=== PATIENT | male | born 1940 | race Caucasian/White ===

== ENCOUNTER 2017-05-20 16:22 | Inpatient (IN) | payer MEDICARE ==
[~2017-05-20] VITALS: Ht 185.4 cm; Wt 68.0 kg
[~2017-05-20 16:22] MED LIST: ACET325T9 PO; ALBU8.5H6 IH; ALPR0.257 PO; CETI10TA16 PO; CITA10TA4 PO; FAMO40TA4 PO; FLUT16SP2 NS; GUAI400T63 PO; HYDR12.58 PO; IPRA3AMP IH; LACT1CAP2 PO; LISI10TA2 PO; LISI2.5T PO; MONT10TA9 PO; MULT-245 PO; PANT40TA5 PO; SIMV10TA3 PO; TAMS0.4C2 PO
[2017-05-20] MEDS ORDERED: IV NORMAL SALINE 1000ML BAG 1,000 ML IV SCH (18:15)
[2017-05-20] MEDS ORDERED: ONDANSETRON PF 4 MG/2 ML VIAL. IV ONE (18:15)
[2017-05-20 18:25] LABS: BASO # 0.1 x10^3/uL (0.0-0.2); BASO % 1 % (0-3); EOS % 0 % (0-3); HEMATOCRIT 45.7 % (39.0-53.0); HEMOGLOBIN 15.2 g/dL (13.0-17.5); LYMPH # 0.8 x10^3/uL (1.0-4.8); LYMPH % 5 % (24-48); MEAN CORPUSCULAR HEMOGLOBIN 31 pg (25-35); MEAN CORPUSCULAR HGB CONC 33 g/dL (31-37); MEAN CORPUSCULAR VOLUME 93 fL (79-100); MONO % 9 % (0-9); NEUT % 85 % (31-73); PLATELET COUNT 200 x10^3/uL (140-400); RED BLOOD COUNT 4.94 x10^6/uL (4.30-5.70); RED CELL DISTRIBUTION WIDTH 12.3 % (11.5-14.5); WHITE BLOOD COUNT 15.5 x10^3/uL (4.0-11.0)
[2017-05-20 18:38] LABS: CREATININE 1.5 mg/dL (0.7-1.3); GFR 45.4; POTASSIUM 4.4 mmol/L (3.5-5.1)
[2017-05-20 18:44] LABS: ALBUMIN 4.2 g/dL (3.4-5.0); ALBUMIN/GLOBULIN RATIO 1.3 (1.0-1.7); TOTAL BILIRUBIN 1.3 mg/dL (0.2-1.0); TOTAL PROTEIN 7.5 g/dL (6.4-8.2)
[2017-05-20 19:00] LABS: % EOS 1 % (0-5); PLT ESTIMATE ADEQUATE (ADEQUATE)
--- NOTE | 2017-05-20 19:01 | EKG ---
[facility] [address] [place] [address] Test Date: 2017-05-20 Test Time: 18:59:01 Pat Name: PARI HARDEN Department: Room: Gender: M Sales Research Analyst: : 1940 Requested By: FAUSTO MAYORGA Order Number: [id number] Reading MD: Beck Short MD Measurements Intervals [place] Rate: 72 P: 34 SD: 202 QRS: 13 QRSD: 86 T: 22 QT: 358 QTc: 393 Interpretive Statements SINUS RHYTHM Electronically Signed On 05-21-2017 15:23:09 TORQUE TESTER by Beck Short MD
--- NOTE | 2017-05-20 20:13 | RAD ---
Indication: Abdominal pain and vomiting. Patient vomiting feculent material. TECHNIQUE: CT abdomen and pelvis without IV contrast with multiplanar reformats. COMPARISON: Previous study from 08/04/2013. FINDINGS: Limited study due to lack of IV contrast. Heart is normal in size. No pericardial or pleural effusion. Subsegmental atelectasis in the lung bases. The noncontrast appearance of the liver, spleen, pancreas, adrenals is within normal limits. Simple cyst measuring approximately 3.2 cm seen in the inferior pole of the right kidney. No hydronephrosis. No nephrolithiasis. No pathologically enlarged retroperitoneal or pelvic adenopathy. No free pelvic fluid. Diffusely dilated small bowel loops noted with air-fluid levels. There is herniation of the small bowel loop in the right inguinal region lateral to the inguinal canal with proximal dilation suggesting a transition point. The colon is nondilated. The terminal ileum is collapsed. There is no pneumatosis. Small omental fat-containing omental hernia. No free intraperitoneal air. Bladder is within normal limits. Prostate and seminal vesicles show no mass lesion. No suspicious bony lesion. Multilevel degenerative disc disease in the spine. IMPRESSION: 1. Right groin hernia containing focal loop of distal small bowel causing proximal small bowel obstruction (strangulated hernia). The hernia is lateral to the inguinal canal suggesting direct hernia. Electronically signed by: Norberto Mims DO (05/20/2017 8:10 PM) [facility]
[2017-05-20 20:57] LABS: BILIRUBIN,URINE SMALL (NEG); GLUCOSE,URINE NEGATIVE (NEG); NITRITE,URINE NEGATIVE (NEG); PROTEIN,URINE NEGATIVE (NEG-TRACE)
[2017-05-20 21:06] LABS: BACTERIA,URINE 0 /HPF (0-FEW); SQUAMOUS EPITHELIAL CELL,UR OCC /LPF; WBC,URINE OCC /HPF (0-4)
[2017-05-20] MEDS ORDERED: VANCOMYCIN 1GM IVPB FOR OMNI 250 ML IV ONE (21:30)
[2017-05-20] MEDS ORDERED: PIPERACILLIN/TAZOBACTAM 4.5 GM in IV DEXTROSE 5% 100 ML IV ONE (21:30)
[2017-05-20] MEDS ORDERED: VANCOMYCIN PER PHARMACY MC PRN (21:30)
[2017-05-20] MEDS ORDERED: PIPERACILLIN/TAZO IV Push 4.5 GM VIAL. IVP ONE (22:00)
[2017-05-20] MEDS ORDERED: VANCOMYCIN 1.75 GM in IV DEXTROSE 5% 500 ML IV ONE (22:30)
[2017-05-20] MEDS ORDERED: IV RINGERS,LACTATED 1000ML 1,000 ML IV SCH (22:31)
[2017-05-20] MEDS ORDERED: SEVOFLURANE 61 TO 120 MINUTES. IH ONE (22:42)
[2017-05-20] MEDS ORDERED: LIDOCAINE 2% PF Vial for OR 5 ML VIAL. ONE (22:44)
[2017-05-20] MEDS ORDERED: fentaNYL PF VIAL 100 MCG/2 ML VIAL ONE ×2 (22:44→23:37)
[2017-05-20] MEDS ORDERED: PROPOFOL 20 ML IV ONE (22:44)
[2017-05-20] MEDS ORDERED: ONDANSETRON PF 4 MG/2 ML VIAL. ONE (22:44)
[2017-05-20] MEDS ORDERED: NEOSTIGMINE 10 MG/10 ML VIAL. ONE (22:44)
[2017-05-20] MEDS ORDERED: DEXAMETHASONE SOD PHOS 20 MG/5 ML VIAL. ONE (22:44)
[2017-05-20] MEDS ORDERED: ROCURONIUM 50 MG/5 ML VIAL. ONE (22:44)
[2017-05-20] MEDS ORDERED: GLYCOPYRROLATE 1 MG/5 ML VIAL. ONE (22:44)
[2017-05-20] MEDS ORDERED: PROCHLORPERAZINE 10 MG/2 ML VIAL. IV PRN (22:45)
[2017-05-20] MEDS ORDERED: LIDOCAINE 1% PF 2 ML VIAL. ID PRN (22:45)
[2017-05-20] MEDS ORDERED: MORPHINE SULFATE 2 MG/ML DISP.SYRIN. IV PRN (22:45)
[2017-05-20] MEDS ORDERED: ONDANSETRON PF 4 MG/2 ML VIAL. IV PRN (22:45)
[2017-05-20] MEDS ORDERED: HYDROmorphone 2 MG/ML VIAL IV PRN (22:45)
[2017-05-20] MEDS ORDERED: fentaNYL PF VIAL 100 MCG/2 ML VIAL IV PRN (22:45)
--- NOTE | 2017-05-20 22:51 | PDOC2 ---
CONSULT Date of Consult Date of Consult DATE: 05/20/17 TIME: 22:48 History of Present Illness Reason for Visit: The patient is a 77 year old male who reported to the ER with abdominal pain and vomiting. His evaluation was significant for an incarcerated right inguinal hernia containing small bowel. Past Medical History Cardiovascular: HTN, Hyperlipidemia Pulmonary: COPD, Pneumonia CENTRAL NERVOUS SYSTEM: CVA, Other GI: Diverticulosis, GERD, Peptic Ulcer disease, Other Heme/Onc: Anemia NOS Psych: Anxiety, Depression, Other Musculoskeletal: Other Renal/: Chronic renal insuff Past Surgical History Past Surgical History surgery for perforated peptic ulcer Family History Family History: Cancer, Diabetes, Stroke Social History ALCOHOL: none Drugs: None Lives: with Family Current Medications Current Medications Current Medications Sodium Chloride 1,000 ml @ 999 mls/hr Q1H1M IV Last administered on 18:33; Start 05/20/17 at 18:15 Ondansetron HCl (Zofran) 4 mg 1X ONCE IV Last administered on 05/20/17 18:33 ; Start 05/20/17 at 18:15; Stop 05/20/17 at 18:19; Status DC Piperacillin Sod/ Tazobactam Sod 4.5 gm/Dextrose 100 ml @ 200 mls/hr 1X ONCE IV ; Start 05/20/17 at 21:30; Stop 05/20/17 at 21:59; Status UNV Vancomycin HCl 250 ml @ 250 mls/hr 1X ONCE IV ; Start 05/20/17 at 21:30; Stop 05/20/17 at 22:29; Status UNV Piperacillin Sod/ Tazobactam Sod (Zosyn) 4.5 gm 1X ONCE IVP ; Start 05/20/17 at 22:00; Stop 05/20/17 at 22:01; Status DC Vancomycin HCl 1.75 gm/Dextrose 500 ml @ 250 mls/hr 1X ONCE IV ; Start at 22:30; Stop 05/21/17 at 00:29 Vancomycin HCl (Vanco Per Pharmacy) 1 each PRN DAILY PRN MC SEE COMMENTS; Start 05/20/17 at 21:30 Ondansetron HCl (Zofran) 4 mg PRN Q6HRS PRN IV NAUSEA/VOMITING; Start at 22:45; Stop 05/21/17 at 22:44 Fentanyl Citrate (Fentanyl 2ml Vial) 25 mcg PRN Q5MIN PRN IV MILD PAIN; Start 05/20/17 at 22:45; Stop 05/21/17 at 22:44 Fentanyl Citrate (Fentanyl 2ml Vial) 50 mcg PRN Q5MIN PRN IV MODERATE PAIN; Start 05/20/17 at 22:45; Stop 05/21/17 at 22:44 Morphine Sulfate 1 mg PRN Q10MIN PRN IV SEVERE PAIN; Start 05/20/17 at 22:45; Stop 05/21/17 at 22:44 Ringer's Solution 1,000 ml @ 30 mls/hr Q24H IV ; Start 05/20/17 at 22:31; Stop 05/21/17 at 10:30 Lidocaine HCl (Xylocaine-Mpf 1% Vial) 2 ml 1X PRN PRN ID IV START; Start 05/20 at 22:45; Stop 05/21/17 at 22:44 Hydromorphone HCl (Dilaudid) 0.5 mg PRN Q10MIN PRN IV SEV PAIN, Second choice; Start 05/20/17 at 22:45; Stop 05/21/17 at 22:44 Prochlorperazine Edisylate (Compazine) 5 mg PACU PRN PRN IV NAUSEA, MRX1; Start 05/20/17 at 22:45; Stop 05/21/17 at 22:44 Sevoflurane (Ultane) 60 ml STK-MED ONCE IH ; Start 05/20/17 at 22:42; Stop at 22:43; Status DC Neostigmine Methylsulfate (Bloxiverz) 10 mg STK-MED ONCE .ROUTE ; Start at 22:44; Stop 05/20/17 at 22:45; Status DC Fentanyl Citrate (Fentanyl 2ml Vial) 100 mcg STK-MED ONCE .ROUTE ; Start at 22:44; Stop 05/20/17 at 22:45; Status DC Glycopyrrolate (Robinul) 1 mg STK-MED ONCE .ROUTE ; Start 05/20/17 at 22:44; Stop 05/20/17 at 22:45; Status DC Rocuronium [place] (Zemuron) 50 mg STK-MED ONCE .ROUTE ; Start 11/13/17 at 22: 44; Stop 05/20/17 at 22:45; Status DC Propofol 20 ml @ As Directed STK-MED ONCE IV ; Start 05/20/17 at 22:44; Stop 05/20/17 at 22:45; Status DC Lidocaine HCl (Lidocaine Pf 2% Vial) 5 ml STK-MED ONCE .ROUTE ; Start 05/20/17 at 22:44; Stop 05/20/17 at 22:45; Status DC Dexamethasone Sodium Phosphate (Decadron) 20 mg STK-MED ONCE .ROUTE ; Start at 22:44; Stop 05/20/17 at 22:45; Status DC Ondansetron HCl (Zofran) 4 mg STK-MED ONCE .ROUTE ; Start 05/20/17 at 22:44; Stop 05/20/17 at 22:45; Status DC Active Scripts Active Reported Tamsulosin Hcl 0.4 Mg Cap.er.24h 1 Cap PO DAILY Tylenol (Acetaminophen) 325 Mg Tablet 325 Mg PO DAILY PRN Albuterol Sulfate Hfa Inhaler (Albuterol Sulfate) 8.5 Gm Hfa.aer.ad 8.5 Gm IH DAILY PRN Cetirizine Hcl 10 Mg Tablet 10 Mg PO DAILY Famotidine 40 Mg Tablet 40 Mg PO DAILY Montelukast Sodium Tablet (Montelukast Sodium) 10 Mg Tablet 10 Mg PO DAILY Simvastatin 10 Mg Tablet 10 Mg PO DAILY Flonase (Fluticasone Propionate) 16 Gm [place].susp 2 Sprays NS DAILY Multi Vitamin Daily (Multivitamin) 1 Each Tablet 1 Each PO DAILY Pantoprazole Sodium 40 Mg Tablet.dr 40 Mg PO DAILY Citalopram Hbr (Citalopram Hydrobromide) 10 Mg Tablet 10 Mg PO DAILY Allergies Allergies: Coded Allergies: codeine (Verified Adverse Reaction, Mild, Shaky and GI Upset, 05/31/15) ROS General: No: Chills, Night Sweats, Fatigue, Malaise, Appetite, Other PSYCHOLOGICAL ROS: No: Anxiety, Behavioral Disorder, Concentration difficultie , Decreased libido, Depression, Disorientation, Hallucinations, Hostility, Irritablity, Memory difficulties, Mood Swings, Obsessive thoughts, Physical abuse, Sexual abuse, Sleep disturbances, Suicidal ideation, Other Eyes: No Blurry vision, No Decreased vision, No Double vision, No Dry eyes, No Excessive tearing, No Eye Pain, No Itchy Eyes, No Loss of vision, No Photophobia , No Scotomata, No Uses contacts, No Uses glasses, No Other HEENT: No: Heacaches, Visual Changes, Hearing change, Nasal congestion, Nasal discharge, Oral lesions, Sinus pain, Sore Throat, Epistaxis, Sneezing, Snoring, Tinnitus, Vertigo, Vocal changes, Other Hematological and Lymphatic: No: Bleeding Problems, Blood Clots, Blood Transfusions, Brusing, Night Sweats, Pallor, Swollen Lymph Nodes, Other ENDOCRINE: No: Breast Changes, Galactorrhea, Hair Pattern Changes, Hot Flashes , Malaise/lethargy, Mood Swings, Palpitations, Polydipsia/polyuria, Skin Changes , Temperature Intolerance, Unexpected Weight Changes, Other Respiratory: No: Cough, Hemoptysis, Orthopnea, Pleuritic Pain, Shortness of breath, SOB with excertion, Sputum Changes, Stridor, Tachypnea, Wheezing, Other Cardiovascular: No Chest Pain, No Palpitations, No Orthopnea, No Paroxysmal Noc. Dyspnea, No Edema, No Lt Headedness, No Other Gastrointestinal: Yes Vomiting, Yes Abdominal Pain Genitourinary: No Dysuria, No Frequency, No Incontinence, No Hematuria, No Retention, No Discharge, No Urgency, No Pain, No Flank Pain, No Other, No , No , No , No , No , No , No Musculoskeletal: No Gait Disturbance, No Joint Pain, No Joint Stiffness, No Joint Swelling, No Muscle Pain, No Muscular Weakness, No Pain In:, No Swelling In:, No Other Skin: No Dry Skin, No Eczema, No Hair Changes, No Lumps, No Mole Changes, No Mottling, No Nail Changes, No Pruritus, No Rash, No Skin Lesion Changes, No Other, No Acne Physical Exam General: Alert HEENT: Atraumatic, PERRLA Lungs: Clear to auscultation Heart: Regular rate Abdomen: Soft (mild tenderness in abdomen, right inguinal mass present) Extremities: No clubbing, No cyanosis Skin: No rashes, No breakdown Neuro: Normal speech Psych/Mental Status: Mental status NL Vitals VITALS Vital Signs Date Time Temp Pulse Resp B/P (MAP) Pulse Ox O2 Delivery O2 Flow Rate FiO2 05/20/17 20:56 74 153/69 (97) Room Air 05/20/17 20:26 93 05/20/17 19:14 28 05/20/17 17:26 98.9 98.9 Labs Labs Laboratory Tests Test 05/20/17 17:43 05/20/17 20:50 05/20/17 21:51 White Blood Count 15.5 x10^3/uL (4.0-11.0) Red Blood Count 4.94 x10^6/uL (4.30-5.70) Hemoglobin 15.2 g/dL (13.0-17.5) Hematocrit 45.7 % (39.0-53.0) Mean Corpuscular Volume 93 fL (79-100) Mean Corpuscular Hemoglobin 31 pg (25-35) Mean Corpuscular Hemoglobin Concent 33 g/dL (31-37) Red Cell Distribution Width 12.3 % (11.5-14.5) Platelet Count 200 x10^3/uL (140-400) Neutrophils (%) (Auto) 85 % (31-73) Lymphocytes (%) (Auto) 5 % (24-48) Monocytes (%) (Auto) 9 % (0-9) Eosinophils (%) (Auto) 0 % (0-3) Basophils (%) (Auto) 1 % (0-3) Neutrophils # (Auto) 13.1 x10^3uL (1.8-7.7) Lymphocytes # (Auto) 0.8 x10^3/uL (1.0-4.8) Monocytes # (Auto) 1.4 x10^3/uL (0.0-1.1) Eosinophils # (Auto) 0.0 x10^3/uL (0.0-0.7) Basophils # (Auto) 0.1 x10^3/uL (0.0-0.2) Segmented Neutrophils % 82 % (35-66) Band Neutrophils % 5 % (0-9) Lymphocytes % 6 % (24-48) Monocytes % 6 % (0-10) Eosinophils % 1 % (0-5) Platelet Estimate Adequate (ADEQUATE) Sodium Level 143 mmol/L (136-145) Potassium Level 4.4 mmol/L (3.5-5.1) Chloride Level 103 mmol/L (98-107) Carbon Dioxide Level 31 mmol/L (21-32) Anion Gap 9 (6-14) Blood Urea Nitrogen 39 mg/dL (8-26) Creatinine 1.5 mg/dL (0.7-1.3) Estimated GFR (Cockcroft-Gault) 45.4 BUN/Creatinine Ratio 26 (6-20) Glucose Level 123 mg/dL (70-99) Calcium Level 10.0 mg/dL (8.5-10.1) Total Bilirubin 1.3 mg/dL (0.2-1.0) Aspartate Amino Transf (AST/SGOT) 32 U/L (15-37) Alanine Aminotransferase (ALT/SGPT) 57 U/L (16-63) Alkaline Phosphatase 113 U/L (46-116) Troponin I Quantitative < 0.017 ng/mL (0.000-0.055) Total Protein 7.5 g/dL (6.4-8.2) Albumin 4.2 g/dL (3.4-5.0) Albumin/Globulin Ratio 1.3 (1.0-1.7) Thyroid Stimulating Hormone (TSH) 1.725 uIU/mL (0.358-3.74) Urine Collection Type U cath Urine Color Love Urine Clarity Clear Urine pH 6.0 Urine Specific [place] >=1.030 Urine Protein Negative mg/dL (NEG-TRACE) Urine Glucose (UA) Negative mg/dL (NEG) Urine Ketones (Stick) Negative mg/dL (NEG) Urine Blood Negative (NEG) Urine Nitrite Negative (NEG) Urine Bilirubin Small (NEG) Urine Urobilinogen Dipstick 1.0 mg/dL (0.2 mg/dL) Urine Leukocyte Esterase Negative (NEG) Urine RBC 3-5 /HPF (0-2) Urine WBC Occ /HPF (0-4) Urine Squamous Epithelial Cells Occ /LPF Urine Amorphous Sediment Present /HPF Urine Bacteria 0 /HPF (0-FEW) Urine Mucus Mod /LPF Lactic Acid Level 1.1 mmol/L (0.4-2.0) Laboratory Tests Test 05/20/17 17:43 05/20/17 20:50 05/20/17 21:51 White Blood Count 15.5 x10^3/uL (4.0-11.0) Red Blood Count 4.94 x10^6/uL (4.30-5.70) Hemoglobin 15.2 g/dL (13.0-17.5) Hematocrit 45.7 % (39.0-53.0) Mean Corpuscular Volume 93 fL (79-100) Mean Corpuscular Hemoglobin 31 pg (25-35) Mean Corpuscular Hemoglobin Concent 33 g/dL (31-37) Red Cell Distribution Width 12.3 % (11.5-14.5) Platelet Count 200 x10^3/uL (140-400) Neutrophils (%) (Auto) 85 % (31-73) Lymphocytes (%) (Auto) 5 % (24-48) Monocytes (%) (Auto) 9 % (0-9) Eosinophils (%) (Auto) 0 % (0-3) Basophils (%) (Auto) 1 % (0-3) Neutrophils # (Auto) 13.1 x10^3uL (1.8-7.7) Lymphocytes # (Auto) 0.8 x10^3/uL (1.0-4.8) Monocytes # (Auto) 1.4 x10^3/uL (0.0-1.1) Eosinophils # (Auto) 0.0 x10^3/uL (0.0-0.7) Basophils # (Auto) 0.1 x10^3/uL (0.0-0.2) Segmented Neutrophils % 82 % (35-66) Band Neutrophils % 5 % (0-9) Lymphocytes % 6 % (24-48) Monocytes % 6 % (0-10) Eosinophils % 1 % (0-5) Platelet Estimate Adequate (ADEQUATE) Sodium Level 143 mmol/L (136-145) Potassium Level 4.4 mmol/L (3.5-5.1) Chloride Level 103 mmol/L (98-107) Carbon Dioxide Level 31 mmol/L (21-32) Anion Gap 9 (6-14) Blood Urea Nitrogen 39 mg/dL (8-26) Creatinine 1.5 mg/dL (0.7-1.3) Estimated GFR (Cockcroft-Gault) 45.4 BUN/Creatinine Ratio 26 (6-20) Glucose Level 123 mg/dL (70-99) Calcium Level 10.0 mg/dL (8.5-10.1) Total Bilirubin 1.3 mg/dL (0.2-1.0) Aspartate Amino Transf (AST/SGOT) 32 U/L (15-37) Alanine Aminotransferase (ALT/SGPT) 57 U/L (16-63) Alkaline Phosphatase 113 U/L (46-116) Troponin I Quantitative < 0.017 ng/mL (0.000-0.055) Total Protein 7.5 g/dL (6.4-8.2) Albumin 4.2 g/dL (3.4-5.0) Albumin/Globulin Ratio 1.3 (1.0-1.7) Thyroid Stimulating Hormone (TSH) 1.725 uIU/mL (0.358-3.74) Urine Collection Type U cath Urine Color Love Urine Clarity Clear Urine pH 6.0 Urine Specific [place] >=1.030 Urine Protein Negative mg/dL (NEG-TRACE) Urine Glucose (UA) Negative mg/dL (NEG) Urine Ketones (Stick) Negative mg/dL (NEG) Urine Blood Negative (NEG) Urine Nitrite Negative (NEG) Urine Bilirubin Small (NEG) Urine Urobilinogen Dipstick 1.0 mg/dL (0.2 mg/dL) Urine Leukocyte Esterase Negative (NEG) Urine RBC 3-5 /HPF (0-2) Urine WBC Occ /HPF (0-4) Urine Squamous Epithelial Cells Occ /LPF Urine Amorphous Sediment Present /HPF Urine Bacteria 0 /HPF (0-FEW) Urine Mucus Mod /LPF Lactic Acid Level 1.1 mmol/L (0.4-2.0) Assessment/Plan Assessment/Plan 77 year old male with incarcerated right inguinal hernia. Recommend surgical correction. I discussed the details of surgery with the patient and his daughter. I reviewed the risks of surgery as well which include bleeding, infection, anesthetic risk, bowel injury, urinary retention, recurrent hernia, pain, potential need for additional surgery or procedure. They are also aware of the possibility of needing a bowel resection depending on the operative findings. MARIN MOON MD May 20, 2017 22:51
[2017-05-20] MEDS ORDERED: PHENYLEPHRINE in 0.9% NACL PF 1 MG/10 ML DISP.SYRIN. IV ONE (23:23)
[2017-05-21] VITALS (12 sets, daily range): BP systolic 99–128; BP diastolic 53–65
[2017-05-21] MEDS ORDERED: ROCURONIUM 50 MG/5 ML VIAL. ONE (00:13)
--- NOTE | 2017-05-21 01:24 | PHYS DOC ---
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 Patient lives at home with family and apparently over the last several days has had decreased by mouth intake. Patient's been generally weak beyond his baseline and has decreased urine output today. Patient went to his primary care doctor, Dr. Guzman and was referred to the emergency department for further evaluation and no chest pain or shortness of breath. Patient does have some abdominal pain. No rash. No fevers chills sweats or shaking chills Review of Systems Review of Systems Constitutional: Denies fever or chills [] Eyes: Denies change in visual acuity, redness, or eye pain [] HENT: Denies nasal congestion or sore throat [] Respiratory: Denies cough or shortness of breath [] Cardiovascular: No additional information not addressed in HPI [] GI: Per history of present illness[] : Denies dysuria or hematuria [] Musculoskeletal: Denies back pain or joint pain [] Integument: Denies rash or skin lesions [] Neurologic: Denies headache, focal weakness or sensory changes [] Endocrine: Denies polyuria or polydipsia [] All other systems were reviewed and found to be within normal limits, except as documented in this note. Current Medications Current Medications Current Medications Medications (Trade) Dose Ordered Sig/Betsy Start Time Stop Time Status Last Admin Dose Admin Ondansetron HCl (Zofran) 4 mg 1X ONCE 05/20/17 18:15 05/20/17 18:19 DC 05/20/17 18:33 4 MG Sodium Chloride 1,000 ml @ 999 mls/hr Q1H1M 05/20/17 18:15 05/20/17 18:33 999 MLS/HR Allergies Allergies Allergies Coded Allergies Type Severity Reaction Last Updated Verified codeine Adverse Reaction Mild Shaky and GI Upset 05/31/15 Yes Physical Exam Physical Exam Constitutional: Chronically ill and generally weak appearing elderly patient no acute distress, non-toxic appearance. mucous membranes dry. Mild diffuse abdominal tenderness HENT: Normocephalic, atraumatic, bilateral external ears normal, oropharynx moist, no oral exudates, nose normal. [] Eyes: PERRLA, EOMI, conjunctiva normal, no discharge. [] Neck: Normal range of motion, no tenderness, supple, no stridor. [] Cardiovascular:Heart rate regular rhythm, no murmur [] Lungs & Thorax: Bilateral breath sounds clear to auscultation [] Abdomen: Bowel sounds normal, soft, few sleep tender as above no masses, no pulsatile masses. [] Skin: Warm, dry, no erythema, no rash. [] Back: No tenderness, no CVA tenderness. [] Extremities: No tenderness, no cyanosis, no clubbing, ROM intact, no edema. [] Neurologic: Patient alert and communicative at mental status baseline per family normal motor function, normal sensory function, no focal deficits noted. [] Psychologic: Affect, judgement normal, mood normal. [] Current Patient Data Vital Signs Vital Signs Date Time Temp Pulse Resp B/P (MAP) Pulse Ox O2 Delivery O2 Flow Rate FiO2 05/20/17 20:26 64 141/65 (90) 93 Room Air 05/20/17 19:14 28 05/20/17 17:26 98.9 98.9 Lab Values Laboratory Tests Test 05/20/17 17:43 White Blood Count 15.5 x10^3/uL (4.0-11.0) H Red Blood Count 4.94 x10^6/uL (4.30-5.70) Hemoglobin 15.2 g/dL (13.0-17.5) Hematocrit 45.7 % (39.0-53.0) Mean Corpuscular Volume 93 fL (79-100) Mean Corpuscular Hemoglobin 31 pg (25-35) Mean Corpuscular Hemoglobin Concent 33 g/dL (31-37) Red Cell Distribution Width 12.3 % (11.5-14.5) Platelet Count 200 x10^3/uL (140-400) Neutrophils (%) (Auto) 85 % (31-73) H Lymphocytes (%) (Auto) 5 % (24-48) L Monocytes (%) (Auto) 9 % (0-9) Eosinophils (%) (Auto) 0 % (0-3) Basophils (%) (Auto) 1 % (0-3) Neutrophils # (Auto) 13.1 x10^3uL (1.8-7.7) H Lymphocytes # (Auto) 0.8 x10^3/uL (1.0-4.8) L Monocytes # (Auto) 1.4 x10^3/uL (0.0-1.1) H Eosinophils # (Auto) 0.0 x10^3/uL (0.0-0.7) Basophils # (Auto) 0.1 x10^3/uL (0.0-0.2) Segmented Neutrophils % 82 % (35-66) H Band Neutrophils % 5 % (0-9) Lymphocytes % 6 % (24-48) L Monocytes % 6 % (0-10) Eosinophils % 1 % (0-5) Platelet Estimate Adequate (ADEQUATE) Sodium Level 143 mmol/L (136-145) Potassium Level 4.4 mmol/L (3.5-5.1) Chloride Level 103 mmol/L (98-107) Carbon Dioxide Level 31 mmol/L (21-32) Anion Gap 9 (6-14) Blood Urea Nitrogen 39 mg/dL (8-26) H Creatinine 1.5 mg/dL (0.7-1.3) H Estimated GFR (Cockcroft-Gault) 45.4 BUN/Creatinine Ratio 26 (6-20) H Glucose Level 123 mg/dL (70-99) H Calcium Level 10.0 mg/dL (8.5-10.1) Total Bilirubin 1.3 mg/dL (0.2-1.0) H Aspartate Amino Transferase (AST) 32 U/L (15-37) Alanine Aminotransferase (ALT) 57 U/L (16-63) Alkaline Phosphatase 113 U/L (46-116) Troponin I Quantitative < 0.017 ng/mL (0.000-0.055) Total Protein 7.5 g/dL (6.4-8.2) Albumin 4.2 g/dL (3.4-5.0) Albumin/Globulin Ratio 1.3 (1.0-1.7) Thyroid Stimulating Hormone (TSH) 1.725 uIU/mL (0.358-3.74) Laboratory Tests 05/20/17 17:43 Laboratory Tests 05/20/17 17:43 EKG EKG EKG with normal sinus rhythm at 72 no STEMI interpreted by me Radiology/Procedures Radiology/Procedures Chest x-ray with chronic changes no acute disease interpreted by me[] Course & Med Decision Making Course & Med Decision Making Pertinent Labs and Imaging studies reviewed. (See chart for details) Patient with decreased by mouth intake and abdominal pain. White blood cell count elevated at 15.5. BUN/creatinine 39 and 1.5. Patient hydrated. EKG and chest x-ray unremarkable. CT abdomen and pelvis shows direct inguinal hernia with incarcerated owl. Case discussed with Dr. Guzman who requests consult to Dr. Domingo of surgery. Case discussed with Dr. Domingo through his lower nurse. He is aware of history and findings and agrees with stat consultation. Dr. Guzman accepts the patient for inpatient admission his service. Dragon Disclaimer Dragon Disclaimer This electronic medical record was generated, in whole or in part, using a voice recognition dictation system. Departure Departure Impression: Primary Impression: Bowel obstruction Additional Impressions: Direct inguinal hernia Leukocytosis Abdominal pain Mild dehydration Disposition: ADMITTED INPATIENT Admitting Physician: Danial Guzman Condition: GUARDED Referrals: DANIAL GUZMAN MD (PCP) Problem Qualifiers FAUSTO MAYORGA MD May 21, 2017 01:24
--- NOTE | 2017-05-21 01:26 | PDOC4 ---
Operative Note Operative Note Operative Note: Preoperative Diagnosis: Incarcerated right inguinal hernia Postoperative Diagnosis: Strangulated right femoral hernia Procedure: Repair of strangulated right femoral hernia, small bowel resection Surgeon: Jose L Unix Administrator: Mariana CONTRERAS Anesthesia: Gen. EBL: 25 mL Specimen: Small bowel segment to pathology Drains: None Complications: None Indication: The patient is a 77-year-old gentleman reported to the emergency department with abdominal pain. His evaluation is consistent with an incarcerated right inguinal hernia. He was offered surgical repair and the details of surgery were discussed with the patient and his daughter. The risks of surgery were also noted which include bleeding, infection, visceral injury, anastomotic leak, anesthetic risk, potential need for additional surgery or procedure. He understands and would like to proceed. Description: The patient was taken to the operating room and placed supine on the operating table. Gen. anesthesia was performed. The bilateral groins and abdomen were prepped with ChloraPrep and draped in a standard surgical manner. An incision was made in the right groin with a scalpel. Cautery dissection down to the external oblique aponeurosis. The aponeurosis was then divided. The patient had an incarcerated right femoral hernia with protrusion deep to the inguinal ligament. The neck of the hernia was quite tight and the inguinal ligament had to be divided. The appearance of the hernia contents appeared black suggesting likely focal bowel infarction. Given this a lower vertical midline incision was made with a scalpel. Cautery dissection was carried onto the fascia. The fashion peritoneum were then divided in the lower abdomen was entered. I was able to reduce the hernia from within the abdomen and inspection did confirm short gangrenous segment of small bowel. The intestine proximal and distal to this appeared viable and healthy with only some secondary dilation of the proximal segment due to obstruction. The small intestine was divided proximal and distal to the strangulated segment using a KATE-75 stapling device. The mesentery was then controlled using the LigaSure device. The small bowel segment was then sent to pathology for evaluation. A side to side, functional end-to-end stapled anastomosis was then constructed. The anti-mesenteric sides of both limbs of bowel were opened. The stapler was then placed within both segments of bowel and deployed creating the anastomosis. The common enterotomy was then oversewn with a running 3-0 PDS suture. All of the staple lines were then reinforced with interrupted 3-0 Vicryl placed in the seromuscular layer. The mesenteric defect was closed with 3-0 Vicryl as well. The bowel was returned to the abdominal cavity. We selected an absorbable Phasix mesh plug which was placed in the hernia defect. This was sutured around its periphery with interrupted 2-0 Vicryl. The external oblique aponeurosis was then closed with 2-0 Vicryl. The subcutaneous tissue was approximated with 3-0 Vicryl. The midline fascia was closed with a running 1 PDS suture. The skin of both incisions was closed using cary. Sterile dressings were then applied. The patient tolerated the procedure well and was sent to the recovery room in stable condition. At the end of the case all counts were correct. MARIN MOON MD May 21, 2017 01:26
[2017-05-21] MEDS ORDERED: HYDROmorphone 2 MG/ML VIAL IVP PRN (01:45)
[2017-05-21] MEDS ORDERED: fentaNYL PF VIAL 100 MCG/2 ML VIAL ONE (01:48)
[2017-05-21] MEDS: fentaNYL PF VIAL 100 MCG/2 ML VIAL IV PRN ×2 (02:03→02:15)
--- NOTE | 2017-05-21 08:32 | RAD ---
Portable chest, 05/20/2017: History: Abdominal pain with nausea and vomiting Comparison is made to a study from 05/30/2015. The heart size and pulmonary vascularity are normal. There is calcific plaquing of the aorta. There is minimal basilar scarring. No acute infiltrate is seen. There is no evidence of pleural fluid. There is an old healed rib fracture on the left. IMPRESSION: 1. Mild basilar scarring. 2. No acute cardiopulmonary abnormality is detected.
--- NOTE | 2017-05-21 08:42 | PDOC1 ---
HEDY NIELSON SHAPE HAND 05/21/17 0842: HISTORY AND PHYSICAL Chief Complaint Chief Complaint This 77 year old male has been admitted with a chief complaint of abdominal pain, nausea and vomiting. He was seen in the office by Dr. Mims yesterday. Siva has dementia and his daughter provided the HPI. He had onset n/v several days ago with decreased oral intake and urine out put. Dr. Mims referred Siva to [facility] ED for evaluation. In the ER a CT of the abdomen/pelvis revealed R groin hernia containing focal loop of distal small bowel causing proximal small bowel obstruction (strangulated hernia). The hernia is lateral to the inguinal canal suggesting direct hernia. Labs: WBC 15.5. Dr. Domingo was consulted and Siva underwent emergency repair of strangulated R femoral hernia and a small bowel resection for strangulated R femoral hernia. He is admitted to the medical surgical floor post op. 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 Meyer); exploratory lap gastric ulcer repair 2011 Past Surgical History: Cataract Removal (R eye with lens implant; blind L eye ) Past Family History Family History: Cancer (sister), Diabetes, Stroke (Mom) Past Social History PSH lives with daughter. negative h/o tobacco,ETOH or illicit drug use. Review of Symptoms Review of Symptoms A 14 point ROS was completed with the following noted as positive: per HPI pre surgery; post op surgical pain Other systems reviewed and negative. Medications Medications reviewed and reconciled Allergy Allergies Coded Allergies Type Severity Reaction Last Updated Verified codeine Adverse Reaction Mild Shaky and GI Upset 05/31/15 Yes Physical Exam Physical Exam General appearance - alert, weak appearing, and in no distress Mental Status - alert, oriented to person, place, affect appropriate to mood Head - normal Chest - clear to auscultation, no wheezes, rales or rhonchi, symmetric air entry Heart - S1 and S2 normal Abdomen - soft, + tender surgical, nondistended, BS +, abd dressing lower abd serous blood present Neurological - weak, no acute deficit, 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 Musculoskeletal - no muscular tenderness noted Extremities - no pedal edema Skin - warm and dry VTE Prophylaxis Ordered VTE Prophylaxis Devices: Yes VTE Pharmacological Prophylaxi: No Assessment Labs Laboratory Tests Test 05/20/17 17:43 05/20/17 20:50 05/20/17 21:51 White Blood Count 15.5 x10^3/uL (4.0-11.0) Red Blood Count 4.94 x10^6/uL (4.30-5.70) Hemoglobin 15.2 g/dL (13.0-17.5) Hematocrit 45.7 % (39.0-53.0) Mean Corpuscular Volume 93 fL (79-100) Mean Corpuscular Hemoglobin 31 pg (25-35) Mean Corpuscular Hemoglobin Concent 33 g/dL (31-37) Red Cell Distribution Width 12.3 % (11.5-14.5) Platelet Count 200 x10^3/uL (140-400) Neutrophils (%) (Auto) 85 % (31-73) Lymphocytes (%) (Auto) 5 % (24-48) Monocytes (%) (Auto) 9 % (0-9) Eosinophils (%) (Auto) 0 % (0-3) Basophils (%) (Auto) 1 % (0-3) Neutrophils # (Auto) 13.1 x10^3uL (1.8-7.7) Lymphocytes # (Auto) 0.8 x10^3/uL (1.0-4.8) Monocytes # (Auto) 1.4 x10^3/uL (0.0-1.1) Eosinophils # (Auto) 0.0 x10^3/uL (0.0-0.7) Basophils # (Auto) 0.1 x10^3/uL (0.0-0.2) Segmented Neutrophils % 82 % (35-66) Band Neutrophils % 5 % (0-9) Lymphocytes % 6 % (24-48) Monocytes % 6 % (0-10) Eosinophils % 1 % (0-5) Platelet Estimate Adequate (ADEQUATE) Sodium Level 143 mmol/L (136-145) Potassium Level 4.4 mmol/L (3.5-5.1) Chloride Level 103 mmol/L (98-107) Carbon Dioxide Level 31 mmol/L (21-32) Anion Gap 9 (6-14) Blood Urea Nitrogen 39 mg/dL (8-26) Creatinine 1.5 mg/dL (0.7-1.3) Estimated GFR (Cockcroft-Gault) 45.4 BUN/Creatinine Ratio 26 (6-20) Glucose Level 123 mg/dL (70-99) Calcium Level 10.0 mg/dL (8.5-10.1) Total Bilirubin 1.3 mg/dL (0.2-1.0) Aspartate Amino Transf (AST/SGOT) 32 U/L (15-37) Alanine Aminotransferase (ALT/SGPT) 57 U/L (16-63) Alkaline Phosphatase 113 U/L (46-116) Troponin I Quantitative < 0.017 ng/mL (0.000-0.055) Total Protein 7.5 g/dL (6.4-8.2) Albumin 4.2 g/dL (3.4-5.0) Albumin/Globulin Ratio 1.3 (1.0-1.7) Thyroid Stimulating Hormone (TSH) 1.725 uIU/mL (0.358-3.74) Urine Collection Type U cath Urine Color Love Urine Clarity Clear Urine pH 6.0 Urine Specific [place] >=1.030 Urine Protein Negative mg/dL (NEG-TRACE) Urine Glucose (UA) Negative mg/dL (NEG) Urine Ketones (Stick) Negative mg/dL (NEG) Urine Blood Negative (NEG) Urine Nitrite Negative (NEG) Urine Bilirubin Small (NEG) Urine Urobilinogen Dipstick 1.0 mg/dL (0.2 mg/dL) Urine Leukocyte Esterase Negative (NEG) Urine RBC 3-5 /HPF (0-2) Urine WBC Occ /HPF (0-4) Urine Squamous Epithelial Cells Occ /LPF Urine Amorphous Sediment Present /HPF Urine Bacteria 0 /HPF (0-FEW) Urine Mucus Mod /LPF Lactic Acid Level 1.1 mmol/L (0.4-2.0) Laboratory Tests Test 05/20/17 17:43 05/20/17 20:50 05/20/17 21:51 White Blood Count 15.5 x10^3/uL (4.0-11.0) Red Blood Count 4.94 x10^6/uL (4.30-5.70) Hemoglobin 15.2 g/dL (13.0-17.5) Hematocrit 45.7 % (39.0-53.0) Mean Corpuscular Volume 93 fL (79-100) Mean Corpuscular Hemoglobin 31 pg (25-35) Mean Corpuscular Hemoglobin Concent 33 g/dL (31-37) Red Cell Distribution Width 12.3 % (11.5-14.5) Platelet Count 200 x10^3/uL (140-400) Neutrophils (%) (Auto) 85 % (31-73) Lymphocytes (%) (Auto) 5 % (24-48) Monocytes (%) (Auto) 9 % (0-9) Eosinophils (%) (Auto) 0 % (0-3) Basophils (%) (Auto) 1 % (0-3) Neutrophils # (Auto) 13.1 x10^3uL (1.8-7.7) Lymphocytes # (Auto) 0.8 x10^3/uL (1.0-4.8) Monocytes # (Auto) 1.4 x10^3/uL (0.0-1.1) Eosinophils # (Auto) 0.0 x10^3/uL (0.0-0.7) Basophils # (Auto) 0.1 x10^3/uL (0.0-0.2) Segmented Neutrophils % 82 % (35-66) Band Neutrophils % 5 % (0-9) Lymphocytes % 6 % (24-48) Monocytes % 6 % (0-10) Eosinophils % 1 % (0-5) Platelet Estimate Adequate (ADEQUATE) Sodium Level 143 mmol/L (136-145) Potassium Level 4.4 mmol/L (3.5-5.1) Chloride Level 103 mmol/L (98-107) Carbon Dioxide Level 31 mmol/L (21-32) Anion Gap 9 (6-14) Blood Urea Nitrogen 39 mg/dL (8-26) Creatinine 1.5 mg/dL (0.7-1.3) Estimated GFR (Cockcroft-Gault) 45.4 BUN/Creatinine Ratio 26 (6-20) Glucose Level 123 mg/dL (70-99) Calcium Level 10.0 mg/dL (8.5-10.1) Total Bilirubin 1.3 mg/dL (0.2-1.0) Aspartate Amino Transf (AST/SGOT) 32 U/L (15-37) Alanine Aminotransferase (ALT/SGPT) 57 U/L (16-63) Alkaline Phosphatase 113 U/L (46-116) Troponin I Quantitative < 0.017 ng/mL (0.000-0.055) Total Protein 7.5 g/dL (6.4-8.2) Albumin 4.2 g/dL (3.4-5.0) Albumin/Globulin Ratio 1.3 (1.0-1.7) Thyroid Stimulating Hormone (TSH) 1.725 uIU/mL (0.358-3.74) Urine Collection Type U cath Urine Color Love Urine Clarity Clear Urine pH 6.0 Urine Specific [place] >=1.030 Urine Protein Negative mg/dL (NEG-TRACE) Urine Glucose (UA) Negative mg/dL (NEG) Urine Ketones (Stick) Negative mg/dL (NEG) Urine Blood Negative (NEG) Urine Nitrite Negative (NEG) Urine Bilirubin Small (NEG) Urine Urobilinogen Dipstick 1.0 mg/dL (0.2 mg/dL) Urine Leukocyte Esterase Negative (NEG) Urine RBC 3-5 /HPF (0-2) Urine WBC Occ /HPF (0-4) Urine Squamous Epithelial Cells Occ /LPF Urine Amorphous Sediment Present /HPF Urine Bacteria 0 /HPF (0-FEW) Urine Mucus Mod /LPF Lactic Acid Level 1.1 mmol/L (0.4-2.0) Plan Plan 1. abdominal pain n/v secondary to strangulated R femoral hernia s/p R femoral hernia repair SB resection 05/20/14 2. leukocytosis 3. HTN 4. hyperlipemia 5. 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 GERD 9. DJD multiple joints 10. allergic rhinitis PLAN: R strangulated femoral hernia - s/p R femoral hernia repair/SB resection - POD 1 - leukocytosis WBC 15.5 - Vanc IV daily - Zosyn x 1 pre op - HTN - NPO -resume home meds when surgery orders diet COPD - nebulizer treatments - IS post op - ambulate weakness/debility - PT OT NPO - advance diet per surgery instructions - resume home meds when they ok. DVT/GI prophylaxis - SCD/PPI For more details regarding further plans, please refer to the orders. DANIAL MIMS MD 05/21/17 1140: HISTORY AND PHYSICAL Plan Plan The patient was seen and examined by me. Chart reviewed and plan of care formulated. Discussed with, reviewed and agree with MODEL MAKING SUPERVISOR's notes, plan of care and orders with modifications as necessary. For more details regarding further plans, please refer to the orders. D/w patient and family. HEDY NIELSON APRN May 21, 2017 08:42 DANIAL MIMS MD May 21, 2017 11:40
--- NOTE | 2017-05-21 09:01 | PDOC ---
XOCHITL DIGGS REGISTERED DENTAL HYGIENIST 05/21/17 0901: SURGICAL PROGRESS NOTE Subjective resting incisional pain no emesis Vital Signs Vital Signs Date Time Temp Pulse Resp B/P (MAP) Pulse Ox O2 Delivery O2 Flow Rate FiO2 05/21/17 05:57 97.7 63 18 122/56 (78) 94 Room Air 97.7 05/21/17 03:00 6.0 I&O Intake and Output 05/21/17 07:00 Intake Total 3020 ml Output Total 25 ml Balance 2995 ml Intake IV Total 3020 ml Output Estimated Blood Loss 25 ml PATIENT HAS A CRUZ: Yes General: Alert, Oriented X3, Cooperative, No acute distress Abdomen: Soft, Other (dressing with shadowing, incisional TTP ) Labs Laboratory Tests Test 05/20/17 17:43 05/20/17 20:50 05/20/17 21:51 White Blood Count 15.5 x10^3/uL (4.0-11.0) Red Blood Count 4.94 x10^6/uL (4.30-5.70) Hemoglobin 15.2 g/dL (13.0-17.5) Hematocrit 45.7 % (39.0-53.0) Mean Corpuscular Volume 93 fL (79-100) Mean Corpuscular Hemoglobin 31 pg (25-35) Mean Corpuscular Hemoglobin Concent 33 g/dL (31-37) Red Cell Distribution Width 12.3 % (11.5-14.5) Platelet Count 200 x10^3/uL (140-400) Neutrophils (%) (Auto) 85 % (31-73) Lymphocytes (%) (Auto) 5 % (24-48) Monocytes (%) (Auto) 9 % (0-9) Eosinophils (%) (Auto) 0 % (0-3) Basophils (%) (Auto) 1 % (0-3) Neutrophils # (Auto) 13.1 x10^3uL (1.8-7.7) Lymphocytes # (Auto) 0.8 x10^3/uL (1.0-4.8) Monocytes # (Auto) 1.4 x10^3/uL (0.0-1.1) Eosinophils # (Auto) 0.0 x10^3/uL (0.0-0.7) Basophils # (Auto) 0.1 x10^3/uL (0.0-0.2) Segmented Neutrophils % 82 % (35-66) Band Neutrophils % 5 % (0-9) Lymphocytes % 6 % (24-48) Monocytes % 6 % (0-10) Eosinophils % 1 % (0-5) Platelet Estimate Adequate (ADEQUATE) Sodium Level 143 mmol/L (136-145) Potassium Level 4.4 mmol/L (3.5-5.1) Chloride Level 103 mmol/L (98-107) Carbon Dioxide Level 31 mmol/L (21-32) Anion Gap 9 (6-14) Blood Urea Nitrogen 39 mg/dL (8-26) Creatinine 1.5 mg/dL (0.7-1.3) Estimated GFR (Cockcroft-Gault) 45.4 BUN/Creatinine Ratio 26 (6-20) Glucose Level 123 mg/dL (70-99) Calcium Level 10.0 mg/dL (8.5-10.1) Total Bilirubin 1.3 mg/dL (0.2-1.0) Aspartate Amino Transf (AST/SGOT) 32 U/L (15-37) Alanine Aminotransferase (ALT/SGPT) 57 U/L (16-63) Alkaline Phosphatase 113 U/L (46-116) Troponin I Quantitative < 0.017 ng/mL (0.000-0.055) Total Protein 7.5 g/dL (6.4-8.2) Albumin 4.2 g/dL (3.4-5.0) Albumin/Globulin Ratio 1.3 (1.0-1.7) Thyroid Stimulating Hormone (TSH) 1.725 uIU/mL (0.358-3.74) Urine Collection Type U cath Urine Color Love Urine Clarity Clear Urine pH 6.0 Urine Specific [place] >=1.030 Urine Protein Negative mg/dL (NEG-TRACE) Urine Glucose (UA) Negative mg/dL (NEG) Urine Ketones (Stick) Negative mg/dL (NEG) Urine Blood Negative (NEG) Urine Nitrite Negative (NEG) Urine Bilirubin Small (NEG) Urine Urobilinogen Dipstick 1.0 mg/dL (0.2 mg/dL) Urine Leukocyte Esterase Negative (NEG) Urine RBC 3-5 /HPF (0-2) Urine WBC Occ /HPF (0-4) Urine Squamous Epithelial Cells Occ /LPF Urine Amorphous Sediment Present /HPF Urine Bacteria 0 /HPF (0-FEW) Urine Mucus Mod /LPF Lactic Acid Level 1.1 mmol/L (0.4-2.0) Laboratory Tests Test 05/20/17 17:43 05/20/17 20:50 05/20/17 21:51 White Blood Count 15.5 x10^3/uL (4.0-11.0) Red Blood Count 4.94 x10^6/uL (4.30-5.70) Hemoglobin 15.2 g/dL (13.0-17.5) Hematocrit 45.7 % (39.0-53.0) Mean Corpuscular Volume 93 fL (79-100) Mean Corpuscular Hemoglobin 31 pg (25-35) Mean Corpuscular Hemoglobin Concent 33 g/dL (31-37) Red Cell Distribution Width 12.3 % (11.5-14.5) Platelet Count 200 x10^3/uL (140-400) Neutrophils (%) (Auto) 85 % (31-73) Lymphocytes (%) (Auto) 5 % (24-48) Monocytes (%) (Auto) 9 % (0-9) Eosinophils (%) (Auto) 0 % (0-3) Basophils (%) (Auto) 1 % (0-3) Neutrophils # (Auto) 13.1 x10^3uL (1.8-7.7) Lymphocytes # (Auto) 0.8 x10^3/uL (1.0-4.8) Monocytes # (Auto) 1.4 x10^3/uL (0.0-1.1) Eosinophils # (Auto) 0.0 x10^3/uL (0.0-0.7) Basophils # (Auto) 0.1 x10^3/uL (0.0-0.2) Segmented Neutrophils % 82 % (35-66) Band Neutrophils % 5 % (0-9) Lymphocytes % 6 % (24-48) Monocytes % 6 % (0-10) Eosinophils % 1 % (0-5) Platelet Estimate Adequate (ADEQUATE) Sodium Level 143 mmol/L (136-145) Potassium Level 4.4 mmol/L (3.5-5.1) Chloride Level 103 mmol/L (98-107) Carbon Dioxide Level 31 mmol/L (21-32) Anion Gap 9 (6-14) Blood Urea Nitrogen 39 mg/dL (8-26) Creatinine 1.5 mg/dL (0.7-1.3) Estimated GFR (Cockcroft-Gault) 45.4 BUN/Creatinine Ratio 26 (6-20) Glucose Level 123 mg/dL (70-99) Calcium Level 10.0 mg/dL (8.5-10.1) Total Bilirubin 1.3 mg/dL (0.2-1.0) Aspartate Amino Transf (AST/SGOT) 32 U/L (15-37) Alanine Aminotransferase (ALT/SGPT) 57 U/L (16-63) Alkaline Phosphatase 113 U/L (46-116) Troponin I Quantitative < 0.017 ng/mL (0.000-0.055) Total Protein 7.5 g/dL (6.4-8.2) Albumin 4.2 g/dL (3.4-5.0) Albumin/Globulin Ratio 1.3 (1.0-1.7) Thyroid Stimulating Hormone (TSH) 1.725 uIU/mL (0.358-3.74) Urine Collection Type U cath Urine Color Love Urine Clarity Clear Urine pH 6.0 Urine Specific [place] >=1.030 Urine Protein Negative mg/dL (NEG-TRACE) Urine Glucose (UA) Negative mg/dL (NEG) Urine Ketones (Stick) Negative mg/dL (NEG) Urine Blood Negative (NEG) Urine Nitrite Negative (NEG) Urine Bilirubin Small (NEG) Urine Urobilinogen Dipstick 1.0 mg/dL (0.2 mg/dL) Urine Leukocyte Esterase Negative (NEG) Urine RBC 3-5 /HPF (0-2) Urine WBC Occ /HPF (0-4) Urine Squamous Epithelial Cells Occ /LPF Urine Amorphous Sediment Present /HPF Urine Bacteria 0 /HPF (0-FEW) Urine Mucus Mod /LPF Lactic Acid Level 1.1 mmol/L (0.4-2.0) Problem List Problems Medical Problems: (1) Abdominal pain Status: Acute (2) Bowel obstruction Status: Acute (3) Direct inguinal hernia Status: Acute (4) Leukocytosis Status: Acute (5) Mild dehydration Status: Acute Assessment/Plan s/p repair strangulated right femoral hernia, SBR NPO, hydration, bowel rest, await bowel function Problems: MARIN MOON MD 05/21/17 1156: SURGICAL PROGRESS NOTE Assessment/Plan Agree with above Problems: XOCHITL DIGGS APRN May 21, 2017 09:01 MARIN MOON MD May 21, 2017 11:56
[2017-05-21 10:13] LABS: BASO % 0 % (0-3); EOS % 0 % (0-3); HEMATOCRIT 38.7 % (39.0-53.0); HEMOGLOBIN 12.9 g/dL (13.0-17.5); LYMPH # 0.6 x10^3/uL (1.0-4.8); LYMPH % 6 % (24-48); MEAN CORPUSCULAR HEMOGLOBIN 31 pg (25-35); MEAN CORPUSCULAR HGB CONC 34 g/dL (31-37); MEAN CORPUSCULAR VOLUME 93 fL (79-100); MONO % 11 % (0-9); NEUT % 84 % (31-73); PLATELET COUNT 146 x10^3/uL (140-400); RED BLOOD COUNT 4.18 x10^6/uL (4.30-5.70); RED CELL DISTRIBUTION WIDTH 12.3 % (11.5-14.5); WHITE BLOOD COUNT 11.3 x10^3/uL (4.0-11.0)
[2017-05-21 10:16] LABS: CALCIUM 9.2 mg/dL (8.5-10.1); CREATININE 1.2 mg/dL (0.7-1.3); GFR 58.7; POTASSIUM 4.3 mmol/L (3.5-5.1)
[2017-05-21] MEDS: ALBUTEROL SULFATE 2.5 MG/3 ML NEBU. NEB SCH ×3 (12:04→18:41)
[2017-05-21] MEDS: PANTOPRAZOLE IV PUSH 40 MG VIAL. IVP SCH (13:38)
[2017-05-21] MEDS: PIPERACILLIN/TAZO IV Push 3.375 GM VIAL. IVP SCH ×2 (13:38→17:51)
[2017-05-21] MEDS: POTASSIUM CL 20MEQ D5-0.45NACL 1,000 ML IV SCH (13:40)
[2017-05-21] MEDS ORDERED: PIPERACILLIN/TAZOBACTAM 3.375 GM in IV DEXTROSE 5% 50 ML IV SCH (14:00)
[2017-05-21] MEDS: HYDROmorphone 2 MG/ML VIAL IVP PRN (22:27)
[2017-05-21] MEDS ORDERED: VANCOMYCIN 1 GM in IV DEXTROSE 5% 250 ML IV SCH (23:00)
[2017-05-22] MEDS: PIPERACILLIN/TAZO IV Push 3.375 GM VIAL. IVP SCH ×4 (00:41→17:30)
[2017-05-22] MEDS: POTASSIUM CL 20MEQ D5-0.45NACL 1,000 ML IV SCH ×2 (02:54→15:38)
[2017-05-22 03:00] VITALS: BP 103/53
[2017-05-22 05:28] LABS: BASO % 0 % (0-3); EOS % 2 % (0-3); HEMATOCRIT 34.7 % (39.0-53.0); HEMOGLOBIN 11.8 g/dL (13.0-17.5); LYMPH # 0.7 x10^3/uL (1.0-4.8); LYMPH % 9 % (24-48); MEAN CORPUSCULAR HEMOGLOBIN 31 pg (25-35); MEAN CORPUSCULAR HGB CONC 34 g/dL (31-37); MEAN CORPUSCULAR VOLUME 92 fL (79-100); MONO % 12 % (0-9); NEUT % 77 % (31-73); PLATELET COUNT 124 x10^3/uL (140-400); RED BLOOD COUNT 3.77 x10^6/uL (4.30-5.70); RED CELL DISTRIBUTION WIDTH 12.6 % (11.5-14.5); WHITE BLOOD COUNT 7.3 x10^3/uL (4.0-11.0)
[2017-05-22 05:48] LABS: CALCIUM 8.5 mg/dL (8.5-10.1); CREATININE 1.2 mg/dL (0.7-1.3); GFR 58.7; POTASSIUM 3.8 mmol/L (3.5-5.1)
[2017-05-22 07:00] VITALS: BP 125/59
--- NOTE | 2017-05-22 07:37 | PDOC ---
PROGRESS NOTES Subjective Subjective no complaints Objective Objective Vital Signs Date Time Temp Pulse Resp B/P (MAP) Pulse Ox O2 Delivery O2 Flow Rate FiO2 05/22/17 03:00 98.7 68 18 103/53 (70) 91 98.7 05/21/17 22:27 Room Air 05/21/17 03:00 6.0 Intake and Output 05/22/17 07:00 Intake Total 1000 ml Output Total 1120 ml Balance -120 ml Intake Oral 0 ml IV Total 1000 ml Output Urine Total 1120 ml Physical Exam Abdomen: Soft Assessment Assessment Problems Medical Problems: (1) Abdominal pain Status: Acute (2) Bowel obstruction Status: Acute (3) Direct inguinal hernia Status: Acute (4) Leukocytosis Status: Acute (5) Mild dehydration Status: Acute Plan Plan of Care Await return of bowel function, mobilize, therapy etc Comment Review of Relevant I have reviewed the following items yadi (where applicable) has been applied. Labs Laboratory Tests Test 05/20/17 17:43 05/20/17 20:50 05/20/17 21:51 05/21/17 09:45 White Blood Count 15.5 x10^3/uL (4.0-11.0) 11.3 x10^3/uL (4.0-11.0) Red Blood Count 4.94 x10^6/uL (4.30-5.70) 4.18 x10^6/uL (4.30-5.70) Hemoglobin 15.2 g/dL (13.0-17.5) 12.9 g/dL (13.0-17.5) Hematocrit 45.7 % (39.0-53.0) 38.7 % (39.0-53.0) Mean Corpuscular Volume 93 fL (79-100) 93 fL (79-100) Mean Corpuscular Hemoglobin 31 pg (25-35) 31 pg (25-35) Mean Corpuscular Hemoglobin Concent 33 g/dL (31-37) 34 g/dL (31-37) Red Cell Distribution Width 12.3 % (11.5-14.5) 12.3 % (11.5-14.5) Platelet Count 200 x10^3/uL (140-400) 146 x10^3/uL (140-400) Neutrophils (%) (Auto) 85 % (31-73) 84 % (31-73) Lymphocytes (%) (Auto) 5 % (24-48) 6 % (24-48) Monocytes (%) (Auto) 9 % (0-9) 11 % (0-9) Eosinophils (%) (Auto) 0 % (0-3) 0 % (0-3) Basophils (%) (Auto) 1 % (0-3) 0 % (0-3) Neutrophils # (Auto) 13.1 x10^3uL (1.8-7.7) 9.5 x10^3uL (1.8-7.7) Lymphocytes # (Auto) 0.8 x10^3/uL (1.0-4.8) 0.6 x10^3/uL (1.0-4.8) Monocytes # (Auto) 1.4 x10^3/uL (0.0-1.1) 1.2 x10^3/uL (0.0-1.1) Eosinophils # (Auto) 0.0 x10^3/uL (0.0-0.7) 0.0 x10^3/uL (0.0-0.7) Basophils # (Auto) 0.1 x10^3/uL (0.0-0.2) 0.0 x10^3/uL (0.0-0.2) Segmented Neutrophils % 82 % (35-66) Band Neutrophils % 5 % (0-9) Lymphocytes % 6 % (24-48) Monocytes % 6 % (0-10) Eosinophils % 1 % (0-5) Platelet Estimate Adequate (ADEQUATE) Sodium Level 143 mmol/L (136-145) 142 mmol/L (136-145) Potassium Level 4.4 mmol/L (3.5-5.1) 4.3 mmol/L (3.5-5.1) Chloride Level 103 mmol/L (98-107) 106 mmol/L (98-107) Carbon Dioxide Level 31 mmol/L (21-32) 34 mmol/L (21-32) Anion Gap 9 (6-14) 2 (6-14) Blood Urea Nitrogen 39 mg/dL (8-26) 30 mg/dL (8-26) Creatinine 1.5 mg/dL (0.7-1.3) 1.2 mg/dL (0.7-1.3) Estimated GFR (Cockcroft-Gault) 45.4 58.7 BUN/Creatinine Ratio 26 (6-20) Glucose Level 123 mg/dL (70-99) 119 mg/dL (70-99) Calcium Level 10.0 mg/dL (8.5-10.1) 9.2 mg/dL (8.5-10.1) Total Bilirubin 1.3 mg/dL (0.2-1.0) Aspartate Amino Transf (AST/SGOT) 32 U/L (15-37) Alanine Aminotransferase (ALT/SGPT) 57 U/L (16-63) Alkaline Phosphatase 113 U/L (46-116) Troponin I Quantitative < 0.017 ng/mL (0.000-0.055) Total Protein 7.5 g/dL (6.4-8.2) Albumin 4.2 g/dL (3.4-5.0) Albumin/Globulin Ratio 1.3 (1.0-1.7) Thyroid Stimulating Hormone (TSH) 1.725 uIU/mL (0.358-3.74) Urine Collection Type U cath Urine Color Love Urine Clarity Clear Urine pH 6.0 Urine Specific [place] >=1.030 Urine Protein Negative mg/dL (NEG-TRACE) Urine Glucose (UA) Negative mg/dL (NEG) Urine Ketones (Stick) Negative mg/dL (NEG) Urine Blood Negative (NEG) Urine Nitrite Negative (NEG) Urine Bilirubin Small (NEG) Urine Urobilinogen Dipstick 1.0 mg/dL (0.2 mg/dL) Urine Leukocyte Esterase Negative (NEG) Urine RBC 3-5 /HPF (0-2) Urine WBC Occ /HPF (0-4) Urine Squamous Epithelial Cells Occ /LPF Urine Amorphous Sediment Present /HPF Urine Bacteria 0 /HPF (0-FEW) Urine Mucus Mod /LPF Lactic Acid Level 1.1 mmol/L (0.4-2.0) Test 05/22/17 04:08 White Blood Count 7.3 x10^3/uL (4.0-11.0) Red Blood Count 3.77 x10^6/uL (4.30-5.70) Hemoglobin 11.8 g/dL (13.0-17.5) Hematocrit 34.7 % (39.0-53.0) Mean Corpuscular Volume 92 fL (79-100) Mean Corpuscular Hemoglobin 31 pg (25-35) Mean Corpuscular Hemoglobin Concent 34 g/dL (31-37) Red Cell Distribution Width 12.6 % (11.5-14.5) Platelet Count 124 x10^3/uL (140-400) Neutrophils (%) (Auto) 77 % (31-73) Lymphocytes (%) (Auto) 9 % (24-48) Monocytes (%) (Auto) 12 % (0-9) Eosinophils (%) (Auto) 2 % (0-3) Basophils (%) (Auto) 0 % (0-3) Neutrophils # (Auto) 5.6 x10^3uL (1.8-7.7) Lymphocytes # (Auto) 0.7 x10^3/uL (1.0-4.8) Monocytes # (Auto) 0.9 x10^3/uL (0.0-1.1) Eosinophils # (Auto) 0.1 x10^3/uL (0.0-0.7) Basophils # (Auto) 0.0 x10^3/uL (0.0-0.2) Sodium Level 140 mmol/L (136-145) Potassium Level 3.8 mmol/L (3.5-5.1) Chloride Level 105 mmol/L (98-107) Carbon Dioxide Level 29 mmol/L (21-32) Anion Gap 6 (6-14) Blood Urea Nitrogen 23 mg/dL (8-26) Creatinine 1.2 mg/dL (0.7-1.3) Estimated GFR (Cockcroft-Gault) 58.7 Glucose Level 122 mg/dL (70-99) Calcium Level 8.5 mg/dL (8.5-10.1) Laboratory Tests Test 05/21/17 09:45 05/22/17 04:08 White Blood Count 11.3 x10^3/uL (4.0-11.0) 7.3 x10^3/uL (4.0-11.0) Red Blood Count 4.18 x10^6/uL (4.30-5.70) 3.77 x10^6/uL (4.30-5.70) Hemoglobin 12.9 g/dL (13.0-17.5) 11.8 g/dL (13.0-17.5) Hematocrit 38.7 % (39.0-53.0) 34.7 % (39.0-53.0) Mean Corpuscular Volume 93 fL (79-100) 92 fL (79-100) Mean Corpuscular Hemoglobin 31 pg (25-35) 31 pg (25-35) Mean Corpuscular Hemoglobin Concent 34 g/dL (31-37) 34 g/dL (31-37) Red Cell Distribution Width 12.3 % (11.5-14.5) 12.6 % (11.5-14.5) Platelet Count 146 x10^3/uL (140-400) 124 x10^3/uL (140-400) Neutrophils (%) (Auto) 84 % (31-73) 77 % (31-73) Lymphocytes (%) (Auto) 6 % (24-48) 9 % (24-48) Monocytes (%) (Auto) 11 % (0-9) 12 % (0-9) Eosinophils (%) (Auto) 0 % (0-3) 2 % (0-3) Basophils (%) (Auto) 0 % (0-3) 0 % (0-3) Neutrophils # (Auto) 9.5 x10^3uL (1.8-7.7) 5.6 x10^3uL (1.8-7.7) Lymphocytes # (Auto) 0.6 x10^3/uL (1.0-4.8) 0.7 x10^3/uL (1.0-4.8) Monocytes # (Auto) 1.2 x10^3/uL (0.0-1.1) 0.9 x10^3/uL (0.0-1.1) Eosinophils # (Auto) 0.0 x10^3/uL (0.0-0.7) 0.1 x10^3/uL (0.0-0.7) Basophils # (Auto) 0.0 x10^3/uL (0.0-0.2) 0.0 x10^3/uL (0.0-0.2) Sodium Level 142 mmol/L (136-145) 140 mmol/L (136-145) Potassium Level 4.3 mmol/L (3.5-5.1) 3.8 mmol/L (3.5-5.1) Chloride Level 106 mmol/L (98-107) 105 mmol/L (98-107) Carbon Dioxide Level 34 mmol/L (21-32) 29 mmol/L (21-32) Anion Gap 2 (6-14) 6 (6-14) Blood Urea Nitrogen 30 mg/dL (8-26) 23 mg/dL (8-26) Creatinine 1.2 mg/dL (0.7-1.3) 1.2 mg/dL (0.7-1.3) Estimated GFR (Cockcroft-Gault) 58.7 58.7 Glucose Level 119 mg/dL (70-99) 122 mg/dL (70-99) Calcium Level 9.2 mg/dL (8.5-10.1) 8.5 mg/dL (8.5-10.1) Microbiology 05/20/17 Blood Culture - Preliminary, Resulted NO GROWTH AFTER 1 DAY Medications Current Medications Sodium Chloride 1,000 ml @ 999 mls/hr Q1H1M IV Last administered on 18:33; Start 05/20/17 at 18:15; Stop 05/21/17 at 11:45; Status DC Ondansetron HCl (Zofran) 4 mg 1X ONCE IV Last administered on 05/20/17 18:33 ; Start 05/20/17 at 18:15; Stop 05/20/17 at 18:19; Status DC Piperacillin Sod/ Tazobactam Sod 4.5 gm/Dextrose 100 ml @ 200 mls/hr 1X ONCE IV ; Start 05/20/17 at 21:30; Stop 05/20/17 at 21:59; Status UNV Vancomycin HCl 250 ml @ 250 mls/hr 1X ONCE IV ; Start 05/20/17 at 21:30; Stop 05/20/17 at 22:29; Status UNV Piperacillin Sod/ Tazobactam Sod (Zosyn) 4.5 gm 1X ONCE IVP Last administered on 05/20/17 23:00; Start 05/20/17 at 22:00; Stop 05/20/17 at 22:01; Status DC Vancomycin HCl 1.75 gm/Dextrose 500 ml @ 250 mls/hr 1X ONCE IV ; Start at 22:30; Stop 05/21/17 at 00:29; Status DC Vancomycin HCl (Vanco Per Pharmacy) 1 each PRN DAILY PRN MC SEE COMMENTS Last administered on 05/21/17 05:28; Start 05/20/17 at 21:30 Ondansetron HCl (Zofran) 4 mg PRN Q6HRS PRN IV NAUSEA/VOMITING; Start at 22:45; Stop 05/21/17 at 08:32; Status DC Fentanyl Citrate (Fentanyl 2ml Vial) 25 mcg PRN Q5MIN PRN IV MILD PAIN; Start 05/20/17 at 22:45; Stop 05/21/17 at 08:32; Status DC Fentanyl Citrate (Fentanyl 2ml Vial) 50 mcg PRN Q5MIN PRN IV MODERATE PAIN Last administered on 05/21/17 02:15; Start 05/20/17 at 22:45; Stop 05/21/17 at 08:32; Status DC Morphine Sulfate 1 mg PRN Q10MIN PRN IV SEVERE PAIN; Start 05/20/17 at 22:45; Stop 05/21/17 at 08:31; Status DC Ringer's Solution 1,000 ml @ 30 mls/hr Q24H IV ; Start 05/20/17 at 22:31; Stop 05/21/17 at 10:30; Status DC Lidocaine HCl (Xylocaine-Mpf 1% Vial) 2 ml 1X PRN PRN ID IV START; Start 05/20 at 22:45; Stop 05/21/17 at 22:44; Status DC Hydromorphone HCl (Dilaudid) 0.5 mg PRN Q10MIN PRN IV SEV PAIN, Second choice; Start 05/20/17 at 22:45; Stop 05/21/17 at 08:31; Status DC Prochlorperazine Edisylate (Compazine) 5 mg PACU PRN PRN IV NAUSEA, MRX1; Start 05/20/17 at 22:45; Stop 05/21/17 at 08:31; Status DC Sevoflurane (Ultane) 60 ml STK-MED ONCE IH ; Start 05/20/17 at 22:42; Stop at 22:43; Status DC Neostigmine Methylsulfate (Bloxiverz) 10 mg STK-MED ONCE .ROUTE ; Start at 22:44; Stop 05/20/17 at 22:45; Status DC Fentanyl Citrate (Fentanyl 2ml Vial) 100 mcg STK-MED ONCE .ROUTE ; Start at 22:44; Stop 05/20/17 at 22:45; Status DC Glycopyrrolate (Robinul) 1 mg STK-MED ONCE .ROUTE ; Start 05/20/17 at 22:44; Stop 05/20/17 at 22:45; Status DC Rocuronium [place] (Zemuron) 50 mg STK-MED ONCE .ROUTE ; Start 05/20/17 at 22: 44; Stop 05/20/17 at 22:45; Status DC Propofol 20 ml @ As Directed STK-MED ONCE IV ; Start 05/20/17 at 22:44; Stop 05/20/17 at 22:45; Status DC Lidocaine HCl (Lidocaine Pf 2% Vial) 5 ml STK-MED ONCE .ROUTE ; Start 05/20/17 at 22:44; Stop 05/20/17 at 22:45; Status DC Dexamethasone Sodium Phosphate (Decadron) 20 mg STK-MED ONCE .ROUTE ; Start at 22:44; Stop 05/20/17 at 22:45; Status DC Ondansetron HCl (Zofran) 4 mg STK-MED ONCE .ROUTE ; Start 05/20/17 at 22:44; Stop 05/20/17 at 22:45; Status DC Phenylephrine HCl 1 mg STK-MED ONCE IV ; Start 05/20/17 at 23:23; Stop at 23:24; Status DC Fentanyl Citrate (Fentanyl 2ml Vial) 100 mcg STK-MED ONCE .ROUTE ; Start at 23:37; Stop 05/20/17 at 23:38; Status DC Rocuronium [place] (Zemuron) 50 mg STK-MED ONCE .ROUTE ; Start 05/21/17 at 00: 13; Stop 05/21/17 at 00:14; Status DC Hydromorphone HCl (Dilaudid) 0.2 mg PRN Q3HRS PRN IVP MODERATE PAIN Last administered on 05/21/17t 22:27; Start 05/21/17 at 01:30 Hydromorphone HCl (Dilaudid) 0.5 mg PRN Q3HRS PRN IVP SEVERE PAIN; Start 05/21 at 01:45; Stop 05/21/17 at 08:31; Status DC Fentanyl Citrate (Fentanyl 2ml Vial) 100 mcg STK-MED ONCE .ROUTE ; Start at 01:48; Stop 05/21/17 at 01:49; Status DC Vancomycin HCl 1 gm/Dextrose 250 ml @ 250 mls/hr Q24H IV Last administered on 05/21/17 22:27; Start 05/21/17 at 23:00 Vancomycin HCl 1 each 1X ONCE MC ; Start 05/22/17 at 22:30; Stop 05/22/17 at 22:31 Ondansetron HCl (Zofran) 4 mg PRN Q6HRS PRN IV NAUSEA/VOMITING; Start at 08:30 Pantoprazole Sodium (Protonix Vial) 40 mg DAILYAC IVP Last administered on 13:38; Start 05/21/17 at 09:00 Albuterol Sulfate (Ventolin Neb Soln) 2.5 mg RTQID NEB Last administered on 18:41; Start 05/21/17 at 12:00 Potassium Chloride/Dextrose/ Sod Cl 1,000 ml @ 75 mls/hr [id number] IV Last administered on 05/22/17 02:54; Start 05/21/17 at 11:45 Piperacillin Sod/ Tazobactam Sod 3.375 gm/Dextrose 50 ml @ 100 mls/hr Q8HRS IV ; Start 05/21/17 at 14:00; Status UNV Piperacillin Sod/ Tazobactam Sod (Zosyn) 3.375 gm Q6HRS IVP Last administered on 05/22/17 06:31; Start 05/21/17 at 12:00 Active Scripts Active Reported Tamsulosin Hcl 0.4 Mg Cap.er.24h 1 Cap PO DAILY Tylenol (Acetaminophen) 325 Mg Tablet 325 Mg PO DAILY PRN Albuterol Sulfate Hfa Inhaler (Albuterol Sulfate) 8.5 Gm Hfa.aer.ad 8.5 Gm IH DAILY PRN Cetirizine Hcl 10 Mg Tablet 10 Mg PO DAILY Famotidine 40 Mg Tablet 40 Mg PO DAILY Montelukast Sodium Tablet (Montelukast Sodium) 10 Mg Tablet 10 Mg PO DAILY Simvastatin 10 Mg Tablet 10 Mg PO DAILY Flonase (Fluticasone Propionate) 16 Gm Moore.susp 2 Sprays NS DAILY Multi Vitamin Daily (Multivitamin) 1 Each Tablet 1 Each PO DAILY Pantoprazole Sodium 40 Mg Tablet.dr 40 Mg PO DAILY Citalopram Hbr (Citalopram Hydrobromide) 10 Mg Tablet 10 Mg PO DAILY Vitals/I & O Vital Sign - Last 24 Hours 05/21/17 05/21/17 05/21/17 05/21/17 08:00 11:00 12:04 15:00 Temp 97.0 98.9 97.0 98.9 Pulse 76 80 Resp 20 20 B/P (MAP) 99/56 (70) 100/60 (73) Pulse Ox 96 96 97 O2 Delivery Room Air Room Air Room Air 05/21/17 05/21/17 05/21/17 05/21/17 15:51 18:42 19:00 20:00 Temp 98.7 98.7 Pulse 80 Resp 18 B/P (MAP) 128/65 (86) Pulse Ox 95 92 O2 Delivery Room Air Room Air Room Air 05/21/17 05/21/17 05/22/17 22:27 23:00 03:00 Temp 98.8 98.7 98.8 98.7 Pulse 65 68 Resp 18 18 18 B/P (MAP) 112/58 (76) 103/53 (70) Pulse Ox 98 91 O2 Delivery Room Air Intake and Output 05/21/17 05/21/17 05/22/17 15:00 23:00 07:00 Intake Total 0 ml 1000 ml Output Total 220 ml 900 ml Balance -220 ml 100 ml MARIN MOON MD May 22, 2017 07:37
[2017-05-22] MEDS: ALBUTEROL SULFATE 2.5 MG/3 ML NEBU. NEB SCH ×4 (08:08→20:16)
[2017-05-22] MEDS: PANTOPRAZOLE IV PUSH 40 MG VIAL. IVP SCH (08:51)
--- NOTE | 2017-05-22 08:53 | PDOC ---
LUISSamirHEDY HENSLEY FREIGHT LOADER 05/22/17 0853: IM PROGRESS NOTES- Subjective Subjective awake, hungry Objective Objective no distress Vitals Vital Signs Date Time Temp Pulse Resp B/P (MAP) Pulse Ox O2 Delivery O2 Flow Rate FiO2 05/22/17 08:08 92 Room Air 05/22/17 07:00 97.8 69 18 125/59 (81) 97.8 Input & Output Intake and Output 05/22/17 07:00 Intake Total 1000 ml Output Total 1120 ml Balance -120 ml Intake Oral 0 ml IV Total 1000 ml Output Urine Total 1120 ml Physical Exam Physical Exam General appearance - alert, weak appearing, and in no distress Mental Status - alert, oriented to person, place, affect appropriate to mood Head - normal Chest - clear to auscultation, no wheezes, rales or rhonchi Heart - S1 and S2 normal Abdomen - soft, + tender surgical, slight distention, BS absent, abd dressing lower abd DI Neurological - weak, no acute deficit, 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 Musculoskeletal - no muscular tenderness noted Extremities - no pedal edema Skin - warm and dry Labs Laboratory Tests Test 05/20/17 17:43 05/20/17 20:50 05/20/17 21:51 05/21/17 09:45 White Blood Count 15.5 x10^3/uL (4.0-11.0) 11.3 x10^3/uL (4.0-11.0) Red Blood Count 4.94 x10^6/uL (4.30-5.70) 4.18 x10^6/uL (4.30-5.70) Hemoglobin 15.2 g/dL (13.0-17.5) 12.9 g/dL (13.0-17.5) Hematocrit 45.7 % (39.0-53.0) 38.7 % (39.0-53.0) Mean Corpuscular Volume 93 fL (79-100) 93 fL (79-100) Mean Corpuscular Hemoglobin 31 pg (25-35) 31 pg (25-35) Mean Corpuscular Hemoglobin Concent 33 g/dL (31-37) 34 g/dL (31-37) Red Cell Distribution Width 12.3 % (11.5-14.5) 12.3 % (11.5-14.5) Platelet Count 200 x10^3/uL (140-400) 146 x10^3/uL (140-400) Neutrophils (%) (Auto) 85 % (31-73) 84 % (31-73) Lymphocytes (%) (Auto) 5 % (24-48) 6 % (24-48) Monocytes (%) (Auto) 9 % (0-9) 11 % (0-9) Eosinophils (%) (Auto) 0 % (0-3) 0 % (0-3) Basophils (%) (Auto) 1 % (0-3) 0 % (0-3) Neutrophils # (Auto) 13.1 x10^3uL (1.8-7.7) 9.5 x10^3uL (1.8-7.7) Lymphocytes # (Auto) 0.8 x10^3/uL (1.0-4.8) 0.6 x10^3/uL (1.0-4.8) Monocytes # (Auto) 1.4 x10^3/uL (0.0-1.1) 1.2 x10^3/uL (0.0-1.1) Eosinophils # (Auto) 0.0 x10^3/uL (0.0-0.7) 0.0 x10^3/uL (0.0-0.7) Basophils # (Auto) 0.1 x10^3/uL (0.0-0.2) 0.0 x10^3/uL (0.0-0.2) Segmented Neutrophils % 82 % (35-66) Band Neutrophils % 5 % (0-9) Lymphocytes % 6 % (24-48) Monocytes % 6 % (0-10) Eosinophils % 1 % (0-5) Platelet Estimate Adequate (ADEQUATE) Sodium Level 143 mmol/L (136-145) 142 mmol/L (136-145) Potassium Level 4.4 mmol/L (3.5-5.1) 4.3 mmol/L (3.5-5.1) Chloride Level 103 mmol/L (98-107) 106 mmol/L (98-107) Carbon Dioxide Level 31 mmol/L (21-32) 34 mmol/L (21-32) Anion Gap 9 (6-14) 2 (6-14) Blood Urea Nitrogen 39 mg/dL (8-26) 30 mg/dL (8-26) Creatinine 1.5 mg/dL (0.7-1.3) 1.2 mg/dL (0.7-1.3) Estimated GFR (Cockcroft-Gault) 45.4 58.7 BUN/Creatinine Ratio 26 (6-20) Glucose Level 123 mg/dL (70-99) 119 mg/dL (70-99) Calcium Level 10.0 mg/dL (8.5-10.1) 9.2 mg/dL (8.5-10.1) Total Bilirubin 1.3 mg/dL (0.2-1.0) Aspartate Amino Transf (AST/SGOT) 32 U/L (15-37) Alanine Aminotransferase (ALT/SGPT) 57 U/L (16-63) Alkaline Phosphatase 113 U/L (46-116) Troponin I Quantitative < 0.017 ng/mL (0.000-0.055) Total Protein 7.5 g/dL (6.4-8.2) Albumin 4.2 g/dL (3.4-5.0) Albumin/Globulin Ratio 1.3 (1.0-1.7) Thyroid Stimulating Hormone (TSH) 1.725 uIU/mL (0.358-3.74) Urine Collection Type U cath Urine Color Love Urine Clarity Clear Urine pH 6.0 Urine Specific [place] >=1.030 Urine Protein Negative mg/dL (NEG-TRACE) Urine Glucose (UA) Negative mg/dL (NEG) Urine Ketones (Stick) Negative mg/dL (NEG) Urine Blood Negative (NEG) Urine Nitrite Negative (NEG) Urine Bilirubin Small (NEG) Urine Urobilinogen Dipstick 1.0 mg/dL (0.2 mg/dL) Urine Leukocyte Esterase Negative (NEG) Urine RBC 3-5 /HPF (0-2) Urine WBC Occ /HPF (0-4) Urine Squamous Epithelial Cells Occ /LPF Urine Amorphous Sediment Present /HPF Urine Bacteria 0 /HPF (0-FEW) Urine Mucus Mod /LPF Lactic Acid Level 1.1 mmol/L (0.4-2.0) Test 05/22/17 04:08 White Blood Count 7.3 x10^3/uL (4.0-11.0) Red Blood Count 3.77 x10^6/uL (4.30-5.70) Hemoglobin 11.8 g/dL (13.0-17.5) Hematocrit 34.7 % (39.0-53.0) Mean Corpuscular Volume 92 fL (79-100) Mean Corpuscular Hemoglobin 31 pg (25-35) Mean Corpuscular Hemoglobin Concent 34 g/dL (31-37) Red Cell Distribution Width 12.6 % (11.5-14.5) Platelet Count 124 x10^3/uL (140-400) Neutrophils (%) (Auto) 77 % (31-73) Lymphocytes (%) (Auto) 9 % (24-48) Monocytes (%) (Auto) 12 % (0-9) Eosinophils (%) (Auto) 2 % (0-3) Basophils (%) (Auto) 0 % (0-3) Neutrophils # (Auto) 5.6 x10^3uL (1.8-7.7) Lymphocytes # (Auto) 0.7 x10^3/uL (1.0-4.8) Monocytes # (Auto) 0.9 x10^3/uL (0.0-1.1) Eosinophils # (Auto) 0.1 x10^3/uL (0.0-0.7) Basophils # (Auto) 0.0 x10^3/uL (0.0-0.2) Sodium Level 140 mmol/L (136-145) Potassium Level 3.8 mmol/L (3.5-5.1) Chloride Level 105 mmol/L (98-107) Carbon Dioxide Level 29 mmol/L (21-32) Anion Gap 6 (6-14) Blood Urea Nitrogen 23 mg/dL (8-26) Creatinine 1.2 mg/dL (0.7-1.3) Estimated GFR (Cockcroft-Gault) 58.7 Glucose Level 122 mg/dL (70-99) Calcium Level 8.5 mg/dL (8.5-10.1) Laboratory Tests Test 05/21/17 09:45 05/22/17 04:08 White Blood Count 11.3 x10^3/uL (4.0-11.0) 7.3 x10^3/uL (4.0-11.0) Red Blood Count 4.18 x10^6/uL (4.30-5.70) 3.77 x10^6/uL (4.30-5.70) Hemoglobin 12.9 g/dL (13.0-17.5) 11.8 g/dL (13.0-17.5) Hematocrit 38.7 % (39.0-53.0) 34.7 % (39.0-53.0) Mean Corpuscular Volume 93 fL (79-100) 92 fL (79-100) Mean Corpuscular Hemoglobin 31 pg (25-35) 31 pg (25-35) Mean Corpuscular Hemoglobin Concent 34 g/dL (31-37) 34 g/dL (31-37) Red Cell Distribution Width 12.3 % (11.5-14.5) 12.6 % (11.5-14.5) Platelet Count 146 x10^3/uL (140-400) 124 x10^3/uL (140-400) Neutrophils (%) (Auto) 84 % (31-73) 77 % (31-73) Lymphocytes (%) (Auto) 6 % (24-48) 9 % (24-48) Monocytes (%) (Auto) 11 % (0-9) 12 % (0-9) Eosinophils (%) (Auto) 0 % (0-3) 2 % (0-3) Basophils (%) (Auto) 0 % (0-3) 0 % (0-3) Neutrophils # (Auto) 9.5 x10^3uL (1.8-7.7) 5.6 x10^3uL (1.8-7.7) Lymphocytes # (Auto) 0.6 x10^3/uL (1.0-4.8) 0.7 x10^3/uL (1.0-4.8) Monocytes # (Auto) 1.2 x10^3/uL (0.0-1.1) 0.9 x10^3/uL (0.0-1.1) Eosinophils # (Auto) 0.0 x10^3/uL (0.0-0.7) 0.1 x10^3/uL (0.0-0.7) Basophils # (Auto) 0.0 x10^3/uL (0.0-0.2) 0.0 x10^3/uL (0.0-0.2) Sodium Level 142 mmol/L (136-145) 140 mmol/L (136-145) Potassium Level 4.3 mmol/L (3.5-5.1) 3.8 mmol/L (3.5-5.1) Chloride Level 106 mmol/L (98-107) 105 mmol/L (98-107) Carbon Dioxide Level 34 mmol/L (21-32) 29 mmol/L (21-32) Anion Gap 2 (6-14) 6 (6-14) Blood Urea Nitrogen 30 mg/dL (8-26) 23 mg/dL (8-26) Creatinine 1.2 mg/dL (0.7-1.3) 1.2 mg/dL (0.7-1.3) Estimated GFR (Cockcroft-Gault) 58.7 58.7 Glucose Level 119 mg/dL (70-99) 122 mg/dL (70-99) Calcium Level 9.2 mg/dL (8.5-10.1) 8.5 mg/dL (8.5-10.1) Meds Current Medications Albuterol Sulfate (Ventolin Neb Soln) 2.5 mg RTQID NEB Last administered on 08:08; Start 05/21/17 at 12:00 Pantoprazole Sodium (Protonix Vial) 40 mg DAILYAC IVP Last administered on 13:38; Start 05/21/17 at 09:00 Piperacillin Sod/ Tazobactam Sod (Zosyn) 3.375 gm Q6HRS IVP Last administered on 05/22/17 06:31; Start 05/21/17 at 12:00 Piperacillin Sod/ Tazobactam Sod 3.375 gm/Dextrose 50 ml @ 100 mls/hr Q8HRS IV ; Start 05/21/17 at 14:00; Status UNV Potassium Chloride/Dextrose/ Sod Cl 1,000 ml @ 75 mls/hr [id number] IV Last administered on 05/22/17 02:54; Start 05/21/17 at 11:45 Vancomycin HCl 1 each 1X ONCE MC ; Start 05/22/17 at 22:30; Stop 05/22/17 at 22:31 Vancomycin HCl 1 gm/Dextrose 250 ml @ 250 mls/hr Q24H IV Last administered on 05/21/17t 22:27; Start 05/21/17 at 23:00 Assessment Assessment 1. abdominal pain n/v secondary to strangulated R femoral hernia s/p R femoral hernia repair SB resection 05/20/14 2. leukocytosis w/o sepsis 3. HTN 4. hyperlipemia 5. 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 GERD 9. DJD multiple joints 10. allergic rhinitis 11. severe PCL malnutrition 12. moderate weakness and debility PLAN: 05/22/17 POD 2 - BS absent - slight distention - ice chips - ambulate - zosyn/ vanco IV continues - IVF D5 1/2 NS 20K 75cc/hr HTN - stable COPD - stable anemia - admit Hgb 15 today 11.8 - has h/o chronic anemia - decrease secondary to rehydration NPO - continue, advance when surgeon orders 05/21/17 R strangulated femoral hernia - s/p R femoral hernia repair/SB resection - POD 1 - leukocytosis WBC 15.5 - Vanc IV daily - Zosyn x 1 pre op - HTN - NPO -resume home meds when surgery orders diet COPD - nebulizer treatments - IS post op - ambulate weakness/debility - PT OT NPO - advance diet per surgery instructions - resume home meds when they ok - consider change IVF to PPN as he had decreased oral intake prior to admission. DVT/GI prophylaxis - SCD/PPI For further plan of care, please see the orders. Plan Plan For more details regarding further plans, please refer to the orders. DANIAL GUZMAN MD 05/22/17 1019: IM PROGRESS NOTES- Assessment Assessment Slowly improving. Very weak. D/c IV Vancomycin. The patient was seen and examined by me. Chart reviewed and plan of care formulated. Discussed with, reviewed and agree with [facility]'s notes, plan of care and orders with modifications as necessary. For more details regarding further plans, please refer to the orders. HEDY NIELSON APRN May 22, 2017 08:53 DANIAL GUZMAN MD May 22, 2017 10:19
[2017-05-22 10:47] VITALS: BP 132/61
[2017-05-22] MEDS: ONDANSETRON PF 4 MG/2 ML VIAL. IV PRN (12:04)
[2017-05-22] MEDS: HYDROmorphone 2 MG/ML VIAL IVP PRN (12:04)
[2017-05-22 14:40] VITALS: BP 129/60
--- NOTE | 2017-05-22 17:15 | PATHOLOGY ---
PATHOLOGY REPORT * * * * * * * * FINAL DIAGNOSIS: Segment of small bowel, right inguinal hernia repair with segmental bowel resection: - Hemorrhagic infarct. COMMENT: The margins of the small bowel resection appear viable although there are focal ischemic changes of one of the margins noted. (JPM:[email or web address]; 05/22/2017) REPORT ELECTRONICALLY SIGNED BY: Monty Chávez M.D. DATE/TIME: 05/22/2017 17:15 * * * * * * * * GROSS PATHOLOGY: Received in formalin labeled "Siva Harden small bowel" is an unoriented segment of small bowel which is closed on both ends with staple lines and measures 7.4 cm in length and 1.9 cm in diameter. The serosa is pink-red and smooth. There is a dilated area in the center of the specimen measuring 5.0 cm in length and 3.1 cm in diameter. This area measures 1.4 cm to the closest staple line margin. The staple lines are removed and the specimen is opened to reveal pink livingston unremarkable mucosa adjacent to the staple line margins and red-brown dusky flattened mucosa in the dilated area. The margins appear grossly viable. Manager Nursing sections of the specimen are submitted as follows: A1-A2 margins A3-A4 medical sales representative dilated mucosa ([facility] [place] [facility] [place]; 05/21/2017) INITIAL CPT CODE(S): A; 41260 Professional services performed [place] [address] Technical services performed by [facility] at [address] [place] [address], [facility] [address], [place] [address]. SPECIMEN(S) RECEIVED: A.Small bowel CLINICAL HISTORY: Strangulated femoral hernia PATIENT: SIVA HARDEN /AGE: 6 1940 (Age: 77) PATIENT #: [id number] ALT CASE #: SPECIMEN COLLECTION DATE: 05/20/2017 SPECIMEN RECEIVED DATE: 05/21/2017 [facility] - [address] [place] [address] - PHONE: [phone] * * * END OF REPORT * * *
[2017-05-22 19:10] VITALS: BP 137/71
[2017-05-22 23:10] VITALS: BP 120/61
[2017-05-23] MEDS: PIPERACILLIN/TAZO IV Push 3.375 GM VIAL. IVP SCH ×5 (01:01→23:22)
[2017-05-23 03:15] VITALS: BP 126/56
[2017-05-23] MEDS: POTASSIUM CL 20MEQ D5-0.45NACL 1,000 ML IV SCH (06:18)
[2017-05-23 07:15] VITALS: BP 132/61
[2017-05-23] MEDS: ALBUTEROL SULFATE 2.5 MG/3 ML NEBU. NEB SCH ×4 (07:20→20:46)
--- NOTE | 2017-05-23 07:57 | RAD ---
AP abdominal radiograph 05/22/2017 Clinical indication: Coughing, dark green sputum, nausea. Comparison: CT abdomen and pelvis 05/20/2017 Findings: Multiple gaseous dilated loops of small bowel measuring up to 5 cm. There is a relative paucity of colonic gas. Impression: Persistent gaseous dilated loops of small bowel consistent with small bowel obstruction.
--- NOTE | 2017-05-23 08:00 | RAD ---
AP chest radiograph 05/22/2017 Clinical indication: Productive cough. Comparison: Chest 05/20/2017 Findings: Hypoinflation of both lungs. Heart size is upper limits of normal without pulmonary venous congestion. There is a trace left pleural effusion. There are patchy opacities in the left lung base. Mild right basilar atelectasis. No pneumothorax. Impression: Trace left pleural effusion and left basilar patchy opacities which may represent atelectasis, aspiration or infection.
[2017-05-23] MEDS: ONDANSETRON PF 4 MG/2 ML VIAL. IV PRN ×2 (08:15→16:19)
[2017-05-23] MEDS: PANTOPRAZOLE IV PUSH 40 MG VIAL. IVP SCH (08:15)
--- NOTE | 2017-05-23 08:30 | PDOC ---
LUISSamirHEDY HENSLEY CENTRAL LAB TECHNICIAN 05/23/17 0830: IM PROGRESS NOTES- Subjective Subjective nausea and vomiting this morning Objective Objective mild distress Vitals Vital Signs Date Time Temp Pulse Resp B/P (MAP) Pulse Ox O2 Delivery O2 Flow Rate FiO2 05/23/17 07:21 92 Room Air 05/23/17 03:15 97.9 71 126/56 (79) 97.9 05/22/17 14:40 18 05/22/17 12:04 6.0 Input & Output Intake and Output 05/23/17 07:00 Intake Total 1000 ml Output Total 650 ml Balance 350 ml IV Total 1000 ml Output Urine Total 650 ml Physical Exam Physical Exam General appearance - alert, weak appearing, and in mild distress Mental Status - alert, oriented to person, place, affect appropriate to mood Head - normal Chest - clear to auscultation, no wheezes, rales or rhonchi Heart - S1 and S2 normal Abdomen - soft, + tender surgical, slight distention improved, BS + UQ and absent bilateral LQ, abd dressing lower abd DI Neurological - weak, no acute deficit, 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 Musculoskeletal - no muscular tenderness noted Extremities - no pedal edema Skin - warm and dry Labs Laboratory Tests Test 05/21/17 09:45 05/22/17 04:08 White Blood Count 11.3 x10^3/uL (4.0-11.0) 7.3 x10^3/uL (4.0-11.0) Red Blood Count 4.18 x10^6/uL (4.30-5.70) 3.77 x10^6/uL (4.30-5.70) Hemoglobin 12.9 g/dL (13.0-17.5) 11.8 g/dL (13.0-17.5) Hematocrit 38.7 % (39.0-53.0) 34.7 % (39.0-53.0) Mean Corpuscular Volume 93 fL (79-100) 92 fL (79-100) Mean Corpuscular Hemoglobin 31 pg (25-35) 31 pg (25-35) Mean Corpuscular Hemoglobin Concent 34 g/dL (31-37) 34 g/dL (31-37) Red Cell Distribution Width 12.3 % (11.5-14.5) 12.6 % (11.5-14.5) Platelet Count 146 x10^3/uL (140-400) 124 x10^3/uL (140-400) Neutrophils (%) (Auto) 84 % (31-73) 77 % (31-73) Lymphocytes (%) (Auto) 6 % (24-48) 9 % (24-48) Monocytes (%) (Auto) 11 % (0-9) 12 % (0-9) Eosinophils (%) (Auto) 0 % (0-3) 2 % (0-3) Basophils (%) (Auto) 0 % (0-3) 0 % (0-3) Neutrophils # (Auto) 9.5 x10^3uL (1.8-7.7) 5.6 x10^3uL (1.8-7.7) Lymphocytes # (Auto) 0.6 x10^3/uL (1.0-4.8) 0.7 x10^3/uL (1.0-4.8) Monocytes # (Auto) 1.2 x10^3/uL (0.0-1.1) 0.9 x10^3/uL (0.0-1.1) Eosinophils # (Auto) 0.0 x10^3/uL (0.0-0.7) 0.1 x10^3/uL (0.0-0.7) Basophils # (Auto) 0.0 x10^3/uL (0.0-0.2) 0.0 x10^3/uL (0.0-0.2) Sodium Level 142 mmol/L (136-145) 140 mmol/L (136-145) Potassium Level 4.3 mmol/L (3.5-5.1) 3.8 mmol/L (3.5-5.1) Chloride Level 106 mmol/L (98-107) 105 mmol/L (98-107) Carbon Dioxide Level 34 mmol/L (21-32) 29 mmol/L (21-32) Anion Gap 2 (6-14) 6 (6-14) Blood Urea Nitrogen 30 mg/dL (8-26) 23 mg/dL (8-26) Creatinine 1.2 mg/dL (0.7-1.3) 1.2 mg/dL (0.7-1.3) Estimated GFR (Cockcroft-Gault) 58.7 58.7 Glucose Level 119 mg/dL (70-99) 122 mg/dL (70-99) Calcium Level 9.2 mg/dL (8.5-10.1) 8.5 mg/dL (8.5-10.1) Meds Current Medications Vancomycin HCl 1 each 1X ONCE MC ; Start 05/22/17 at 22:30; Stop 05/22/17 at 22:30; Status DC Assessment Assessment 1. abdominal pain n/v secondary to strangulated R femoral hernia s/p R femoral hernia repair SB resection 05/20/14 2. leukocytosis w/o sepsis 3. HTN 4. hyperlipemia 5. 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 GERD 9. DJD multiple joints 10. allergic rhinitis 11. severe PCL malnutrition 12. moderate weakness and debility PLAN: 05/23/17 POD 3 - BS + upper quad, absent lower quad - nausea/vomiting this morning - - vanco DC 05/22 and zosyn continues - not OOB or walking much =lovenox 30mg subq daily for DVT prophylaxis HTN - stable COPD - stable anemia - CBC pending COPD - nurse note 05/22= spitting up dark green sputum - per daughter nebulizer treatment, coughed up yellow, after cough vomited bile 05/22/17 POD 2 - BS absent - slight distention - ice chips - ambulate - zosyn/ vanco IV continues - IVF D5 1/2 NS 20K 75cc/hr HTN - stable COPD - stable anemia - admit Hgb 15 today 11.8 - has h/o chronic anemia - decrease secondary to rehydration NPO - continue, advance when surgeon orders 05/21/17 R strangulated femoral hernia - s/p R femoral hernia repair/SB resection - POD 1 - leukocytosis WBC 15.5 - Vanc IV daily - Zosyn x 1 pre op - HTN - NPO -resume home meds when surgery orders diet COPD - nebulizer treatments - IS post op - ambulate weakness/debility - PT OT NPO - advance diet per surgery instructions - resume home meds when they ok - consider change IVF to PPN as he had decreased oral intake prior to admission. DVT/GI prophylaxis - SCD/PPI For more details regarding further plans, please refer to the orders. Plan Plan For more details regarding further plans, please refer to the orders. DANIAL GUZMAN MD 05/23/17 1049: IM PROGRESS NOTES- Assessment Assessment Abdomen distended. Intestinal obstruction on AXR.Order NGT- will need GI help due to difficulty inserting previously. D/w daughter extensively. Start PPN. CXR no pneumonia. The patient was seen and examined by me. Chart reviewed and plan of care formulated. Discussed with, reviewed and agree with FLIGHT OPERATIONS COORDINATOR's notes, plan of care and orders with modifications as necessary. For more details regarding further plans, please refer to the orders. HEDY NIELSON APRN May 23, 2017 08:30 DANIAL GUZMAN MD May 23, 2017 10:49
[2017-05-23] MEDS: ENOXAPARIN 40 MG/0.4 ML SYRINGE. SQ SCH (09:00)
[2017-05-23 09:32] LABS: BASO % 0 % (0-3); EOS % 4 % (0-3); HEMATOCRIT 36.3 % (39.0-53.0); HEMOGLOBIN 12.2 g/dL (13.0-17.5); LYMPH # 0.5 x10^3/uL (1.0-4.8); LYMPH % 9 % (24-48); MEAN CORPUSCULAR HEMOGLOBIN 31 pg (25-35); MEAN CORPUSCULAR HGB CONC 34 g/dL (31-37); MEAN CORPUSCULAR VOLUME 92 fL (79-100); MONO % 10 % (0-9); NEUT % 76 % (31-73); PLATELET COUNT 138 x10^3/uL (140-400); RED BLOOD COUNT 3.96 x10^6/uL (4.30-5.70); RED CELL DISTRIBUTION WIDTH 12.1 % (11.5-14.5)
[2017-05-23 09:43] LABS: CALCIUM 8.8 mg/dL (8.5-10.1); GFR 72.5
[2017-05-23 11:04] VITALS: BP 150/74
[2017-05-23] MEDS: AMINO AC 3%/ELECTROLYTE/GLYCER 1,000 ML IV SCH ×2 (11:30→19:55)
--- NOTE | 2017-05-23 12:23 | PDOC ---
XOCHITL DIGGS LARRIMAN 05/23/17 1223: SURGICAL PROGRESS NOTE Subjective vomiting today d/w GI--unable to place NG in OR, septal defect hx--consult for placement with scope Vital Signs Vital Signs Date Time Temp Pulse Resp B/P (MAP) Pulse Ox O2 Delivery O2 Flow Rate FiO2 05/23/17 11:04 98.3 70 19 150/74 (99) 92 Room Air 98.3 05/22/17 12:04 6.0 I&O Intake and Output 05/23/17 07:00 Intake Total 1000 ml Output Total 650 ml Balance 350 ml IV Total 1000 ml Output Urine Total 650 ml General: Alert, Cooperative, No acute distress Abdomen: Soft, Other (mildly distended, incision cd/i, no erythema ) Labs Laboratory Tests Test 05/22/17 04:08 05/23/17 09:05 White Blood Count 7.3 x10^3/uL (4.0-11.0) 6.0 x10^3/uL (4.0-11.0) Red Blood Count 3.77 x10^6/uL (4.30-5.70) 3.96 x10^6/uL (4.30-5.70) Hemoglobin 11.8 g/dL (13.0-17.5) 12.2 g/dL (13.0-17.5) Hematocrit 34.7 % (39.0-53.0) 36.3 % (39.0-53.0) Mean Corpuscular Volume 92 fL (79-100) 92 fL (79-100) Mean Corpuscular Hemoglobin 31 pg (25-35) 31 pg (25-35) Mean Corpuscular Hemoglobin Concent 34 g/dL (31-37) 34 g/dL (31-37) Red Cell Distribution Width 12.6 % (11.5-14.5) 12.1 % (11.5-14.5) Platelet Count 124 x10^3/uL (140-400) 138 x10^3/uL (140-400) Neutrophils (%) (Auto) 77 % (31-73) 76 % (31-73) Lymphocytes (%) (Auto) 9 % (24-48) 9 % (24-48) Monocytes (%) (Auto) 12 % (0-9) 10 % (0-9) Eosinophils (%) (Auto) 2 % (0-3) 4 % (0-3) Basophils (%) (Auto) 0 % (0-3) 0 % (0-3) Neutrophils # (Auto) 5.6 x10^3uL (1.8-7.7) 4.6 x10^3uL (1.8-7.7) Lymphocytes # (Auto) 0.7 x10^3/uL (1.0-4.8) 0.5 x10^3/uL (1.0-4.8) Monocytes # (Auto) 0.9 x10^3/uL (0.0-1.1) 0.6 x10^3/uL (0.0-1.1) Eosinophils # (Auto) 0.1 x10^3/uL (0.0-0.7) 0.2 x10^3/uL (0.0-0.7) Basophils # (Auto) 0.0 x10^3/uL (0.0-0.2) 0.0 x10^3/uL (0.0-0.2) Sodium Level 140 mmol/L (136-145) 141 mmol/L (136-145) Potassium Level 3.8 mmol/L (3.5-5.1) 4.0 mmol/L (3.5-5.1) Chloride Level 105 mmol/L (98-107) 104 mmol/L (98-107) Carbon Dioxide Level 29 mmol/L (21-32) 32 mmol/L (21-32) Anion Gap 6 (6-14) 5 (6-14) Blood Urea Nitrogen 23 mg/dL (8-26) 14 mg/dL (8-26) Creatinine 1.2 mg/dL (0.7-1.3) 1.0 mg/dL (0.7-1.3) Estimated GFR (Cockcroft-Gault) 58.7 72.5 Glucose Level 122 mg/dL (70-99) 115 mg/dL (70-99) Calcium Level 8.5 mg/dL (8.5-10.1) 8.8 mg/dL (8.5-10.1) Laboratory Tests Test 05/23/17 09:05 White Blood Count 6.0 x10^3/uL (4.0-11.0) Red Blood Count 3.96 x10^6/uL (4.30-5.70) Hemoglobin 12.2 g/dL (13.0-17.5) Hematocrit 36.3 % (39.0-53.0) Mean Corpuscular Volume 92 fL (79-100) Mean Corpuscular Hemoglobin 31 pg (25-35) Mean Corpuscular Hemoglobin Concent 34 g/dL (31-37) Red Cell Distribution Width 12.1 % (11.5-14.5) Platelet Count 138 x10^3/uL (140-400) Neutrophils (%) (Auto) 76 % (31-73) Lymphocytes (%) (Auto) 9 % (24-48) Monocytes (%) (Auto) 10 % (0-9) Eosinophils (%) (Auto) 4 % (0-3) Basophils (%) (Auto) 0 % (0-3) Neutrophils # (Auto) 4.6 x10^3uL (1.8-7.7) Lymphocytes # (Auto) 0.5 x10^3/uL (1.0-4.8) Monocytes # (Auto) 0.6 x10^3/uL (0.0-1.1) Eosinophils # (Auto) 0.2 x10^3/uL (0.0-0.7) Basophils # (Auto) 0.0 x10^3/uL (0.0-0.2) Sodium Level 141 mmol/L (136-145) Potassium Level 4.0 mmol/L (3.5-5.1) Chloride Level 104 mmol/L (98-107) Carbon Dioxide Level 32 mmol/L (21-32) Anion Gap 5 (6-14) Blood Urea Nitrogen 14 mg/dL (8-26) Creatinine 1.0 mg/dL (0.7-1.3) Estimated GFR (Cockcroft-Gault) 72.5 Glucose Level 115 mg/dL (70-99) Calcium Level 8.8 mg/dL (8.5-10.1) Problem List Problems Medical Problems: (1) Abdominal pain Status: Acute (2) Bowel obstruction Status: Acute (3) Direct inguinal hernia Status: Acute (4) Leukocytosis Status: Acute (5) Mild dehydration Status: Acute Assessment/Plan s/p repair strangulated right femoral hernia, SBR await GI eval for NG placement bowel rest, hydration, lovenox dvt proph Problems: MARIN MOON MD 05/24/17 1306: SURGICAL PROGRESS NOTE Assessment/Plan agree with above Problems: XOCHITL DIGGS LARRIMAN May 23, 2017 12:23 MARIN MOON MD May 24, 2017 13:06
--- NOTE | 2017-05-23 14:16 | PDOC2 ---
GI CONSULT Reason For Consult: SBO, need NG HPI: HPI: 77 y/o male seen this morning. Had repair of strangulated right femoral hernia and small bowel resection, now w/ SBO w/ bilious emesis (yesterday and today). Per discussion w/ Dr. Castillo RN, and surgery/Gayle, anesthesia in OR unable to place NG, questionable report of deviated septum. H/o requiring surgery, summary list shows on PPI and H2 stacie (on IV PPI here). Daughter can't remember when last EGD and colonoscopy performed, tells me usually no trouble w/ GERD, diarrhea, or constipation. Denies bleeding as well. PMH: PMH: HTN, HLD, COPD, pneumonia, CVA, memory loss, diverticulosis, GERD, PUD, anxiety/ depression, DJD, allergic rhinitis, CKD, hernia repairs, repair, cataract removal w/ right lens implant FH: Family History: Cancer, CVA, DM Social History: Smoke: No ALCOHOL: none Drugs: None ROS: GEN: Denies fevers, chills, sweats HEENT: +left eye blindness CV: Denies chest pain RESP: Denies shortness of air, cough GI: Per HPI : Denies hematuria, dysuria ENDO: Denies weight changes NEURO: +memory loss MSK: +weakness SKIN: Denies jaundice, pruritus Vitals: Vitals: Vital Signs Date Time Temp Pulse Resp B/P (MAP) Pulse Ox O2 Delivery O2 Flow Rate FiO2 05/23/17 11:04 98.3 70 19 150/74 (99) 92 Room Air 98.3 05/22/17 12:04 6.0 Labs: Labs: Laboratory Tests Test 05/23/17 09:05 White Blood Count 6.0 x10^3/uL (4.0-11.0) Red Blood Count 3.96 x10^6/uL (4.30-5.70) Hemoglobin 12.2 g/dL (13.0-17.5) Hematocrit 36.3 % (39.0-53.0) Mean Corpuscular Volume 92 fL (79-100) Mean Corpuscular Hemoglobin 31 pg (25-35) Mean Corpuscular Hemoglobin Concent 34 g/dL (31-37) Red Cell Distribution Width 12.1 % (11.5-14.5) Platelet Count 138 x10^3/uL (140-400) Neutrophils (%) (Auto) 76 % (31-73) Lymphocytes (%) (Auto) 9 % (24-48) Monocytes (%) (Auto) 10 % (0-9) Eosinophils (%) (Auto) 4 % (0-3) Basophils (%) (Auto) 0 % (0-3) Neutrophils # (Auto) 4.6 x10^3uL (1.8-7.7) Lymphocytes # (Auto) 0.5 x10^3/uL (1.0-4.8) Monocytes # (Auto) 0.6 x10^3/uL (0.0-1.1) Eosinophils # (Auto) 0.2 x10^3/uL (0.0-0.7) Basophils # (Auto) 0.0 x10^3/uL (0.0-0.2) Sodium Level 141 mmol/L (136-145) Potassium Level 4.0 mmol/L (3.5-5.1) Chloride Level 104 mmol/L (98-107) Carbon Dioxide Level 32 mmol/L (21-32) Anion Gap 5 (6-14) Blood Urea Nitrogen 14 mg/dL (8-26) Creatinine 1.0 mg/dL (0.7-1.3) Estimated GFR (Cockcroft-Gault) 72.5 Glucose Level 115 mg/dL (70-99) Calcium Level 8.8 mg/dL (8.5-10.1) Allergies: Coded Allergies: codeine (Verified Adverse Reaction, Mild, Shaky and GI Upset, 05/23/17) Medications: Please see EMR. Imaging: Imaging: CXR IMPRESSION: 1. Mild basilar scarring. 2. No acute cardiopulmonary abnormality is detected. CT A/P IMPRESSION: 1. Right groin hernia containing focal loop of distal small bowel causing proximal small bowel obstruction (strangulated hernia). The hernia is lateral to the inguinal canal suggesting direct hernia. KUB Impression: Persistent gaseous dilated loops of small bowel consistent with small bowel obstruction. CXR Impression: Trace left pleural effusion and left basilar patchy opacities which may represent atelectasis, aspiration or infection. PE: GEN: was asleep HEENT: blind in left eye LUNGS: clear HEART: RRR ABD: quiet, distended EXTREMITY: No edema SKIN: No rashes, no jaundice NEURO/PSYCH: appropriate A/P: A/P: S/p repair of strangulated right femoral hernia, SBR SBO, vomiting - NPO on PPN H/o /surgery - on IV PPI CRC screen - has had previous colonoscopy, unclear timing -- Reviewed w/ Dr. Beard - will plan for EGD, possible NG placement this afternoon. Continue IV PPI. BISHOP WALSH May 23, 2017 14:16
[2017-05-23] MEDS ORDERED: IV RINGERS,LACTATED 1000ML 1,000 ML IV SCH (14:32)
[2017-05-23] MEDS ORDERED: PROPOFOL 20 ML IV ONE (14:32)
[2017-05-23] MEDS ORDERED: LIDOCAINE 2% PF Vial for OR 5 ML VIAL. ONE (14:33)
--- NOTE | 2017-05-23 15:11 | PDOC4 ---
PROCEDURE Procedure EGD/wire-guided NG placement. Indication: inability to place NG for decompression. Meds: per anesthesia Findings: Attempted initially to pass NG; able to pass into pharynx, but into airway. Brought out mouth. E--Scope inserted. Distal esophagitis. G-copious bilious secretions; bulk suctioned. D-Normal bulb. --guidewire placed and scope withdrawn. NG threaded onto the wire, loop reduced and NG advanced over wire into stomach. Wire removed. -Bilious return from NG after. Suzi. well. IMP: Successful guided NG placement. Distal esophagitis. REC: continue care. iv antisecretory. Thanks. FAUSTO ASCENCIO MD May 23, 2017 15:10
[2017-05-23] MEDS: HYDROmorphone 2 MG/ML VIAL IVP PRN (16:19)
--- NOTE | 2017-05-23 16:25 | RAD ---
Single view of the abdomen 05/23/2017 Indication: NG tube placement Comparison study: Abdominal radiograph, yesterday Findings: Interval placement of a nasogastric tube with tip in the expected region of the stomach. The stomach is decompressed. Multiple dilated loops of small bowel bowel are seen in the central abdomen similar to prior study. Findings consistent with ongoing obstruction. No gross pneumoperitoneum is identified though exam is limited for the purpose. No acute osseous changes are seen. Impression: Enteric tube with tip in stomach. Otherwise stable exam
[2017-05-23 16:35] VITALS: BP 146/65
[2017-05-23 19:00] VITALS: BP 135/69
[2017-05-23 23:00] VITALS: BP 144/56
[2017-05-24 03:00] VITALS: BP 122/55
[2017-05-24 06:10] LABS: BASO % 1 % (0-3); EOS % 5 % (0-3); HEMATOCRIT 32.7 % (39.0-53.0); HEMOGLOBIN 11.1 g/dL (13.0-17.5); LYMPH # 0.8 x10^3/uL (1.0-4.8); LYMPH % 13 % (24-48); MEAN CORPUSCULAR HEMOGLOBIN 31 pg (25-35); MEAN CORPUSCULAR HGB CONC 34 g/dL (31-37); MEAN CORPUSCULAR VOLUME 92 fL (79-100); MONO % 10 % (0-9); NEUT % 71 % (31-73); PLATELET COUNT 127 x10^3/uL (140-400); RED BLOOD COUNT 3.56 x10^6/uL (4.30-5.70); RED CELL DISTRIBUTION WIDTH 12.1 % (11.5-14.5); WHITE BLOOD COUNT 6.2 x10^3/uL (4.0-11.0)
[2017-05-24 06:22] LABS: CALCIUM 8.5 mg/dL (8.5-10.1); CREATININE 0.9 mg/dL (0.7-1.3); GFR 81.8; POTASSIUM 3.5 mmol/L (3.5-5.1)
[2017-05-24] MEDS: PIPERACILLIN/TAZO IV Push 3.375 GM VIAL. IVP SCH ×3 (06:57→18:20)
[2017-05-24 07:04] VITALS: BP 129/68
[2017-05-24] MEDS: PANTOPRAZOLE IV PUSH 40 MG VIAL. IVP SCH (07:30)
[2017-05-24] MEDS: ONDANSETRON PF 4 MG/2 ML VIAL. IV PRN ×2 (07:56→13:40)
[2017-05-24] MEDS: ALBUTEROL SULFATE 2.5 MG/3 ML NEBU. NEB SCH ×4 (08:05→19:27)
--- NOTE | 2017-05-24 08:48 | PDOC ---
LUISSamirHEDY HENSLEY ELECTRIC RAZOR MECHANIC 05/24/17 0847: IM PROGRESS NOTES- Subjective Subjective reports he is hungry Objective Objective no distress Vitals Vital Signs Date Time Temp Pulse Resp B/P (MAP) Pulse Ox O2 Delivery O2 Flow Rate FiO2 05/24/17 08:06 92 Room Air 05/24/17 07:04 98.2 65 16 129/68 (88) 98.2 05/23/17 20:00 3.0 Input & Output Intake and Output 05/24/17 07:00 Intake Total 400 ml Output Total 1350 ml Balance -950 ml Intake Oral 0 ml IV Total 400 ml Output Urine Total 400 ml Gastric Drainage Total 950 ml Physical Exam Physical Exam General appearance - alert, weak appearing, and in mild distress Mental Status - alert, oriented to person, place, affect appropriate to mood Head - normal Chest - clear to auscultation, no wheezes, rales or rhonchi Heart - S1 and S2 normal Abdomen - soft, + tender surgical, slight distention improved, BS + UQ and absent bilateral LQ, sugical incision with cary approximated, NG L nare with bile returnI Neurological - weak, no acute deficit, 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 Musculoskeletal - no muscular tenderness noted Extremities - no pedal edema Skin - warm and dry Labs Laboratory Tests Test 05/23/17 09:05 05/24/17 03:50 White Blood Count 6.0 x10^3/uL (4.0-11.0) 6.2 x10^3/uL (4.0-11.0) Red Blood Count 3.96 x10^6/uL (4.30-5.70) 3.56 x10^6/uL (4.30-5.70) Hemoglobin 12.2 g/dL (13.0-17.5) 11.1 g/dL (13.0-17.5) Hematocrit 36.3 % (39.0-53.0) 32.7 % (39.0-53.0) Mean Corpuscular Volume 92 fL (79-100) 92 fL (79-100) Mean Corpuscular Hemoglobin 31 pg (25-35) 31 pg (25-35) Mean Corpuscular Hemoglobin Concent 34 g/dL (31-37) 34 g/dL (31-37) Red Cell Distribution Width 12.1 % (11.5-14.5) 12.1 % (11.5-14.5) Platelet Count 138 x10^3/uL (140-400) 127 x10^3/uL (140-400) Neutrophils (%) (Auto) 76 % (31-73) 71 % (31-73) Lymphocytes (%) (Auto) 9 % (24-48) 13 % (24-48) Monocytes (%) (Auto) 10 % (0-9) 10 % (0-9) Eosinophils (%) (Auto) 4 % (0-3) 5 % (0-3) Basophils (%) (Auto) 0 % (0-3) 1 % (0-3) Neutrophils # (Auto) 4.6 x10^3uL (1.8-7.7) 4.4 x10^3uL (1.8-7.7) Lymphocytes # (Auto) 0.5 x10^3/uL (1.0-4.8) 0.8 x10^3/uL (1.0-4.8) Monocytes # (Auto) 0.6 x10^3/uL (0.0-1.1) 0.6 x10^3/uL (0.0-1.1) Eosinophils # (Auto) 0.2 x10^3/uL (0.0-0.7) 0.3 x10^3/uL (0.0-0.7) Basophils # (Auto) 0.0 x10^3/uL (0.0-0.2) 0.0 x10^3/uL (0.0-0.2) Sodium Level 141 mmol/L (136-145) 140 mmol/L (136-145) Potassium Level 4.0 mmol/L (3.5-5.1) 3.5 mmol/L (3.5-5.1) Chloride Level 104 mmol/L (98-107) 104 mmol/L (98-107) Carbon Dioxide Level 32 mmol/L (21-32) 30 mmol/L (21-32) Anion Gap 5 (6-14) 6 (6-14) Blood Urea Nitrogen 14 mg/dL (8-26) 14 mg/dL (8-26) Creatinine 1.0 mg/dL (0.7-1.3) 0.9 mg/dL (0.7-1.3) Estimated GFR (Cockcroft-Gault) 72.5 81.8 Glucose Level 115 mg/dL (70-99) 84 mg/dL (70-99) Calcium Level 8.8 mg/dL (8.5-10.1) 8.5 mg/dL (8.5-10.1) Laboratory Tests Test 05/23/17 09:05 05/24/17 03:50 White Blood Count 6.0 x10^3/uL (4.0-11.0) 6.2 x10^3/uL (4.0-11.0) Red Blood Count 3.96 x10^6/uL (4.30-5.70) 3.56 x10^6/uL (4.30-5.70) Hemoglobin 12.2 g/dL (13.0-17.5) 11.1 g/dL (13.0-17.5) Hematocrit 36.3 % (39.0-53.0) 32.7 % (39.0-53.0) Mean Corpuscular Volume 92 fL (79-100) 92 fL (79-100) Mean Corpuscular Hemoglobin 31 pg (25-35) 31 pg (25-35) Mean Corpuscular Hemoglobin Concent 34 g/dL (31-37) 34 g/dL (31-37) Red Cell Distribution Width 12.1 % (11.5-14.5) 12.1 % (11.5-14.5) Platelet Count 138 x10^3/uL (140-400) 127 x10^3/uL (140-400) Neutrophils (%) (Auto) 76 % (31-73) 71 % (31-73) Lymphocytes (%) (Auto) 9 % (24-48) 13 % (24-48) Monocytes (%) (Auto) 10 % (0-9) 10 % (0-9) Eosinophils (%) (Auto) 4 % (0-3) 5 % (0-3) Basophils (%) (Auto) 0 % (0-3) 1 % (0-3) Neutrophils # (Auto) 4.6 x10^3uL (1.8-7.7) 4.4 x10^3uL (1.8-7.7) Lymphocytes # (Auto) 0.5 x10^3/uL (1.0-4.8) 0.8 x10^3/uL (1.0-4.8) Monocytes # (Auto) 0.6 x10^3/uL (0.0-1.1) 0.6 x10^3/uL (0.0-1.1) Eosinophils # (Auto) 0.2 x10^3/uL (0.0-0.7) 0.3 x10^3/uL (0.0-0.7) Basophils # (Auto) 0.0 x10^3/uL (0.0-0.2) 0.0 x10^3/uL (0.0-0.2) Sodium Level 141 mmol/L (136-145) 140 mmol/L (136-145) Potassium Level 4.0 mmol/L (3.5-5.1) 3.5 mmol/L (3.5-5.1) Chloride Level 104 mmol/L (98-107) 104 mmol/L (98-107) Carbon Dioxide Level 32 mmol/L (21-32) 30 mmol/L (21-32) Anion Gap 5 (6-14) 6 (6-14) Blood Urea Nitrogen 14 mg/dL (8-26) 14 mg/dL (8-26) Creatinine 1.0 mg/dL (0.7-1.3) 0.9 mg/dL (0.7-1.3) Estimated GFR (Cockcroft-Gault) 72.5 81.8 Glucose Level 115 mg/dL (70-99) 84 mg/dL (70-99) Calcium Level 8.8 mg/dL (8.5-10.1) 8.5 mg/dL (8.5-10.1) Meds Current Medications Amino Acids/ Glycerin/ Electrolytes 1,000 ml @ 80 mls/hr [id number] IV Last administered on 05/23/17t 19:55; Start 05/23/17 at 11:30 Enoxaparin Sodium (Lovenox 40mg Syringe) 40 mg Q24H SQ ; Start 05/23/17 at 09: 00 Lidocaine HCl (Lidocaine Pf 2% Vial) 5 ml STK-MED ONCE .ROUTE ; Start 05/23/17 at 14:33; Stop 05/23/17 at 14:34; Status DC Propofol 20 ml @ As Directed STK-MED ONCE IV ; Start 05/23/17 at 14:32; Stop 05/23/17 at 14:33; Status DC Ringer's Solution 1,000 ml @ 125 mls/hr Q8H IV Last administered on t 14:34; Start 05/23/17 at 14:32; Stop 05/24/17 at 02:31; Status DC Assessment Assessment 1. abdominal pain n/v secondary to strangulated R femoral hernia s/p R femoral hernia repair SB resection 05/20/14 2. leukocytosis w/o sepsis 3. HTN 4. hyperlipemia 5. 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 GERD 9. DJD multiple joints 10. allergic rhinitis 11. severe PCL malnutrition 12. moderate weakness and debility PLAN: 05/24/17 POD 4 - intestinal obstruction - EGD with NG placed R nare to low intermit suction w/ brown return - abd distention improved - Zosyn continues HTN - stable COPD - stable anemia - Hgb 11.1 stable malnutrition severe - PPN initiated 05/23/17 POD 3 - BS + upper quad, absent lower quad - nausea/vomiting this morning - - vanco DC 05/22 and zosyn continues - not OOB or walking much =lovenox 30mg subq daily for DVT prophylaxis HTN - stable COPD - stable anemia - CBC pending COPD - nurse note 05/22= spitting up dark green sputum - per daughter nebulizer treatment, coughed up yellow, after cough vomited bile 05/22/17 POD 2 - BS absent - slight distention - ice chips - ambulate - zosyn/ vanco IV continues - IVF D5 1/2 NS 20K 75cc/hr HTN - stable COPD - stable anemia - admit Hgb 15 today 11.8 - has h/o chronic anemia - decrease secondary to rehydration NPO - continue, advance when surgeon orders 05/21/17 R strangulated femoral hernia - s/p R femoral hernia repair/SB resection - POD 1 - leukocytosis WBC 15.5 - Vanc IV daily - Zosyn x 1 pre op - HTN - NPO -resume home meds when surgery orders diet COPD - nebulizer treatments - IS post op - ambulate weakness/debility - PT OT NPO - advance diet per surgery instructions - resume home meds when they ok - consider change IVF to PPN as he had decreased oral intake prior to admission. DVT/GI prophylaxis - SCD/PPI For more details regarding further plans, please refer to the orders. Plan Plan For more details regarding further plans, please refer to the orders. DANIAL GUZMAN MD 05/24/17 1026: IM PROGRESS NOTES- Assessment Assessment Clinically improving. Hypokalemia- replace K. D/w daughter,patient.continue PPN. KUB in AM. The patient was seen and examined by me. Chart reviewed and plan of care formulated. Discussed with, reviewed and agree with ASSOCIATE APPLICATION DEVELOPER's notes, plan of care and orders with modifications as necessary. For more details regarding further plans, please refer to the orders. HEDY NIELSON APRN May 24, 2017 08:47 DANIAL GUZMAN MD May 24, 2017 10:26
[2017-05-24] MEDS: ENOXAPARIN 40 MG/0.4 ML SYRINGE. SQ SCH (09:34)
[2017-05-24] MEDS ORDERED: POTASSIUM CHLORIDE 10 MEQ in IV NORMAL SALINE 100ML 100 ML IV ONE (09:45)
[2017-05-24 10:40] VITALS: BP 124/75
--- NOTE | 2017-05-24 11:44 | PDOC ---
Subjective: Subjective: A little better now, but nausea earlier. Objective: Vital Signs: Vital Signs Date Time Temp Pulse Resp B/P (MAP) Pulse Ox O2 Delivery O2 Flow Rate FiO2 05/24/17 11:25 Room Air 05/24/17 10:40 98.6 82 16 124/75 (91) 94 98.6 05/24/17 08:00 3.0 Labs: Laboratory Tests Test 05/24/17 03:50 White Blood Count 6.2 x10^3/uL Red Blood Count 3.56 x10^6/uL Hemoglobin 11.1 g/dL Hematocrit 32.7 % Mean Corpuscular Volume 92 fL Mean Corpuscular Hemoglobin 31 pg Mean Corpuscular Hemoglobin Concent 34 g/dL Red Cell Distribution Width 12.1 % Platelet Count 127 x10^3/uL Neutrophils (%) (Auto) 71 % Lymphocytes (%) (Auto) 13 % Monocytes (%) (Auto) 10 % Eosinophils (%) (Auto) 5 % Basophils (%) (Auto) 1 % Neutrophils # (Auto) 4.4 x10^3uL Lymphocytes # (Auto) 0.8 x10^3/uL Monocytes # (Auto) 0.6 x10^3/uL Eosinophils # (Auto) 0.3 x10^3/uL Basophils # (Auto) 0.0 x10^3/uL Sodium Level 140 mmol/L Potassium Level 3.5 mmol/L Chloride Level 104 mmol/L Carbon Dioxide Level 30 mmol/L Anion Gap 6 Blood Urea Nitrogen 14 mg/dL Creatinine 0.9 mg/dL Estimated GFR (Cockcroft-Gault) 81.8 Glucose Level 84 mg/dL Calcium Level 8.5 mg/dL Imaging: KUB 05/23 Impression: Enteric tube with tip in stomach. Otherwise stable exam PE: GEN: NAD, up to chair LUNGS: CTAB HEART: RRR ABD: softer, bilious NG output NEURO/PSYCH: A & O 3 A/P: S/p repair of strangulated right femoral hernia, SBR SBO - NG placed w/ EGD yesterday H/o /surgery - on IV PPI -- Continue NG, follow KUBs. BISHOP WALSH May 24, 2017 11:44
--- NOTE | 2017-05-24 12:19 | PDOC ---
XOCHITL DIGGS SOLE CUTTER 05/24/17 1219: SURGICAL PROGRESS NOTE Subjective feels better some flatus today Vital Signs Vital Signs Date Time Temp Pulse Resp B/P (MAP) Pulse Ox O2 Delivery O2 Flow Rate FiO2 05/24/17 11:25 Room Air 05/24/17 10:40 98.6 82 16 124/75 (91) 94 98.6 05/24/17 08:00 3.0 I&O Intake and Output 05/24/17 07:00 Intake Total 400 ml Output Total 1350 ml Balance -950 ml Intake Oral 0 ml IV Total 400 ml Output Urine Total 400 ml Gastric Drainage Total 950 ml General: Alert, Oriented X3, Cooperative, No acute distress HEENT: Other (ng bilious) Abdomen: Soft, Other (incision c/d/i, no erythema, less distention) Labs Laboratory Tests Test 05/23/17 09:05 05/24/17 03:50 White Blood Count 6.0 x10^3/uL (4.0-11.0) 6.2 x10^3/uL (4.0-11.0) Red Blood Count 3.96 x10^6/uL (4.30-5.70) 3.56 x10^6/uL (4.30-5.70) Hemoglobin 12.2 g/dL (13.0-17.5) 11.1 g/dL (13.0-17.5) Hematocrit 36.3 % (39.0-53.0) 32.7 % (39.0-53.0) Mean Corpuscular Volume 92 fL (79-100) 92 fL (79-100) Mean Corpuscular Hemoglobin 31 pg (25-35) 31 pg (25-35) Mean Corpuscular Hemoglobin Concent 34 g/dL (31-37) 34 g/dL (31-37) Red Cell Distribution Width 12.1 % (11.5-14.5) 12.1 % (11.5-14.5) Platelet Count 138 x10^3/uL (140-400) 127 x10^3/uL (140-400) Neutrophils (%) (Auto) 76 % (31-73) 71 % (31-73) Lymphocytes (%) (Auto) 9 % (24-48) 13 % (24-48) Monocytes (%) (Auto) 10 % (0-9) 10 % (0-9) Eosinophils (%) (Auto) 4 % (0-3) 5 % (0-3) Basophils (%) (Auto) 0 % (0-3) 1 % (0-3) Neutrophils # (Auto) 4.6 x10^3uL (1.8-7.7) 4.4 x10^3uL (1.8-7.7) Lymphocytes # (Auto) 0.5 x10^3/uL (1.0-4.8) 0.8 x10^3/uL (1.0-4.8) Monocytes # (Auto) 0.6 x10^3/uL (0.0-1.1) 0.6 x10^3/uL (0.0-1.1) Eosinophils # (Auto) 0.2 x10^3/uL (0.0-0.7) 0.3 x10^3/uL (0.0-0.7) Basophils # (Auto) 0.0 x10^3/uL (0.0-0.2) 0.0 x10^3/uL (0.0-0.2) Sodium Level 141 mmol/L (136-145) 140 mmol/L (136-145) Potassium Level 4.0 mmol/L (3.5-5.1) 3.5 mmol/L (3.5-5.1) Chloride Level 104 mmol/L (98-107) 104 mmol/L (98-107) Carbon Dioxide Level 32 mmol/L (21-32) 30 mmol/L (21-32) Anion Gap 5 (6-14) 6 (6-14) Blood Urea Nitrogen 14 mg/dL (8-26) 14 mg/dL (8-26) Creatinine 1.0 mg/dL (0.7-1.3) 0.9 mg/dL (0.7-1.3) Estimated GFR (Cockcroft-Gault) 72.5 81.8 Glucose Level 115 mg/dL (70-99) 84 mg/dL (70-99) Calcium Level 8.8 mg/dL (8.5-10.1) 8.5 mg/dL (8.5-10.1) Laboratory Tests Test 05/24/17 03:50 White Blood Count 6.2 x10^3/uL (4.0-11.0) Red Blood Count 3.56 x10^6/uL (4.30-5.70) Hemoglobin 11.1 g/dL (13.0-17.5) Hematocrit 32.7 % (39.0-53.0) Mean Corpuscular Volume 92 fL (79-100) Mean Corpuscular Hemoglobin 31 pg (25-35) Mean Corpuscular Hemoglobin Concent 34 g/dL (31-37) Red Cell Distribution Width 12.1 % (11.5-14.5) Platelet Count 127 x10^3/uL (140-400) Neutrophils (%) (Auto) 71 % (31-73) Lymphocytes (%) (Auto) 13 % (24-48) Monocytes (%) (Auto) 10 % (0-9) Eosinophils (%) (Auto) 5 % (0-3) Basophils (%) (Auto) 1 % (0-3) Neutrophils # (Auto) 4.4 x10^3uL (1.8-7.7) Lymphocytes # (Auto) 0.8 x10^3/uL (1.0-4.8) Monocytes # (Auto) 0.6 x10^3/uL (0.0-1.1) Eosinophils # (Auto) 0.3 x10^3/uL (0.0-0.7) Basophils # (Auto) 0.0 x10^3/uL (0.0-0.2) Sodium Level 140 mmol/L (136-145) Potassium Level 3.5 mmol/L (3.5-5.1) Chloride Level 104 mmol/L (98-107) Carbon Dioxide Level 30 mmol/L (21-32) Anion Gap 6 (6-14) Blood Urea Nitrogen 14 mg/dL (8-26) Creatinine 0.9 mg/dL (0.7-1.3) Estimated GFR (Cockcroft-Gault) 81.8 Glucose Level 84 mg/dL (70-99) Calcium Level 8.5 mg/dL (8.5-10.1) Problem List Problems Medical Problems: (1) Abdominal pain Status: Acute (2) Bowel obstruction Status: Acute (3) Direct inguinal hernia Status: Acute (4) Leukocytosis Status: Acute (5) Mild dehydration Status: Acute Assessment/Plan s/p S/p repair of strangulated right femoral hernia, SBR improving bowel function will leave NG today reeval in AM Problems: MARIN MOON MD 05/24/17 1306: SURGICAL PROGRESS NOTE Assessment/Plan Agree with above Problems: XOCHITL DIGGS APRN May 24, 2017 12:19 MARIN MOON MD May 24, 2017 13:06
[2017-05-24] MEDS: POTASSIUM CHLORIDE 10 MEQ in IV NORMAL SALINE 100ML 100 ML IV SCH ×2 (13:10→15:54)
[2017-05-24] MEDS: HYDROmorphone 2 MG/ML VIAL IVP PRN ×2 (13:58→21:32)
[2017-05-24 14:32] VITALS: BP 110/56
[2017-05-24] MEDS: AMINO AC 3%/ELECTROLYTE/GLYCER 1,000 ML IV SCH (18:09)
[2017-05-24 19:00] VITALS: BP 124/55
[2017-05-24 23:00] VITALS: BP 130/60
[2017-05-25] MEDS: PIPERACILLIN/TAZO IV Push 3.375 GM VIAL. IVP SCH ×4 (00:29→17:48)
[2017-05-25 02:49] VITALS: BP 116/64
[2017-05-25] MEDS: AMINO AC 3%/ELECTROLYTE/GLYCER 1,000 ML IV SCH ×2 (06:03→21:11)
[2017-05-25] MEDS: HYDROmorphone 2 MG/ML VIAL IVP PRN ×2 (06:38→22:37)
[2017-05-25 07:00] VITALS: BP 153/81
[2017-05-25] MEDS: PANTOPRAZOLE IV PUSH 40 MG VIAL. IVP SCH (07:59)
[2017-05-25] MEDS: ALBUTEROL SULFATE 2.5 MG/3 ML NEBU. NEB SCH ×4 (08:04→22:23)
--- NOTE | 2017-05-25 09:03 | RAD ---
ABDOMEN AP Clinical Indication: Intestinal obstruction Comparison: KUB, [address] abdomen and pelvis 05/20/2017. Findings: Enteric tube remains in the stomach. Dilated small bowel loops are improved. No obvious pneumoperitoneum, limited sensitivity on supine radiograph. There are skin cary in the right pelvis. Scattered stool in the colon. Degenerative changes in the lumbar spine. IMPRESSION: Dilated small bowel loops are improved suggesting postoperative ileus.
--- NOTE | 2017-05-25 09:11 | PDOC ---
SURGICAL PROGRESS NOTE Subjective denies pain no n/v + flatus Vital Signs Vital Signs Date Time Temp Pulse Resp B/P (MAP) Pulse Ox O2 Delivery O2 Flow Rate FiO2 05/25/17 08:05 95 Room Air 05/25/17 07:15 16 05/25/17 07:00 97.7 78 153/81 (105) 97.7 05/24/17 08:00 3.0 I&O Intake and Output 05/25/17 07:00 Intake Total 850 ml Output Total 2200 ml Balance -1350 ml Intake Oral 0 ml IV Total 850 ml Output Urine Total 1300 ml Gastric Drainage Total 500 ml Drainage Total 400 ml General: Alert, Oriented X3, Cooperative, No acute distress Abdomen: Soft, Other (ND, incision c/d/i, no erythema ) Labs Laboratory Tests Test 05/24/17 03:50 White Blood Count 6.2 x10^3/uL (4.0-11.0) Red Blood Count 3.56 x10^6/uL (4.30-5.70) Hemoglobin 11.1 g/dL (13.0-17.5) Hematocrit 32.7 % (39.0-53.0) Mean Corpuscular Volume 92 fL (79-100) Mean Corpuscular Hemoglobin 31 pg (25-35) Mean Corpuscular Hemoglobin Concent 34 g/dL (31-37) Red Cell Distribution Width 12.1 % (11.5-14.5) Platelet Count 127 x10^3/uL (140-400) Neutrophils (%) (Auto) 71 % (31-73) Lymphocytes (%) (Auto) 13 % (24-48) Monocytes (%) (Auto) 10 % (0-9) Eosinophils (%) (Auto) 5 % (0-3) Basophils (%) (Auto) 1 % (0-3) Neutrophils # (Auto) 4.4 x10^3uL (1.8-7.7) Lymphocytes # (Auto) 0.8 x10^3/uL (1.0-4.8) Monocytes # (Auto) 0.6 x10^3/uL (0.0-1.1) Eosinophils # (Auto) 0.3 x10^3/uL (0.0-0.7) Basophils # (Auto) 0.0 x10^3/uL (0.0-0.2) Sodium Level 140 mmol/L (136-145) Potassium Level 3.5 mmol/L (3.5-5.1) Chloride Level 104 mmol/L (98-107) Carbon Dioxide Level 30 mmol/L (21-32) Anion Gap 6 (6-14) Blood Urea Nitrogen 14 mg/dL (8-26) Creatinine 0.9 mg/dL (0.7-1.3) Estimated GFR (Cockcroft-Gault) 81.8 Glucose Level 84 mg/dL (70-99) Calcium Level 8.5 mg/dL (8.5-10.1) Problem List Problems Medical Problems: (1) Abdominal pain Status: Acute (2) Bowel obstruction Status: Acute (3) Direct inguinal hernia Status: Acute (4) Leukocytosis Status: Acute (5) Mild dehydration Status: Acute Assessment/Plan s/p SBR, hernia repair improved bowel function, xrays improved clamp NG today Problems: XOCHITL DIGGS APRN May 25, 2017 09:11
[2017-05-25] MEDS: ENOXAPARIN 40 MG/0.4 ML SYRINGE. SQ SCH (09:27)
[2017-05-25 11:17] VITALS: BP 144/78
--- NOTE | 2017-05-25 12:08 | PDOC ---
PROGRESS NOTES Subjective Subjective no complaints today Objective Objective Vital Signs Date Time Temp Pulse Resp B/P (MAP) Pulse Ox O2 Delivery O2 Flow Rate FiO2 05/25/17 11:41 95 Room Air 05/25/17 11:17 97.8 75 18 144/78 (100) 97.8 05/24/17 08:00 3.0 Intake and Output 05/25/17 07:00 Intake Total 850 ml Output Total 2200 ml Balance -1350 ml Intake Oral 0 ml IV Total 850 ml Output Urine Total 1300 ml Gastric Drainage Total 500 ml Drainage Total 400 ml Physical Exam Abdomen: Soft, Other (ND, incision c/d/i, no erythema ) Heart: Regular rate Extremities: No clubbing, No cyanosis General: Alert, Oriented X3, Cooperative, No acute distress HEENT: Other (ng bilious) Lungs: Clear to auscultation MUSCULOSKELETAL: No joint tenderness, No deformity, No swelling Neuro: Normal speech Psych/Mental Status: Mental status NL Skin: No rashes, No breakdown COMMENT NGT present Diagnosis Problem List Problems Medical Problems: (1) Abdominal pain Status: Acute (2) Bowel obstruction Status: Acute (3) Direct inguinal hernia Status: Acute (4) Leukocytosis Status: Acute (5) Mild dehydration Status: Acute Assessment Assessment Assessment: POD#5 1. abdominal pain n/v secondary to strangulated R femoral hernia s/p R femoral hernia repair SB resection 1114 2. leukocytosis w/o sepsis 3. HTN 4. hyperlipemia 5. 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 GERD 9. DJD multiple joints 10. allergic rhinitis 11. severe PCL malnutrition 12. moderate weakness and debility PLAN: Clamp NGT today. strt diet from tomorrow. labs ok POD 5 - intestinal obstruction - EGD with NG placed R nare to low intermit suction w/ brown return - abd distention improved - Zosyn continues HTN - stable COPD - stable anemia - Hgb 11.1 stable malnutrition severe - PPN initiated Problems: Plan Plan of Care Problems Medical Problems: (1) Abdominal pain Status: Acute (2) Bowel obstruction Status: Acute (3) Direct inguinal hernia Status: Acute (4) Leukocytosis Status: Acute (5) Mild dehydration Status: Acute Comment Review of Relevant I have reviewed the following items yadi (where applicable) has been applied. Labs Microbiology 05/20/17 Blood Culture - Preliminary, Resulted NO GROWTH AFTER 4 DAYS 05/24/17 - Final, Resulted 05/24/17 - Final, Resulted 05/24/17 - Final, Resulted 05/24/17 Gram Stain Evaluation - Final, Resulted 05/24/17 Sputum Culture - Preliminary, Resulted 05/24/17 Sputum Result 1 - Final, Resulted Vitals/I & O Vital Sign - Last 24 Hours 05/24/17 05/24/17 05/24/17 05/24/17 13:58 14:32 15:57 19:00 Temp 97.6 98.2 97.6 98.2 Pulse 98 66 Resp 17 B/P (MAP) 110/56 (74) 124/55 (78) Pulse Ox 92 96 O2 Delivery Room Air Room Air Room Air Room Air 05/24/17 05/24/17 05/24/17 05/24/17 19:28 20:00 21:32 22:09 Pulse Ox 96 96 O2 Delivery Room Air Room Air Room Air 05/24/17 05/25/17 05/25/17 05/25/17 23:00 02:49 06:38 07:00 Temp 98.0 97.7 98.0 97.7 Pulse 72 59 78 Resp 18 18 20 B/P (MAP) 130/60 (83) 116/64 (81) 153/81 (105) Pulse Ox 95 98 98 92 O2 Delivery Room Air Room Air Room Air Room Air 05/25/17 05/25/17 05/25/17 05/25/17 07:15 08:00 08:05 11:17 Temp 97.8 97.8 Pulse 75 Resp 16 18 B/P (MAP) 144/78 (100) Pulse Ox 95 96 O2 Delivery Room Air Room Air Room Air Room Air 05/25/17 11:41 Pulse Ox 95 O2 Delivery Room Air Intake and Output 05/24/17 05/24/17 05/25/17 15:00 23:00 07:00 Intake Total 0 ml 850 ml Output Total 300 ml 950 ml 950 ml Balance -300 ml -950 ml -100 ml JOSLYN MCMAHAN MD May 25, 2017 12:08
[2017-05-25 15:21] VITALS: BP 137/78
[2017-05-25 19:00] VITALS: BP 133/74
[2017-05-25 23:00] VITALS: BP 129/65
[2017-05-26] MEDS: PIPERACILLIN/TAZO IV Push 3.375 GM VIAL. IVP SCH ×5 (00:25→23:53)
[2017-05-26 03:00] VITALS: BP 130/52
[2017-05-26] MEDS: AMINO AC 3%/ELECTROLYTE/GLYCER 1,000 ML IV SCH ×2 (05:43→15:36)
[2017-05-26 07:00] VITALS: BP 133/64
[2017-05-26] MEDS: ALBUTEROL SULFATE 2.5 MG/3 ML NEBU. NEB SCH ×4 (07:52→20:54)
[2017-05-26] MEDS: PANTOPRAZOLE IV PUSH 40 MG VIAL. IVP SCH (08:40)
[2017-05-26] MEDS: ENOXAPARIN 40 MG/0.4 ML SYRINGE. SQ SCH (08:40)
--- NOTE | 2017-05-26 09:24 | PDOC ---
SURGICAL PROGRESS NOTE Subjective ng out no n/v + flatus Vital Signs Vital Signs Date Time Temp Pulse Resp B/P (MAP) Pulse Ox O2 Delivery O2 Flow Rate FiO2 05/26/17 07:54 95 Room Air 05/26/17 07:00 97.7 72 18 133/64 (87) 97.7 05/25/17 20:00 3.0 I&O Intake and Output 05/26/17 07:00 Intake Total 2425 ml Output Total 1500 ml Balance 925 ml IV Total 2425 ml Output Urine Total 1250 ml Gastric Drainage Total 250 ml # Voids 3 General: Alert, Oriented X3, Cooperative, No acute distress Abdomen: Soft, Other (ND, incisional TTP, incision c/d/i, no erythema) Problem List Problems Medical Problems: (1) Abdominal pain Status: Acute (2) Bowel obstruction Status: Acute (3) Direct inguinal hernia Status: Acute (4) Leukocytosis Status: Acute (5) Mild dehydration Status: Acute Assessment/Plan s/p SBR, hernia repair start clears Problems: XOCHITL DIGGS GUN NUMBER May 26, 2017 09:24
[2017-05-26 10:39] VITALS: BP 143/79
[2017-05-26 15:09] VITALS: BP 138/74
--- NOTE | 2017-05-26 17:39 | PDOC ---
PROGRESS NOTES Subjective Subjective no new complaints Objective Objective Vital Signs Date Time Temp Pulse Resp B/P (MAP) Pulse Ox O2 Delivery O2 Flow Rate FiO2 05/26/17 15:46 Room Air 05/26/17 15:09 97.7 80 18 138/74 (95) 93 97.7 05/26/17 08:00 3.0 Intake and Output 05/26/17 07:00 Intake Total 2425 ml Output Total 1500 ml Balance 925 ml IV Total 2425 ml Output Urine Total 1250 ml Gastric Drainage Total 250 ml # Voids 3 Physical Exam Abdomen: Soft, Other (ND, incisional TTP, incision c/d/i, no erythema) Heart: Regular rate Extremities: No clubbing, No cyanosis General: Alert, Oriented X3, Cooperative, No acute distress HEENT: Other (ng bilious) Lungs: Clear to auscultation MUSCULOSKELETAL: No joint tenderness, No deformity, No swelling Neuro: Normal speech Psych/Mental Status: Mental status NL Skin: No rashes, No breakdown Diagnosis Problem List Problems Medical Problems: (1) Abdominal pain Status: Acute (2) Bowel obstruction Status: Acute (3) Direct inguinal hernia Status: Acute (4) Leukocytosis Status: Acute (5) Mild dehydration Status: Acute Assessment Assessment Assessment: POD#6 1. abdominal pain n/v secondary to strangulated R femoral hernia s/p R femoral hernia repair SB resection 05/20/14 2. leukocytosis w/o sepsis 3. HTN 4. hyperlipemia 5. 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 GERD 9. DJD multiple joints 10. allergic rhinitis 11. severe PCL malnutrition 12. moderate weakness and debility PLAN: NGT removed. sorted on clear liquid diet labs ok POD 6 - intestinal obstruction - EGD with NG placed R nare to low intermit suction w/ brown return - abd distention improved - Zosyn continues HTN - stable COPD - stable anemia - Hgb 11.1 stable malnutrition severe - PPN initiated Problems: Plan Plan of Care Problems Medical Problems: (1) Abdominal pain Status: Acute (2) Bowel obstruction Status: Acute (3) Direct inguinal hernia Status: Acute (4) Leukocytosis Status: Acute (5) Mild dehydration Status: Acute Comment Review of Relevant I have reviewed the following items yadi (where applicable) has been applied. Labs Microbiology 05/20/17 Blood Culture - Final, Complete NO GROWTH AFTER 5 DAYS 05/24/17 - Final, Complete 05/24/17 - Final, Complete 05/24/17 - Final, Complete 05/24/17 Gram Stain Evaluation - Final, Complete 05/24/17 Sputum Culture - Final, Complete 05/24/17 Sputum Result 1 - Final, Complete Vitals/I & O Vital Sign - Last 24 Hours 05/25/17 05/25/17 05/25/17 05/25/17 19:00 20:00 22:25 22:37 Temp 97.9 97.9 Pulse 87 Resp 16 B/P (MAP) 133/74 (93) Pulse Ox 96 O2 Delivery Room Air Room Air Room Air Room Air O2 Flow Rate 3.0 05/25/17 05/25/17 05/26/17 05/26/17 23:00 23:07 03:00 07:00 Temp 97.9 97.9 97.7 97.9 97.9 97.7 Pulse 76 81 72 Resp 18 17 18 B/P (MAP) 129/65 (86) 130/52 (78) 133/64 (87) Pulse Ox 98 95 95 O2 Delivery Room Air Room Air Room Air Room Air 05/26/17 05/26/17 05/26/17 05/26/17 07:54 08:00 10:39 11:56 Temp 97.7 97.7 Pulse 97 Resp 18 B/P (MAP) 143/79 (100) Pulse Ox 95 93 O2 Delivery Room Air Room Air Room Air Room Air O2 Flow Rate 3.0 05/26/17 05/26/17 15:09 15:46 Temp 97.7 97.7 Pulse 80 Resp 18 B/P (MAP) 138/74 (95) Pulse Ox 93 O2 Delivery Room Air Room Air Intake and Output 05/25/17 05/25/17 05/26/17 15:00 23:00 07:00 Intake Total 1525 ml 900 ml Output Total 575 ml 125 ml 800 ml Balance -575 ml 1400 ml 100 ml JOSLYN MCMAHAN MD May 26, 2017 17:39
[2017-05-26 19:00] VITALS: BP 155/94
[2017-05-26 23:00] VITALS: BP 115/62
[2017-05-27 03:00] VITALS: BP 142/78
[2017-05-27] MEDS: AMINO AC 3%/ELECTROLYTE/GLYCER 1,000 ML IV SCH ×3 (04:06→23:12)
[2017-05-27] MEDS: PIPERACILLIN/TAZO IV Push 3.375 GM VIAL. IVP SCH ×4 (05:42→23:12)
[2017-05-27 07:00] VITALS: BP 150/87
[2017-05-27] MEDS: ENOXAPARIN 40 MG/0.4 ML SYRINGE. SQ SCH (07:29)
[2017-05-27] MEDS: PANTOPRAZOLE IV PUSH 40 MG VIAL. IVP SCH (07:29)
[2017-05-27] MEDS: ALBUTEROL SULFATE 2.5 MG/3 ML NEBU. NEB SCH ×4 (07:57→18:29)
--- NOTE | 2017-05-27 08:54 | PDOC ---
XOCHITL DIGGS APRN 05/27/17 0854: SURGICAL PROGRESS NOTE Subjective up to chair having breakfast + flatus and stool Vital Signs Vital Signs Date Time Temp Pulse Resp B/P (MAP) Pulse Ox O2 Delivery O2 Flow Rate FiO2 05/27/17 08:00 Room Air 3.0 05/27/17 07:57 98 05/27/17 07:00 98.1 77 18 150/87 (108) 98.1 I&O Intake and Output 05/27/17 07:00 Intake Total 3360 ml Output Total 1150 ml Balance 2210 ml Intake Oral 1400 ml IV Total 1000 ml Blood Product IV Normal Saline Flush 960 ml Output Urine Total 1150 ml # Voids 2 # Bowel Movements 2 General: Alert, Oriented X3, Cooperative, No acute distress Abdomen: Soft, Other (incision c/d/i, no erythema, ND) Problem List Problems Medical Problems: (1) Abdominal pain Status: Acute (2) Bowel obstruction Status: Acute (3) Direct inguinal hernia Status: Acute (4) Leukocytosis Status: Acute (5) Mild dehydration Status: Acute Assessment/Plan s/p SBR, hernia repair advance diet Problems: MARIN MOON MD 05/27/17 0858: SURGICAL PROGRESS NOTE Assessment/Plan Reviewed, agree with above Problems: XOCHITL DIGGS APRN May 27, 2017 08:54 MARIN MOON MD May 27, 2017 08:58
--- NOTE | 2017-05-27 10:48 | PDOC ---
IM PROGRESS NOTES- Subjective Subjective Drinking fluids- feeling better. Objective Objective no distress Vitals Vital Signs Date Time Temp Pulse Resp B/P (MAP) Pulse Ox O2 Delivery O2 Flow Rate FiO2 05/27/17 08:00 Room Air 3.0 05/27/17 07:57 98 05/27/17 07:00 98.1 77 18 150/87 (108) 98.1 Input & Output Intake and Output 05/27/17 07:00 Intake Total 3360 ml Output Total 1150 ml Balance 2210 ml Intake Oral 1400 ml IV Total 1000 ml Blood Product IV Normal Saline Flush 960 ml Output Urine Total 1150 ml # Voids 2 # Bowel Movements 2 Physical Exam Physical Exam General appearance - alert, weak appearing, and in mild distress Mental Status - alert, oriented to person, place, affect appropriate to mood Head - normal Chest - clear to auscultation, no wheezes, rales or rhonchi Heart - S1 and S2 normal Abdomen - soft, + tender surgical, slight distention improved, BS + UQ and absent bilateral LQ, sugical incision with cary approximated, NG L nare with bile returnI Neurological - weak, no acute deficit, 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 Musculoskeletal - no muscular tenderness noted Extremities - no pedal edema Skin - warm and dry Assessment Assessment Assessment: 1. abdominal pain n/v secondary to strangulated R femoral hernia s/p R femoral hernia repair SB resection 05/20/14 2. leukocytosis w/o sepsis 3. HTN 4. hyperlipemia 5. 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 GERD 9. DJD multiple joints 10. allergic rhinitis 11. severe PCL malnutrition 12. moderate weakness and debility PLAN: NGT removed. started on full liquid diet labs ok POD 6 - intestinal obstruction - EGD with NG placed R nare to low intermit suction w/ brown return - abd distention improved - Zosyn continues HTN - stable COPD - stable anemia - Hgb 11.1 stable malnutrition severe - PPN initiated Plan Plan For more details regarding further plans, please refer to the orders. DANIAL GUZMAN MD May 27, 2017 10:48
[2017-05-27 11:00] LABS: BASO # 0.1 x10^3/uL (0.0-0.2); BASO % 1 % (0-3); EOS % 4 % (0-3); HEMOGLOBIN 12.7 g/dL (13.0-17.5); LYMPH # 0.8 x10^3/uL (1.0-4.8); LYMPH % 12 % (24-48); MEAN CORPUSCULAR HEMOGLOBIN 31 pg (25-35); MEAN CORPUSCULAR HGB CONC 34 g/dL (31-37); MEAN CORPUSCULAR VOLUME 92 fL (79-100); MONO % 11 % (0-9); NEUT % 73 % (31-73); PLATELET COUNT 206 x10^3/uL (140-400); RED BLOOD COUNT 4.13 x10^6/uL (4.30-5.70); RED CELL DISTRIBUTION WIDTH 12.4 % (11.5-14.5); WHITE BLOOD COUNT 6.7 x10^3/uL (4.0-11.0)
[2017-05-27 11:01] VITALS: BP 137/100
--- NOTE | 2017-05-27 11:32 | PDOC ---
Subjective: Subjective: Maybe a little nausea earlier. Asking to eat. Denies pain. Objective: Vital Signs: Vital Signs Date Time Temp Pulse Resp B/P (MAP) Pulse Ox O2 Delivery O2 Flow Rate FiO2 05/27/17 11:01 98.1 91 18 137/100 (112) 96 Room Air 98.1 05/27/17 08:00 3.0 Labs: Laboratory Tests Test 05/27/17 10:40 White Blood Count 6.7 x10^3/uL Red Blood Count 4.13 x10^6/uL Hemoglobin 12.7 g/dL Hematocrit 38.0 % Mean Corpuscular Volume 92 fL Mean Corpuscular Hemoglobin 31 pg Mean Corpuscular Hemoglobin Concent 34 g/dL Red Cell Distribution Width 12.4 % Platelet Count 206 x10^3/uL Neutrophils (%) (Auto) 73 % Lymphocytes (%) (Auto) 12 % Monocytes (%) (Auto) 11 % Eosinophils (%) (Auto) 4 % Basophils (%) (Auto) 1 % Neutrophils # (Auto) 4.9 x10^3uL Lymphocytes # (Auto) 0.8 x10^3/uL Monocytes # (Auto) 0.8 x10^3/uL Eosinophils # (Auto) 0.3 x10^3/uL Basophils # (Auto) 0.1 x10^3/uL PE: GEN: NAD, up to chair LUNGS: CTAB HEART: RRR ABD: S/ND/NT NEURO/PSYCH: A & O 3 A/P: S/p repair of strangulated right femoral hernia, SBR SBO - resolving, NG out, taking PO, on PPN H/o /surgery - on IV PPI -- Advancing diet. Stop IV PPI, change to PO. BISHOP WALSH May 27, 2017 11:32
[2017-05-27 11:39] LABS: ALBUMIN 2.5 g/dL (3.4-5.0); ALBUMIN/GLOBULIN RATIO 0.7 (1.0-1.7); CALCIUM 8.8 mg/dL (8.5-10.1); GFR 72.5; POTASSIUM 3.7 mmol/L (3.5-5.1); TOTAL BILIRUBIN 0.6 mg/dL (0.2-1.0); TOTAL PROTEIN 6.3 g/dL (6.4-8.2)
[2017-05-27 15:00] VITALS: BP 136/86
[2017-05-27 19:20] VITALS: BP 143/89
[2017-05-27 23:20] VITALS: BP 152/79
[2017-05-28 03:20] VITALS: BP 126/60
[2017-05-28] MEDS: PIPERACILLIN/TAZO IV Push 3.375 GM VIAL. IVP SCH ×2 (05:58→12:08)
[2017-05-28 07:00] VITALS: BP 155/95
[2017-05-28] MEDS: ALBUTEROL SULFATE 2.5 MG/3 ML NEBU. NEB SCH ×3 (07:25→15:38)
[2017-05-28] MEDS ORDERED: PANTOPRAZOLE 40 MG TABLET.DR. PO SCH (07:30)
--- NOTE | 2017-05-28 09:29 | PDOC ---
IM PROGRESS NOTES- Subjective Subjective Drinking fluids- feeling better. Coughing a lot when he swallows. Objective Objective no distress Vitals Vital Signs Date Time Temp Pulse Resp B/P (MAP) Pulse Ox O2 Delivery O2 Flow Rate FiO2 05/28/17 07:26 Room Air 05/28/17 07:00 98.0 72 22 155/95 (115) 98 98.0 05/27/17 08:00 3.0 Input & Output Intake and Output 05/28/17 07:00 Intake Total 1200 ml Output Total 2225 ml Balance -1025 ml Intake Oral 1200 ml Output Urine Total 2225 ml # Voids 3 # Bowel Movements 1 Physical Exam Physical Exam General appearance - alert, weak appearing, and in mild distress Mental Status - alert, oriented to person, place, affect appropriate to mood Head - normal Chest - clear to auscultation, no wheezes, rales or rhonchi Heart - S1 and S2 normal Abdomen - soft, + tender surgical, slight distention improved, BS + UQ and absent bilateral LQ, sugical incision with cary approximated, NG L nare with bile returnI Neurological - weak, no acute deficit, 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 Musculoskeletal - no muscular tenderness noted Extremities - no pedal edema Skin - warm and dry Labs Laboratory Tests Test 05/27/17 10:40 05/28/17 07:56 White Blood Count 6.7 x10^3/uL (4.0-11.0) Red Blood Count 4.13 x10^6/uL (4.30-5.70) Hemoglobin 12.7 g/dL (13.0-17.5) Hematocrit 38.0 % (39.0-53.0) Mean Corpuscular Volume 92 fL (79-100) Mean Corpuscular Hemoglobin 31 pg (25-35) Mean Corpuscular Hemoglobin Concent 34 g/dL (31-37) Red Cell Distribution Width 12.4 % (11.5-14.5) Platelet Count 206 x10^3/uL (140-400) Neutrophils (%) (Auto) 73 % (31-73) Lymphocytes (%) (Auto) 12 % (24-48) Monocytes (%) (Auto) 11 % (0-9) Eosinophils (%) (Auto) 4 % (0-3) Basophils (%) (Auto) 1 % (0-3) Neutrophils # (Auto) 4.9 x10^3uL (1.8-7.7) Lymphocytes # (Auto) 0.8 x10^3/uL (1.0-4.8) Monocytes # (Auto) 0.8 x10^3/uL (0.0-1.1) Eosinophils # (Auto) 0.3 x10^3/uL (0.0-0.7) Basophils # (Auto) 0.1 x10^3/uL (0.0-0.2) Sodium Level 137 mmol/L (136-145) Potassium Level 3.7 mmol/L (3.5-5.1) Chloride Level 102 mmol/L (98-107) Carbon Dioxide Level 28 mmol/L (21-32) Anion Gap 7 (6-14) Blood Urea Nitrogen 14 mg/dL (8-26) Creatinine 1.0 mg/dL (0.7-1.3) Estimated GFR (Cockcroft-Gault) 72.5 BUN/Creatinine Ratio 14 (6-20) Glucose Level 102 mg/dL (70-99) Calcium Level 8.8 mg/dL (8.5-10.1) Total Bilirubin 0.6 mg/dL (0.2-1.0) Aspartate Amino Transf (AST/SGOT) 44 U/L (15-37) Alanine Aminotransferase (ALT/SGPT) 59 U/L (16-63) Alkaline Phosphatase 151 U/L (46-116) Total Protein 6.3 g/dL (6.4-8.2) Albumin 2.5 g/dL (3.4-5.0) Albumin/Globulin Ratio 0.7 (1.0-1.7) Glucose (Fingerstick) 96 mg/dL (70-99) Laboratory Tests Test 05/27/17 10:40 05/28/17 07:56 White Blood Count 6.7 x10^3/uL (4.0-11.0) Red Blood Count 4.13 x10^6/uL (4.30-5.70) Hemoglobin 12.7 g/dL (13.0-17.5) Hematocrit 38.0 % (39.0-53.0) Mean Corpuscular Volume 92 fL (79-100) Mean Corpuscular Hemoglobin 31 pg (25-35) Mean Corpuscular Hemoglobin Concent 34 g/dL (31-37) Red Cell Distribution Width 12.4 % (11.5-14.5) Platelet Count 206 x10^3/uL (140-400) Neutrophils (%) (Auto) 73 % (31-73) Lymphocytes (%) (Auto) 12 % (24-48) Monocytes (%) (Auto) 11 % (0-9) Eosinophils (%) (Auto) 4 % (0-3) Basophils (%) (Auto) 1 % (0-3) Neutrophils # (Auto) 4.9 x10^3uL (1.8-7.7) Lymphocytes # (Auto) 0.8 x10^3/uL (1.0-4.8) Monocytes # (Auto) 0.8 x10^3/uL (0.0-1.1) Eosinophils # (Auto) 0.3 x10^3/uL (0.0-0.7) Basophils # (Auto) 0.1 x10^3/uL (0.0-0.2) Sodium Level 137 mmol/L (136-145) Potassium Level 3.7 mmol/L (3.5-5.1) Chloride Level 102 mmol/L (98-107) Carbon Dioxide Level 28 mmol/L (21-32) Anion Gap 7 (6-14) Blood Urea Nitrogen 14 mg/dL (8-26) Creatinine 1.0 mg/dL (0.7-1.3) Estimated GFR (Cockcroft-Gault) 72.5 BUN/Creatinine Ratio 14 (6-20) Glucose Level 102 mg/dL (70-99) Calcium Level 8.8 mg/dL (8.5-10.1) Total Bilirubin 0.6 mg/dL (0.2-1.0) Aspartate Amino Transf (AST/SGOT) 44 U/L (15-37) Alanine Aminotransferase (ALT/SGPT) 59 U/L (16-63) Alkaline Phosphatase 151 U/L (46-116) Total Protein 6.3 g/dL (6.4-8.2) Albumin 2.5 g/dL (3.4-5.0) Albumin/Globulin Ratio 0.7 (1.0-1.7) Glucose (Fingerstick) 96 mg/dL (70-99) Meds Current Medications Pantoprazole Sodium (Protonix) 40 mg DAILYAC PO Last administered on t 09:17; Start 05/28/17 at 07:30 Assessment Assessment Assessment: 1. abdominal pain n/v secondary to strangulated R femoral hernia s/p R femoral hernia repair SB resection 05/20/14 2. leukocytosis w/o sepsis 3. HTN 4. hyperlipemia 5. 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 GERD 9. DJD multiple joints 10. allergic rhinitis 11. severe PCL malnutrition 12. moderate weakness and debility PLAN: NGT removed. started on full liquid diet labs ok POD 6 - intestinal obstruction - EGD with NG placed R nare to low intermit suction w/ brown return - abd distention improved - Zosyn continues HTN - stable COPD - stable anemia - Hgb 11.1 stable malnutrition severe - tolerating diet. Dysphagia- ST eval. Advance to soft diet. d/w daughter- discharge later today to SNF if possible. Discharge Management - 35 minutes. Plan Plan For more details regarding further plans, please refer to the orders. DANIAL GUZMAN MD May 28, 2017 09:29
[2017-05-28] MEDS: ENOXAPARIN 40 MG/0.4 ML SYRINGE. SQ SCH (09:43)
[2017-05-28] MEDS ORDERED: FLUTICASONE 50MCG/NASAL SPRAY 16GM BOTTLE. NS SCH (10:00)
[2017-05-28] MEDS ORDERED: CETIRIZINE HCL 10 MG TABLET. PO SCH (10:00)
[2017-05-28] MEDS ORDERED: MULTIVITAMIN with MINERAL TABLET. PO SCH (10:00)
[2017-05-28] MEDS ORDERED: ALBUTEROL SULFATE 8GM INHALER. IH PRN (10:00)
[2017-05-28] MEDS ORDERED: FAMOTIDINE 20 MG TABLET. PO SCH (10:00)
[2017-05-28] MEDS ORDERED: CITALOPRAM 10 MG TABLET. PO SCH (10:00)
[2017-05-28] MEDS ORDERED: ALBUTEROL SULFATE 2.5 MG/3 ML NEBU. NEB PRN (10:00)
[2017-05-28] MEDS ORDERED: TAMSULOSIN 0.4 MG CAP.ER.24H. PO SCH (10:00)
[2017-05-28] MEDS ORDERED: MONTELUKAST SODIUM 10 MG TABLET. PO SCH (10:00)
[2017-05-28 10:48] LABS: BILIRUBIN,URINE NEGATIVE (NEG); GLUCOSE,URINE NEGATIVE (NEG); NITRITE,URINE NEGATIVE (NEG); PROTEIN,URINE NEGATIVE (NEG-TRACE); UROBILINOGEN,URINE 0.2 mg/dL (0.2 mg/dL)
[2017-05-28 11:00] VITALS: BP 131/76
[2017-05-28] MEDS: HYDROmorphone 2 MG/ML VIAL IVP PRN (11:06)
[2017-05-28 11:12] LABS: BACTERIA,URINE FEW /HPF (0-FEW); RBC,URINE OCC /HPF (0-2); SQUAMOUS EPITHELIAL CELL,UR OCC /LPF; WBC,URINE OCC /HPF (0-4)
--- NOTE | 2017-05-28 11:53 | PDOC ---
SURGICAL PROGRESS NOTE Subjective coughing with swallowing, plans for speech eval today having stools Vital Signs Vital Signs Date Time Temp Pulse Resp B/P (MAP) Pulse Ox O2 Delivery O2 Flow Rate FiO2 05/28/17 11:29 Room Air 05/28/17 11:06 20 05/28/17 07:00 98.0 72 155/95 (115) 98 98.0 05/27/17 08:00 3.0 I&O Intake and Output 05/28/17 07:00 Intake Total 1200 ml Output Total 2225 ml Balance -1025 ml Intake Oral 1200 ml Output Urine Total 2225 ml # Voids 3 # Bowel Movements 1 General: Alert, Oriented X3, Cooperative, No acute distress Abdomen: Soft, Other (ND, incision c/d/i, no erythema) Labs Laboratory Tests Test 05/27/17 10:40 05/28/17 07:56 05/28/17 10:25 White Blood Count 6.7 x10^3/uL (4.0-11.0) Red Blood Count 4.13 x10^6/uL (4.30-5.70) Hemoglobin 12.7 g/dL (13.0-17.5) Hematocrit 38.0 % (39.0-53.0) Mean Corpuscular Volume 92 fL (79-100) Mean Corpuscular Hemoglobin 31 pg (25-35) Mean Corpuscular Hemoglobin Concent 34 g/dL (31-37) Red Cell Distribution Width 12.4 % (11.5-14.5) Platelet Count 206 x10^3/uL (140-400) Neutrophils (%) (Auto) 73 % (31-73) Lymphocytes (%) (Auto) 12 % (24-48) Monocytes (%) (Auto) 11 % (0-9) Eosinophils (%) (Auto) 4 % (0-3) Basophils (%) (Auto) 1 % (0-3) Neutrophils # (Auto) 4.9 x10^3uL (1.8-7.7) Lymphocytes # (Auto) 0.8 x10^3/uL (1.0-4.8) Monocytes # (Auto) 0.8 x10^3/uL (0.0-1.1) Eosinophils # (Auto) 0.3 x10^3/uL (0.0-0.7) Basophils # (Auto) 0.1 x10^3/uL (0.0-0.2) Sodium Level 137 mmol/L (136-145) Potassium Level 3.7 mmol/L (3.5-5.1) Chloride Level 102 mmol/L (98-107) Carbon Dioxide Level 28 mmol/L (21-32) Anion Gap 7 (6-14) Blood Urea Nitrogen 14 mg/dL (8-26) Creatinine 1.0 mg/dL (0.7-1.3) Estimated GFR (Cockcroft-Gault) 72.5 BUN/Creatinine Ratio 14 (6-20) Glucose Level 102 mg/dL (70-99) Calcium Level 8.8 mg/dL (8.5-10.1) Total Bilirubin 0.6 mg/dL (0.2-1.0) Aspartate Amino Transf (AST/SGOT) 44 U/L (15-37) Alanine Aminotransferase (ALT/SGPT) 59 U/L (16-63) Alkaline Phosphatase 151 U/L (46-116) Total Protein 6.3 g/dL (6.4-8.2) Albumin 2.5 g/dL (3.4-5.0) Albumin/Globulin Ratio 0.7 (1.0-1.7) Glucose (Fingerstick) 96 mg/dL (70-99) Urine Collection Type Unknown Urine Color Yellow Urine Clarity Clear Urine pH 6.0 Urine Specific [place] 1.020 Urine Protein Negative mg/dL (NEG-TRACE) Urine Glucose (UA) Negative mg/dL (NEG) Urine Ketones (Stick) Negative mg/dL (NEG) Urine Blood Small (NEG) Urine Nitrite Negative (NEG) Urine Bilirubin Negative (NEG) Urine Urobilinogen Dipstick 0.2 mg/dL (0.2 mg/dL) Urine Leukocyte Esterase Negative (NEG) Urine RBC Occ /HPF (0-2) Urine WBC Occ /HPF (0-4) Urine Squamous Epithelial Cells Occ /LPF Urine Bacteria Few /HPF (0-FEW) Urine Hyaline Casts Occasional /HPF Laboratory Tests Test 05/28/17 07:56 05/28/17 10:25 Glucose (Fingerstick) 96 mg/dL (70-99) Urine Collection Type Unknown Urine Color Yellow Urine Clarity Clear Urine pH 6.0 Urine Specific [place] 1.020 Urine Protein Negative mg/dL (NEG-TRACE) Urine Glucose (UA) Negative mg/dL (NEG) Urine Ketones (Stick) Negative mg/dL (NEG) Urine Blood Small (NEG) Urine Nitrite Negative (NEG) Urine Bilirubin Negative (NEG) Urine Urobilinogen Dipstick 0.2 mg/dL (0.2 mg/dL) Urine Leukocyte Esterase Negative (NEG) Urine RBC Occ /HPF (0-2) Urine WBC Occ /HPF (0-4) Urine Squamous Epithelial Cells Occ /LPF Urine Bacteria Few /HPF (0-FEW) Urine Hyaline Casts Occasional /HPF Problem List Problems Medical Problems: (1) Abdominal pain Status: Acute (2) Bowel obstruction Status: Acute (3) Direct inguinal hernia Status: Acute (4) Leukocytosis Status: Acute (5) Mild dehydration Status: Acute Assessment/Plan speech eval in progress no new surgical recs Problems: [employer] May 28, 2017 11:53
--- NOTE | 2017-05-28 11:53 | PDOC ---
Subjective: Subjective: Per daughter - having some choking and coughing issues w/ eating, to see [employer]. Denies n/v, asks for coffee, perhaps some abd pain, had some loose stools. Objective: Objective: Reviewed chart - plans for videoswallow. Vital Signs: Vital Signs Date Time Temp Pulse Resp B/P (MAP) Pulse Ox O2 Delivery O2 Flow Rate FiO2 05/28/17 11:29 Room Air 05/28/17 11:06 20 05/28/17 07:00 98.0 72 155/95 (115) 98 98.0 05/27/17 08:00 3.0 Labs: Laboratory Tests Test 05/28/17 07:56 Glucose (Fingerstick) 96 mg/dL (70-99) PE: GEN: NAD, up to chair LUNGS: clear HEART: RRR ABD: non-tender NEURO/PSYCH: anxious A/P: S/p repair of strangulated right femoral hernia, SBR SBO - resolved H/o /surgery - on PO PPI Coughing/"choking" -- Await videoswallow. BISHOP WALSH May 28, 2017 11:53
[2017-05-28] MEDS: AMINO AC 3%/ELECTROLYTE/GLYCER 1,000 ML IV SCH (12:12)
[2017-05-28] MEDS ORDERED: BARIUM SULFATE 40% (APPLE) 148 GM PWD. PO ONE (13:00)
--- NOTE | 2017-05-28 14:14 | RAD ---
EXAM: Modified barium swallow. HISTORY: Dysphagia. FINDINGS: Barium contrast material was administered orally and multiple consistencies under the direction of speech pathology, and followed in its course during swallowing with video fluoroscopy. A fluoroscopic image was obtained. Fluoroscopy time 3.3 minutes. There was laryngeal penetration and aspiration with thin liquids and nectar consistency. The oral phase was delayed with all consistencies resulting in pharyngeal residue. IMPRESSION: 1. Aspiration with thin liquids and nectar consistency. Refer to the full report by speech pathology for more detail.
[2017-05-28 15:00] VITALS: BP 141/88
[2017-05-28] MEDS ORDERED: SIMVASTATIN 10 MG TABLET PO SCH (21:00)
--- NOTE | 2017-06-04 16:54 | PDOC3 ---
IM DISCHARGE SUMMARY Date of Admission Date of Admission Date of Admission: May 20, 2017 at 20:47 Date of Discharge Date of Discharge 05/28/17 Primary Diagnosis Primary Diagnosis Final Diagnosis 1. abdominal pain n/v secondary to strangulated R femoral hernia s/p R femoral hernia repair SB resection 05/20/14 2. leukocytosis w/o sepsis 3. HTN 4. hyperlipemia 5. 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 GERD 9. DJD multiple joints 10. allergic rhinitis 11. severe PCL malnutrition 12. moderate weakness and debility Problems: Consults Consults Marin Moon MD, Dr. Procedures Procedures PROCEDURE Procedure EGD/wire-guided NG placement. Indication: inability to place NG for decompression. Meds: per anesthesia Findings: Attempted initially to pass NG; able to pass into pharynx, but into airway. Brought out mouth. E--Scope inserted. Distal esophagitis. G-copious bilious secretions; bulk suctioned. D-Normal bulb. --guidewire placed and scope withdrawn. NG threaded onto the wire, loop reduced and NG advanced over wire into stomach. Wire removed. -Bilious return from NG after. Suzi. well. IMP: Successful guided NG placement. Distal esophagitis. REC: continue care. iv antisecretory. Thanks. FAUSTO ASCENCIO MD May 23, 2017 15:10 SIGNED BY: FAUSTO ASCENCIO MD DATE: 05/23/17 1510 Operative Note Operative Note Operative Note: Preoperative Diagnosis: Incarcerated right inguinal hernia Postoperative Diagnosis: Strangulated right femoral hernia Procedure: Repair of strangulated right femoral hernia, small bowel resection Surgeon: Jose L Glove Cleaner: Mariana CONTRERAS Anesthesia: Gen. EBL: 25 mL Specimen: Small bowel segment to pathology Drains: None Complications: None Indication: The patient is a 77-year-old gentleman reported to the emergency department with abdominal pain. His evaluation is consistent with an incarcerated right inguinal hernia. He was offered surgical repair and the details of surgery were discussed with the patient and his daughter. The risks of surgery were also noted which include bleeding, infection, visceral injury, anastomotic leak, anesthetic risk, potential need for additional surgery or procedure. He understands and would like to proceed. Description: The patient was taken to the operating room and placed supine on the operating table. Gen. anesthesia was performed. The bilateral groins and abdomen were prepped with ChloraPrep and draped in a standard surgical manner. An incision was made in the right groin with a scalpel. Cautery dissection down to the external oblique aponeurosis. The aponeurosis was then divided. The patient had an incarcerated right femoral hernia with protrusion deep to the inguinal ligament. The neck of the hernia was quite tight and the inguinal ligament had to be divided. The appearance of the hernia contents appeared black suggesting likely focal bowel infarction. Given this a lower vertical midline incision was made with a scalpel. Cautery dissection was carried onto the fascia. The fashion peritoneum were then divided in the lower abdomen was entered. I was able to reduce the hernia from within the abdomen and inspection did confirm short gangrenous segment of small bowel. The intestine proximal and distal to this appeared viable and healthy with only some secondary dilation of the proximal segment due to obstruction. The small intestine was divided proximal and distal to the strangulated segment using a KATE-75 stapling device. The mesentery was then controlled using the LigaSure device. The small bowel segment was then sent to pathology for evaluation. A side to side, functional end-to-end stapled anastomosis was then constructed. The anti-mesenteric sides of both limbs of bowel were opened. The stapler was then placed within both segments of bowel and deployed creating the anastomosis. The common enterotomy was then oversewn with a running 3-0 PDS suture. All of the staple lines were then reinforced with interrupted 3-0 Vicryl placed in the seromuscular layer. The mesenteric defect was closed with 3-0 Vicryl as well. The bowel was returned to the abdominal cavity. We selected an absorbable Phasix mesh plug which was placed in the hernia defect. This was sutured around its periphery with interrupted 2-0 Vicryl. The external oblique aponeurosis was then closed with 2-0 Vicryl. The subcutaneous tissue was approximated with 3-0 Vicryl. The midline fascia was closed with a running 1 PDS suture. The skin of both incisions was closed using cary. Sterile dressings were then applied. The patient tolerated the procedure well and was sent to the recovery room in stable condition. At the end of the case all counts were correct. MARIN MOON MD May 21, 2017 01:26 -S-IGNED BY: MARIN MOON MD DATE: 05/21/17 0126 Labs Labs See EMR Brief hospital course Brief hospital course This year old male who presented with abdominal pain, nausea and vomiting was admitted. The following is a summary of his treatment plan: 05/28/17 PLAN: NGT removed. started on full liquid diet labs ok POD 6 - intestinal obstruction - EGD with NG placed R nare to low intermit suction w/ brown return - abd distention improved - Zosyn continues HTN - stable COPD - stable anemia - Hgb 11.1 stable malnutrition severe - tolerating diet. Dysphagia- ST eval. Advance to soft diet. d/w daughter- discharge later today to SNF if possible. Discharge Management - 35 minutes. 05/27/17 PLAN: NGT removed. started on full liquid diet labs ok POD 6 - intestinal obstruction - EGD with NG placed R nare to low intermit suction w/ brown return - abd distention improved - Zosyn continues HTN - stable COPD - stable anemia - Hgb 11.1 stable malnutrition severe - PPN initiated PLAN: 05/26/17 PLAN: NGT removed. sorted on clear liquid diet labs ok POD 6 - intestinal obstruction - EGD with NG placed R nare to low intermit suction w/ brown return - abd distention improved - Zosyn continues HTN - stable COPD - stable anemia - Hgb 11.1 stable malnutrition severe - PPN 05/25/17 PLAN: Clamp NGT today. strt diet from tomorrow. labs ok POD 5 - intestinal obstruction - EGD with NG placed R nare to low intermit suction w/ brown return - abd distention improved - Zosyn continues HTN - stable COPD - stable anemia - Hgb 11.1 stable malnutrition severe - PPN 05/24/17 POD 4 - intestinal obstruction - EGD with NG placed R nare to low intermit suction w/ brown return - abd distention improved - Zosyn continues HTN - stable COPD - stable anemia - Hgb 11.1 stable malnutrition severe - PPN initiated 05/23/17 POD 3 - BS + upper quad, absent lower quad - nausea/vomiting this morning - - vanco DC 05/22 and zosyn continues - not OOB or walking much =lovenox 30mg subq daily for DVT prophylaxis HTN - stable COPD - stable anemia - CBC pending COPD - nurse note 05/22= spitting up dark green sputum - per daughter nebulizer treatment, coughed up yellow, after cough vomited bile 05/22/17 POD 2 - BS absent - slight distention - ice chips - ambulate - zosyn/ vanco IV continues - IVF D5 1/2 NS 20K 75cc/hr HTN - stable COPD - stable anemia - admit Hgb 15 today 11.8 - has h/o chronic anemia - decrease secondary to rehydration NPO - continue, advance when surgeon orders 05/21/17 R strangulated femoral hernia - s/p R femoral hernia repair/SB resection - POD 1 - leukocytosis WBC 15.5 - Vanc IV daily - Zosyn x 1 pre op - HTN - NPO -resume home meds when surgery orders diet COPD - nebulizer treatments - IS post op - ambulate weakness/debility - PT OT NPO - advance diet per surgery instructions - resume home meds when they ok - consider change IVF to PPN as he had decreased oral intake prior to admission. DVT/GI prophylaxis - SCD/PPI For more details regarding the past history, family history, social history, surgical history and other details, please refer to History and Physical. Please see discharge orders for SNU. Medications Medications reviewed and reconciled for discharge. Allergy Allergies Coded Allergies Type Severity Reaction Last Updated Verified No Known Medication Allergies Allergy Unknown 06/03/17 Yes codeine Adverse Reaction Mild Shaky and GI Upset 05/23/17 Yes Follow up Admit to Dr. Mims DISPOSITION: [facility] facility Comments Discharge Management - 35 minutes. For other details please refer to discharge instructions HEDY NIELSON APRN Jun 04, 2017 16:54
== END 2017-05-28 15:30 | DRG 329 ==
LOC: ER 16:22 → 5 SOUTH 20:47
PROVIDERS: ADMIT Internal Medicine; ATTEND Internal Medicine
PROC: 0YU70JZ Supplement Right Femoral Region with Synthetic Substitute, Open Approach (ICD-10-PCS; principal; 2017-05-21)
PROC: 0DB80ZZ Excision of Small Intestine, Open Approach (ICD-10-PCS; 2017-05-21)
PROC: 0D9680Z Drainage of Stomach with Drainage Device, Via Natural or Artificial Opening Endoscopic (ICD-10-PCS; 2017-05-23)
DX: K41.40 Unilateral femoral hernia, with gangrene, not specified as recurrent (principal); E43 Unspecified severe protein-calorie malnutrition; I13.0 Hypertensive heart and chronic kidney disease with heart failure and stage 1 through stage 4 chronic kidney disease, or unspecified chronic kidney disease; I50.9 Heart failure, unspecified; E86.0 Dehydration; J44.9 Chronic obstructive pulmonary disease, unspecified; F03.90 Unspecified dementia, unspecified severity, without behavioral disturbance, psychotic disturbance, mood disturbance, and anxiety; Z68.1 Body mass index [BMI] 19.9 or less, adult; K41.30 Unilateral femoral hernia, with obstruction, without gangrene, not specified as recurrent; E78.00 Pure hypercholesterolemia, unspecified; E78.5 Hyperlipidemia, unspecified; E87.6 Hypokalemia; F32.9 Major depressive disorder, single episode, unspecified; F41.9 Anxiety disorder, unspecified; J30.9 Allergic rhinitis, unspecified; K21.0 Gastro-esophageal reflux disease with esophagitis; M15.9 Polyosteoarthritis, unspecified; D72.829 Elevated white blood cell count, unspecified; N18.2 Chronic kidney disease, stage 2 (mild); Z86.73 Personal history of transient ischemic attack (TIA), and cerebral infarction without residual deficits; Z98.49 Cataract extraction status, unspecified eye; Z87.01 Personal history of pneumonia (recurrent); Z87.11 Personal history of peptic ulcer disease; Z88.8 Allergy status to other drugs, medicaments and biological substances; Z80.9 Family history of malignant neoplasm, unspecified; Z83.3 Family history of diabetes mellitus; Z82.3 Family history of stroke
CPT/HCPCS: 36415; 51702; 71010; 74000; 74176; 74230; 80048; 80053; 81001; 82962; 83605; 84443; 84484; 85007; 85025; 87040; 87070; 87205; 88307; 93005; 94250; 94640; 94760; 96361; 96374; C1769; C1781; C9113; J1100; J1170; J1650; J2370; J2405; J2543; J2704; J2710; J3010; J3370; J3490; J7030; J7120; J7613; 92610; 92611; 97110; 97116; 97530; 97535; 99285-25; J2001

== ENCOUNTER 2017-06-02 19:55 | Inpatient (IN) | payer MEDICARE ==
[~2017-06-02] VITALS: Ht 180.3 cm; Wt 75.3 kg
--- NOTE | 2017-06-02 20:00 | PHYS DOC ---
Past Medical History Past Medical History: CHF, COPD, CVA, Dementia, GERD, High Cholesterol, Hypertension, Pneumonia, P.U.D., Other Additional Past Medical Histor: BLIND IN LEFT EYE,LEGALLY BLIND,FLUID ON BRAIN Past Surgical History: Other Additional Past Surgical Histo: ABDOMINAL SX FOR A PERFORATED BOWEL,LEFT EYE SURG Alcohol Use: Rarely Drug Use: None Adult General Chief Complaint Chief Complaint: fever HPI HPI Patient is a 77 year old male who presents with weight loss. According EMS he had a fever 102 earlier today and received Tylenol. He also states that he had a 6 pound weight loss in the last 6 days. According to patient he's had some shortness of breath is at his baseline and he is been having some productive cough over the last several days. He denies chest pain nausea vomiting or abdominal pain. According to review his records she had an incarcerated strangulate and hernia that was apparent on May [address] Domingo and had part of his small bowel resected in the process. He has past medical history of COPD, dyslipidemia, hypertension, CVA with cognitive impairment, left eyebrow line this, chronic hydrocephalus coring EMS he was able to stand and ambulate to the cot. Review of Systems Review of Systems Constitutional: Denies fever or chills [] Eyes: Denies change in visual acuity, redness, or eye pain [] HENT: Denies nasal congestion or sore throat [] Respiratory: Denies cough or shortness of breath [] Cardiovascular: No additional information not addressed in HPI [] GI: Denies abdominal pain, nausea, vomiting, bloody stools or diarrhea [] : Denies dysuria or hematuria [] Musculoskeletal: Denies back pain or joint pain [] Integument: Denies rash or skin lesions [] Neurologic: Denies headache, focal weakness or sensory changes [] Endocrine: Denies polyuria or polydipsia [] All other systems were reviewed and found to be within normal limits, except as documented in this note. Current Medications Current Medications Current Medications Medications (Trade) Dose Ordered Sig/Betsy Start Time Stop Time Status Last Admin Dose Admin Sodium Chloride 1,000 ml @ 1,000 mls/hr 1X ONCE 06/02/17 21:30 06/02/17 22:29 06/02/17 21:13 1,000 MLS/HR Allergies Allergies Allergies Coded Allergies Type Severity Reaction Last Updated Verified codeine Adverse Reaction Mild Shaky and GI Upset 05/23/17 Yes Physical Exam Physical Exam Constitutional: Well developed, well nourished, no acute distress, non-toxic appearance. [] HENT: Normocephalic, atraumatic, bilateral external ears normal, oropharynx moist, no oral exudates, nose normal. [] Eyes: PERRLA, EOMI, conjunctiva normal, no discharge. [] Neck: Normal range of motion, no tenderness, supple, no stridor. [] Cardiovascular:Heart rate regular rhythm, no murmur [] Lungs & Thorax: Decreased breath sounds bilaterally, no wheezing appreciated Abdomen: Bowel sounds normal, soft, no tenderness, no masses, no pulsatile masses. [] Skin: Warm, dry, no erythema, no rash. Jhonatan in place in the right inguinal area and inferior umbilical area, no erythema noted Back: No tenderness, no CVA tenderness. [] Extremities: No tenderness, no cyanosis, no clubbing, ROM intact, no edema. [] Neurologic: Alert and oriented X 3, normal motor function, normal sensory function, no focal deficits noted. [] Psychologic: Affect normal, judgement normal, mood normal. [] Current Patient Data Vital Signs Vital Signs Date Time Temp Pulse Resp B/P (MAP) Pulse Ox O2 Delivery O2 Flow Rate FiO2 06/02/17 22:00 77 18 159/78 (105) 98 Room Air 06/02/17 19:55 98.9 98.9 Lab Values Laboratory Tests Test 06/02/17 20:10 06/02/17 21:19 White Blood Count 7.2 x10^3/uL (4.0-11.0) Red Blood Count 4.02 x10^6/uL (4.30-5.70) L Hemoglobin 12.3 g/dL (13.0-17.5) L Hematocrit 36.6 % (39.0-53.0) L Mean Corpuscular Volume 91 fL (79-100) Mean Corpuscular Hemoglobin 31 pg (25-35) Mean Corpuscular Hemoglobin Concent 34 g/dL (31-37) Red Cell Distribution Width 12.4 % (11.5-14.5) Platelet Count 321 x10^3/uL (140-400) Neutrophils (%) (Auto) 79 % (31-73) H Lymphocytes (%) (Auto) 11 % (24-48) L Monocytes (%) (Auto) 7 % (0-9) Eosinophils (%) (Auto) 2 % (0-3) Basophils (%) (Auto) 1 % (0-3) Neutrophils # (Auto) 5.7 x10^3uL (1.8-7.7) Lymphocytes # (Auto) 0.8 x10^3/uL (1.0-4.8) L Monocytes # (Auto) 0.5 x10^3/uL (0.0-1.1) Eosinophils # (Auto) 0.2 x10^3/uL (0.0-0.7) Basophils # (Auto) 0.0 x10^3/uL (0.0-0.2) Prothrombin Time 12.9 SEC (11.7-14.0) Prothrombin Time INR 1.0 (0.8-1.1) PTT 29 SEC (24-38) Sodium Level 141 mmol/L (136-145) Potassium Level 4.0 mmol/L (3.5-5.1) Chloride Level 104 mmol/L (98-107) Carbon Dioxide Level 29 mmol/L (21-32) Anion Gap 8 (6-14) Blood Urea Nitrogen 13 mg/dL (8-26) # Creatinine 1.1 mg/dL (0.7-1.3) Estimated GFR (Cockcroft-Gault) 64.9 Glucose Level 110 mg/dL (70-99) H Lactic Acid Level 1.1 mmol/L (0.4-2.0) Calcium Level 8.9 mg/dL (8.5-10.1) Total Bilirubin 0.2 mg/dL (0.2-1.0) Direct Bilirubin 0.1 mg/dL (0.0-0.2) Aspartate Amino Transferase (AST) 21 U/L (15-37) Alanine Aminotransferase (ALT) 57 U/L (16-63) Alkaline Phosphatase 142 U/L (46-116) H Total Protein 6.6 g/dL (6.4-8.2) Albumin 2.9 g/dL (3.4-5.0) L Influenza Type A Antigen Negative (NEGATIVE) Influenza Type B Antigen Negative (NEGATIVE) Urine Collection Type Unknown Urine Color [place] Urine Clarity Clear Urine pH 5.5 Urine Specific [place] >=1.030 Urine Protein Negative mg/dL (NEG-TRACE) Urine Glucose (UA) Negative mg/dL (NEG) Urine Ketones (Stick) Trace mg/dL (NEG) Urine Blood Negative (NEG) Urine Nitrite Negative (NEG) Urine Bilirubin Small (NEG) Urine Urobilinogen Dipstick 1.0 mg/dL (0.2 mg/dL) Urine Leukocyte Esterase Negative (NEG) Urine RBC Occ /HPF (0-2) Urine WBC 5-10 /HPF (0-4) Urine Bacteria 0 /HPF (0-FEW) Urine Hyaline Casts Few /HPF Urine Mucus Marked /LPF Laboratory Tests 06/02/17 20:10 Laboratory Tests 06/02/17 20:10 EKG EKG EKG shows sinus rhythm with rate of [address] elevations or concerning T-wave inversions, normal axis, QTC 424 ms, as interpreted by me. Radiology/Procedures Radiology/Procedures One view chest x-ray didn't show any focal consolidations, bony abnormality's, pneumothorax, as interpreted by me. Impressions: History of fever Course & Med Decision Making Course & Med Decision Making Pertinent Labs and Imaging studies reviewed. (See chart for details) Upon arrival to the ER he does not have a fever. His vitals are stable. His chest x-ray doesn't show any signs of infection ,however do not have any old ones for comparison. His incisions on his abdomen are clean dry and intact without any erythema or discomfort. He is not tachypneic or tachycardic or have a fever here. Influenza is negative. His lactic acid is normal. At this point I 'm not sure why he had a fever at [facility] [place]. I spoke with regarding the patient's physical exam, labs, vitals and he does not want started antibiotics since we do not have a source. Patient is being admitted to Dr. Guzman for observation and monitoring. Dragon Disclaimer Dragon Disclaimer This electronic medical record was generated, in whole or in part, using a voice recognition dictation system. Departure Departure Impression: Primary Impression: Fever Disposition: ADMITTED INPATIENT Admitting Physician: Danial Guzman Condition: STABLE Referrals: DANIAL GUZMAN MD (PCP) NELSON HEIN MD Jun 02, 2017 20:00
[2017-06-02 20:23] LABS: BASO % 1 % (0-3); EOS % 2 % (0-3); HEMATOCRIT 36.6 % (39.0-53.0); HEMOGLOBIN 12.3 g/dL (13.0-17.5); LYMPH # 0.8 x10^3/uL (1.0-4.8); LYMPH % 11 % (24-48); MEAN CORPUSCULAR HEMOGLOBIN 31 pg (25-35); MEAN CORPUSCULAR HGB CONC 34 g/dL (31-37); MEAN CORPUSCULAR VOLUME 91 fL (79-100); MONO % 7 % (0-9); NEUT % 79 % (31-73); PLATELET COUNT 321 x10^3/uL (140-400); RED BLOOD COUNT 4.02 x10^6/uL (4.30-5.70); RED CELL DISTRIBUTION WIDTH 12.4 % (11.5-14.5); WHITE BLOOD COUNT 7.2 x10^3/uL (4.0-11.0)
[2017-06-02 20:33] LABS: PROTHROMBIN TIME PATIENT 12.9 SEC (11.7-14.0)
[2017-06-02 20:35] LABS: CALCIUM 8.9 mg/dL (8.5-10.1); CREATININE 1.1 mg/dL (0.7-1.3); GFR 64.9
[2017-06-02 20:41] LABS: ALBUMIN 2.9 g/dL (3.4-5.0); DIRECT BILIRUBIN 0.1 mg/dL (0.0-0.2); TOTAL BILIRUBIN 0.2 mg/dL (0.2-1.0); TOTAL PROTEIN 6.6 g/dL (6.4-8.2)
[2017-06-02 20:46] LABS: OBC FLU VALID
[2017-06-02 21:27] LABS: BILIRUBIN,URINE SMALL (NEG); GLUCOSE,URINE NEGATIVE (NEG); NITRITE,URINE NEGATIVE (NEG); PH,URINE 5.5; PROTEIN,URINE NEGATIVE (NEG-TRACE)
[2017-06-02] MEDS ORDERED: IV NORMAL SALINE 1000ML BAG 1,000 ML IV ONE (21:30)
[2017-06-02 21:38] LABS: BACTERIA,URINE 0 /HPF (0-FEW); RBC,URINE OCC /HPF (0-2)
[2017-06-02] MEDS ORDERED: ONDANSETRON PF 4 MG/2 ML VIAL. IV PRN (22:45)
[2017-06-03] VITALS (7 sets, daily range): BP systolic 119–141; BP diastolic 62–76
[2017-06-03] MEDS ORDERED: ALBU2.5V5 NEB (00:14)
[2017-06-03] MEDS ORDERED: ENOX40DI SQ (00:14)
[2017-06-03] MEDS ORDERED: OMEP20TA8 PO (00:14)
[2017-06-03] MEDS ORDERED: TRAM50TA PO (00:14)
--- NOTE | 2017-06-03 06:31 | EKG ---
[facility] [address] [place] [address] Test Date: 2017-06-02 Test Time: 20:10:40 Pat Name: PARI HARDEN Department: Room: 5 Gender: M Alligator Trapper: : 1940 Requested By: NELSON HEIN Order Number: [id number] Reading MD: Marin Honeycutt Measurements Intervals [place] Rate: 85 P: 3 WV: 202 QRS: 7 QRSD: 84 T: 30 QT: 352 QTc: 424 Interpretive Statements SINUS RHYTHM ATRIAL PREMATURE COMPLEX(ES) NO SPECIFIC ECG ABNORMALITIES RI6.01 Compared to ECG 05/20/2017 18:59:01 No significant changes Electronically Signed On 06-03-2017 17:41:09 TARIFF COMPILER by Marin Honeycutt
--- NOTE | 2017-06-03 07:31 | RAD ---
Chest x-ray Indication: Fever Technique: Semiupright portable AP chest x-ray Comparison: Previous study from 05/22/2017 Findings: Heart is top normal in size. Lungs are hyperinflated likely due to poor inspiratory effort. Right lung and left upper lung zone are clear. Evaluation of left lower lung zone is limited due to overlying cardiac silhouette. No pneumothorax. Visualized bony thorax within normal limits. Impression: Evaluation of left lung base is limited due to overlying cardiac silhouette. Otherwise, lungs are clear. Repeat chest x-ray may be obtained with proper positioning.
[2017-06-03 07:48] LABS: BASO # 0.1 x10^3/uL (0.0-0.2); BASO % 1 % (0-3); EOS % 5 % (0-3); HEMATOCRIT 32.3 % (39.0-53.0); HEMOGLOBIN 10.8 g/dL (13.0-17.5); LYMPH # 1.1 x10^3/uL (1.0-4.8); LYMPH % 23 % (24-48); MEAN CORPUSCULAR HEMOGLOBIN 30 pg (25-35); MEAN CORPUSCULAR HGB CONC 33 g/dL (31-37); MEAN CORPUSCULAR VOLUME 91 fL (79-100); MONO % 9 % (0-9); NEUT % 63 % (31-73); PLATELET COUNT 273 x10^3/uL (140-400); RED BLOOD COUNT 3.57 x10^6/uL (4.30-5.70); RED CELL DISTRIBUTION WIDTH 12.4 % (11.5-14.5); WHITE BLOOD COUNT 5.1 x10^3/uL (4.0-11.0)
[2017-06-03 08:05] LABS: CALCIUM 8.4 mg/dL (8.5-10.1); CREATININE 0.8 mg/dL (0.7-1.3); GFR 93.7; POTASSIUM 3.5 mmol/L (3.5-5.1)
--- NOTE | 2017-06-03 09:46 | PDOC1 ---
HISTORY AND PHYSICAL Chief Complaint Chief Complaint This 77 year old male has been admitted with a chief complaint of cough and fever. He was discharged last week to [facility] for ongoing PT OT and close clinical monitoring. He presented to the ED yesterday with c/o weight loss (6 pounds in 6 days) and fever 102F. He reported shortness of breath for several days with a cough that was productive white. CXR was negative for acute finding. EKG SR. Labs were unremarkable. He is admitted to the medical surgical floor for continued evaluation and treatment. 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 Meyer); exploratory lap gastric ulcer repair 2011; strangulated femoral hernia repair with SB resection 05/23/17 Past Surgical History: Cataract Removal (R eye, L eye blind ) Past Family History Family History: Cancer (Sister), Diabetes (Mom), Stroke (Mom ) Past Social History PSH Lives with daughter. negative h/o tobacco, ETOH or illicit drug use Review of Symptoms Review of Symptoms A 14 point ROS was completed with the following noted as positive: per HPI Other systems reviewed and negative. Medications Medications reviewed and reconciled Allergy Allergies Coded Allergies Type Severity Reaction Last Updated Verified codeine Adverse Reaction Mild Shaky and GI Upset 05/23/17 Yes Physical Exam Physical Exam General appearance - alert,well appearing, and in no distress Mental Status - alert, poor historian oriented to person, place, and time, affect appropriate to mood Head - normal Chest - rales L base mild Heart - S1 and S2 normal Abdomen - soft, nontender, nondistended, BS+. surgical incision approximated, clear Neurological - no acute focal neurological deficit noted Musculoskeletal - no muscular tenderness noted Extremities - no pedal edema Skin - warm and dry VTE Prophylaxis Ordered VTE Prophylaxis Devices: Yes VTE Pharmacological Prophylaxi: No Assessment Labs Laboratory Tests Test 06/02/17 20:10 06/02/17 21:19 06/03/17 00:01 06/03/17 06:50 White Blood Count 7.2 x10^3/uL (4.0-11.0) 5.1 x10^3/uL (4.0-11.0) Red Blood Count 4.02 x10^6/uL (4.30-5.70) 3.57 x10^6/uL (4.30-5.70) Hemoglobin 12.3 g/dL (13.0-17.5) 10.8 g/dL (13.0-17.5) Hematocrit 36.6 % (39.0-53.0) 32.3 % (39.0-53.0) Mean Corpuscular Volume 91 fL (79-100) 91 fL (79-100) Mean Corpuscular Hemoglobin 31 pg (25-35) 30 pg (25-35) Mean Corpuscular Hemoglobin Concent 34 g/dL (31-37) 33 g/dL (31-37) Red Cell Distribution Width 12.4 % (11.5-14.5) 12.4 % (11.5-14.5) Platelet Count 321 x10^3/uL (140-400) 273 x10^3/uL (140-400) Neutrophils (%) (Auto) 79 % (31-73) 63 % (31-73) Lymphocytes (%) (Auto) 11 % (24-48) 23 % (24-48) Monocytes (%) (Auto) 7 % (0-9) 9 % (0-9) Eosinophils (%) (Auto) 2 % (0-3) 5 % (0-3) Basophils (%) (Auto) 1 % (0-3) 1 % (0-3) Neutrophils # (Auto) 5.7 x10^3uL (1.8-7.7) 3.2 x10^3uL (1.8-7.7) Lymphocytes # (Auto) 0.8 x10^3/uL (1.0-4.8) 1.1 x10^3/uL (1.0-4.8) Monocytes # (Auto) 0.5 x10^3/uL (0.0-1.1) 0.4 x10^3/uL (0.0-1.1) Eosinophils # (Auto) 0.2 x10^3/uL (0.0-0.7) 0.3 x10^3/uL (0.0-0.7) Basophils # (Auto) 0.0 x10^3/uL (0.0-0.2) 0.1 x10^3/uL (0.0-0.2) Prothrombin Time 12.9 SEC (11.7-14.0) Prothromb Time International Ratio 1.0 (0.8-1.1) Activated Partial Thromboplast Time 29 SEC (24-38) Sodium Level 141 mmol/L (136-145) 141 mmol/L (136-145) Potassium Level 4.0 mmol/L (3.5-5.1) 3.5 mmol/L (3.5-5.1) Chloride Level 104 mmol/L (98-107) 107 mmol/L (98-107) Carbon Dioxide Level 29 mmol/L (21-32) 28 mmol/L (21-32) Anion Gap 8 (6-14) 6 (6-14) Blood Urea Nitrogen 13 mg/dL (8-26) 9 mg/dL (8-26) Creatinine 1.1 mg/dL (0.7-1.3) 0.8 mg/dL (0.7-1.3) Estimated GFR (Cockcroft-Gault) 64.9 93.7 Glucose Level 110 mg/dL (70-99) 87 mg/dL (70-99) Lactic Acid Level 1.1 mmol/L (0.4-2.0) 0.7 mmol/L (0.4-2.0) Calcium Level 8.9 mg/dL (8.5-10.1) 8.4 mg/dL (8.5-10.1) Total Bilirubin 0.2 mg/dL (0.2-1.0) Direct Bilirubin 0.1 mg/dL (0.0-0.2) Aspartate Amino Transf (AST/SGOT) 21 U/L (15-37) Alanine Aminotransferase (ALT/SGPT) 57 U/L (16-63) Alkaline Phosphatase 142 U/L (46-116) Total Protein 6.6 g/dL (6.4-8.2) Albumin 2.9 g/dL (3.4-5.0) Influenza Type A Antigen Negative (NEGATIVE) Influenza Type B Antigen Negative (NEGATIVE) Urine Collection Type Unknown Urine Color Love Urine Clarity Clear Urine pH 5.5 Urine Specific [place] >=1.030 Urine Protein Negative mg/dL (NEG-TRACE) Urine Glucose (UA) Negative mg/dL (NEG) Urine Ketones (Stick) Trace mg/dL (NEG) Urine Blood Negative (NEG) Urine Nitrite Negative (NEG) Urine Bilirubin Small (NEG) Urine Urobilinogen Dipstick 1.0 mg/dL (0.2 mg/dL) Urine Leukocyte Esterase Negative (NEG) Urine RBC Occ /HPF (0-2) Urine WBC 5-10 /HPF (0-4) Urine Bacteria 0 /HPF (0-FEW) Urine Hyaline Casts Few /HPF Urine Mucus Marked /LPF Laboratory Tests Test 06/02/17 20:10 06/02/17 21:19 06/03/17 00:01 06/03/17 06:50 White Blood Count 7.2 x10^3/uL (4.0-11.0) 5.1 x10^3/uL (4.0-11.0) Red Blood Count 4.02 x10^6/uL (4.30-5.70) 3.57 x10^6/uL (4.30-5.70) Hemoglobin 12.3 g/dL (13.0-17.5) 10.8 g/dL (13.0-17.5) Hematocrit 36.6 % (39.0-53.0) 32.3 % (39.0-53.0) Mean Corpuscular Volume 91 fL (79-100) 91 fL (79-100) Mean Corpuscular Hemoglobin 31 pg (25-35) 30 pg (25-35) Mean Corpuscular Hemoglobin Concent 34 g/dL (31-37) 33 g/dL (31-37) Red Cell Distribution Width 12.4 % (11.5-14.5) 12.4 % (11.5-14.5) Platelet Count 321 x10^3/uL (140-400) 273 x10^3/uL (140-400) Neutrophils (%) (Auto) 79 % (31-73) 63 % (31-73) Lymphocytes (%) (Auto) 11 % (24-48) 23 % (24-48) Monocytes (%) (Auto) 7 % (0-9) 9 % (0-9) Eosinophils (%) (Auto) 2 % (0-3) 5 % (0-3) Basophils (%) (Auto) 1 % (0-3) 1 % (0-3) Neutrophils # (Auto) 5.7 x10^3uL (1.8-7.7) 3.2 x10^3uL (1.8-7.7) Lymphocytes # (Auto) 0.8 x10^3/uL (1.0-4.8) 1.1 x10^3/uL (1.0-4.8) Monocytes # (Auto) 0.5 x10^3/uL (0.0-1.1) 0.4 x10^3/uL (0.0-1.1) Eosinophils # (Auto) 0.2 x10^3/uL (0.0-0.7) 0.3 x10^3/uL (0.0-0.7) Basophils # (Auto) 0.0 x10^3/uL (0.0-0.2) 0.1 x10^3/uL (0.0-0.2) Prothrombin Time 12.9 SEC (11.7-14.0) Prothromb Time International Ratio 1.0 (0.8-1.1) Activated Partial Thromboplast Time 29 SEC (24-38) Sodium Level 141 mmol/L (136-145) 141 mmol/L (136-145) Potassium Level 4.0 mmol/L (3.5-5.1) 3.5 mmol/L (3.5-5.1) Chloride Level 104 mmol/L (98-107) 107 mmol/L (98-107) Carbon Dioxide Level 29 mmol/L (21-32) 28 mmol/L (21-32) Anion Gap 8 (6-14) 6 (6-14) Blood Urea Nitrogen 13 mg/dL (8-26) 9 mg/dL (8-26) Creatinine 1.1 mg/dL (0.7-1.3) 0.8 mg/dL (0.7-1.3) Estimated GFR (Cockcroft-Gault) 64.9 93.7 Glucose Level 110 mg/dL (70-99) 87 mg/dL (70-99) Lactic Acid Level 1.1 mmol/L (0.4-2.0) 0.7 mmol/L (0.4-2.0) Calcium Level 8.9 mg/dL (8.5-10.1) 8.4 mg/dL (8.5-10.1) Total Bilirubin 0.2 mg/dL (0.2-1.0) Direct Bilirubin 0.1 mg/dL (0.0-0.2) Aspartate Amino Transf (AST/SGOT) 21 U/L (15-37) Alanine Aminotransferase (ALT/SGPT) 57 U/L (16-63) Alkaline Phosphatase 142 U/L (46-116) Total Protein 6.6 g/dL (6.4-8.2) Albumin 2.9 g/dL (3.4-5.0) Influenza Type A Antigen Negative (NEGATIVE) Influenza Type B Antigen Negative (NEGATIVE) Urine Collection Type Unknown Urine Color Love Urine Clarity Clear Urine pH 5.5 Urine Specific [place] >=1.030 Urine Protein Negative mg/dL (NEG-TRACE) Urine Glucose (UA) Negative mg/dL (NEG) Urine Ketones (Stick) Trace mg/dL (NEG) Urine Blood Negative (NEG) Urine Nitrite Negative (NEG) Urine Bilirubin Small (NEG) Urine Urobilinogen Dipstick 1.0 mg/dL (0.2 mg/dL) Urine Leukocyte Esterase Negative (NEG) Urine RBC Occ /HPF (0-2) Urine WBC 5-10 /HPF (0-4) Urine Bacteria 0 /HPF (0-FEW) Urine Hyaline Casts Few /HPF Urine Mucus Marked /LPF Plan Plan IMPRESSION: 1. cough with shortness of breath/fever 2. s/p strangulated R femoral hernia repair with SB resection 3. HTN 4. hyperlipemia 5. 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 GERD 9. 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 allergic rhinitis 12. moderate to severe PCL malnutrition with reported 6# weight loss in one week. PLAN: cough with SOA - rales L base, ?aspiration bronchitis pulmonary consult speech consult Speech following at [facility] - no coughing with meals -will order speech eval today Fever -no fever since admission - ID consult nebulizer treatments malnutrition staff at [facility] reports does not like honey thickened liquids, He does eat mechanical soft diet w/o dysphagia Wt loss - Admit weight last Saturday to PPI 166.4# - 06/02 wt 161.8# - admit PMC wt 166.05#. (Weight last admission not accurate 150# the whole admission) HTN resume home meds weakness debility PT OT eval and treat DVT/GI prohylaxis SCD/RONALDO PPI D/W daughterm - will plan DC to [facility] again for skilled services. For further plan of care, please refer to the orders. For more details regarding further plans, please refer to the orders. HEDY NIELSON TENNIS RACKET REPAIRER Jun 03, 2017 09:46
--- NOTE | 2017-06-03 09:50 | PDOC ---
Provider Note Provider Note Patient seen. D/w patient and daughter.. See H&P. Has persistent mostly dry cough worse with any oral intake. U/a negative.Had fever 102 degrees yesterday.Has fever for 2 days. has left basal rales. Aspiration bronchitis. Consult - pulmonary and and Dr.Samir Newman- fever,cough. Order CT chest. The patient was seen and examined by me. Chart reviewed and plan of care formulated. Discussed with, reviewed and agree with BASEBALL GLOVE STUFFER's notes, plan of care and orders with modifications as necessary. For more details regarding further plans, please refer to the orders. DANIAL GUZMAN MD Jun 03, 2017 09:50
[2017-06-03] MEDS ORDERED: ALBUTEROL SULFATE 2.5 MG/3 ML NEBU. NEB PRN (10:15)
[2017-06-03] MEDS ORDERED: traMADol 50 MG TABLET PO PRN (10:15)
[2017-06-03] MEDS ORDERED: ACETAMINOPHEN 325 MG TABLET. PO PRN (10:15)
[2017-06-03] MEDS: CITALOPRAM 10 MG TABLET. PO SCH (11:44)
[2017-06-03] MEDS: ENOXAPARIN 40 MG/0.4 ML SYRINGE. SQ SCH (11:44)
[2017-06-03] MEDS: MULTIVITAMIN with MINERAL TABLET. PO SCH (11:44)
[2017-06-03] MEDS: TAMSULOSIN 0.4 MG CAP.ER.24H. PO SCH (11:45)
[2017-06-03] MEDS: CETIRIZINE HCL 10 MG TABLET. PO SCH (11:45)
[2017-06-03] MEDS: FLUTICASONE 50MCG/NASAL SPRAY 16GM BOTTLE. NS SCH (11:48)
--- NOTE | 2017-06-03 12:07 | PDOC ---
Provider Note Provider Note pt seen and dictated [id number] IMP/REC Fever with cough and sob, etiology possibly viral illness afebrile till now continue observation f/u labs and c/s low threshold to broaden coverage if febrile ILIR INIGUEZ MD Jun 03, 2017 12:07
--- NOTE | 2017-06-03 13:32 | RAD ---
CT chest without contrast Indication: Cough, aspiration. Technique: CT chest without IV contrast with multiplanar reformats. Comparison: Same day plain film. Findings: Neck bases clear. Heart is normal in size. Coronary artery calcifications noted. No pericardial or pleural effusion. No axillary, mediastinal or hilar adenopathy. Calcified right hilar lymph nodes. Patchy opacities are seen in the bilateral lung bases. No evidence of mucus plugging noted. 2 mm pulmonary nodules/nodular opacities are seen in the right lower lobe (series 2 image 31). Diffuse atherosclerotic disease of the aortic arch and descending aorta are noted. Visualized sections through the liver, spleen, gallbladder, pancreas, adrenals and kidneys are within normal limits. No suspicious bony lesion. Multilevel degenerative disc disease in the thoracic spine. Impression: 1. Patchy opacities in the bilateral lung bases may represent most likely subsegmental atelectasis. However, aspiration or pneumonia not completely rule out. 2. Couple of 2 mm pulmonary nodule/nodular opacity in the right lower lobe. According to Fleischner Society recommendation, If the patient is low risk patient then no follow-up needed. If the patient is high risk then follow-up CT chest in 12 months recommended. PQRS Compliance Statement: One or more of the following individualized dose reduction techniques were utilized for this examination: 1. Automated exposure control 2. Adjustment of the mA and/or kV according to patient size 3. Use of iterative reconstruction technique
--- NOTE | 2017-06-03 13:37 | PDOC ---
Provider Note Provider Note dictated ARLETTE LIRIANO MD Jun 03, 2017 13:37
--- NOTE | 2017-06-03 14:11 | CONS ---
DATE OF CONSULTATION: ATTENDING PHYSICIAN: Dr. Kelly Mims. REASON FOR CONSULTATION: Fever and cough. HISTORY OF PRESENT ILLNESS: The patient is a 77-year-old male who presented to the hospital with complaint of 2 days history of a cough which has been nonproductive. He had a fever of 102. He has some subjective weight loss in the last 6 days. He denies any purulent sputum production. No shortness of breath, no chest pains. I was able to obtain history from the patient. I have reviewed patient's chest x-ray, and there were no acute infiltrates seen on the chest x-ray. He also had a CT chest, which was reviewed by me. There is some parenchymal scarring and atelectasis at the left base. There is also a very tiny 2 mm pulmonary nodular opacity in the right lower lobe. I have been asked to see him for further evaluation. He appears to be in no obvious respiratory distress. Review of his vital signs while in the hospital reveals no fever. The patient said he smoked for 15 years before quitting long time ago. PAST MEDICAL HISTORY: Significant for history of CHF, COPD, unknown FEV1, history of CVA, dementia, GERD, dyslipidemia, hypertension, pneumonia, peptic ulcer disease and blindness in the left eye, legally blind. PAST SURGICAL HISTORY: Abdominal surgeries for perforated bowel and left eye surgery. ALLERGIES: CODEINE. MEDICATIONS: Reviewed as listed in the [facility] including Lovenox for DVT prophylaxis. Currently, he is not on any antibiotics. SOCIAL HISTORY: Smoked for 15 years before quitting many years ago. PHYSICAL EXAMINATION: GENERAL: He is awake, following commands. VITAL SIGNS: Stable. He is afebrile, pulse ox 96% on room air. NECK: Supple. LUNGS: With clear breath sounds. CARDIOVASCULAR: Regular rate and rhythm. ABDOMEN: Soft. EXTREMITIES: With no pitting edema. LABORATORY DATA: Reviewed. White cell count 5.1, hemoglobin 10.8 and platelets are 373. Influenza rapid test is negative. BUN is 9 and creatinine 0.8. IMPRESSION: 1. Febrile illness. I suspect most likely viral. He is currently afebrile. 2. Abnormal CT chest with minimal atelectasis at the left base, along with some parenchymal scarring. I do not see any definite consolidation. 3. No significant leukocytosis. Fever is resolved. RECOMMENDATIONS: 1. From a pulmonary standpoint, he is stable. He is on room air. 2. Follow infectious disease recommendations and at this time, agree to withhold any antibiotics as he is afebrile. 3. P.r.n. bronchodilators. 4. DVT prophylaxis with Lovenox. 5. We will follow along with you. ARLETTE LIRIANO MD DR: ELYSIA/rachel JOB#: [id number] / [id number]
--- NOTE | 2017-06-03 19:23 | CONS ---
DATE OF CONSULTATION: 06/03/2017 REFERRING PHYSICIAN: Dr. Kelly Mims. REASON FOR CONSULTATION: Fever. HISTORY OF PRESENT ILLNESS:Pt has cognitive chronic problems. Information obtained from medical chart and nurse. A 77-year-old male had been admitted with fever of 102 *F with a decreased p.o. intake and weight loss 6 pounds in 6 days. The patient was discharged last week to [facility] . The patient had some cough with productive white sputum fever, and shortness of breath ,so was admitted. Chest x-ray was negative for any acute infiltrate. Labs were unremarkable with WBC being normal. He was admitted to medical floor for further observation and treatment. The patient did not have any fever since admission. He states he feels a little better since admission. He denies any headache, sore throat, difficulty swallowing, chest pain, nausea, vomiting, diarrhea, abdominal pain, joint pain, rash, symptoms. PAST MEDICAL HISTORY: Hypertension, hyperlipidemia, COPD, GERD, diverticulosis, peptic ulcer disease, CVA, cognitive disorder, anemia, anxiety, depression, allergic rhinitis, CKD, DJD. PAST SURGICAL HISTORY: 1. History of recent surgery for strangulated femoral hernia repair with small bowel resection on 05/23/2017. 2. History of hernia repair x 2. 3. Exploratory laparotomy for gastric ulcer repair 2011. 4. Cataract removal, right eye, left eye blind. FAMILY HISTORY: As in [facility]. SOCIAL HISTORY: Negative for ETOH, smoking and illicit drug use. Lives with daughter. REVIEW OF SYSTEMS: As above, otherwise negative. CURRENT MEDICATION: Antibiotics: None. Others: Reviewed. ALLERGIES: CODEINE. PHYSICAL EXAMINATION: VITAL SIGNS: Temperature 97.7, pulse 78, respiration rate 18, blood pressure 147/80, oxygen saturation 99% on room air. GENERAL: Alert, comfortable, male lying in no acute distress. MENTAL STATUS: Alert, poor historian. HEENT: Anicteric. Oral mucosa moist. No oral lesions seen. eomi for rt eye lt eye opaque NECK: Supple. No JVD. No thyromegaly. CHEST: Clear bilaterally. HEART: S1, S2 normal. ABDOMEN: Soft, nontender, nondistended. Bowel sounds present. Surgical incision is clear, approximated. No surrounding erythema, no drainage noted. Nontender. EXTREMITIES: No edema, no cyanosis, no clubbing. MUSCULOSKELETAL: No joint effusion noted. DERMATOLOGIC: Warm and dry. No generalized rash noted. Psych alert,awake,cooperative LABORATORY DATA: WBC 5.1, RBC 3.57, hemoglobin 10.8, hematocrit 32.3, platelets 273, neutrophil count of 63%. Sodium 141, potassium 3.5, chloride 107, bicarbonate 28, BUN 9, creatinine 0.8, glucose 87. Lactate 0.7, calcium 8.9, total bilirubin 0.2, direct bilirubin 0.1, AST 21, ALT 1257, alkaline phosphatase 142, total protein 6.6, albumin 2.9. Influenza screen negative. UA; wbc's 5-10, leukocyte esterase negative, nitrite negative. RADIOLOGY: Chest x-ray, impression evaluation of left base is limited due to overlying cardiac silhouette, otherwise lungs are clear. CT chest ordered. MICROBIOLOGY: None. IMPRESSION: 1. Fever 102 at home, etiology unclear, possibly viral bronchitis. 2. Cough and shortness of breath with fever as in #1. 3. Status post strangulated right femoral hernia repair with small bowel resection recently.Healing well 4. Hypertension. 5. Hyperlipidemia. 6. Old cerebrovascular accident with cognitive disorder, chronic. 7. Chronic obstructive pulmonary disease. 8. Chronic hydrocephalus. 9. Gastroesophageal reflux disease. 10. Anemia. 11. Degenerative joint disease. 12. Allergic rhinitis. RECOMMENDATIONS: 1. Agree with observation at this time off antibiotics 2. CT chest ordered, pending. 3. Awaiting Speech consult. 4. Low threshold to start broad spectrum antibiotics with any fever. 5. Continue nebulizer treatment and supportive treatment. Thank you, Dr. Mims, for consulting Infectious Disease. ILIR INIGUEZ MD DR: SEBASTIAN/rachel JOB#: [id number] / [id number] KHANH
[2017-06-03] MEDS ORDERED: MONTELUKAST SODIUM 10 MG TABLET. PO SCH (21:00)
[2017-06-03] MEDS ORDERED: SIMVASTATIN 10 MG TABLET PO SCH (21:00)
[2017-06-03] MEDS ORDERED: FAMOTIDINE 20 MG TABLET. PO SCH (21:00)
[2017-06-04 03:20] VITALS: BP 137/67
[2017-06-04 04:47] LABS: BASO # 0.1 x10^3/uL (0.0-0.2); BASO % 1 % (0-3); EOS % 5 % (0-3); HEMATOCRIT 34.6 % (39.0-53.0); HEMOGLOBIN 11.6 g/dL (13.0-17.5); LYMPH % 15 % (24-48); MEAN CORPUSCULAR HEMOGLOBIN 30 pg (25-35); MEAN CORPUSCULAR HGB CONC 34 g/dL (31-37); MEAN CORPUSCULAR VOLUME 91 fL (79-100); MONO % 8 % (0-9); NEUT % 71 % (31-73); PLATELET COUNT 275 x10^3/uL (140-400); RED BLOOD COUNT 3.83 x10^6/uL (4.30-5.70); RED CELL DISTRIBUTION WIDTH 12.2 % (11.5-14.5); WHITE BLOOD COUNT 6.6 x10^3/uL (4.0-11.0)
[2017-06-04 04:52] LABS: CREATININE 0.8 mg/dL (0.7-1.3); GFR 93.7; POTASSIUM 3.5 mmol/L (3.5-5.1)
[2017-06-04 07:30] VITALS: BP 128/66
[2017-06-04] MEDS: CETIRIZINE HCL 10 MG TABLET. PO SCH (08:54)
[2017-06-04] MEDS: MULTIVITAMIN with MINERAL TABLET. PO SCH (08:54)
[2017-06-04] MEDS: CITALOPRAM 10 MG TABLET. PO SCH (08:54)
[2017-06-04] MEDS: FLUTICASONE 50MCG/NASAL SPRAY 16GM BOTTLE. NS SCH (08:54)
[2017-06-04] MEDS: TAMSULOSIN 0.4 MG CAP.ER.24H. PO SCH (08:54)
[2017-06-04] MEDS: ENOXAPARIN 40 MG/0.4 ML SYRINGE. SQ SCH (08:55)
--- NOTE | 2017-06-04 08:57 | PDOC3 ---
EDELAYDENHEDY FRENCH DRAWER 06/04/17 0857: IM DISCHARGE & PROGRESS NOTES Date of Admission Date of Admission Date of Admission: Jun 02, 2017 at 22:30 Date of Discharge Date of Discharge 06/04/17 Primary Diagnosis Primary Diagnosis IMPRESSION: 1. cough with shortness of breath/fever secondary to viral upper respiratory infection 2. s/p strangulated R femoral hernia repair with SB resection 3. HTN 4. hyperlipemia 5. 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 GERD 9. 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 allergic rhinitis 12. moderate chronic PCL malnutrition Consults Consults Cameron Newman MD Procedures Procedures None Labs Labs Laboratory Tests Test 06/02/17 20:10 06/02/17 21:19 06/03/17 00:01 06/03/17 06:50 White Blood Count 7.2 x10^3/uL (4.0-11.0) 5.1 x10^3/uL (4.0-11.0) Red Blood Count 4.02 x10^6/uL (4.30-5.70) 3.57 x10^6/uL (4.30-5.70) Hemoglobin 12.3 g/dL (13.0-17.5) 10.8 g/dL (13.0-17.5) Hematocrit 36.6 % (39.0-53.0) 32.3 % (39.0-53.0) Mean Corpuscular Volume 91 fL (79-100) 91 fL (79-100) Mean Corpuscular Hemoglobin 31 pg (25-35) 30 pg (25-35) Mean Corpuscular Hemoglobin Concent 34 g/dL (31-37) 33 g/dL (31-37) Red Cell Distribution Width 12.4 % (11.5-14.5) 12.4 % (11.5-14.5) Platelet Count 321 x10^3/uL (140-400) 273 x10^3/uL (140-400) Neutrophils (%) (Auto) 79 % (31-73) 63 % (31-73) Lymphocytes (%) (Auto) 11 % (24-48) 23 % (24-48) Monocytes (%) (Auto) 7 % (0-9) 9 % (0-9) Eosinophils (%) (Auto) 2 % (0-3) 5 % (0-3) Basophils (%) (Auto) 1 % (0-3) 1 % (0-3) Neutrophils # (Auto) 5.7 x10^3uL (1.8-7.7) 3.2 x10^3uL (1.8-7.7) Lymphocytes # (Auto) 0.8 x10^3/uL (1.0-4.8) 1.1 x10^3/uL (1.0-4.8) Monocytes # (Auto) 0.5 x10^3/uL (0.0-1.1) 0.4 x10^3/uL (0.0-1.1) Eosinophils # (Auto) 0.2 x10^3/uL (0.0-0.7) 0.3 x10^3/uL (0.0-0.7) Basophils # (Auto) 0.0 x10^3/uL (0.0-0.2) 0.1 x10^3/uL (0.0-0.2) Prothrombin Time 12.9 SEC (11.7-14.0) Prothromb Time International Ratio 1.0 (0.8-1.1) Activated Partial Thromboplast Time 29 SEC (24-38) Sodium Level 141 mmol/L (136-145) 141 mmol/L (136-145) Potassium Level 4.0 mmol/L (3.5-5.1) 3.5 mmol/L (3.5-5.1) Chloride Level 104 mmol/L (98-107) 107 mmol/L (98-107) Carbon Dioxide Level 29 mmol/L (21-32) 28 mmol/L (21-32) Anion Gap 8 (6-14) 6 (6-14) Blood Urea Nitrogen 13 mg/dL (8-26) 9 mg/dL (8-26) Creatinine 1.1 mg/dL (0.7-1.3) 0.8 mg/dL (0.7-1.3) Estimated GFR (Cockcroft-Gault) 64.9 93.7 Glucose Level 110 mg/dL (70-99) 87 mg/dL (70-99) Lactic Acid Level 1.1 mmol/L (0.4-2.0) 0.7 mmol/L (0.4-2.0) Calcium Level 8.9 mg/dL (8.5-10.1) 8.4 mg/dL (8.5-10.1) Total Bilirubin 0.2 mg/dL (0.2-1.0) Direct Bilirubin 0.1 mg/dL (0.0-0.2) Aspartate Amino Transf (AST/SGOT) 21 U/L (15-37) Alanine Aminotransferase (ALT/SGPT) 57 U/L (16-63) Alkaline Phosphatase 142 U/L (46-116) Total Protein 6.6 g/dL (6.4-8.2) Albumin 2.9 g/dL (3.4-5.0) Influenza Type A Antigen Negative (NEGATIVE) Influenza Type B Antigen Negative (NEGATIVE) Urine Collection Type Unknown Urine Color Love Urine Clarity Clear Urine pH 5.5 Urine Specific [place] >=1.030 Urine Protein Negative mg/dL (NEG-TRACE) Urine Glucose (UA) Negative mg/dL (NEG) Urine Ketones (Stick) Trace mg/dL (NEG) Urine Blood Negative (NEG) Urine Nitrite Negative (NEG) Urine Bilirubin Small (NEG) Urine Urobilinogen Dipstick 1.0 mg/dL (0.2 mg/dL) Urine Leukocyte Esterase Negative (NEG) Urine RBC Occ /HPF (0-2) Urine WBC 5-10 /HPF (0-4) Urine Bacteria 0 /HPF (0-FEW) Urine Hyaline Casts Few /HPF Urine Mucus Marked /LPF Test 06/04/17 04:20 White Blood Count 6.6 x10^3/uL (4.0-11.0) Red Blood Count 3.83 x10^6/uL (4.30-5.70) Hemoglobin 11.6 g/dL (13.0-17.5) Hematocrit 34.6 % (39.0-53.0) Mean Corpuscular Volume 91 fL (79-100) Mean Corpuscular Hemoglobin 30 pg (25-35) Mean Corpuscular Hemoglobin Concent 34 g/dL (31-37) Red Cell Distribution Width 12.2 % (11.5-14.5) Platelet Count 275 x10^3/uL (140-400) Neutrophils (%) (Auto) 71 % (31-73) Lymphocytes (%) (Auto) 15 % (24-48) Monocytes (%) (Auto) 8 % (0-9) Eosinophils (%) (Auto) 5 % (0-3) Basophils (%) (Auto) 1 % (0-3) Neutrophils # (Auto) 4.7 x10^3uL (1.8-7.7) Lymphocytes # (Auto) 1.0 x10^3/uL (1.0-4.8) Monocytes # (Auto) 0.5 x10^3/uL (0.0-1.1) Eosinophils # (Auto) 0.3 x10^3/uL (0.0-0.7) Basophils # (Auto) 0.1 x10^3/uL (0.0-0.2) Sodium Level 141 mmol/L (136-145) Potassium Level 3.5 mmol/L (3.5-5.1) Chloride Level 106 mmol/L (98-107) Carbon Dioxide Level 29 mmol/L (21-32) Anion Gap 6 (6-14) Blood Urea Nitrogen 9 mg/dL (8-26) Creatinine 0.8 mg/dL (0.7-1.3) Estimated GFR (Cockcroft-Gault) 93.7 Glucose Level 96 mg/dL (70-99) Calcium Level 9.0 mg/dL (8.5-10.1) Medications Medications Medications reviewed and reconciled for discharge. Brief hospital course Brief hospital course This 77 year old male who presented with cough, fever and shortness of breath was admitted. The following is a summary of his treatment: PLAN: 06/04/17 dysphagia - speech note reviewed - upgrade diet to Dysphagia II with honey thickened liquids. Dr. Garcia note reviewed - neg acute aspiration - sx r/t viral URI ID consult - no antibiotics CT chest - Patchy opacities in the bilateral lung bases may represent most likely subsegmental atelectasis. (per pulmonary note- negative aspiration/ pneumonia) Couple of 2 mm pulmonary nodule/nodular opacity in the right lower lobe.- further recommendation per Dr. Garcia for monitoring. malnutrition Wt stable - no weight loss weigh weekly at SNU weakness debility SNU - PT OT continue eval and treat Please see discharge orders. 06/03/18 cough with SOA - rales L base, ?aspiration bronchitis pulmonary consult speech consult Speech following at [facility] - no coughing with meals -will order speech eval today Fever -no fever since admission - ID consult nebulizer treatments malnutrition staff at [facility] reports does not like honey thickened liquids, He does eat mechanical soft diet w/o dysphagia Wt loss - Admit weight last Saturday to PPI 166.4# - 06/02 wt 161.8# - admit PMC wt 166.05#. (Weight last admission not accurate 150# the whole admission) HTN resume home meds weakness debility PT OT eval and treat DVT/GI prohylaxis SCD/RONALDO PPI D/W daughter - will plan DC to [facility] again for skilled services. For further plan of care, please refer to the orders. For more details regarding the past history, family history, social history, surgical history and other details, please refer to History and Physical. Will plan discharge back to [facility] SNU. Please see discharge orders. Subjective doing fine Objective no distress Vitals Vital Signs Date Time Temp Pulse Resp B/P (MAP) Pulse Ox O2 Delivery O2 Flow Rate FiO2 06/04/17 03:20 98.1 58 18 137/67 (90) 96 Room Air 98.1 Physical Exam General appearance - alert,well appearing, and in no distress Mental Status - alert, poor historian oriented to person, place, and time, affect appropriate to mood Head - normal Chest - CTA Heart - S1 and S2 normal Abdomen - soft, nontender, nondistended, BS+. surgical incision approximated, clear Neurological - no acute focal neurological deficit noted Musculoskeletal - no muscular tenderness noted Extremities - no pedal edema Skin - warm and dry Medications Medications reviewed. Allergy Allergies Coded Allergies Type Severity Reaction Last Updated Verified No Known Medication Allergies Allergy Unknown 06/03/17 Yes codeine Adverse Reaction Mild Shaky and GI Upset 05/23/17 Yes Follow up Admit to Dr. Mims Disposition: [facility] facility Comments Discharge Management - 35 minutes. For other details please refer to discharge instructions DANIAL MIMS MD 06/04/17 1037: IM DISCHARGE & PROGRESS NOTES Brief hospital course Brief hospital course Remains afebrile. Dysphagia precautions. D/w ID. Ok to discharge without antibiotics. The patient was seen and examined by me. Chart reviewed and plan of care formulated. Discussed with, reviewed and agree with COVERING MACHINE TENDER's notes, plan of care and orders with modifications as necessary. For more details regarding further plans, please refer to the orders. HEDY NIELSON APRN Jun 04, 2017 08:57 DANIAL MIMS MD Jun 04, 2017 10:37
--- NOTE | 2017-06-04 09:00 | DISCH ---
DISCHARGE DISCHARGE DATE: Jun 04, 2017 FINAL DIAGNOSIS Problems Medical Problems: (1) Fever Status: Acute CONDITION ON DISCHARGE: Stable SNF STAY <30 DAYS: Yes (PT OT eval and treat) POST DISCHARGE ORDERS ACTIVITY ORDERS: Activity as tolerated WEIGHT BEARING STATUS: Full weight bearing DIET AFTER DISCHARGE: Cardiac CHECKS AFTER DISCHARGE COMMENTS: VS per routine Weekly weights FOLLOW-UP PHYSICIAN FOLLOW-UP: Admit to Dr. Mims ADDITIONAL FOLLOW-UP: Fax Discharge orders to [facility] [phone] LAB ORDERS FOR FOLLOW-UP: CBC with diff, CMP and prealbumin in AM after admi TREATMENT/EQUIPMENT ORDERS ADAPTIVE EQUIPMENT NEEDED: Cane RESPIRATORY EQUIPMENT NEEDED: Nebulizer (Albuterol TID nebulizer and albuterol inhaler q6hr prn- see DC med orders) HEDY NIELSON APRN Jun 04, 2017 09:00
[2017-06-04] MEDS ORDERED: TRAM50TA PO (09:04)
[2017-06-04] MEDS ORDERED: ALBU2.5V5 NEB (09:04)
[2017-06-04] MEDS ORDERED: PROAIR HFA8.5 GM INH (09:04)
--- NOTE | 2017-06-04 09:45 | PDOC ---
Infectious Disease Note Subjective Subjective pt verbalizes no complaints, says feels better, denies any f/c/cough/sob/n/v/d ROS ROS GEN: Denies fevers, chills, sweats HEENT: Denies blurred vision, sore throat CV: Denies chest pain RESP: Denies shortness of air, cough GI: Denies n/v/d NEURO: Denies confusion, dizziness MSK: Denies weakness, joint pain/swelling Vital Sign Vital Signs Vital Signs Date Time Temp Pulse Resp B/P (MAP) Pulse Ox O2 Delivery O2 Flow Rate FiO2 06/04/17 07:30 98.6 61 19 128/66 (86) 95 Room Air 98.6 Physical Exam PHYSICAL EXAM GENERAL: NAD, Alert,answers a few questions HEENT: lt eye blindness,anicteric NECK: Supple, no JVD, no LN LUNGS: dec bs at bases HEART: S1S2, no murmur ABD: Soft, NT, no organomegaly, no rebound EXT: No edema, no cyanosis EDUCATIONAL PSYCHOLOGY TEACHER: Alert, awake,no focal neurologic deficit SKIN: No rash IV: ok Labs Lab Laboratory Tests Test 06/04/17 04:20 White Blood Count 6.6 x10^3/uL (4.0-11.0) Red Blood Count 3.83 x10^6/uL (4.30-5.70) Hemoglobin 11.6 g/dL (13.0-17.5) Hematocrit 34.6 % (39.0-53.0) Mean Corpuscular Volume 91 fL (79-100) Mean Corpuscular Hemoglobin 30 pg (25-35) Mean Corpuscular Hemoglobin Concent 34 g/dL (31-37) Red Cell Distribution Width 12.2 % (11.5-14.5) Platelet Count 275 x10^3/uL (140-400) Neutrophils (%) (Auto) 71 % (31-73) Lymphocytes (%) (Auto) 15 % (24-48) Monocytes (%) (Auto) 8 % (0-9) Eosinophils (%) (Auto) 5 % (0-3) Basophils (%) (Auto) 1 % (0-3) Neutrophils # (Auto) 4.7 x10^3uL (1.8-7.7) Lymphocytes # (Auto) 1.0 x10^3/uL (1.0-4.8) Monocytes # (Auto) 0.5 x10^3/uL (0.0-1.1) Eosinophils # (Auto) 0.3 x10^3/uL (0.0-0.7) Basophils # (Auto) 0.1 x10^3/uL (0.0-0.2) Sodium Level 141 mmol/L (136-145) Potassium Level 3.5 mmol/L (3.5-5.1) Chloride Level 106 mmol/L (98-107) Carbon Dioxide Level 29 mmol/L (21-32) Anion Gap 6 (6-14) Blood Urea Nitrogen 9 mg/dL (8-26) Creatinine 0.8 mg/dL (0.7-1.3) Estimated GFR (Cockcroft-Gault) 93.7 Glucose Level 96 mg/dL (70-99) Calcium Level 9.0 mg/dL (8.5-10.1) Micro none Objective Assessment IMPRESSION: 1. Fever 102 at home, etiology unclear, possibly viral ,afebrile here for 2 days now 2. Cough and shortness of breath with fever ,? viral bronchitis. CT shows atelectasis, no definite infiltrate per d/w DR Mcmillan 3. Status post strangulated right femoral hernia repair with small bowel resection recently.Healing well 4. Hypertension. 5. Hyperlipidemia. 6. Old cerebrovascular accident with cognitive disorder, chronic. 7. Chronic obstructive pulmonary disease. 8. Chronic hydrocephalus. 9. Gastroesophageal reflux disease. 10. Anemia. 11. Degenerative joint disease. 12. Allergic rhinitis. Plan Plan of Care 1. Agree with observation at this time off antibiotics 2. Continue aggressive pulm toilet 3. Pt is been dc home today 4. symptomatic care ILIR INIGUEZ MD Jun 04, 2017 09:45
[2017-06-04] MEDS ORDERED: POTASSIUM CHLORIDE 20 MEQ TABLET.ER. PO ONE (10:00)
--- NOTE | 2017-06-04 10:41 | PDOC ---
PULMONARY PROGRESS NOTES Subjective NO SOA NO FEVER Vitals Vital Signs Date Time Temp Pulse Resp B/P (MAP) Pulse Ox O2 Delivery O2 Flow Rate FiO2 06/04/17 08:00 Room Air 06/04/17 07:30 98.6 61 19 128/66 (86) 95 98.6 General: Alert, No acute distress Lungs: Clear Cardiovascular: S1 Abdomen: Soft Neuro Exam: Alert Extremities: No Edema Skin: Warm Labs Laboratory Tests Test 06/02/17 20:10 06/02/17 21:19 06/03/17 00:01 06/03/17 06:50 White Blood Count 7.2 x10^3/uL (4.0-11.0) 5.1 x10^3/uL (4.0-11.0) Red Blood Count 4.02 x10^6/uL (4.30-5.70) 3.57 x10^6/uL (4.30-5.70) Hemoglobin 12.3 g/dL (13.0-17.5) 10.8 g/dL (13.0-17.5) Hematocrit 36.6 % (39.0-53.0) 32.3 % (39.0-53.0) Mean Corpuscular Volume 91 fL (79-100) 91 fL (79-100) Mean Corpuscular Hemoglobin 31 pg (25-35) 30 pg (25-35) Mean Corpuscular Hemoglobin Concent 34 g/dL (31-37) 33 g/dL (31-37) Red Cell Distribution Width 12.4 % (11.5-14.5) 12.4 % (11.5-14.5) Platelet Count 321 x10^3/uL (140-400) 273 x10^3/uL (140-400) Neutrophils (%) (Auto) 79 % (31-73) 63 % (31-73) Lymphocytes (%) (Auto) 11 % (24-48) 23 % (24-48) Monocytes (%) (Auto) 7 % (0-9) 9 % (0-9) Eosinophils (%) (Auto) 2 % (0-3) 5 % (0-3) Basophils (%) (Auto) 1 % (0-3) 1 % (0-3) Neutrophils # (Auto) 5.7 x10^3uL (1.8-7.7) 3.2 x10^3uL (1.8-7.7) Lymphocytes # (Auto) 0.8 x10^3/uL (1.0-4.8) 1.1 x10^3/uL (1.0-4.8) Monocytes # (Auto) 0.5 x10^3/uL (0.0-1.1) 0.4 x10^3/uL (0.0-1.1) Eosinophils # (Auto) 0.2 x10^3/uL (0.0-0.7) 0.3 x10^3/uL (0.0-0.7) Basophils # (Auto) 0.0 x10^3/uL (0.0-0.2) 0.1 x10^3/uL (0.0-0.2) Prothrombin Time 12.9 SEC (11.7-14.0) Prothromb Time International Ratio 1.0 (0.8-1.1) Activated Partial Thromboplast Time 29 SEC (24-38) Sodium Level 141 mmol/L (136-145) 141 mmol/L (136-145) Potassium Level 4.0 mmol/L (3.5-5.1) 3.5 mmol/L (3.5-5.1) Chloride Level 104 mmol/L (98-107) 107 mmol/L (98-107) Carbon Dioxide Level 29 mmol/L (21-32) 28 mmol/L (21-32) Anion Gap 8 (6-14) 6 (6-14) Blood Urea Nitrogen 13 mg/dL (8-26) 9 mg/dL (8-26) Creatinine 1.1 mg/dL (0.7-1.3) 0.8 mg/dL (0.7-1.3) Estimated GFR (Cockcroft-Gault) 64.9 93.7 Glucose Level 110 mg/dL (70-99) 87 mg/dL (70-99) Lactic Acid Level 1.1 mmol/L (0.4-2.0) 0.7 mmol/L (0.4-2.0) Calcium Level 8.9 mg/dL (8.5-10.1) 8.4 mg/dL (8.5-10.1) Total Bilirubin 0.2 mg/dL (0.2-1.0) Direct Bilirubin 0.1 mg/dL (0.0-0.2) Aspartate Amino Transf (AST/SGOT) 21 U/L (15-37) Alanine Aminotransferase (ALT/SGPT) 57 U/L (16-63) Alkaline Phosphatase 142 U/L (46-116) Total Protein 6.6 g/dL (6.4-8.2) Albumin 2.9 g/dL (3.4-5.0) Influenza Type A Antigen Negative (NEGATIVE) Influenza Type B Antigen Negative (NEGATIVE) Urine Collection Type Unknown Urine Color Love Urine Clarity Clear Urine pH 5.5 Urine Specific [place] >=1.030 Urine Protein Negative mg/dL (NEG-TRACE) Urine Glucose (UA) Negative mg/dL (NEG) Urine Ketones (Stick) Trace mg/dL (NEG) Urine Blood Negative (NEG) Urine Nitrite Negative (NEG) Urine Bilirubin Small (NEG) Urine Urobilinogen Dipstick 1.0 mg/dL (0.2 mg/dL) Urine Leukocyte Esterase Negative (NEG) Urine RBC Occ /HPF (0-2) Urine WBC 5-10 /HPF (0-4) Urine Bacteria 0 /HPF (0-FEW) Urine Hyaline Casts Few /HPF Urine Mucus Marked /LPF Test 06/04/17 04:20 White Blood Count 6.6 x10^3/uL (4.0-11.0) Red Blood Count 3.83 x10^6/uL (4.30-5.70) Hemoglobin 11.6 g/dL (13.0-17.5) Hematocrit 34.6 % (39.0-53.0) Mean Corpuscular Volume 91 fL (79-100) Mean Corpuscular Hemoglobin 30 pg (25-35) Mean Corpuscular Hemoglobin Concent 34 g/dL (31-37) Red Cell Distribution Width 12.2 % (11.5-14.5) Platelet Count 275 x10^3/uL (140-400) Neutrophils (%) (Auto) 71 % (31-73) Lymphocytes (%) (Auto) 15 % (24-48) Monocytes (%) (Auto) 8 % (0-9) Eosinophils (%) (Auto) 5 % (0-3) Basophils (%) (Auto) 1 % (0-3) Neutrophils # (Auto) 4.7 x10^3uL (1.8-7.7) Lymphocytes # (Auto) 1.0 x10^3/uL (1.0-4.8) Monocytes # (Auto) 0.5 x10^3/uL (0.0-1.1) Eosinophils # (Auto) 0.3 x10^3/uL (0.0-0.7) Basophils # (Auto) 0.1 x10^3/uL (0.0-0.2) Sodium Level 141 mmol/L (136-145) Potassium Level 3.5 mmol/L (3.5-5.1) Chloride Level 106 mmol/L (98-107) Carbon Dioxide Level 29 mmol/L (21-32) Anion Gap 6 (6-14) Blood Urea Nitrogen 9 mg/dL (8-26) Creatinine 0.8 mg/dL (0.7-1.3) Estimated GFR (Cockcroft-Gault) 93.7 Glucose Level 96 mg/dL (70-99) Calcium Level 9.0 mg/dL (8.5-10.1) Laboratory Tests Test 06/04/17 04:20 White Blood Count 6.6 x10^3/uL (4.0-11.0) Red Blood Count 3.83 x10^6/uL (4.30-5.70) Hemoglobin 11.6 g/dL (13.0-17.5) Hematocrit 34.6 % (39.0-53.0) Mean Corpuscular Volume 91 fL (79-100) Mean Corpuscular Hemoglobin 30 pg (25-35) Mean Corpuscular Hemoglobin Concent 34 g/dL (31-37) Red Cell Distribution Width 12.2 % (11.5-14.5) Platelet Count 275 x10^3/uL (140-400) Neutrophils (%) (Auto) 71 % (31-73) Lymphocytes (%) (Auto) 15 % (24-48) Monocytes (%) (Auto) 8 % (0-9) Eosinophils (%) (Auto) 5 % (0-3) Basophils (%) (Auto) 1 % (0-3) Neutrophils # (Auto) 4.7 x10^3uL (1.8-7.7) Lymphocytes # (Auto) 1.0 x10^3/uL (1.0-4.8) Monocytes # (Auto) 0.5 x10^3/uL (0.0-1.1) Eosinophils # (Auto) 0.3 x10^3/uL (0.0-0.7) Basophils # (Auto) 0.1 x10^3/uL (0.0-0.2) Sodium Level 141 mmol/L (136-145) Potassium Level 3.5 mmol/L (3.5-5.1) Chloride Level 106 mmol/L (98-107) Carbon Dioxide Level 29 mmol/L (21-32) Anion Gap 6 (6-14) Blood Urea Nitrogen 9 mg/dL (8-26) Creatinine 0.8 mg/dL (0.7-1.3) Estimated GFR (Cockcroft-Gault) 93.7 Glucose Level 96 mg/dL (70-99) Calcium Level 9.0 mg/dL (8.5-10.1) Medications Active Scripts Medications Dose Route/Sig Max Daily Dose Days Date Category Proair Hfa Inhaler (Albuterol Sulfate) 8.5 Gm Hfa.aer.ad 2 Puff INH PRN Q6HRS PRN 06/04/17 Rx Albuterol Sulfate Neb Soln (Albuterol Sulfate) 2.5 Mg/3 Ml Vial.neb 2.5 Mg NEB TID 06/04/17 Rx Tramadol Hcl 50 Mg Tablet 50 Mg PO PRN Q8HRS PRN 06/04/17 Rx Omeprazole 20 Mg Tablet.dr 20 Mg PO DAILY 06/03/17 Reported Lovenox (Enoxaparin Sodium) 40 Mg/0.4 Ml Disp.syrin 40 Mg SQ DAILY 06/03/17 Reported Tamsulosin Hcl 0.4 Mg Cap.er.24h 1 Cap PO DAILY 05/30/15 Reported Tylenol (Acetaminophen) 325 Mg Tablet 325 Mg PO DAILY PRN 06/24/13 Reported Cetirizine Hcl 10 Mg Tablet 10 Mg PO DAILY 06/24/13 Reported Famotidine 40 Mg Tablet 40 Mg PO DAILY 06/24/13 Reported Montelukast Sodium Tablet (Montelukast Sodium) 10 Mg Tablet 10 Mg PO DAILY 06/24/13 Reported Simvastatin 10 Mg Tablet 10 Mg PO DAILY 06/24/13 Reported Flonase (Fluticasone Propionate) 16 Gm [place].susp 2 Sprays NS DAILY 06/24/13 Reported Multi Vitamin Daily (Multivitamin) 1 Each Tablet 1 Each PO DAILY 06/24/13 Reported Citalopram Hbr (Citalopram Hydrobromide) 10 Mg Tablet 10 Mg PO DAILY 06/24/13 Reported Impression . 1. Febrile illness. I suspect most likely viral. He is currently afebrile. 2. Abnormal CT chest with minimal atelectasis at the left base, along with some parenchymal scarring. I do not see any definite consolidation. 3. No significant leukocytosis. Fever is resolved. Plan . 1. From a pulmonary standpoint, he is stable. He is on room air. 2. Follow infectious disease recommendations and at this time, agree to withhold any antibiotics as he is afebrile. 3. P.r.n. bronchodilators. 4. DVT prophylaxis with Lovenox. 5. CAN GO HOME ARLETTE LIRIANO MD Jun 04, 2017 10:41
[2017-06-04 10:53] VITALS: BP 117/56
[2017-06-04 14:35] VITALS: BP 119/62
== END 2017-06-04 15:45 | DRG 152 ==
LOC: ER 19:55 → 6 SOUTH 22:30
PROVIDERS: ADMIT Internal Medicine; ATTEND Internal Medicine
DX: J06.9 Acute upper respiratory infection, unspecified (principal); E43 Unspecified severe protein-calorie malnutrition; D63.8 Anemia in other chronic diseases classified elsewhere; G91.9 Hydrocephalus, unspecified; I13.0 Hypertensive heart and chronic kidney disease with heart failure and stage 1 through stage 4 chronic kidney disease, or unspecified chronic kidney disease; I50.9 Heart failure, unspecified; F03.90 Unspecified dementia, unspecified severity, without behavioral disturbance, psychotic disturbance, mood disturbance, and anxiety; J44.9 Chronic obstructive pulmonary disease, unspecified; E78.5 Hyperlipidemia, unspecified; J30.9 Allergic rhinitis, unspecified; K21.9 Gastro-esophageal reflux disease without esophagitis; N18.2 Chronic kidney disease, stage 2 (mild); Z80.9 Family history of malignant neoplasm, unspecified; Z82.3 Family history of stroke; Z83.3 Family history of diabetes mellitus; Z86.73 Personal history of transient ischemic attack (TIA), and cerebral infarction without residual deficits; Z87.11 Personal history of peptic ulcer disease; Z87.891 Personal history of nicotine dependence; F32.9 Major depressive disorder, single episode, unspecified; F41.9 Anxiety disorder, unspecified; K57.90 Diverticulosis of intestine, part unspecified, without perforation or abscess without bleeding; Z87.01 Personal history of pneumonia (recurrent); H54.40 Blindness, one eye, unspecified eye; Z88.5 Allergy status to narcotic agent; M19.90 Unspecified osteoarthritis, unspecified site; R13.10 Dysphagia, unspecified; Z68.23 Body mass index [BMI] 23.0-23.9, adult
CPT/HCPCS: 36415; 71010; 71250; 80048; 80076; 81001; 83605; 85025; 85610; 85730; 87040; 87086; 87804; 93005; 94250; 94760; 96360; 96361; J1650; J7030; 92610; 97116; 97530; 97535; 99285-25

== ENCOUNTER 2018-06-26 19:51 | Emergency (ER) | payer MEDICARE ==
[~2018-06-26] VITALS: Ht 170.2 cm; Wt 75.3 kg
[~2018-06-26 19:51] MED LIST changes: +ALBU2.5V5 NEB; +ALBU2.5V8 INH; +ENOX40DI SQ; -IPRA3AMP IH; +IPRA3AMP29 IH; +OMEP20TA8 PO; +TRAM50TA PO
[2018-06-26 19:55] VITALS: BP 145/76
[2018-06-26] MEDS ORDERED: TRAM50TA PO (22:08)
--- NOTE | 2018-06-26 22:08 | PHYS DOC ---
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 Family states that pt injured his hand yesterday but they are not sure what happened. Pt seems to be in pain today and they noticed bruising to the lateral part of pt's right hand. They deny and change in LOC, nausea, vomiting, or complaints of head, neck, or back pain. Review of Systems Review of Systems Constitutional: Denies fever or chills [] Musculoskeletal: See HPI Integument: See HPI Neurologic: Denies focal weakness or sensory changes [] All other systems were reviewed and found to be within normal limits, except as documented in this note. Current Medications Current Medications Current Medications Medications (Trade) Dose Ordered Sig/Betsy Start Time Stop Time Status Last Admin Dose Admin Tramadol HCl (Ultram) 50 mg 1X ONCE 06/26/18 22:15 06/26/18 22:16 DC 06/26/18 22:06 50 MG Allergies Allergies Allergies Coded Allergies Type Severity Reaction Last Updated Verified No Known Medication Allergies Allergy Unknown 06/03/17 Yes codeine Adverse Reaction Mild Shaky and GI Upset 05/23/17 Yes Physical Exam Physical Exam Constitutional: Well developed, well nourished, no acute distress, non-toxic appearance. [] HENT: Normocephalic, atraumatic, bilateral external ears normal, oropharynx moist, no oral exudates, nose normal. [] Eyes: PERRLA, EOMI, conjunctiva normal, no discharge. [] Neck: Normal range of motion, no tenderness, supple, no stridor. [] Cardiovascular:Heart rate regular rhythm, no murmur [] Lungs & Thorax: Bilateral breath sounds clear to auscultation [] Abdomen: Bowel sounds normal, soft, no tenderness, no masses, no pulsatile masses. [] Skin: Warm, dry, no erythema, no rash. [] Back: No tenderness, no CVA tenderness. [] Extremities: No tenderness, no cyanosis, no clubbing, ROM intact, no edema. [] Neurologic: Alert and oriented X 3, normal motor function, normal sensory function, no focal deficits noted. [] Psychologic: Affect normal, judgement normal, mood normal. [] Current Patient Data Vital Signs Vital Signs Date Time Temp Pulse Resp B/P (MAP) Pulse Ox O2 Delivery O2 Flow Rate FiO2 06/26/18 22:06 16 98 Room Air 06/26/18 19:55 98.1 80 145/76 (99) 98.1 EKG EKG [] Radiology/Procedures Radiology/Procedures PROCEDURE: HAND RIGHT 3V EXAM: 1. PA, oblique and lateral views of the right hand 2. PA, oblique and lateral views of the right wrist DATE: 06/26/2018 8:58 PM INDICATION: wrist pain after fall COMPARISON: No Prior FINDINGS: There is oblique fracture through the fifth metacarpal shaft, without articular extension. There is approximately 6 mm overriding of the principal fracture fragments and resultant foreshortening. Multifocal degenerative changes are seen most prominent at scattered IP joints, thumb CMC and MCP joints as well as the right index finger MCP joint. Decreased bone mineral density. Chondrocalcinosis TFCC-CPPD. IMPRESSION: 1. Oblique fracture through the fifth metacarpal shaft with mild associated foreshortening. 2. 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 Decreased bone mineral density.[] Course & Med Decision Making Course & Med Decision Making Pertinent Labs and Imaging studies reviewed. (See chart for details) [] Dragon Disclaimer Dragon Disclaimer This electronic medical record was generated, in whole or in part, using a voice recognition dictation system. Departure Departure Impression: Primary Impression: Fracture of fifth metacarpal bone of right hand Disposition: 01 HOME, SELF-CARE Condition: STABLE Referrals: DANIAL GUZMAN MD (PCP) LILIAN DIOP MD Patient Instructions: Hand Fracture, Fifth Metacarpal Additional Instructions: Fill prescription(s) and use as directed. Recommend application of ice, elevation, and rest of affected extremity. Wear the splint that was placed until follow up appointment. Return to the ER if your symptoms worsen. Scripts Tramadol Hcl (TRAMADOL HCL) 50 Mg Tablet 50 MG PO Q6HRS PRN for PAIN for 3 Days, #12 TAB 0 Refills Prov: DOT SHULTZ APRN 06/26/18 Splinting Splinting : Location: R hand and wrist Hand-Made Type: orthoglass (ulnar gutter) Splint: ulnar Pre-Proc Neuro Vasc Exam: normal Post-Proc Neuro Vasc Exam: normal, unchanged from pre-exam Problem Qualifiers Primary Impression: Fracture of fifth metacarpal bone of right hand Encounter type: initial encounter Fracture type: closed Metacarpal location : shaft Fracture alignment: displaced Qualified Codes: S62.326A - Displaced fracture of shaft of fifth metacarpal bone, right hand, initial encounter for closed fracture DOT SHULTZ APRN Jun 26, 2018 22:08
[2018-06-26] MEDS ORDERED: traMADol 50 MG TABLET PO ONE (22:15)
--- NOTE | 2018-06-27 08:12 | RAD ---
EXAM: 1. PA, oblique and lateral views of the right hand 2. PA, oblique and lateral views of the right wrist DATE: 06/26/2018 8:58 PM INDICATION: wrist pain after fall COMPARISON: No Prior FINDINGS: There is oblique fracture through the fifth metacarpal shaft, without articular extension. There is approximately 6 mm overriding of the principal fracture fragments and resultant foreshortening. Multifocal degenerative changes are seen most prominent at scattered IP joints, thumb CMC and MCP joints as well as the right index finger MCP joint. Decreased bone mineral density. Chondrocalcinosis TFCC-CPPD. IMPRESSION: 1. Oblique fracture through the fifth metacarpal shaft with mild associated foreshortening. 2. 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 Decreased bone mineral density. Electronically signed by: Jerrell Campa MD (06/27/2018 8:08 AM) [facility]
== END 2018-06-26 22:18 | disposition home or self-care (01) ==
LOC: ER 19:51
DX: S62.326A Displaced fracture of shaft of fifth metacarpal bone, right hand, initial encounter for closed fracture (principal); J44.9 Chronic obstructive pulmonary disease, unspecified; I11.0 Hypertensive heart disease with heart failure; I50.9 Heart failure, unspecified; K21.9 Gastro-esophageal reflux disease without esophagitis; E78.00 Pure hypercholesterolemia, unspecified; F03.90 Unspecified dementia, unspecified severity, without behavioral disturbance, psychotic disturbance, mood disturbance, and anxiety; Z86.73 Personal history of transient ischemic attack (TIA), and cerebral infarction without residual deficits; Z88.5 Allergy status to narcotic agent; W18.39XA Other fall on same level, initial encounter; Y93.89 Activity, other specified; Y92.89 Other specified places as the place of occurrence of the external cause; Y99.8 Other external cause status
CPT/HCPCS: 29125; 73110; 73130; 99283

== ENCOUNTER 2018-08-31 15:43 | Inpatient (IN) | payer MEDICARE, OTHER ==
[~2018-08-31] VITALS: Ht 170.2 cm; Wt 76.9 kg
[2018-08-31 16:25] LABS: BASO # 0.1 x10^3/uL (0.0-0.2); BASO % 1 % (0-3); EOS # 0.3 x10^3/uL (0.0-0.7); EOS % 6 % (0-3); HEMATOCRIT 41.8 % (39.0-53.0); HEMOGLOBIN 14.3 g/dL (13.0-17.5); LYMPH # 1.4 x10^3/uL (1.0-4.8); LYMPH % 28 % (24-48); MEAN CORPUSCULAR HEMOGLOBIN 31 pg (25-35); MEAN CORPUSCULAR HGB CONC 34 g/dL (31-37); MEAN CORPUSCULAR VOLUME 91 fL (79-100); MONO # 0.5 x10^3/uL (0.0-1.1); MONO % 10 % (0-9); NEUT # 2.7 x10^3uL (1.8-7.7); NEUT % 55 % (31-73); PLATELET COUNT 151 x10^3/uL (140-400); RED BLOOD COUNT 4.58 x10^6/uL (4.30-5.70); RED CELL DISTRIBUTION WIDTH 12.4 % (11.5-14.5); WHITE BLOOD COUNT 4.8 x10^3/uL (4.0-11.0)
[2018-08-31 16:30] LABS: BILIRUBIN,URINE NEGATIVE (NEG); CLARITY,URINE CLEAR; COLOR,URINE YELLOW; NITRITE,URINE NEGATIVE (NEG); PROTEIN,URINE NEGATIVE (NEG-TRACE)
[2018-08-31 16:34] LABS: PROTHROMBIN TIME PATIENT 13.5 SEC (11.7-14.0)
[2018-08-31 16:34] LABS: AMPHETAMINE/METHAMPHETAMINE NEG (NEG); BARBITURATES NEG (NEG); BENZODIAZEPINES NEG (NEG); CANNABINOIDS NEG (NEG); COCAINE NEG (NEG); METHADONE NEG (NEG); OPIATES NEG (NEG); PHENCYCLIDINE NEG (NEG)
[2018-08-31 16:39] LABS: GFR 72.3
[2018-08-31 16:39] LABS: BACTERIA,URINE 0 /HPF (0-FEW); RBC,URINE 0 /HPF (0-2); SQUAMOUS EPITHELIAL CELL,UR OCC /LPF; WBC,URINE 0 /HPF (0-4)
[2018-08-31 16:45] LABS: ALBUMIN 3.5 g/dL (3.4-5.0); ALBUMIN/GLOBULIN RATIO 1.1 (1.0-1.7); TOTAL BILIRUBIN 0.4 mg/dL (0.2-1.0); TOTAL PROTEIN 6.7 g/dL (6.4-8.2)
[2018-08-31 16:51] LABS: CREATINE KINASE 55 U/L (39-308)
[2018-08-31] MEDS ORDERED: IV NORMAL SALINE 500ML BAG 500 ML IV ONE (17:30)
--- NOTE | 2018-08-31 18:11 | RAD ---
CT head without contrast 08/31/2018 CLINICAL INDICATION: Confusion. COMPARISON: CT head without contrast 05/30/2015. TECHNIQUE: Multiple CT images of the head were obtained without contrast. *One or more of the following individualized dose reduction techniques were utilized for this examination: 1. Automated exposure control. 2. Adjustment of the mA and/or kV according to patient size. 3. Use of iterative reconstruction technique. FINDINGS: There is stable marked ventriculomegaly of the lateral ventricles and to a lesser extent the 3rd ventricle. Stable mild periventricular confluent white matter low-attenuation. No midline shift. Old punctate infarct of the left frontal periventricular white matter. The basal cisterns are patent. 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 No acute intracranial hemorrhage. IMPRESSION: 1. Stable ventriculomegaly which is discordant to the degree of sulcal prominence which can be seen with normal pressure hydrocephalus. Clinical correlation is recommended. 2. No acute intracranial hemorrhage. 3. Stable mild nonspecific white matter disease. Electronically signed by: Evan Prince MD (08/31/2018 6:08 PM) [facility]
--- NOTE | 2018-08-31 18:14 | PHYS DOC ---
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 Patient has history of hydrocephalus as he was born with, no intervention was needed in the past per doctor at . Patient normally would walk with a walker, had no problem control of his bowel or bladder in the past but lately his condition is getting worse. Patient himself denied any concern. He denied any chest pain, no shortness of air, no abdominal pain, no nausea or vomiting. Review of Systems Review of Systems Constitutional: Denies fever or chills [] Eyes: Denies change in visual acuity, redness, or eye pain [] HENT: Denies nasal congestion or sore throat [] Respiratory: Denies cough or shortness of breath [] Cardiovascular: No additional information not addressed in HPI [] GI: Denies abdominal pain, nausea, vomiting, bloody stools or diarrhea [] : Denies dysuria or hematuria [] Musculoskeletal: Denies back pain or joint pain [] Integument: Denies rash or skin lesions [] Neurologic: Denies headache, focal weakness or sensory changes. POSITIVE FOR ATAXIA, WEAKNESS Endocrine: Denies polyuria or polydipsia [] All other systems were reviewed and found to be within normal limits, except as documented in this note. Current Medications Current Medications Current Medications Medications (Trade) Dose Ordered Sig/Betsy Start Time Stop Time Status Last Admin Dose Admin Sodium Chloride 500 ml @ 500 mls/hr 1X ONCE 08/31/18 17:30 08/31/18 18:29 DC 08/31/18 17:33 500 MLS/HR Allergies Allergies Allergies Coded Allergies Type Severity Reaction Last Updated Verified No Known Medication Allergies Allergy Unknown 06/03/17 Yes codeine Adverse Reaction Mild Shaky and GI Upset 11/16/17 Yes Physical Exam Physical Exam Constitutional: Well developed, well nourished, no acute distress, non-toxic appearance. [] HENT: Normocephalic, atraumatic, bilateral external ears normal, oropharynx moist, no oral exudates, nose normal. [] Eyes: LEFT EYE BLIND, RIGHT EYE WITH conjunctiva normal, no discharge. [] Neck: Normal range of motion, no tenderness, supple, no stridor. [] Cardiovascular:Heart rate regular rhythm, no murmur [] Lungs & Thorax: Bilateral breath sounds clear to auscultation [] Abdomen: Bowel sounds normal, soft, no tenderness, no masses, no pulsatile masses. [] Skin: Warm, dry, no erythema, no rash. [] Back: No tenderness, no CVA tenderness. [] Extremities: No tenderness, no cyanosis, no clubbing, ROM intact, no edema. [] Neurologic: Alert and oriented X 3, normal motor function, normal sensory function, no focal deficits noted. [] Psychologic: Affect normal, judgement normal, mood normal. [] Current Patient Data Vital Signs Vital Signs Date Time Temp Pulse Resp B/P (MAP) Pulse Ox O2 Delivery O2 Flow Rate FiO2 08/31/18 15:52 98.6 70 15 149/70 (96) 96 Room Air 98.6 Lab Values Laboratory Tests Test 08/31/18 15:35 08/31/18 15:55 Urine Collection Type Unknown Urine Color Yellow Urine Clarity Clear Urine pH 6.0 Urine Specific [place] 1.015 Urine Protein Negative mg/dL (NEG-TRACE) Urine Glucose (UA) Negative mg/dL (NEG) Urine Ketones (Stick) Negative mg/dL (NEG) Urine Blood Negative (NEG) Urine Nitrite Negative (NEG) Urine Bilirubin Negative (NEG) Urine Urobilinogen Dipstick 1.0 mg/dL (0.2 mg/dL) Urine Leukocyte Esterase Negative (NEG) Urine RBC 0 /HPF (0-2) Urine WBC 0 /HPF (0-4) Urine Squamous Epithelial Cells Occ /LPF Urine Bacteria 0 /HPF (0-FEW) Urine Mucus Slight /LPF Urine Opiates Screen Neg (NEG) Urine Methadone Screen Neg (NEG) Urine Barbiturates Neg (NEG) Urine Phencyclidine Screen Neg (NEG) Urine Amphetamine/Methamphetamine Neg (NEG) Urine Benzodiazepines Screen Neg (NEG) Urine Cocaine Screen Neg (NEG) Urine Cannabinoids Screen Neg (NEG) Urine Ethyl Alcohol Neg (NEG) White Blood Count 4.8 x10^3/uL (4.0-11.0) Red Blood Count 4.58 x10^6/uL (4.30-5.70) Hemoglobin 14.3 g/dL (13.0-17.5) Hematocrit 41.8 % (39.0-53.0) Mean Corpuscular Volume 91 fL (79-100) Mean Corpuscular Hemoglobin 31 pg (25-35) Mean Corpuscular Hemoglobin Concent 34 g/dL (31-37) Red Cell Distribution Width 12.4 % (11.5-14.5) Platelet Count 151 x10^3/uL (140-400) Neutrophils (%) (Auto) 55 % (31-73) Lymphocytes (%) (Auto) 28 % (24-48) Monocytes (%) (Auto) 10 % (0-9) H Eosinophils (%) (Auto) 6 % (0-3) H Basophils (%) (Auto) 1 % (0-3) Neutrophils # (Auto) 2.7 x10^3uL (1.8-7.7) Lymphocytes # (Auto) 1.4 x10^3/uL (1.0-4.8) Monocytes # (Auto) 0.5 x10^3/uL (0.0-1.1) Eosinophils # (Auto) 0.3 x10^3/uL (0.0-0.7) Basophils # (Auto) 0.1 x10^3/uL (0.0-0.2) Prothrombin Time 13.5 SEC (11.7-14.0) Prothrombin Time INR 1.1 (0.8-1.1) PTT 28 SEC (24-38) Sodium Level 142 mmol/L (136-145) Potassium Level 4.0 mmol/L (3.5-5.1) Chloride Level 104 mmol/L (98-107) Carbon Dioxide Level 31 mmol/L (21-32) Anion Gap 7 (6-14) Blood Urea Nitrogen 17 mg/dL (8-26) Creatinine 1.0 mg/dL (0.7-1.3) Estimated GFR (Cockcroft-Gault) 72.3 BUN/Creatinine Ratio 17 (6-20) Glucose Level 139 mg/dL (70-99) H Calcium Level 9.0 mg/dL (8.5-10.1) Total Bilirubin 0.4 mg/dL (0.2-1.0) Aspartate Amino Transferase (AST) 18 U/L (15-37) Alanine Aminotransferase (ALT) 26 U/L (16-63) Alkaline Phosphatase 135 U/L (46-116) H Creatine Kinase 55 U/L (39-308) Creatine Kinase MB (Mass) 0.9 ng/mL (0.0-3.6) Creatine Kinase MB Relative Index % (0-4) Troponin I Quantitative < 0.017 ng/mL (0.000-0.055) TI-Ysw-N-Type Natriuretic Peptide 74 pg/mL (0-449) Total Protein 6.7 g/dL (6.4-8.2) Albumin 3.5 g/dL (3.4-5.0) Albumin/Globulin Ratio 1.1 (1.0-1.7) Lipase 136 U/L (73-393) Laboratory Tests 08/31/18 15:55 Laboratory Tests 08/31/18 15:55 EKG EKG EKG was read by this physician at 1710 rate of 65 bpm, sinus rhythm, NO STEMI. [ ] Radiology/Procedures Radiology/Procedures [][facility] [address] [place] [address] IMAGING REPORT Signed PATIENT: PARI HARDEN ACCOUNT: [id number] : 1940 LOCATION: ER AGE: 78 SEX: M EXAM STATUS: REG ER ORD. PHYSICIAN: BARTOLOME REDMOND DO REASON: CONFUSION PROCEDURE: CT HEAD WO CONTRAST CT head without contrast 08/31/2018 CLINICAL INDICATION: Confusion. COMPARISON: CT head without contrast 05/30/2015. TECHNIQUE: Multiple CT images of the head were obtained without contrast. *One or more of the following individualized dose reduction techniques were utilized for this examination: 1. Automated exposure control. 2. Adjustment of the mA and/or kV according to patient size. 3. Use of iterative reconstruction technique. FINDINGS: There is stable marked ventriculomegaly of the lateral ventricles and to a lesser extent the 3rd ventricle. Stable mild periventricular confluent white matter low-attenuation. No midline shift. Old punctate infarct of the left frontal periventricular white matter. The basal cisterns are patent. 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 No acute intracranial hemorrhage. IMPRESSION: 1. Stable ventriculomegaly which is discordant to the degree of sulcal prominence which can be seen with normal pressure hydrocephalus. Clinical correlation is recommended. 2. No acute intracranial hemorrhage. 3. Stable mild nonspecific white matter disease. Electronically signed by: Marcelina Prince MD (08/31/2018 6:08 PM) [facility] DICTATED and SIGNED BY: MARCELINA PRINCE MD Course & Med Decision Making Course & Med Decision Making Pertinent Labs and Imaging studies reviewed. (See chart for details) [] Dalia Disclaimer Dalia Disclaimer This electronic medical record was generated, in whole or in part, using a voice recognition dictation system. Departure Departure Impression: Primary Impression: Normal pressure hydrocephalus syndrome Additional Impression: Generalized weakness Disposition: 09 ADMITTED INPATIENT Admitting Physician: Danial Mims Condition: STABLE Referrals: DANIAL MIMS MD (PCP) Problem Qualifiers BARTOLOME REDMOND DO Aug 31, 2018 18:14
[2018-08-31] MEDS ORDERED: ONDANSETRON PF 4 MG/2 ML VIAL. IV PRN (19:00)
--- NOTE | 2018-08-31 19:30 | NUR ---
The patient, PARI HARDEN, 78 y/o, M admitted by DANIAL GUZMAN MD, was given written information regarding hospital policies, unit procedures and contact persons. Valuables were checked and left with the family.
[2018-08-31] MEDS: IV NORMAL SALINE 1000ML BAG 1,000 ML IV SCH (21:04)
[2018-08-31 21:15] VITALS: BP 180/90
[2018-08-31 23:00] VITALS: BP 132/70
[2018-09-01] VITALS (7 sets, daily range): BP systolic 124–190; BP diastolic 63–89
--- NOTE | 2018-09-01 07:13 | EKG ---
[facility] [address] [place] [address] Test Date: 2018-08-31 Test Time: 17:07:42 Pat Name: PARI HARDEN Department: Room: 508 1 Gender: M Recycling Sorter: : 1940 Requested By: BARTOLOME REDMOND Order Number: [id number] Reading MD: Lázaro Norris Measurements Intervals [place] Rate: 65 P: HI: QRS: 37 QRSD: 88 T: 46 QT: 400 QTc: 417 Interpretive Statements SINUS RHYTHM Electronically Signed On 09-09-2018 10:42:19 SHEARER SCREEN MEASURER AND TRIMMER by Lázaro Norris
--- NOTE | 2018-09-01 10:33 | PDOC ---
Provider Note Provider Note Patient seen. History and Physical dictated. See dictation # [id number] DANIAL GUZMAN MD Sep 01, 2018 10:33
[2018-09-01] MEDS: IV NORMAL SALINE 1000ML BAG 1,000 ML IV SCH (10:37)
[2018-09-01] MEDS: PANTOPRAZOLE 40 MG TABLET.DR. PO SCH (10:37)
[2018-09-01] MEDS: CITALOPRAM 10 MG TABLET. PO SCH (10:37)
[2018-09-01] MEDS: MULTIVITAMIN with MINERAL TABLET. PO SCH (10:38)
[2018-09-01] MEDS: FLUTICASONE 50MCG/NASAL SPRAY 16GM BOTTLE. NS SCH (10:38)
[2018-09-01] MEDS: LISINOPRIL 5 MG TABLET. PO SCH (12:13)
--- NOTE | 2018-09-01 12:47 | HP ---
ADMIT DATE: 08/31/2018 HISTORY OF PRESENT ILLNESS: This 78-year-old male who lives at home with his daughter started getting weaker and also had bowel incontinence, which is new for him. The patient is able to urinate without much problem. He also became more unsteady. About a month ago, he fell and hurt his right hand and had a fracture of the right fifth finger. The patient denies any fever, chills, dyspnea. He does admit to some cough, especially with eating, which is not new because of his chronic aspiration. Denies any nausea, vomiting, diarrhea, constipation, dysuria, leg pain, but just mainly admits to weakness. Because of his weakness that is getting worse, he was brought to the Emergency Room. In the Emergency Room, CT scan of head revealed a normal pressure hydrocephalus. Apparently, the patient had been seen at in the past where they did not recommend any surgery. The patient is admitted because of increasing weakness. PAST MEDICAL HISTORY: hypertension, hyperlipidemia, COPD, pneumonia, CVA, chronic memory loss, chronic hydrocephalus, diverticulosis, GERD, peptic Ulcer disease, history of gastric ulcer, anxiety, depression, anemia, degenerative Joint disease, allergic rhinitis, CKD 2 PAST SURGICAL HISTORY: history of hernia repair x2, exploratory laparoscopic Gastric ulcer repair in 2011, strangulated femoral hernia repair with small bowel Resection on 05/23/17. Cataract removal right eye, left eye is blind The patient has been following with [facility] and has not been seen in the office recently. ALLERGIES: THE PATIENT IS ALLERGIC TO CODEINE. MEDICATIONS: As noted earlier reviewed and reconciled. FAMILY HISTORY: sister's cancer, mother has diabetes, mother had stroke SOCIAL HISTORY: no history of smoking alcoholism or drug abuse PHYSICAL EXAMINATION: GENERAL: The patient is an elderly male who is alert, oriented x 3, weak and not in any acute distress. VITAL SIGNS: Temperature 98.6, pulse 70 per minute, respirations 15 per minute. His blood pressure went up to as high as 190/89 but now it is 124/63 mmHg without any medications. 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 Right eye unremarkable. NECK: JVP normal. No thyromegaly. Trachea midline. LUNGS: Decreased breath sounds at bases. CARDIOVASCULAR: S1, S2 regular. ABDOMEN: Soft, nontender, no guarding, no rigidity. Bowel sounds present. EXTREMITIES: No edema. CENTRAL NERVOUS SYSTEM: Generalized weakness. Moves extremities. LABORATORY FINDINGS: Include WBC count 4.8, hemoglobin 14.3. Sodium 142, potassium 4, BUN 17, creatinine 1.0, glucose 129, calcium 9, AST 18, ALT 26. Cardiac enzymes are normal. Albumin 3.5. TSH 3.169. Urine drug screen is negative. Urinalysis is negative. IMPRESSION: 1. Weakness. 2. Normal pressure hydrocephalus.history of chronic hydrocephalus 3. Chronic obstructive pulmonary disease. 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 Accelerated hypertension, now resolved without any medications. 6. chronic memory loss 7. anxiety 8. depression 9. osteoarthritis involving multiple joints 10. allergic rhinitis 11. Hyperlipidemia. 12. Bilateral knee osteoarthritis. 13. CKD 2 14. Anemia 15. Gastroesophageal reflux disease with esophagitis. PLAN: I will consult Dr. Ding for rehab evaluation and management and Dr. Elam for neurology evaluation and management. I will also order a CT scan of chest and consult Dr. Mcmillan for pulmonary evaluation and management. For details, please refer to the orders. DANIAL GUZMAN MD DR: ADRIANA/rachel JOB#: [id number] / [id number] KHANH
--- NOTE | 2018-09-01 13:34 | EKG ---
[facility] [address] [place] [address] Test Date: 2018-08-31 Test Time: 11:28:26 Pat Name: PARI HARDEN Department: Room: 508 1 Gender: Senior Clinical Data Analyst: : 1940 Requested By: DANIAL GUZMAN Order Number: [id number] Reading MD: Lázaro Norris Measurements Intervals [place] Rate: P: ID: QRS: QRSD: T: QT: QTc: Interpretive Statements SINUS RHYTHM Electronically Signed On 09-09-2018 10:39:45 GLOVE FINISHER by Lázaro Norris
--- NOTE | 2018-09-01 15:57 | PDOC2 ---
NEUROLOGY CONSULT Date of Admission Date of Admission DATE: 09/01/18 TIME: 14:42 Reason for Consult Reason for Consult: IMPRESSION: Generalized weakness. Gait disorder. Falls. Urinary and bowel dysfunction. Colpocephaly, congenital. Agenesis of the corpus callosum, congenital. Ventriculomegaly. CHF. COPD. HTN. HLD. GERD. Left eye blindness. Dementia features. RECOMMENDATIONS/PLAN: Treat medical diseases. C-spine MRI w/o contrast. Lab: see orders. 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 He was reportedly seen at but no indication for surgical intervention. He has urinary and bowel dysfunction as new symptoms per his family and falls for admission this time. PAST MEDICAL HISTORY: Hypoxic respiratory failure secondary to acute eosinophilic pneumonia and was admitted previously in 06/2017, last admission was in 04/2018. At that time was for abdominal pain. 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 The patient has a history of hypertension, but previously his blood pressures were low, so blood pressure medications, there was lisinopril and was discontinued; has hyperlipidemia, bilateral knee osteoarthritis, right lower lobe pulmonary nodule, gastroesophageal reflux disease with esophagitis, history of obstructive sleep apnea with obesity hypoventilation syndrome, noncompliant with CPAP, history of appendectomy and knee surgery, moderate protein-calorie malnutrition. The patient also has obstructive sleep apnea, slow transit constipation, anemia PAST SURGICAL HISTORY: Right inguinal hernia repair, arthroscopic knee surgery of the right knee, cyst removed from the right groin, previously has had appendectomy. ALLERGIES: ALLERGIC TO CODEINE. FAMILY HISTORY: noncontributory. SOCIAL HISTORY: Past history of smoking. The patient has had history of drug abuse, but has been clean for about 6 years. No history of alcoholism. MEDICATIONS: Refer to MAR REVIEW OF SYSTEMS: Constitutional: No malnutrition, weight loss, cachexia. Head: No recent traumatic brain or head injury. Skin: No edema, or rash. Ear: No infection. Eyes: Left eye blindness. Nose: No bleeding or purulent discharges. Hearing: Hearing decrease. Neck: No injury. Cardiac: HTN, HLD. Pulmonary: COPD. GI: GERD. Urinary/genital: UTI. Endocrinologic: No cousin face, craniofacial dysmorphism, polydactyly. Skeletomuscular: Generalized weakness. Neurological: see HP. Psychiatric: Hx of drug use. Otherwise, not [id number] review of systems. PHYSICAL EXAMINATION: General appearance is in subacute distress. HEENT: Normocephalic and nontraumatic. Eyes, nose, ears, and throat are unremarkable. Neck is supple. No lymphadenopathy. No crepitus. Cardiovascular: S1, S2, regular rate and rhythm. Pulmonary: Mildly decreased to auscultation bilaterally. Abdomen: Bowel sounds are positive. Extremities: No rash, lesions, or edema. No restriction of range of motion NEUROLOGICAL EXAMINATION: Awake. Not oriented to time, place but knew person. Right pupil reactive to light. Left eye blindness. EOMI. Right eye nystagmus noted. CN: no acute focal findings. Muscle tone: Increased. Muscle strength: 4- DTR: 2+ UE, 3 at knee. Plantar reflex: Neutral response bilaterally Gait: not examined in bed. Sensory exam: no abnormal findings. Chronic cerebellar signs elicited. F-T-N test not accurate. Current Medications Current Medications Current Medications Sodium Chloride 500 ml @ 500 mls/hr 1X ONCE IV Last administered on at 17:33; Start 08/31/18 at 17:30; Stop 08/31/18 at 18:29; Status DC Ondansetron HCl (Zofran) 4 mg PRN Q8HRS PRN IV NAUSEA/VOMITING; Start 08/31/18 at 19:00; Stop 09/01/18 at 18:59 Sodium Chloride 1,000 ml @ 75 mls/hr [id number] IV Last administered on at 10:37; Start 08/31/18 at 18:50; Stop 09/01/18 at 18:49 Influenza Virus Vaccine (Afluria Trivalent [id number] Syringe) 0.5 ml ONCE ONCE VAX IM Last administered on 09/01/18at 10:44; Start 09/01/18 at 09:00; Stop at 09:01; Status DC Citalopram Hydrobromide (CeleXA) 10 mg DAILY PO Last administered on 09/01/18 10:37; Start 09/01/18 at 10:00 Fluticasone Propionate (Flonase) 2 spray DAILY NS Last administered on 10:38; Start 09/01/18 at 09:30 Simvastatin (Zocor) 10 mg HS PO ; Start 09/01/18 at 21:00 Tamsulosin HCl (Flomax) 0.4 mg HS PO ; Start 09/01/18 at 21:00 Famotidine (Pepcid) 40 mg QHS PO ; Start 09/01/18 at 21:00 Montelukast Sodium (Singulair) 10 mg QHS PO ; Start 09/01/18 at 21:00 Multivitamins (Thera M Plus) 1 tab DAILY PO Last administered on 09/01/18at 10: 38; Start 09/01/18 at 10:00 Pantoprazole Sodium (Protonix) 40 mg DAILYAC PO Last administered on 09/01/18at 10:37; Start 09/01/18 at 11:30 Lisinopril (Prinivil) 5 mg DAILY PO Last administered on 09/01/18at 12:13; Start 09/01/18 at 12:30 Active Scripts Active Proair Hfa Inhaler (Albuterol Sulfate) 8.5 Gm Hfa.aer.ad 2 Puff INH PRN Q6HRS PRN Albuterol Sulfate Neb Soln (Albuterol Sulfate) 2.5 Mg/3 Ml Vial.neb 2.5 Mg NEB TID Reported Omeprazole 20 Mg Tablet.dr 20 Mg PO DAILY Tamsulosin Hcl 0.4 Mg Cap.er.24h 1 Cap PO DAILY Tylenol (Acetaminophen) 325 Mg Tablet 325 Mg PO DAILY PRN Cetirizine Hcl 10 Mg Tablet 10 Mg PO DAILY Famotidine 40 Mg Tablet 40 Mg PO DAILY Montelukast Sodium Tablet (Montelukast Sodium) 10 Mg Tablet 10 Mg PO DAILY Simvastatin 10 Mg Tablet 10 Mg PO DAILY Flonase (Fluticasone Propionate) 16 Gm [place].susp 2 Sprays NS DAILY Multi Vitamin Daily (Multivitamin) 1 Each Tablet 1 Each PO DAILY Citalopram Hbr (Citalopram Hydrobromide) 10 Mg Tablet 10 Mg PO DAILY Allergies Allergies: Allergies Coded Allergies Type Severity Reaction Last Updated Verified No Known Medication Allergies Allergy Unknown 06/03/17 Yes codeine Adverse Reaction Mild Shaky and GI Upset 05/23/17 Yes ROS Review of System The patient denies any associated fevers, chills, headache, ear pain, rhinorrhea , sore throat, stiff neck, productive cough, chest pain, shortness of breath, back or flank pain, abdominal pain, nausea, vomiting, diarrhea, constipation, dysuria, rash, numbness, weakness, tingling, incontinence, difficulty ambulating, or diaphoresis. Physical Exam Physical Exam General: Well developed, well nourished, no acute distress, well appearing HEENT: Pupils equally round and reactive to light, EOMI, no discharge, normal conjunctiva Neck: Supple, no nuchal rigidity, no JVD, trachea midline, no tenderness Cardiac: RRR, no murmurs, no gallops, no rubs Chest/Lungs: CTAB, no wheeze, no rhonchi, no crackles Abdomen: soft, non-distended, no guarding, no peritoneal signs, non-tender Back: No tenderness Extremities: no edema, pulses intact, non-tender,capillary refill <3 sec bilateral upper and lower extremities, Neuro: Alert and oriented x 4, no focal deficits, normal speech Vitals Vitals: Vital Signs Date Time Temp Pulse Resp B/P (MAP) Pulse Ox O2 Delivery O2 Flow Rate FiO2 09/01/18 12:13 69 179/89 09/01/18 11:00 98.4 17 96 Room Air 98.4 Labs Labs Laboratory Tests Test 08/31/18 15:35 08/31/18 15:55 Urine Collection Type Unknown Urine Color Yellow Urine Clarity Clear Urine pH 6.0 Urine Specific [place] 1.015 Urine Protein Negative mg/dL (NEG-TRACE) Urine Glucose (UA) Negative mg/dL (NEG) Urine Ketones (Stick) Negative mg/dL (NEG) Urine Blood Negative (NEG) Urine Nitrite Negative (NEG) Urine Bilirubin Negative (NEG) Urine Urobilinogen Dipstick 1.0 mg/dL (0.2 mg/dL) Urine Leukocyte Esterase Negative (NEG) Urine RBC 0 /HPF (0-2) Urine WBC 0 /HPF (0-4) Urine Squamous Epithelial Cells Occ /LPF Urine Bacteria 0 /HPF (0-FEW) Urine Mucus Slight /LPF Urine Opiates Screen Neg (NEG) Urine Methadone Screen Neg (NEG) Urine Barbiturates Neg (NEG) Urine Phencyclidine Screen Neg (NEG) Urine Amphetamine/Methamphetamine Neg (NEG) Urine Benzodiazepines Screen Neg (NEG) Urine Cocaine Screen Neg (NEG) Urine Cannabinoids Screen Neg (NEG) Urine Ethyl Alcohol Neg (NEG) White Blood Count 4.8 x10^3/uL (4.0-11.0) Red Blood Count 4.58 x10^6/uL (4.30-5.70) Hemoglobin 14.3 g/dL (13.0-17.5) Hematocrit 41.8 % (39.0-53.0) Mean Corpuscular Volume 91 fL (79-100) Mean Corpuscular Hemoglobin 31 pg (25-35) Mean Corpuscular Hemoglobin Concent 34 g/dL (31-37) Red Cell Distribution Width 12.4 % (11.5-14.5) Platelet Count 151 x10^3/uL (140-400) Neutrophils (%) (Auto) 55 % (31-73) Lymphocytes (%) (Auto) 28 % (24-48) Monocytes (%) (Auto) 10 % (0-9) Eosinophils (%) (Auto) 6 % (0-3) Basophils (%) (Auto) 1 % (0-3) Neutrophils # (Auto) 2.7 x10^3uL (1.8-7.7) Lymphocytes # (Auto) 1.4 x10^3/uL (1.0-4.8) Monocytes # (Auto) 0.5 x10^3/uL (0.0-1.1) Eosinophils # (Auto) 0.3 x10^3/uL (0.0-0.7) Basophils # (Auto) 0.1 x10^3/uL (0.0-0.2) Prothrombin Time 13.5 SEC (11.7-14.0) Prothromb Time International Ratio 1.1 (0.8-1.1) Activated Partial Thromboplast Time 28 SEC (24-38) Sodium Level 142 mmol/L (136-145) Potassium Level 4.0 mmol/L (3.5-5.1) Chloride Level 104 mmol/L (98-107) Carbon Dioxide Level 31 mmol/L (21-32) Anion Gap 7 (6-14) Blood Urea Nitrogen 17 mg/dL (8-26) Creatinine 1.0 mg/dL (0.7-1.3) Estimated GFR (Cockcroft-Gault) 72.3 BUN/Creatinine Ratio 17 (6-20) Glucose Level 139 mg/dL (70-99) Calcium Level 9.0 mg/dL (8.5-10.1) Total Bilirubin 0.4 mg/dL (0.2-1.0) Aspartate Amino Transf (AST/SGOT) 18 U/L (15-37) Alanine Aminotransferase (ALT/SGPT) 26 U/L (16-63) Alkaline Phosphatase 135 U/L (46-116) Creatine Kinase 55 U/L (39-308) Creatine Kinase MB (Mass) 0.9 ng/mL (0.0-3.6) Creatine Kinase MB Relative Index % (0-4) Troponin I Quantitative < 0.017 ng/mL (0.000-0.055) HR-Niu-G-Type Natriuretic Peptide 74 pg/mL (0-449) Total Protein 6.7 g/dL (6.4-8.2) Albumin 3.5 g/dL (3.4-5.0) Albumin/Globulin Ratio 1.1 (1.0-1.7) Lipase 136 U/L (73-393) Thyroid Stimulating Hormone (TSH) 3.169 uIU/mL (0.358-3.74) Laboratory Tests Test 08/31/18 15:35 08/31/18 15:55 Urine Collection Type Unknown Urine Color Yellow Urine Clarity Clear Urine pH 6.0 Urine Specific [place] 1.015 Urine Protein Negative mg/dL (NEG-TRACE) Urine Glucose (UA) Negative mg/dL (NEG) Urine Ketones (Stick) Negative mg/dL (NEG) Urine Blood Negative (NEG) Urine Nitrite Negative (NEG) Urine Bilirubin Negative (NEG) Urine Urobilinogen Dipstick 1.0 mg/dL (0.2 mg/dL) Urine Leukocyte Esterase Negative (NEG) Urine RBC 0 /HPF (0-2) Urine WBC 0 /HPF (0-4) Urine Squamous Epithelial Cells Occ /LPF Urine Bacteria 0 /HPF (0-FEW) Urine Mucus Slight /LPF Urine Opiates Screen Neg (NEG) Urine Methadone Screen Neg (NEG) Urine Barbiturates Neg (NEG) Urine Phencyclidine Screen Neg (NEG) Urine Amphetamine/Methamphetamine Neg (NEG) Urine Benzodiazepines Screen Neg (NEG) Urine Cocaine Screen Neg (NEG) Urine Cannabinoids Screen Neg (NEG) Urine Ethyl Alcohol Neg (NEG) White Blood Count 4.8 x10^3/uL (4.0-11.0) Red Blood Count 4.58 x10^6/uL (4.30-5.70) Hemoglobin 14.3 g/dL (13.0-17.5) Hematocrit 41.8 % (39.0-53.0) Mean Corpuscular Volume 91 fL (79-100) Mean Corpuscular Hemoglobin 31 pg (25-35) Mean Corpuscular Hemoglobin Concent 34 g/dL (31-37) Red Cell Distribution Width 12.4 % (11.5-14.5) Platelet Count 151 x10^3/uL (140-400) Neutrophils (%) (Auto) 55 % (31-73) Lymphocytes (%) (Auto) 28 % (24-48) Monocytes (%) (Auto) 10 % (0-9) Eosinophils (%) (Auto) 6 % (0-3) Basophils (%) (Auto) 1 % (0-3) Neutrophils # (Auto) 2.7 x10^3uL (1.8-7.7) Lymphocytes # (Auto) 1.4 x10^3/uL (1.0-4.8) Monocytes # (Auto) 0.5 x10^3/uL (0.0-1.1) Eosinophils # (Auto) 0.3 x10^3/uL (0.0-0.7) Basophils # (Auto) 0.1 x10^3/uL (0.0-0.2) Prothrombin Time 13.5 SEC (11.7-14.0) Prothromb Time International Ratio 1.1 (0.8-1.1) Activated Partial Thromboplast Time 28 SEC (24-38) Sodium Level 142 mmol/L (136-145) Potassium Level 4.0 mmol/L (3.5-5.1) Chloride Level 104 mmol/L (98-107) Carbon Dioxide Level 31 mmol/L (21-32) Anion Gap 7 (6-14) Blood Urea Nitrogen 17 mg/dL (8-26) Creatinine 1.0 mg/dL (0.7-1.3) Estimated GFR (Cockcroft-Gault) 72.3 BUN/Creatinine Ratio 17 (6-20) Glucose Level 139 mg/dL (70-99) Calcium Level 9.0 mg/dL (8.5-10.1) Total Bilirubin 0.4 mg/dL (0.2-1.0) Aspartate Amino Transf (AST/SGOT) 18 U/L (15-37) Alanine Aminotransferase (ALT/SGPT) 26 U/L (16-63) Alkaline Phosphatase 135 U/L (46-116) Creatine Kinase 55 U/L (39-308) Creatine Kinase MB (Mass) 0.9 ng/mL (0.0-3.6) Creatine Kinase MB Relative Index % (0-4) Troponin I Quantitative < 0.017 ng/mL (0.000-0.055) UL-[id number]-Type Natriuretic Peptide 74 pg/mL (0-449) Total Protein 6.7 g/dL (6.4-8.2) Albumin 3.5 g/dL (3.4-5.0) Albumin/Globulin Ratio 1.1 (1.0-1.7) Lipase 136 U/L (73-393) Thyroid Stimulating Hormone (TSH) 3.169 uIU/mL (0.358-3.74) ARMANDO FERRER MD Sep 01, 2018 15:57
--- NOTE | 2018-09-01 16:47 | RAD ---
MRI Cervical Spine Without Contrast History: Gait disorder, recent falls, urinary and bowel dysfunction Technique: Multiplanar, multi sequential noncontrast MR imaging was performed of the cervical spine. However patient was unable to complete the exam. Comparison: None Findings: Exam is limited due to fairly significant motion especially for only axial sequence obtained, axial sequence nondiagnostic. No STIR sequence was obtained. Cervical cord caliber is within normal limits without expansile signal change. There is no obvious confluent marrow edema. There is likely hemangioma of the superior C5 vertebral body. There is moderate to severe degenerative disc disease C5-6 and C6-7. There is accentuation of cervical lordosis. Foci of T2 signal abnormality of the visualized kari could be due to sequela of old lacunar infarcts although limited characterization. AP alignment is overall maintained. Better seen on recent CT, there is lateral ventriculomegaly/colpocephaly. C2-C3: Spinal canal and neural foramina are adequate as seen on the sagittal images. C3-C4: There is buckling of the ligamentum flavum. There is probable mild narrowing of the central canal about 9 mm. There is probable facet degenerative change. There is probable degree of neural foramina compromise bilaterally although cannot otherwise be accurately characterize. C4-C5: Spinal canal is overall adequate. Neural foramina are likely adequate. There is likely facet degenerative change. C5-C6: There is minimal disc osteophyte complex. Spinal canal is overall adequate. There is probable facet degenerative change. There may be due to degree of narrowing of the right neural foramen although poorly characterized, left neural foramen probably adequate. C6-C7: Spinal canal is adequate. There may be at least mild narrowing of the right neural foramen although poorly characterized, left neural foramen likely adequate. C7-T1: Spinal canal is adequate. Neural foramina are likely adequate. Impression: 1. Exam is degraded by motion and the entirety of the exam could not be completed. There is overall mild spinal stenosis at C3-C4. Evaluation of the neural foramina is very limited, possible degree of narrowing bilaterally at C3-C4 and on the right at C5-6 and C6-7. There is degenerative disc disease greatest at C5-6 and C6-7. 2. Not fully evaluated, there is lateral ventriculomegaly/colpocephaly. Foci of signal change of the visualized kari could be due to sequela of old lacunar infarcts. Electronically signed by: Son Bro MD (09/01/2018 4:43 PM) [id number]
[2018-09-01] MEDS: TAMSULOSIN 0.4 MG CAP.ER.24H. PO SCH (21:00)
[2018-09-01] MEDS: FAMOTIDINE 20 MG TABLET. PO SCH (21:00)
[2018-09-01] MEDS: SIMVASTATIN 10 MG TABLET PO SCH (21:00)
[2018-09-01] MEDS: MONTELUKAST SODIUM 10 MG TABLET. PO SCH (21:00)
[2018-09-02 03:00] VITALS: BP 96/69
--- NOTE | 2018-09-02 05:12 | CONS ---
DATE OF CONSULTATION: LOCATION: He is in room 508. ATTENDING PHYSICIAN: Dr. Kelly Mims. The patient was seen at the request of Dr. Mims for rehab evaluation. HISTORY OF PRESENT ILLNESS: This is a 78-year-old male being taken care of by his daughter at home. He apparently was getting weaker and also having for the last few days bowel incontinence, which is new for him. He is getting more weak and unsteady. A month ago, he fell and hurt his right hand and had a fracture of right fifth finger. He denies any pain at present time. He apparently had chronic silent aspiration and at home he had been on thickened liquid and pureed kind of diet, but still having some cough when he is swallowing. I have observed him while he is with speech pathology evaluating his swallowing. He keeps on coughing. The patient also with known hypoxic respiratory failure secondary to acute eosinophilic pneumonia and admitted in 06/2017 and last admission was in 04/2018 for abdominal pain. He had exacerbation of chronic obstructive pulmonary disease, pneumonia, respiratory failure, acute on chronic combined systolic and diastolic heart failure, ischemic cardiomyopathy with ejection fraction of 15-20%, coronary artery disease, had 2-vessel coronary artery disease with drug-eluting stent in the right coronary artery placed in 06/2017, diabetes mellitus type 2 with hyperglycemia, morbid obesity, severe noncompliance, also known hypertension, but previously his blood pressures were low, so blood pressure medication was discontinued, hyperlipidemia, osteoarthritis of both knees, right lower lobe pulmonary nodule, gastroesophageal reflux disease with esophagitis, obstructive sleep apnea with obesity hypoventilation syndrome, noncompliant with CPAP, also had appendectomy, knee arthroscopic surgery, moderate protein calorie malnutrition, obstructive sleep apnea, slow transit constipation, anemia of chronic disease. He also had inguinal hernia repair on the right side, cyst removed from his right groin. HE IS KNOWN ALLERGIC TO CODEINE. He usually goes to [facility]. The patient had a past history of smoking. 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 PHYSICAL EXAMINATION: The patient on physical examination today revealed an elderly male. He is alert, oriented to place and person, follows commands appropriately, moves all 4 extremities voluntarily where he had 4+/5 grade muscle strength. Deep tendon reflexes are 1-2+ and symmetrical and he had equal perception of touch and pinprick sensation bilaterally. He had pain free range of motion of all four extremity joints. He had some problem with his left eye. I did not see any obvious visual field cut or facial asymmetry. He got up with supervision and walked with a wide-based gait using a roller walker at bedside. His daughter got surprised the way he is walking. Usually, he does not walk much except holding onto assistance he transfers to the commode and to the bed. His skin is intact at this time. ASSESSMENT: An elderly male with hypertension, hyperlipidemia, coronary artery disease, cardiomyopathy, chronic appearing pulmonary disease, acute on chronic combined systolic and diastolic heart failure, respiratory failure in the past, pneumonia and obstructive sleep apnea. The patient presents with chronic difficulty with coughing while eating. RECOMMENDATIONS: Agree with the plans for physical therapy, occupational therapy and speech pathology follow up. If he keeps on having recurrent aspiration, he needs to be considered for PEG tube placement as I noted him when he is eating he is struggling with cough immediately after. Dr. Mims, I appreciate asking me to participate in the care of this interesting patient. I will be glad to follow him with you as needed for his rehabilitation. SAEID WOODARD MD DR: PEÑA/rachel JOB#: [id number] / [id number]
[2018-09-02 05:20] LABS: BASO % 1 % (0-3); EOS # 0.2 x10^3/uL (0.0-0.7); EOS % 5 % (0-3); HEMATOCRIT 40.1 % (39.0-53.0); HEMOGLOBIN 13.7 g/dL (13.0-17.5); LYMPH % 21 % (24-48); MEAN CORPUSCULAR HEMOGLOBIN 31 pg (25-35); MEAN CORPUSCULAR HGB CONC 34 g/dL (31-37); MEAN CORPUSCULAR VOLUME 90 fL (79-100); MONO # 0.6 x10^3/uL (0.0-1.1); MONO % 12 % (0-9); NEUT % 61 % (31-73); PLATELET COUNT 149 x10^3/uL (140-400); RED BLOOD COUNT 4.46 x10^6/uL (4.30-5.70); RED CELL DISTRIBUTION WIDTH 12.5 % (11.5-14.5); WHITE BLOOD COUNT 4.9 x10^3/uL (4.0-11.0)
[2018-09-02 05:36] LABS: CREATININE 0.8 mg/dL (0.7-1.3); GFR 93.5; MAGNESIUM 1.9 mg/dL (1.8-2.4); POTASSIUM 3.6 mmol/L (3.5-5.1); TOTAL BILIRUBIN 0.6 mg/dL (0.2-1.0); TOTAL PROTEIN 6.1 g/dL (6.4-8.2)
[2018-09-02 07:00] VITALS: BP 132/54
[2018-09-02] MEDS: PANTOPRAZOLE 40 MG TABLET.DR. PO SCH (07:30)
[2018-09-02] MEDS: MULTIVITAMIN with MINERAL TABLET. PO SCH (07:51)
[2018-09-02] MEDS: LISINOPRIL 5 MG TABLET. PO SCH (07:51)
[2018-09-02] MEDS: CITALOPRAM 10 MG TABLET. PO SCH (07:51)
[2018-09-02] MEDS: FLUTICASONE 50MCG/NASAL SPRAY 16GM BOTTLE. NS SCH (09:00)
--- NOTE | 2018-09-02 09:54 | PDOC ---
PROGRESS NOTES Subjective Subjective He is sleeping now Since he was put on nothing by mouth by speech pathology,he was like this as for his daughter. Objective Objective Vital Signs Date Time Temp Pulse Resp B/P (MAP) Pulse Ox O2 Delivery O2 Flow Rate FiO2 09/02/18 07:00 98.3 61 18 132/54 (80) 96 Room Air 98.3 Intake and Output 09/02/18 07:00 Output Total 1270 ml Balance -1270 ml Output Urine Total 1270 ml Physical Exam Physical Exam He is sleeping now nut he got up and walked with roller walker under supervision yesterday with me. Assessment Assessment Problems Medical Problems: (1) Generalized weakness Status: Acute (2) Normal pressure hydrocephalus syndrome Status: Acute Plan Plan of Care After communicating with his daughter at bedside,to let him have pureed diet. Comment Review of Relevant I have reviewed the following items yadi (where applicable) has been applied. Labs Laboratory Tests Test 08/31/18 15:35 08/31/18 15:55 09/01/18 16:50 09/01/18 18:05 Urine Collection Type Unknown Urine Color Yellow Urine Clarity Clear Urine pH 6.0 Urine Specific [place] 1.015 Urine Protein Negative mg/dL (NEG-TRACE) Urine Glucose (UA) Negative mg/dL (NEG) Urine Ketones (Stick) Negative mg/dL (NEG) Urine Blood Negative (NEG) Urine Nitrite Negative (NEG) Urine Bilirubin Negative (NEG) Urine Urobilinogen Dipstick 1.0 mg/dL (0.2 mg/dL) Urine Leukocyte Esterase Negative (NEG) Urine RBC 0 /HPF (0-2) Urine WBC 0 /HPF (0-4) Urine Squamous Epithelial Cells Occ /LPF Urine Bacteria 0 /HPF (0-FEW) Urine Mucus Slight /LPF Urine Opiates Screen Neg (NEG) Urine Methadone Screen Neg (NEG) Urine Barbiturates Neg (NEG) Urine Phencyclidine Screen Neg (NEG) Urine Amphetamine/Methamphetamine Neg (NEG) Urine Benzodiazepines Screen Neg (NEG) Urine Cocaine Screen Neg (NEG) Urine Cannabinoids Screen Neg (NEG) Urine Ethyl Alcohol Neg (NEG) White Blood Count 4.8 x10^3/uL (4.0-11.0) Red Blood Count 4.58 x10^6/uL (4.30-5.70) Hemoglobin 14.3 g/dL (13.0-17.5) Hematocrit 41.8 % (39.0-53.0) Mean Corpuscular Volume 91 fL (79-100) Mean Corpuscular Hemoglobin 31 pg (25-35) Mean Corpuscular Hemoglobin Concent 34 g/dL (31-37) Red Cell Distribution Width 12.4 % (11.5-14.5) Platelet Count 151 x10^3/uL (140-400) Neutrophils (%) (Auto) 55 % (31-73) Lymphocytes (%) (Auto) 28 % (24-48) Monocytes (%) (Auto) 10 % (0-9) Eosinophils (%) (Auto) 6 % (0-3) Basophils (%) (Auto) 1 % (0-3) Neutrophils # (Auto) 2.7 x10^3uL (1.8-7.7) Lymphocytes # (Auto) 1.4 x10^3/uL (1.0-4.8) Monocytes # (Auto) 0.5 x10^3/uL (0.0-1.1) Eosinophils # (Auto) 0.3 x10^3/uL (0.0-0.7) Basophils # (Auto) 0.1 x10^3/uL (0.0-0.2) Prothrombin Time 13.5 SEC (11.7-14.0) Prothromb Time International Ratio 1.1 (0.8-1.1) Activated Partial Thromboplast Time 28 SEC (24-38) Sodium Level 142 mmol/L (136-145) Potassium Level 4.0 mmol/L (3.5-5.1) Chloride Level 104 mmol/L (98-107) Carbon Dioxide Level 31 mmol/L (21-32) Anion Gap 7 (6-14) Blood Urea Nitrogen 17 mg/dL (8-26) Creatinine 1.0 mg/dL (0.7-1.3) Estimated GFR (Cockcroft-Gault) 72.3 BUN/Creatinine Ratio 17 (6-20) Glucose Level 139 mg/dL (70-99) Calcium Level 9.0 mg/dL (8.5-10.1) Total Bilirubin 0.4 mg/dL (0.2-1.0) Aspartate Amino Transf (AST/SGOT) 18 U/L (15-37) Alanine Aminotransferase (ALT/SGPT) 26 U/L (16-63) Alkaline Phosphatase 135 U/L (46-116) Creatine Kinase 55 U/L (39-308) Creatine Kinase MB (Mass) 0.9 ng/mL (0.0-3.6) Creatine Kinase MB Relative Index % (0-4) Troponin I Quantitative < 0.017 ng/mL (0.000-0.055) QN-Fey-G-Type Natriuretic Peptide 74 pg/mL (0-449) Total Protein 6.7 g/dL (6.4-8.2) Albumin 3.5 g/dL (3.4-5.0) Albumin/Globulin Ratio 1.1 (1.0-1.7) Lipase 136 U/L (73-393) Thyroid Stimulating Hormone (TSH) 3.169 uIU/mL (0.358-3.74) Glucose (Fingerstick) 104 mg/dL (70-99) Vitamin B12 Level 303 pg/mL (247-911) Test 09/02/18 04:50 White Blood Count 4.9 x10^3/uL (4.0-11.0) Red Blood Count 4.46 x10^6/uL (4.30-5.70) Hemoglobin 13.7 g/dL (13.0-17.5) Hematocrit 40.1 % (39.0-53.0) Mean Corpuscular Volume 90 fL (79-100) Mean Corpuscular Hemoglobin 31 pg (25-35) Mean Corpuscular Hemoglobin Concent 34 g/dL (31-37) Red Cell Distribution Width 12.5 % (11.5-14.5) Platelet Count 149 x10^3/uL (140-400) Neutrophils (%) (Auto) 61 % (31-73) Lymphocytes (%) (Auto) 21 % (24-48) Monocytes (%) (Auto) 12 % (0-9) Eosinophils (%) (Auto) 5 % (0-3) Basophils (%) (Auto) 1 % (0-3) Neutrophils # (Auto) 3.0 x10^3uL (1.8-7.7) Lymphocytes # (Auto) 1.0 x10^3/uL (1.0-4.8) Monocytes # (Auto) 0.6 x10^3/uL (0.0-1.1) Eosinophils # (Auto) 0.2 x10^3/uL (0.0-0.7) Basophils # (Auto) 0.0 x10^3/uL (0.0-0.2) Sodium Level 141 mmol/L (136-145) Potassium Level 3.6 mmol/L (3.5-5.1) Chloride Level 105 mmol/L (98-107) Carbon Dioxide Level 28 mmol/L (21-32) Anion Gap 8 (6-14) Blood Urea Nitrogen 12 mg/dL (8-26) Creatinine 0.8 mg/dL (0.7-1.3) Estimated GFR (Cockcroft-Gault) 93.5 BUN/Creatinine Ratio 15 (6-20) Glucose Level 91 mg/dL (70-99) Calcium Level 9.0 mg/dL (8.5-10.1) Magnesium Level 1.9 mg/dL (1.8-2.4) Total Bilirubin 0.6 mg/dL (0.2-1.0) Aspartate Amino Transf (AST/SGOT) 16 U/L (15-37) Alanine Aminotransferase (ALT/SGPT) 20 U/L (16-63) Alkaline Phosphatase 112 U/L (46-116) Creatine Kinase 51 U/L (39-308) Total Protein 6.1 g/dL (6.4-8.2) Albumin 3.0 g/dL (3.4-5.0) Albumin/Globulin Ratio 1.0 (1.0-1.7) Laboratory Tests Test 09/01/18 16:50 09/01/18 18:05 09/02/18 04:50 Glucose (Fingerstick) 104 mg/dL (70-99) Vitamin B12 Level 303 pg/mL (247-911) White Blood Count 4.9 x10^3/uL (4.0-11.0) Red Blood Count 4.46 x10^6/uL (4.30-5.70) Hemoglobin 13.7 g/dL (13.0-17.5) Hematocrit 40.1 % (39.0-53.0) Mean Corpuscular Volume 90 fL (79-100) Mean Corpuscular Hemoglobin 31 pg (25-35) Mean Corpuscular Hemoglobin Concent 34 g/dL (31-37) Red Cell Distribution Width 12.5 % (11.5-14.5) Platelet Count 149 x10^3/uL (140-400) Neutrophils (%) (Auto) 61 % (31-73) Lymphocytes (%) (Auto) 21 % (24-48) Monocytes (%) (Auto) 12 % (0-9) Eosinophils (%) (Auto) 5 % (0-3) Basophils (%) (Auto) 1 % (0-3) Neutrophils # (Auto) 3.0 x10^3uL (1.8-7.7) Lymphocytes # (Auto) 1.0 x10^3/uL (1.0-4.8) Monocytes # (Auto) 0.6 x10^3/uL (0.0-1.1) Eosinophils # (Auto) 0.2 x10^3/uL (0.0-0.7) Basophils # (Auto) 0.0 x10^3/uL (0.0-0.2) Sodium Level 141 mmol/L (136-145) Potassium Level 3.6 mmol/L (3.5-5.1) Chloride Level 105 mmol/L (98-107) Carbon Dioxide Level 28 mmol/L (21-32) Anion Gap 8 (6-14) Blood Urea Nitrogen 12 mg/dL (8-26) Creatinine 0.8 mg/dL (0.7-1.3) Estimated GFR (Cockcroft-Gault) 93.5 BUN/Creatinine Ratio 15 (6-20) Glucose Level 91 mg/dL (70-99) Calcium Level 9.0 mg/dL (8.5-10.1) Magnesium Level 1.9 mg/dL (1.8-2.4) Total Bilirubin 0.6 mg/dL (0.2-1.0) Aspartate Amino Transf (AST/SGOT) 16 U/L (15-37) Alanine Aminotransferase (ALT/SGPT) 20 U/L (16-63) Alkaline Phosphatase 112 U/L (46-116) Creatine Kinase 51 U/L (39-308) Total Protein 6.1 g/dL (6.4-8.2) Albumin 3.0 g/dL (3.4-5.0) Albumin/Globulin Ratio 1.0 (1.0-1.7) Medications Current Medications Sodium Chloride 500 ml @ 500 mls/hr 1X ONCE IV Last administered on 17:33; Start 08/31/18 at 17:30; Stop 08/31/18 at 18:29; Status DC Ondansetron HCl (Zofran) 4 mg PRN Q8HRS PRN IV NAUSEA/VOMITING; Start 08/31/18 at 19:00; Stop 09/01/18 at 18:59; Status DC Sodium Chloride 1,000 ml @ 75 mls/hr [id number] IV Last administered on 10:37; Start 08/31/18 at 18:50; Stop 09/01/18 at 18:49; Status DC Influenza Virus Vaccine (Afluria Trivalent [id number] Syringe) 0.5 ml ONCE ONCE VAX IM Last administered on 09/01/18 10:44; Start 09/01/18 at 09:00; Stop at 09:01; Status DC Citalopram Hydrobromide (CeleXA) 10 mg DAILY PO Last administered on 09/01/18 10:37; Start 09/01/18 at 10:00 Fluticasone Propionate (Flonase) 2 spray DAILY NS Last administered on 10:38; Start 09/01/18 at 09:30 Simvastatin (Zocor) 10 mg HS PO ; Start 09/01/18 at 21:00 Tamsulosin HCl (Flomax) 0.4 mg HS PO ; Start 09/01/18 at 21:00 Famotidine (Pepcid) 40 mg QHS PO ; Start 09/01/18 at 21:00 Montelukast Sodium (Singulair) 10 mg QHS PO ; Start 09/01/18 at 21:00 Multivitamins (Thera M Plus) 1 tab DAILY PO Last administered on 09/01/18 10: 38; Start 09/01/18 at 10:00 Pantoprazole Sodium (Protonix) 40 mg DAILYAC PO Last administered on 09/01/18 10:37; Start 09/01/18 at 11:30 Lisinopril (Prinivil) 5 mg DAILY PO Last administered on 09/01/18at 12:13; Start 09/01/18 at 12:30 Active Scripts Active Proair Hfa Inhaler (Albuterol Sulfate) 8.5 Gm Hfa.aer.ad 2 Puff INH PRN Q6HRS PRN Albuterol Sulfate Neb Soln (Albuterol Sulfate) 2.5 Mg/3 Ml Vial.neb 2.5 Mg NEB TID Reported Omeprazole 20 Mg Tablet.dr 20 Mg PO DAILY Tamsulosin Hcl 0.4 Mg Cap.er.24h 1 Cap PO DAILY Tylenol (Acetaminophen) 325 Mg Tablet 325 Mg PO DAILY PRN Cetirizine Hcl 10 Mg Tablet 10 Mg PO DAILY Famotidine 40 Mg Tablet 40 Mg PO DAILY Montelukast Sodium Tablet (Montelukast Sodium) 10 Mg Tablet 10 Mg PO DAILY Simvastatin 10 Mg Tablet 10 Mg PO DAILY Flonase (Fluticasone Propionate) 16 Gm [place].susp 2 Sprays NS DAILY Multi Vitamin Daily (Multivitamin) 1 Each Tablet 1 Each PO DAILY Citalopram Hbr (Citalopram Hydrobromide) 10 Mg Tablet 10 Mg PO DAILY Vitals/I & O Vital Sign - Last 24 Hours 09/01/18 09/01/18 09/01/18 09/01/18 11:00 12:13 15:00 19:00 Temp 98.4 98.9 98.6 98.4 98.9 98.6 Pulse 85 69 79 61 Resp 17 17 18 B/P (MAP) 132/82 (99) 179/89 147/75 (99) 161/84 (109) Pulse Ox 96 98 98 O2 Delivery Room Air Room Air Room Air 09/01/18 09/01/18 09/02/18 09/02/18 20:00 22:55 03:00 07:00 Temp 98.2 98.3 98.3 98.2 98.3 98.3 Pulse 62 74 61 Resp 18 18 18 B/P (MAP) 133/64 (87) 96/69 (78) 132/54 (80) Pulse Ox 93 96 96 O2 Delivery Room Air Room Air Room Air Room Air Intake and Output 09/01/18 09/01/18 09/02/18 15:00 23:00 07:00 Output Total 120 ml 200 ml 950 ml Balance -120 ml -200 ml -950 ml SAEID WOODARD MD Sep 02, 2018 09:54
--- NOTE | 2018-09-02 10:56 | PDOC ---
IM PROGRESS NOTES- Subjective Subjective Patient is weaker very sleepy this morning earlier and the has had difficulty eating. Speech therapist had made him nothing by mouth. Objective Vitals Vital Signs Date Time Temp Pulse Resp B/P (MAP) Pulse Ox O2 Delivery O2 Flow Rate FiO2 09/02/18 07:00 98.3 61 18 132/54 (80) 96 Room Air 98.3 Input & Output Intake and Output 09/02/18 07:00 Output Total 1270 ml Balance -1270 ml Output Urine Total 1270 ml Physical Exam Physical Exam The patient is an elderly male who is alert, oriented x 3, weak and not in any acute distress. 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 Right eye unremarkable. NECK: JVP normal. No thyromegaly. Trachea midline. LUNGS: Decreased breath sounds at bases. CARDIOVASCULAR: S1, S2 regular. ABDOMEN: Soft, nontender, no guarding, no rigidity. Bowel sounds present. EXTREMITIES: No edema. CENTRAL NERVOUS SYSTEM: Generalized weakness. Moves extremities. Forgetful, poor historian. Labs Laboratory Tests Test 08/31/18 15:35 08/31/18 15:55 09/01/18 16:50 09/01/18 18:05 Urine Collection Type Unknown Urine Color Yellow Urine Clarity Clear Urine pH 6.0 Urine Specific [place] 1.015 Urine Protein Negative mg/dL (NEG-TRACE) Urine Glucose (UA) Negative mg/dL (NEG) Urine Ketones (Stick) Negative mg/dL (NEG) Urine Blood Negative (NEG) Urine Nitrite Negative (NEG) Urine Bilirubin Negative (NEG) Urine Urobilinogen Dipstick 1.0 mg/dL (0.2 mg/dL) Urine Leukocyte Esterase Negative (NEG) Urine RBC 0 /HPF (0-2) Urine WBC 0 /HPF (0-4) Urine Squamous Epithelial Cells Occ /LPF Urine Bacteria 0 /HPF (0-FEW) Urine Mucus Slight /LPF Urine Opiates Screen Neg (NEG) Urine Methadone Screen Neg (NEG) Urine Barbiturates Neg (NEG) Urine Phencyclidine Screen Neg (NEG) Urine Amphetamine/Methamphetamine Neg (NEG) Urine Benzodiazepines Screen Neg (NEG) Urine Cocaine Screen Neg (NEG) Urine Cannabinoids Screen Neg (NEG) Urine Ethyl Alcohol Neg (NEG) White Blood Count 4.8 x10^3/uL (4.0-11.0) Red Blood Count 4.58 x10^6/uL (4.30-5.70) Hemoglobin 14.3 g/dL (13.0-17.5) Hematocrit 41.8 % (39.0-53.0) Mean Corpuscular Volume 91 fL (79-100) Mean Corpuscular Hemoglobin 31 pg (25-35) Mean Corpuscular Hemoglobin Concent 34 g/dL (31-37) Red Cell Distribution Width 12.4 % (11.5-14.5) Platelet Count 151 x10^3/uL (140-400) Neutrophils (%) (Auto) 55 % (31-73) Lymphocytes (%) (Auto) 28 % (24-48) Monocytes (%) (Auto) 10 % (0-9) Eosinophils (%) (Auto) 6 % (0-3) Basophils (%) (Auto) 1 % (0-3) Neutrophils # (Auto) 2.7 x10^3uL (1.8-7.7) Lymphocytes # (Auto) 1.4 x10^3/uL (1.0-4.8) Monocytes # (Auto) 0.5 x10^3/uL (0.0-1.1) Eosinophils # (Auto) 0.3 x10^3/uL (0.0-0.7) Basophils # (Auto) 0.1 x10^3/uL (0.0-0.2) Prothrombin Time 13.5 SEC (11.7-14.0) Prothromb Time International Ratio 1.1 (0.8-1.1) Activated Partial Thromboplast Time 28 SEC (24-38) Sodium Level 142 mmol/L (136-145) Potassium Level 4.0 mmol/L (3.5-5.1) Chloride Level 104 mmol/L (98-107) Carbon Dioxide Level 31 mmol/L (21-32) Anion Gap 7 (6-14) Blood Urea Nitrogen 17 mg/dL (8-26) Creatinine 1.0 mg/dL (0.7-1.3) Estimated GFR (Cockcroft-Gault) 72.3 BUN/Creatinine Ratio 17 (6-20) Glucose Level 139 mg/dL (70-99) Calcium Level 9.0 mg/dL (8.5-10.1) Total Bilirubin 0.4 mg/dL (0.2-1.0) Aspartate Amino Transf (AST/SGOT) 18 U/L (15-37) Alanine Aminotransferase (ALT/SGPT) 26 U/L (16-63) Alkaline Phosphatase 135 U/L (46-116) Creatine Kinase 55 U/L (39-308) Creatine Kinase MB (Mass) 0.9 ng/mL (0.0-3.6) Creatine Kinase MB Relative Index % (0-4) Troponin I Quantitative < 0.017 ng/mL (0.000-0.055) EQ-Aau-A-Type Natriuretic Peptide 74 pg/mL (0-449) Total Protein 6.7 g/dL (6.4-8.2) Albumin 3.5 g/dL (3.4-5.0) Albumin/Globulin Ratio 1.1 (1.0-1.7) Lipase 136 U/L (73-393) Thyroid Stimulating Hormone (TSH) 3.169 uIU/mL (0.358-3.74) Glucose (Fingerstick) 104 mg/dL (70-99) Vitamin B12 Level 303 pg/mL (247-911) Test 09/02/18 04:50 White Blood Count 4.9 x10^3/uL (4.0-11.0) Red Blood Count 4.46 x10^6/uL (4.30-5.70) Hemoglobin 13.7 g/dL (13.0-17.5) Hematocrit 40.1 % (39.0-53.0) Mean Corpuscular Volume 90 fL (79-100) Mean Corpuscular Hemoglobin 31 pg (25-35) Mean Corpuscular Hemoglobin Concent 34 g/dL (31-37) Red Cell Distribution Width 12.5 % (11.5-14.5) Platelet Count 149 x10^3/uL (140-400) Neutrophils (%) (Auto) 61 % (31-73) Lymphocytes (%) (Auto) 21 % (24-48) Monocytes (%) (Auto) 12 % (0-9) Eosinophils (%) (Auto) 5 % (0-3) Basophils (%) (Auto) 1 % (0-3) Neutrophils # (Auto) 3.0 x10^3uL (1.8-7.7) Lymphocytes # (Auto) 1.0 x10^3/uL (1.0-4.8) Monocytes # (Auto) 0.6 x10^3/uL (0.0-1.1) Eosinophils # (Auto) 0.2 x10^3/uL (0.0-0.7) Basophils # (Auto) 0.0 x10^3/uL (0.0-0.2) Sodium Level 141 mmol/L (136-145) Potassium Level 3.6 mmol/L (3.5-5.1) Chloride Level 105 mmol/L (98-107) Carbon Dioxide Level 28 mmol/L (21-32) Anion Gap 8 (6-14) Blood Urea Nitrogen 12 mg/dL (8-26) Creatinine 0.8 mg/dL (0.7-1.3) Estimated GFR (Cockcroft-Gault) 93.5 BUN/Creatinine Ratio 15 (6-20) Glucose Level 91 mg/dL (70-99) Calcium Level 9.0 mg/dL (8.5-10.1) Magnesium Level 1.9 mg/dL (1.8-2.4) Total Bilirubin 0.6 mg/dL (0.2-1.0) Aspartate Amino Transf (AST/SGOT) 16 U/L (15-37) Alanine Aminotransferase (ALT/SGPT) 20 U/L (16-63) Alkaline Phosphatase 112 U/L (46-116) Creatine Kinase 51 U/L (39-308) Total Protein 6.1 g/dL (6.4-8.2) Albumin 3.0 g/dL (3.4-5.0) Albumin/Globulin Ratio 1.0 (1.0-1.7) Laboratory Tests Test 09/01/18 16:50 09/01/18 18:05 09/02/18 04:50 Glucose (Fingerstick) 104 mg/dL (70-99) Vitamin B12 Level 303 pg/mL (247-911) White Blood Count 4.9 x10^3/uL (4.0-11.0) Red Blood Count 4.46 x10^6/uL (4.30-5.70) Hemoglobin 13.7 g/dL (13.0-17.5) Hematocrit 40.1 % (39.0-53.0) Mean Corpuscular Volume 90 fL (79-100) Mean Corpuscular Hemoglobin 31 pg (25-35) Mean Corpuscular Hemoglobin Concent 34 g/dL (31-37) Red Cell Distribution Width 12.5 % (11.5-14.5) Platelet Count 149 x10^3/uL (140-400) Neutrophils (%) (Auto) 61 % (31-73) Lymphocytes (%) (Auto) 21 % (24-48) Monocytes (%) (Auto) 12 % (0-9) Eosinophils (%) (Auto) 5 % (0-3) Basophils (%) (Auto) 1 % (0-3) Neutrophils # (Auto) 3.0 x10^3uL (1.8-7.7) Lymphocytes # (Auto) 1.0 x10^3/uL (1.0-4.8) Monocytes # (Auto) 0.6 x10^3/uL (0.0-1.1) Eosinophils # (Auto) 0.2 x10^3/uL (0.0-0.7) Basophils # (Auto) 0.0 x10^3/uL (0.0-0.2) Sodium Level 141 mmol/L (136-145) Potassium Level 3.6 mmol/L (3.5-5.1) Chloride Level 105 mmol/L (98-107) Carbon Dioxide Level 28 mmol/L (21-32) Anion Gap 8 (6-14) Blood Urea Nitrogen 12 mg/dL (8-26) Creatinine 0.8 mg/dL (0.7-1.3) Estimated GFR (Cockcroft-Gault) 93.5 BUN/Creatinine Ratio 15 (6-20) Glucose Level 91 mg/dL (70-99) Calcium Level 9.0 mg/dL (8.5-10.1) Magnesium Level 1.9 mg/dL (1.8-2.4) Total Bilirubin 0.6 mg/dL (0.2-1.0) Aspartate Amino Transf (AST/SGOT) 16 U/L (15-37) Alanine Aminotransferase (ALT/SGPT) 20 U/L (16-63) Alkaline Phosphatase 112 U/L (46-116) Creatine Kinase 51 U/L (39-308) Total Protein 6.1 g/dL (6.4-8.2) Albumin 3.0 g/dL (3.4-5.0) Albumin/Globulin Ratio 1.0 (1.0-1.7) Meds Current Medications Famotidine (Pepcid) 40 mg QHS PO ; Start 09/01/18 at 21:00 Lisinopril (Prinivil) 5 mg DAILY PO Last administered on 09/01/18at 12:13; Start 09/01/18 at 12:30 Montelukast Sodium (Singulair) 10 mg QHS PO ; Start 09/01/18 at 21:00 Pantoprazole Sodium (Protonix) 40 mg DAILYAC PO Last administered on 09/01/18at 10:37; Start 09/01/18 at 11:30 Simvastatin (Zocor) 10 mg HS PO ; Start 09/01/18 at 21:00 Tamsulosin HCl (Flomax) 0.4 mg HS PO ; Start 09/01/18 at 21:00 Assessment Assessment IMPRESSION: 1. Weakness. 2. Normal pressure hydrocephalus.history of chronic hydrocephalus 3. Chronic obstructive pulmonary disease. 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 Accelerated hypertension, now resolved without any medications. 6. chronic memory loss 7. anxiety 8. depression 9. osteoarthritis involving multiple joints 10. allergic rhinitis 11. Hyperlipidemia. 12. Bilateral knee osteoarthritis. 13. CKD 2 14. Anemia 15. Gastroesophageal reflux disease with esophagitis. PLAN: I will consult Dr. Ding for rehab evaluation and management and Dr. Elam for neurology evaluation and management. I will also order a CT scan of chest and consult Dr. Mcmillan for pulmonary evaluation and management. For details, please refer to the orders. Dysphagia- speech therapist had made him nothing by mouth but Dr. Ding advanced into pured diet. He had discussed with the daughter extensively and so did diet. She does not want any tube feeding. He also remains very weak. She is agreeable to get him to fdc unit preferably [facility]. Memory loss unchanged. Plan Plan For more details regarding further plans, please refer to the orders. DANIAL GUZMAN MD Sep 02, 2018 10:56
[2018-09-02 11:00] VITALS: BP 128/78
[2018-09-02 15:00] VITALS: BP 130/70
--- NOTE | 2018-09-02 15:43 | NUR ---
SW responding to a referral regarding SNF screen at [facility]. SW phoned and faxed SNU referral to [facility]. Pt admission and acceptance pending. Will continue to follow.
--- NOTE | 2018-09-02 15:59 | PDOC ---
PROGRESS NOTES Assessment Assessment Generalized weakness. Gait disorder. Falls. Urinary and bowel dysfunction. Colpocephaly, congenital. Agenesis of the corpus callosum, congenital. Ventriculomegaly. CHF. COPD. HTN. HLD. GERD. Left eye blindness, congenital. Dementia features. Degenerative spine disease. RECOMMENDATIONS/PLAN: Treat medical diseases. Consulted Dr. Ding. OT/PT Discussed in all detail with his daughter and showed her brain and C-spine MRI pictures. 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 He was reportedly seen at but no indication for surgical intervention. He has urinary and bowel dysfunction as new symptoms per his family and falls for admission this time. PAST MEDICAL HISTORY: Hypoxic respiratory failure secondary to acute eosinophilic pneumonia and was admitted previously in 06/2017, last admission was in 04/2018. At that time was for abdominal pain. 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 The patient has a history of hypertension, but previously his blood pressures were low, so blood pressure medications, there was lisinopril and was discontinued; has hyperlipidemia, bilateral knee osteoarthritis, right lower lobe pulmonary nodule, gastroesophageal reflux disease with esophagitis, history of obstructive sleep apnea with obesity hypoventilation syndrome, noncompliant with CPAP, history of appendectomy and knee surgery, moderate protein-calorie malnutrition. The patient also has obstructive sleep apnea, slow transit constipation, anemia PAST SURGICAL HISTORY: Right inguinal hernia repair, arthroscopic knee surgery of the right knee, cyst removed from the right groin, previously has had appendectomy. ALLERGIES: ALLERGIC TO CODEINE. FAMILY HISTORY: noncontributory. SOCIAL HISTORY: Past history of smoking. The patient has had history of drug abuse, but has been clean for about 6 years. No history of alcoholism. MEDICATIONS: Refer to MAR REVIEW OF SYSTEMS: Constitutional: No malnutrition, weight loss, cachexia. Head: No recent traumatic brain or head injury. Skin: No edema, or rash. Ear: No infection. Eyes: Left eye blindness. Nose: No bleeding or purulent discharges. Hearing: Hearing decrease. Neck: No injury. Cardiac: HTN, HLD. Pulmonary: COPD. GI: GERD. Urinary/genital: UTI. Endocrinologic: No cousin face, craniofacial dysmorphism, polydactyly. Skeletomuscular: Generalized weakness. Neurological: see HP. Psychiatric: Hx of drug use. Otherwise, not [id number] review of systems. PHYSICAL EXAMINATION: General appearance is in subacute distress. HEENT: Normocephalic and nontraumatic. Eyes, nose, ears, and throat are unremarkable. Neck is supple. No lymphadenopathy. No crepitus. Cardiovascular: S1, S2, regular rate and rhythm. Pulmonary: Mildly decreased to auscultation bilaterally. Abdomen: Bowel sounds are positive. Extremities: No rash, lesions, or edema. No restriction of range of motion NEUROLOGICAL EXAMINATION: Awake. Not oriented to time, place but knew person. Right pupil reactive to light. Nystagmus persistent. Left eye blindness. EOMI. CN: no acute focal findings. Muscle tone: Increased. Muscle strength: 4- DTR: 2+ UE, 3 at knee. Plantar reflex: Neutral response bilaterally Gait: not examined in bed. Sensory exam: no abnormal findings. Chronic cerebellar signs elicited. F-T-N test not accurate. Objective Objective Vital Signs Date Time Temp Pulse Resp B/P (MAP) Pulse Ox O2 Delivery O2 Flow Rate FiO2 09/02/18 11:00 98.5 72 18 128/78 (95) 97 Room Air 98.5 Intake and Output 09/02/18 07:00 Output Total 1270 ml Balance -1270 ml Output Urine Total 1270 ml Vitals Signs Vitals VS - Last 72 Hours, by Label Date Time Temp Pulse Resp B/P (MAP) Pulse Ox O2 Delivery O2 Flow Rate FiO2 09/02/18 11:00 98.5 72 18 128/78 (95) 97 Room Air 98.5 09/02/18 08:00 Room Air 09/02/18 07:00 98.3 61 18 132/54 (80) 96 Room Air 98.3 09/02/18 03:00 98.3 74 18 96/69 (78) 96 Room Air 98.3 09/01/18 22:55 98.2 62 18 133/64 (87) 93 Room Air 98.2 2/25/19 20:00 Room Air 09/01/18 19:00 98.6 61 18 161/84 (109) 98 Room Air 98.6 09/01/18 15:00 98.9 79 17 147/75 (99) 98 Room Air 98.9 09/01/18 12:13 69 179/89 09/01/18 11:00 98.4 85 17 132/82 (99) 96 Room Air 98.4 09/01/18 08:00 Room Air 09/01/18 07:00 97.5 62 16 124/63 (83) 95 Room Air 97.5 Laboratory Laboratory Laboratory Tests Test 09/01/18 16:50 09/01/18 18:05 09/02/18 04:50 Glucose (Fingerstick) 104 mg/dL (70-99) Vitamin B12 Level 303 pg/mL (247-911) White Blood Count 4.9 x10^3/uL (4.0-11.0) Red Blood Count 4.46 x10^6/uL (4.30-5.70) Hemoglobin 13.7 g/dL (13.0-17.5) Hematocrit 40.1 % (39.0-53.0) Mean Corpuscular Volume 90 fL (79-100) Mean Corpuscular Hemoglobin 31 pg (25-35) Mean Corpuscular Hemoglobin Concent 34 g/dL (31-37) Red Cell Distribution Width 12.5 % (11.5-14.5) Platelet Count 149 x10^3/uL (140-400) Neutrophils (%) (Auto) 61 % (31-73) Lymphocytes (%) (Auto) 21 % (24-48) Monocytes (%) (Auto) 12 % (0-9) Eosinophils (%) (Auto) 5 % (0-3) Basophils (%) (Auto) 1 % (0-3) Neutrophils # (Auto) 3.0 x10^3uL (1.8-7.7) Lymphocytes # (Auto) 1.0 x10^3/uL (1.0-4.8) Monocytes # (Auto) 0.6 x10^3/uL (0.0-1.1) Eosinophils # (Auto) 0.2 x10^3/uL (0.0-0.7) Basophils # (Auto) 0.0 x10^3/uL (0.0-0.2) Sodium Level 141 mmol/L (136-145) Potassium Level 3.6 mmol/L (3.5-5.1) Chloride Level 105 mmol/L (98-107) Carbon Dioxide Level 28 mmol/L (21-32) Anion Gap 8 (6-14) Blood Urea Nitrogen 12 mg/dL (8-26) Creatinine 0.8 mg/dL (0.7-1.3) Estimated GFR (Cockcroft-Gault) 93.5 BUN/Creatinine Ratio 15 (6-20) Glucose Level 91 mg/dL (70-99) Calcium Level 9.0 mg/dL (8.5-10.1) Magnesium Level 1.9 mg/dL (1.8-2.4) Total Bilirubin 0.6 mg/dL (0.2-1.0) Aspartate Amino Transf (AST/SGOT) 16 U/L (15-37) Alanine Aminotransferase (ALT/SGPT) 20 U/L (16-63) Alkaline Phosphatase 112 U/L (46-116) Creatine Kinase 51 U/L (39-308) Total Protein 6.1 g/dL (6.4-8.2) Albumin 3.0 g/dL (3.4-5.0) Albumin/Globulin Ratio 1.0 (1.0-1.7) Medication Medications Current Medications Famotidine (Pepcid) 40 mg QHS PO ; Start 09/01/18 at 21:00 Montelukast Sodium (Singulair) 10 mg QHS PO ; Start 09/01/18 at 21:00 Simvastatin (Zocor) 10 mg HS PO ; Start 09/01/18 at 21:00 Tamsulosin HCl (Flomax) 0.4 mg HS PO ; Start 09/01/18 at 21:00 Comment Review of Relevant I have reviewed the following items yadi (where applicable) has been applied. ARMANDO FERRER MD Sep 02, 2018 15:59
[2018-09-02 19:00] VITALS: BP 141/74
[2018-09-02] MEDS: MONTELUKAST SODIUM 10 MG TABLET. PO SCH (21:30)
[2018-09-02] MEDS: FAMOTIDINE 20 MG TABLET. PO SCH (21:30)
[2018-09-02] MEDS: SIMVASTATIN 10 MG TABLET PO SCH (21:30)
[2018-09-02] MEDS: TAMSULOSIN 0.4 MG CAP.ER.24H. PO SCH (21:30)
[2018-09-02 23:00] VITALS: BP 162/87
[2018-09-03 03:00] VITALS: BP 123/76
[2018-09-03 07:00] VITALS: BP 142/73
[2018-09-03 07:29] LABS: CALCIUM 8.9 mg/dL (8.5-10.1); CREATININE 0.8 mg/dL (0.7-1.3); GFR 93.5; POTASSIUM 3.4 mmol/L (3.5-5.1)
[2018-09-03] MEDS: PANTOPRAZOLE 40 MG TABLET.DR. PO SCH (07:57)
--- NOTE | 2018-09-03 08:31 | NUR ---
SW following pt. Pt has been accepted at pending insurance approval. SW will continue to follow.
[2018-09-03] MEDS: MULTIVITAMIN with MINERAL TABLET. PO SCH (08:45)
[2018-09-03] MEDS: CITALOPRAM 10 MG TABLET. PO SCH (08:45)
[2018-09-03] MEDS: LISINOPRIL 5 MG TABLET. PO SCH (08:48)
[2018-09-03] MEDS: FLUTICASONE 50MCG/NASAL SPRAY 16GM BOTTLE. NS SCH (08:48)
--- NOTE | 2018-09-03 09:53 | PDOC ---
PROGRESS NOTES Subjective Subjective No new complaints. Objective Objective Vital Signs Date Time Temp Pulse Resp B/P (MAP) Pulse Ox O2 Delivery O2 Flow Rate FiO2 09/03/18 08:48 67 142/73 09/03/18 07:30 Room Air 09/03/18 07:00 98.3 16 96 98.3 Intake and Output 09/03/18 07:00 Intake Total 1060 ml Balance 1060 ml Intake Oral 1060 ml Physical Exam Physical Exam He is alert,comfortable and lying on his left side and he did walk for 75' with roller walker with physical therapy. Assessment Assessment Problems Medical Problems: (1) Generalized weakness Status: Acute (2) Normal pressure hydrocephalus syndrome Status: Acute Plan Plan of Care Agree with plans for SNF transfer when medically stable. Comment Review of Relevant I have reviewed the following items yadi (where applicable) has been applied. Labs Laboratory Tests Test 09/01/18 16:50 09/01/18 18:05 09/02/18 04:50 09/03/18 05:55 Glucose (Fingerstick) 104 mg/dL (70-99) Vitamin B12 Level 303 pg/mL (247-911) White Blood Count 4.9 x10^3/uL (4.0-11.0) Red Blood Count 4.46 x10^6/uL (4.30-5.70) Hemoglobin 13.7 g/dL (13.0-17.5) Hematocrit 40.1 % (39.0-53.0) Mean Corpuscular Volume 90 fL (79-100) Mean Corpuscular Hemoglobin 31 pg (25-35) Mean Corpuscular Hemoglobin Concent 34 g/dL (31-37) Red Cell Distribution Width 12.5 % (11.5-14.5) Platelet Count 149 x10^3/uL (140-400) Neutrophils (%) (Auto) 61 % (31-73) Lymphocytes (%) (Auto) 21 % (24-48) Monocytes (%) (Auto) 12 % (0-9) Eosinophils (%) (Auto) 5 % (0-3) Basophils (%) (Auto) 1 % (0-3) Neutrophils # (Auto) 3.0 x10^3uL (1.8-7.7) Lymphocytes # (Auto) 1.0 x10^3/uL (1.0-4.8) Monocytes # (Auto) 0.6 x10^3/uL (0.0-1.1) Eosinophils # (Auto) 0.2 x10^3/uL (0.0-0.7) Basophils # (Auto) 0.0 x10^3/uL (0.0-0.2) Sodium Level 141 mmol/L (136-145) 142 mmol/L (136-145) Potassium Level 3.6 mmol/L (3.5-5.1) 3.4 mmol/L (3.5-5.1) Chloride Level 105 mmol/L (98-107) 106 mmol/L (98-107) Carbon Dioxide Level 28 mmol/L (21-32) 30 mmol/L (21-32) Anion Gap 8 (6-14) 6 (6-14) Blood Urea Nitrogen 12 mg/dL (8-26) 14 mg/dL (8-26) Creatinine 0.8 mg/dL (0.7-1.3) 0.8 mg/dL (0.7-1.3) Estimated GFR (Cockcroft-Gault) 93.5 93.5 BUN/Creatinine Ratio 15 (6-20) Glucose Level 91 mg/dL (70-99) 91 mg/dL (70-99) Calcium Level 9.0 mg/dL (8.5-10.1) 8.9 mg/dL (8.5-10.1) Magnesium Level 1.9 mg/dL (1.8-2.4) Total Bilirubin 0.6 mg/dL (0.2-1.0) Aspartate Amino Transf (AST/SGOT) 16 U/L (15-37) Alanine Aminotransferase (ALT/SGPT) 20 U/L (16-63) Alkaline Phosphatase 112 U/L (46-116) Creatine Kinase 51 U/L (39-308) Total Protein 6.1 g/dL (6.4-8.2) Albumin 3.0 g/dL (3.4-5.0) Albumin/Globulin Ratio 1.0 (1.0-1.7) Laboratory Tests Test 09/03/18 05:55 Sodium Level 142 mmol/L (136-145) Potassium Level 3.4 mmol/L (3.5-5.1) Chloride Level 106 mmol/L (98-107) Carbon Dioxide Level 30 mmol/L (21-32) Anion Gap 6 (6-14) Blood Urea Nitrogen 14 mg/dL (8-26) Creatinine 0.8 mg/dL (0.7-1.3) Estimated GFR (Cockcroft-Gault) 93.5 Glucose Level 91 mg/dL (70-99) Calcium Level 8.9 mg/dL (8.5-10.1) Medications Current Medications Sodium Chloride 500 ml @ 500 mls/hr 1X ONCE IV Last administered on at 17:33; Start 08/31/18 at 17:30; Stop 08/31/18 at 18:29; Status DC Ondansetron HCl (Zofran) 4 mg PRN Q8HRS PRN IV NAUSEA/VOMITING; Start 08/31/18 at 19:00; Stop 09/01/18 at 18:59; Status DC Sodium Chloride 1,000 ml @ 75 mls/hr [id number] IV Last administered on at 10:37; Start 08/31/18 at 18:50; Stop 09/01/18 at 18:49; Status DC Influenza Virus Vaccine (Afluria Trivalent [id number] Syringe) 0.5 ml ONCE ONCE VAX IM Last administered on 09/01/18at 10:44; Start 09/01/18 at 09:00; Stop at 09:01; Status DC Citalopram Hydrobromide (CeleXA) 10 mg DAILY PO Last administered on 09/03/18at 08:45; Start 09/01/18 at 10:00 Fluticasone Propionate (Flonase) 2 spray DAILY NS Last administered on at 08:48; Start 09/01/18 at 09:30 Simvastatin (Zocor) 10 mg HS PO Last administered on 09/02/18at 21:30; Start at 21:00 Tamsulosin HCl (Flomax) 0.4 mg HS PO Last administered on 09/02/18at 21:30; Start 09/01/18 at 21:00 Famotidine (Pepcid) 40 mg QHS PO Last administered on 09/02/18at 21:30; Start at 21:00 Montelukast Sodium (Singulair) 10 mg QHS PO Last administered on 09/02/18at 21: 30; Start 09/01/18 at 21:00 Multivitamins (Thera M Plus) 1 tab DAILY PO Last administered on 09/03/18at 08: 45; Start 09/01/18 at 10:00 Pantoprazole Sodium (Protonix) 40 mg DAILYAC PO Last administered on 09/03/18at 07:57; Start 09/01/18 at 11:30 Lisinopril (Prinivil) 5 mg DAILY PO Last administered on 09/03/18at 08:48; Start 09/01/18 at 12:30 Potassium Chloride (Klor-Con) 10 meq BIDAFTMEAL PO ; Start 09/03/18 at 10:00 Active Scripts Active Proair Hfa Inhaler (Albuterol Sulfate) 8.5 Gm Hfa.aer.ad 2 Puff INH PRN Q6HRS PRN Albuterol Sulfate Neb Soln (Albuterol Sulfate) 2.5 Mg/3 Ml Vial.neb 2.5 Mg NEB TID Reported Omeprazole 20 Mg Tablet.dr 20 Mg PO DAILY Tamsulosin Hcl 0.4 Mg Cap.er.24h 1 Cap PO DAILY Tylenol (Acetaminophen) 325 Mg Tablet 325 Mg PO DAILY PRN Cetirizine Hcl 10 Mg Tablet 10 Mg PO DAILY Famotidine 40 Mg Tablet 40 Mg PO DAILY Montelukast Sodium Tablet (Montelukast Sodium) 10 Mg Tablet 10 Mg PO DAILY Simvastatin 10 Mg Tablet 10 Mg PO DAILY Flonase (Fluticasone Propionate) 16 Gm [place].susp 2 Sprays NS DAILY Multi Vitamin Daily (Multivitamin) 1 Each Tablet 1 Each PO DAILY Citalopram Hbr (Citalopram Hydrobromide) 10 Mg Tablet 10 Mg PO DAILY Vitals/I & O Vital Sign - Last 24 Hours 09/02/18 09/02/18 09/02/18 09/02/18 11:00 15:00 19:00 20:00 Temp 98.5 98.6 97.7 98.5 98.6 97.7 Pulse 72 70 80 Resp 18 18 18 B/P (MAP) 128/78 (95) 130/70 (90) 141/74 (96) Pulse Ox 97 96 97 O2 Delivery Room Air Room Air Room Air Room Air 09/02/18 09/03/18 09/03/18/27/19 23:00 03:00 07:00 07:30 Temp 97.9 97.9 98.3 97.9 97.9 98.3 Pulse 73 77 67 Resp 18 18 16 B/P (MAP) 162/87 (112) 123/76 (92) 142/73 (96) Pulse Ox 96 96 96 O2 Delivery Room Air Room Air Room Air Room Air 09/03/18 08:48 Pulse 67 B/P (MAP) 142/73 Intake and Output 09/02/18 09/02/18 09/03/18 15:00 23:00 07:00 Intake Total 100 ml 480 ml 480 ml Balance 100 ml 480 ml 480 ml SAEID WOODARD MD Sep 03, 2018 09:53
[2018-09-03] MEDS ORDERED: POTASSIUM CHLORIDE 10 MEQ TABLET.ER. PO SCH (10:00)
--- NOTE | 2018-09-03 10:03 | PDOC ---
IM PROGRESS NOTES- Subjective Subjective Patient is weaker very sleepy this morning earlier and the has had difficulty eating. Speech therapist had made him nothing by mouth. Objective Vitals Vital Signs Date Time Temp Pulse Resp B/P (MAP) Pulse Ox O2 Delivery O2 Flow Rate FiO2 09/03/18 08:48 67 142/73 09/03/18 07:30 Room Air 09/03/18 07:00 98.3 16 96 98.3 Input & Output Intake and Output 09/03/18 07:00 Intake Total 1060 ml Balance 1060 ml Intake Oral 1060 ml Physical Exam Physical Exam The patient is an elderly male who is alert, oriented x 3, weak and not in any acute distress. 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 Right eye unremarkable. NECK: JVP normal. No thyromegaly. Trachea midline. LUNGS: Decreased breath sounds at bases. CARDIOVASCULAR: S1, S2 regular. ABDOMEN: Soft, nontender, no guarding, no rigidity. Bowel sounds present. EXTREMITIES: No edema. CENTRAL NERVOUS SYSTEM: Generalized weakness. Moves extremities. Forgetful, poor historian. Labs Laboratory Tests Test 09/01/18 16:50 09/01/18 18:05 09/02/18 04:50 09/03/18 05:55 Glucose (Fingerstick) 104 mg/dL (70-99) Vitamin B12 Level 303 pg/mL (247-911) White Blood Count 4.9 x10^3/uL (4.0-11.0) Red Blood Count 4.46 x10^6/uL (4.30-5.70) Hemoglobin 13.7 g/dL (13.0-17.5) Hematocrit 40.1 % (39.0-53.0) Mean Corpuscular Volume 90 fL (79-100) Mean Corpuscular Hemoglobin 31 pg (25-35) Mean Corpuscular Hemoglobin Concent 34 g/dL (31-37) Red Cell Distribution Width 12.5 % (11.5-14.5) Platelet Count 149 x10^3/uL (140-400) Neutrophils (%) (Auto) 61 % (31-73) Lymphocytes (%) (Auto) 21 % (24-48) Monocytes (%) (Auto) 12 % (0-9) Eosinophils (%) (Auto) 5 % (0-3) Basophils (%) (Auto) 1 % (0-3) Neutrophils # (Auto) 3.0 x10^3uL (1.8-7.7) Lymphocytes # (Auto) 1.0 x10^3/uL (1.0-4.8) Monocytes # (Auto) 0.6 x10^3/uL (0.0-1.1) Eosinophils # (Auto) 0.2 x10^3/uL (0.0-0.7) Basophils # (Auto) 0.0 x10^3/uL (0.0-0.2) Sodium Level 141 mmol/L (136-145) 142 mmol/L (136-145) Potassium Level 3.6 mmol/L (3.5-5.1) 3.4 mmol/L (3.5-5.1) Chloride Level 105 mmol/L (98-107) 106 mmol/L (98-107) Carbon Dioxide Level 28 mmol/L (21-32) 30 mmol/L (21-32) Anion Gap 8 (6-14) 6 (6-14) Blood Urea Nitrogen 12 mg/dL (8-26) 14 mg/dL (8-26) Creatinine 0.8 mg/dL (0.7-1.3) 0.8 mg/dL (0.7-1.3) Estimated GFR (Cockcroft-Gault) 93.5 93.5 BUN/Creatinine Ratio 15 (6-20) Glucose Level 91 mg/dL (70-99) 91 mg/dL (70-99) Calcium Level 9.0 mg/dL (8.5-10.1) 8.9 mg/dL (8.5-10.1) Magnesium Level 1.9 mg/dL (1.8-2.4) Total Bilirubin 0.6 mg/dL (0.2-1.0) Aspartate Amino Transf (AST/SGOT) 16 U/L (15-37) Alanine Aminotransferase (ALT/SGPT) 20 U/L (16-63) Alkaline Phosphatase 112 U/L (46-116) Creatine Kinase 51 U/L (39-308) Total Protein 6.1 g/dL (6.4-8.2) Albumin 3.0 g/dL (3.4-5.0) Albumin/Globulin Ratio 1.0 (1.0-1.7) Laboratory Tests Test 09/03/18 05:55 Sodium Level 142 mmol/L (136-145) Potassium Level 3.4 mmol/L (3.5-5.1) Chloride Level 106 mmol/L (98-107) Carbon Dioxide Level 30 mmol/L (21-32) Anion Gap 6 (6-14) Blood Urea Nitrogen 14 mg/dL (8-26) Creatinine 0.8 mg/dL (0.7-1.3) Estimated GFR (Cockcroft-Gault) 93.5 Glucose Level 91 mg/dL (70-99) Calcium Level 8.9 mg/dL (8.5-10.1) Meds Current Medications Potassium Chloride (Klor-Con) 10 meq BIDAFTMEAL PO ; Start 09/03/18 at 10:00 Assessment Assessment IMPRESSION: 1. Weakness. 2. Normal pressure hydrocephalus.history of chronic hydrocephalus 3. Chronic obstructive pulmonary disease. 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 Accelerated hypertension, now resolved without any medications. 6. chronic memory loss 7. anxiety 8. depression 9. osteoarthritis involving multiple joints 10. allergic rhinitis 11. Hyperlipidemia. 12. Bilateral knee osteoarthritis. 13. CKD 2 14. Anemia 15. Gastroesophageal reflux disease with esophagitis. PLAN: I will consult Dr. Ding for rehab evaluation and management and Dr. Elam for neurology evaluation and management. I will also order a CT scan of chest and consult Dr. Mcmillan for pulmonary evaluation and management. For details, please refer to the orders. Dysphagia- speech therapist had made him nothing by mouth but Dr. Ding advanced into pured diet. He had discussed with the daughter extensively and so did diet. She does not want any tube feeding. He also remains very weak. She is agreeable to get him to [facility] preferably [facility]. Memory loss unchanged. Patient has been accepted at [facility]. Will transfer when approved by the insurance company. Plan Plan For more details regarding further plans, please refer to the orders. DANIAL GUZMAN MD Sep 03, 2018 10:03
--- NOTE | 2018-09-03 10:08 | DISCH ---
DISCHARGE DISCHARGE INFORMATION: FINAL DIAGNOSIS Problems Medical Problems: (1) Generalized weakness Status: Acute (2) Normal pressure hydrocephalus syndrome Status: Acute CONDITION ON DISCHARGE: Stable LONG TERM: SNF STAY <30 DAYS: Yes POST DISCHARGE ORDERS: ACTIVITY ORDERS: Activity as tolerated (walk with supervision and walker) WEIGHT BEARING STATUS: Full weight bearing DIET AFTER DISCHARGE: Regular (dysphagia II) CHECKS AFTER DISCHARGE: CHECKS AFTER DISCHARGE: Check blood press - daily COMMENTS: fall precautions FOLLOW-UP: PHYSICIAN FOLLOW-UP: Dr. DANIAL Guzman LAB ORDERS FOR FOLLOW-UP: CBC with diff, CMP and prealbumin in AM after admi TREATMENT/EQUIPMENT ORDERS: ADAPTIVE EQUIPMENT NEEDED: Cane RESPIRATORY EQUIPMENT NEEDED: Nebulizer Physical Therapy For: Evalulation/Treatment Occupational Therapy For: Evaluation/Treatment Speech Language Pathology For: Evaluation/Treatment DISCHARGE MEDICATIONS: Home Meds Active Scripts Albuterol Sulfate (PROAIR HFA INHALER) 8.5 Gm Hfa.aer.ad, 2 PUFF INH PRN Q6HRS PRN for SHORTNESS OF BREATH, #1 INHALER 0 Refills Prov:HEDY NIELSON APRN 06/04/17 Albuterol Sulfate (ALBUTEROL SULFATE NEB SOLN) 2.5 Mg/3 Ml Vial.neb, 2.5 MG NEB TID, #120 EACH 0 Refills Prov:HEDY NIELSON APRN 06/04/17 Reported Medications Omeprazole (OMEPRAZOLE) 20 Mg Tablet.dr, 20 MG PO DAILY, TAB 06/03/17 Tamsulosin Hcl (TAMSULOSIN HCL) 0.4 Mg Cap.er.24h, 1 CAP PO DAILY, #30 CAP 5 Refills 05/30/15 Acetaminophen (TYLENOL) 325 Mg Tablet, 325 MG PO DAILY PRN for PAIN 06/24/13 Cetirizine Hcl (CETIRIZINE HCL) 10 Mg Tablet, 10 MG PO DAILY 06/24/13 Famotidine (FAMOTIDINE) 40 Mg Tablet, 40 MG PO DAILY 06/24/13 Montelukast Sodium (MONTELUKAST SODIUM TABLET) 10 Mg Tablet, 10 MG PO DAILY 06/24/13 Simvastatin (SIMVASTATIN) 10 Mg Tablet, 10 MG PO DAILY 06/24/13 Fluticasone Propionate (FLONASE) 16 Gm [place].susp, 2 SPRAYS NS DAILY 06/24/13 Multivitamin (MULTI VITAMIN DAILY) 1 Each Tablet, 1 EACH PO DAILY 06/24/13 Citalopram Hydrobromide (CITALOPRAM HBR) 10 Mg Tablet, 10 MG PO DAILY 06/24/13 Discontinued Reported Medications Enoxaparin Sodium (LOVENOX) 40 Mg/0.4 Ml Disp.syrin, 40 MG SQ DAILY, DIS.SYR 06/03/17 DANIAL GUZMAN MD Sep 03, 2018 10:08
--- NOTE | 2018-09-03 10:30 | DISCH ---
DISCHARGE DISCHARGE INFORMATION: FINAL DIAGNOSIS Problems Medical Problems: (1) Generalized weakness Status: Acute (2) Normal pressure hydrocephalus syndrome Status: Acute CONDITION ON DISCHARGE: Stable POST DISCHARGE ORDERS: ACTIVITY ORDERS: Activity as tolerated (walk with supervision and walker) WEIGHT BEARING STATUS: Full weight bearing DIET AFTER DISCHARGE: Regular (dysphagia II) CHECKS AFTER DISCHARGE: CHECKS AFTER DISCHARGE: Check blood press - daily COMMENTS: fall precautions FOLLOW-UP: PHYSICIAN FOLLOW-UP: Dr. DANIAL Guzman LAB ORDERS FOR FOLLOW-UP: CBC with diff, CMP and prealbumin in AM after admi TREATMENT/EQUIPMENT ORDERS: ADAPTIVE EQUIPMENT NEEDED: Cane RESPIRATORY EQUIPMENT NEEDED: Nebulizer Physical Therapy For: Evalulation/Treatment Occupational Therapy For: Evaluation/Treatment Speech Language Pathology For: Evaluation/Treatment DISCHARGE MEDICATIONS: Home Meds Active Scripts Albuterol Sulfate (PROAIR HFA INHALER) 8.5 Gm Hfa.aer.ad, 2 PUFF INH PRN Q6HRS PRN for SHORTNESS OF BREATH, #1 INHALER 0 Refills Prov:HEDY NIELSON APRN 06/04/17 Albuterol Sulfate (ALBUTEROL SULFATE NEB SOLN) 2.5 Mg/3 Ml Vial.neb, 2.5 MG NEB TID, #120 EACH 0 Refills Prov:HEDY NIELSON APRN 06/04/17 Reported Medications Omeprazole (OMEPRAZOLE) 20 Mg Tablet.dr, 20 MG PO DAILY, TAB 06/03/17 Tamsulosin Hcl (TAMSULOSIN HCL) 0.4 Mg Cap.er.24h, 1 CAP PO DAILY, #30 CAP 5 Refills 05/30/15 Acetaminophen (TYLENOL) 325 Mg Tablet, 325 MG PO DAILY PRN for PAIN 06/24/13 Cetirizine Hcl (CETIRIZINE HCL) 10 Mg Tablet, 10 MG PO DAILY 06/24/13 Famotidine (FAMOTIDINE) 40 Mg Tablet, 40 MG PO DAILY 06/24/13 Montelukast Sodium (MONTELUKAST SODIUM TABLET) 10 Mg Tablet, 10 MG PO DAILY 06/24/13 Simvastatin (SIMVASTATIN) 10 Mg Tablet, 10 MG PO DAILY 06/24/13 Fluticasone Propionate (FLONASE) 16 Gm [place].susp, 2 SPRAYS NS DAILY 06/24/13 Multivitamin (MULTI VITAMIN DAILY) 1 Each Tablet, 1 EACH PO DAILY 06/24/13 Citalopram Hydrobromide (CITALOPRAM HBR) 10 Mg Tablet, 10 MG PO DAILY 06/24/13 Discontinued Reported Medications Enoxaparin Sodium (LOVENOX) 40 Mg/0.4 Ml Disp.syrin, 40 MG SQ DAILY, DIS.SYR 06/03/17 DANIAL GUZMAN MD Sep 03, 2018 10:30
[2018-09-03 11:00] VITALS: BP 162/82
--- NOTE | 2018-09-03 11:20 | NUR ---
SW following pt. [facility] faxed orders to [facility]. Insurance auth for SNU pending. Will continue to follow.
[2018-09-03 13:46] VITALS: BP 162/82
--- NOTE | 2018-09-03 14:31 | NUR ---
[facility] following pt. Insurance [facility] has approved skilled. [facility] phoned and faxed orders to [facility]. Kamran on chart. Pt will transport via [facility] at [phone]. Pt aware of plan and agreeable. RN notified.
[2018-09-03] MEDS ORDERED: POTA10TA12 PO (14:40)
[2018-09-03] MEDS ORDERED: LISI-338 PO (14:40)
--- NOTE | 2018-09-03 14:42 | DISCH ---
DISCHARGE DISCHARGE INFORMATION: FINAL DIAGNOSIS Problems Medical Problems: (1) Generalized weakness Status: Acute (2) Normal pressure hydrocephalus syndrome Status: Acute CONDITION ON DISCHARGE: Stable POST DISCHARGE ORDERS: ACTIVITY ORDERS: Activity as tolerated WEIGHT BEARING STATUS: Full weight bearing DIET AFTER DISCHARGE: Regular (dysphagia II) CHECKS AFTER DISCHARGE: CHECKS AFTER DISCHARGE: Check blood press - daily COMMENTS: fall precautions FOLLOW-UP: PHYSICIAN FOLLOW-UP: Dr. DANIAL Guzman LAB ORDERS FOR FOLLOW-UP: CBC with diff, CMP and prealbumin in AM after admi TREATMENT/EQUIPMENT ORDERS: ADAPTIVE EQUIPMENT NEEDED: Cane RESPIRATORY EQUIPMENT NEEDED: Nebulizer Physical Therapy For: Evalulation/Treatment Occupational Therapy For: Evaluation/Treatment Speech Language Pathology For: Evaluation/Treatment DISCHARGE MEDICATIONS: Home Meds Active Scripts Potassium Chloride (KLOR-CON 10) 10 Meq Tablet.er, 10 MEQ PO BIDAFTMEAL for hypokalemia for 30 Days, #60 TAB.SR Prov:DANIAL GUZMAN MD 09/03/18 Lisinopril (LISINOPRIL) 5 Mg Tablet, 5 MG PO DAILY for hypertension for 30 Days , #30 TAB Prov:DANIAL GUZMAN MD 09/03/18 Albuterol Sulfate (PROAIR HFA INHALER) 8.5 Gm Hfa.aer.ad, 2 PUFF INH PRN Q6HRS PRN for SHORTNESS OF BREATH, #1 INHALER 0 Refills Prov:HEDY NIELSON APRN 06/04/17 Albuterol Sulfate (ALBUTEROL SULFATE NEB SOLN) 2.5 Mg/3 Ml Vial.neb, 2.5 MG NEB TID, #120 EACH 0 Refills Prov:HEDY NIELSON APRN 06/04/17 Reported Medications Omeprazole (OMEPRAZOLE) 20 Mg Tablet., 20 MG PO DAILY, TAB 06/03/17 Tamsulosin Hcl (TAMSULOSIN HCL) 0.4 Mg Cap.er.24h, 1 CAP PO DAILY, #30 CAP 5 Refills 05/30/15 Acetaminophen (TYLENOL) 325 Mg Tablet, 325 MG PO DAILY PRN for PAIN 06/24/13 Famotidine (FAMOTIDINE) 40 Mg Tablet, 40 MG PO DAILY 06/24/13 Montelukast Sodium (MONTELUKAST SODIUM TABLET) 10 Mg Tablet, 10 MG PO DAILY 06/24/13 Simvastatin (SIMVASTATIN) 10 Mg Tablet, 10 MG PO DAILY 06/24/13 Fluticasone Propionate (FLONASE) 16 Gm [place].susp, 2 SPRAYS NS DAILY 06/24/13 Multivitamin (MULTI VITAMIN DAILY) 1 Each Tablet, 1 EACH PO DAILY 06/24/13 Citalopram Hydrobromide (CITALOPRAM HBR) 10 Mg Tablet, 10 MG PO DAILY 06/24/13 Discontinued Reported Medications Cetirizine Hcl (CETIRIZINE HCL) 10 Mg Tablet, 10 MG PO DAILY 06/24/13 Enoxaparin Sodium (LOVENOX) 40 Mg/0.4 Ml Disp.syrin, 40 MG SQ DAILY, DIS.SYR 06/03/17 DANIAL GUZMAN MD Sep 03, 2018 14:42
--- NOTE | 2018-09-03 15:15 | NUR ---
Report given to EL Nelson with [facility]. Discussed medical hx/current dx/medications/diet/activity. Explained pt had recent fall at home falling out of the bed. Pt has been on a bed alarm during hospital stay. Discussed medications are to be crushed with applesauce/pudding. Leslie voiced understanding. Extension given to Leslie explaining any further questions she can call this RN.
--- NOTE | 2018-09-03 16:35 | NUR ---
Transportation here to take pt over to [facility]. Medical records/flonase given to transportation personal. Assisted pt to wheelchair without complications. Wrapped pt in blankets. Pt wheeled off unit without complications.
--- NOTE | 2018-09-03 18:30 | PDOC ---
PROGRESS NOTES Assessment Assessment Generalized weakness. Gait disorder. Falls. Urinary and bowel dysfunction. Colpocephaly, congenital. Agenesis of the corpus callosum, congenital. Ventriculomegaly. CHF. COPD. HTN. HLD. GERD. Left eye blindness, congenital. Dementia features. Degenerative spine disease. RECOMMENDATIONS/PLAN: Treat medical diseases. Consulted Dr. Ding. OT/PT Wait to go SNU. Discussed in all detail with his daughter and showed her brain and C-spine MRI pictures on 09/01/18. 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 He was reportedly seen at but no indication for surgical intervention. He has urinary and bowel dysfunction as new symptoms per his family and falls for admission this time. PAST MEDICAL HISTORY: Hypoxic respiratory failure secondary to acute eosinophilic pneumonia and was admitted previously in 06/2017, last admission was in 04/2018. At that time was for abdominal pain. 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 The patient has a history of hypertension, but previously his blood pressures were low, so blood pressure medications, there was lisinopril and was discontinued; has hyperlipidemia, bilateral knee osteoarthritis, right lower lobe pulmonary nodule, gastroesophageal reflux disease with esophagitis, history of obstructive sleep apnea with obesity hypoventilation syndrome, noncompliant with CPAP, history of appendectomy and knee surgery, moderate protein-calorie malnutrition. The patient also has obstructive sleep apnea, slow transit constipation, anemia PAST SURGICAL HISTORY: Right inguinal hernia repair, arthroscopic knee surgery of the right knee, cyst removed from the right groin, previously has had appendectomy. ALLERGIES: ALLERGIC TO CODEINE. FAMILY HISTORY: noncontributory. SOCIAL HISTORY: Past history of smoking. The patient has had history of drug abuse, but has been clean for about 6 years. No history of alcoholism. MEDICATIONS: Refer to MAR REVIEW OF SYSTEMS: Constitutional: No malnutrition, weight loss, cachexia. Head: No recent traumatic brain or head injury. Skin: No edema, or rash. Ear: No infection. Eyes: Left eye blindness. Nose: No bleeding or purulent discharges. Hearing: Hearing decrease. Neck: No injury. Cardiac: HTN, HLD. Pulmonary: COPD. GI: GERD. Urinary/genital: UTI. Endocrinologic: No cousin face, craniofacial dysmorphism, polydactyly. Skeletomuscular: Generalized weakness. Neurological: see HP. Psychiatric: Hx of drug use. Otherwise, not [id number] review of systems. PHYSICAL EXAMINATION: General appearance is in subacute distress. HEENT: Normocephalic and nontraumatic. Eyes, nose, ears, and throat are unremarkable. Neck is supple. No lymphadenopathy. No crepitus. Cardiovascular: S1, S2, regular rate and rhythm. Pulmonary: Mildly decreased to auscultation bilaterally. Abdomen: Bowel sounds are positive. Extremities: No rash, lesions, or edema. No restriction of range of motion NEUROLOGICAL EXAMINATION: Awake. Not oriented to time, place but knew person. Right pupil reactive to light. Nystagmus persistent. Left eye blindness. EOMI. CN: no acute focal findings. Muscle tone: Increased. Muscle strength: 4 DTR: 2+ UE, 3 at knee. Plantar reflex: Neutral response bilaterally Gait: not examined in bed. Sensory exam: no abnormal findings. Chronic cerebellar signs elicited. F-T-N test not accurate. Objective Objective Vital Signs Date Time Temp Pulse Resp B/P (MAP) Pulse Ox O2 Delivery O2 Flow Rate FiO2 09/03/18 13:46 98.2 78 17 162/82 (108) 97 98.2 09/03/18 11:00 Room Air Intake and Output 09/03/18 07:00 Intake Total 1060 ml Balance 1060 ml Intake Oral 1060 ml Vitals Signs Vitals VS - Last 72 Hours, by Label Date Time Temp Pulse Resp B/P (MAP) Pulse Ox O2 Delivery O2 Flow Rate FiO2 09/03/18 13:46 98.2 78 17 162/82 (108) 97 98.2 09/03/18 11:00 98.2 78 17 162/82 (108) 97 Room Air 98.2 09/03/18 08:48 67 142/73 09/03/18 07:30 Room Air 09/03/18 07:00 98.3 67 16 142/73 (96) 96 Room Air 98.3 09/03/18 03:00 97.9 77 18 123/76 (92) 96 Room Air 97.9 09/02/18 23:00 97.9 73 18 162/87 (112) 96 Room Air 97.9 09/02/18 20:00 Room Air 09/02/18 19:00 97.7 80 18 141/74 (96) 97 Room Air 97.7 09/02/18 15:00 98.6 70 18 130/70 (90) 96 Room Air 98.6 09/02/18 11:00 98.5 72 18 128/78 (95) 97 Room Air 98.5 09/02/18 08:00 Room Air 09/02/18 07:00 98.3 61 18 132/54 (80) 96 Room Air 98.3 Laboratory Laboratory Laboratory Tests Test 09/03/18 05:55 Sodium Level 142 mmol/L (136-145) Potassium Level 3.4 mmol/L (3.5-5.1) Chloride Level 106 mmol/L (98-107) Carbon Dioxide Level 30 mmol/L (21-32) Anion Gap 6 (6-14) Blood Urea Nitrogen 14 mg/dL (8-26) Creatinine 0.8 mg/dL (0.7-1.3) Estimated GFR (Cockcroft-Gault) 93.5 Glucose Level 91 mg/dL (70-99) Calcium Level 8.9 mg/dL (8.5-10.1) Medication Medications Current Medications Potassium Chloride (Klor-Con) 10 meq BIDAFTMEAL PO Last administered on at 10:33; Start 09/03/18 at 10:00 Comment Review of Relevant I have reviewed the following items yadi (where applicable) has been applied. ARMANDO FERRER MD Sep 03, 2018 18:30
--- NOTE | 2018-09-08 10:27 | PDOC3 ---
IM DISCHARGE SUMMARY Date of Admission Date of Admission Date of Admission: Sep 01, 2018 at 13:22 Date of Discharge Date of Discharge September 03, 2018 Primary Diagnosis Primary Diagnosis 1. Weakness. 2. Normal pressure hydrocephalus.history of chronic hydrocephalus 3. Chronic obstructive pulmonary disease. 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 Accelerated hypertension, now resolved without any medications. 6. chronic memory loss 7. anxiety 8. depression 9. osteoarthritis involving multiple joints 10. allergic rhinitis 11. Hyperlipidemia. 12. Bilateral knee osteoarthritis. 13. CKD 2 14. Anemia 15. Gastroesophageal reflux disease with esophagitis. 16. Dysphagia with aspiration. Consults Consults Dr. Elam, Dr. Ding Brief hospital course Brief hospital course This 78-year-old male who lives at home with his daughter started getting weaker and also had bowel incontinence, which is new for him. The patient is able to urinate without much problem. He also became more unsteady. About a month ago, he fell and hurt his right hand and had a fracture of the right fifth finger. The patient denies any fever, chills, dyspnea. He does admit to some cough, especially with eating, which is not new because of his chronic aspiration. Denies any nausea, vomiting, diarrhea, constipation, dysuria, leg pain, but just mainly admits to weakness. Because of his weakness that is getting worse, he was brought to the Emergency Room. In the Emergency Room, CT scan of head revealed a normal pressure hydrocephalus. Apparently, the patient had been seen at in the past where they did not recommend any surgery. The patient is admitted because of increasing weakness. For more details regarding the past history, family history, social history, surgical history and other details, please refer to History and Physical. I will consult Dr. Ding for rehab evaluation and management and Dr. Elam for neurology evaluation and management. Dysphagia- speech therapist had made him nothing by mouth but Dr. Ding advanced into pured diet. He had discussed with the daughter extensively and so did I. She does not want any tube feeding. She is aware of the risks of aspiration and coughing. He also remains very weak. She is agreeable to get him to residential unit preferably [facility]. Memory loss unchanged. Patient was transferred to [facility] long-term for further management. Medications Medications reviewed and reconciled for discharge. Allergy Allergies Coded Allergies Type Severity Reaction Last Updated Verified No Known Medication Allergies Allergy Unknown 06/03/17 Yes codeine Adverse Reaction Mild Shaky and GI Upset 05/23/17 Yes Follow up in 5 days. DISPOSITION: Long-Term facility Comments Discharge Management - 35 minutes. For other details please refer to discharge instructions DANIAL GUZMAN MD Sep 08, 2018 10:27
== END 2018-09-04 00:19 | DRG 56 ==
LOC: ER 15:43 → 5 NORTH 18:35 → OBSVTOIN 09-01 13:22
PROVIDERS: ADMIT Internal Medicine; ATTEND Internal Medicine
DX: G91.2 (Idiopathic) normal pressure hydrocephalus (principal); Q04.0 Congenital malformations of corpus callosum; I50.42 Chronic combined systolic (congestive) and diastolic (congestive) heart failure; I13.0 Hypertensive heart and chronic kidney disease with heart failure and stage 1 through stage 4 chronic kidney disease, or unspecified chronic kidney disease; R26.9 Unspecified abnormalities of gait and mobility; J44.9 Chronic obstructive pulmonary disease, unspecified; J30.9 Allergic rhinitis, unspecified; N18.2 Chronic kidney disease, stage 2 (mild); E11.22 Type 2 diabetes mellitus with diabetic chronic kidney disease; M17.0 Bilateral primary osteoarthritis of knee; K21.0 Gastro-esophageal reflux disease with esophagitis; E78.5 Hyperlipidemia, unspecified; E66.01 Morbid (severe) obesity due to excess calories; K57.90 Diverticulosis of intestine, part unspecified, without perforation or abscess without bleeding; D63.8 Anemia in other chronic diseases classified elsewhere; E78.00 Pure hypercholesterolemia, unspecified; F03.90 Unspecified dementia, unspecified severity, without behavioral disturbance, psychotic disturbance, mood disturbance, and anxiety; F32.9 Major depressive disorder, single episode, unspecified; G93.89 Other specified disorders of brain; F41.9 Anxiety disorder, unspecified; G47.33 Obstructive sleep apnea (adult) (pediatric); I25.10 Atherosclerotic heart disease of native coronary artery without angina pectoris; I25.5 Ischemic cardiomyopathy; Z83.3 Family history of diabetes mellitus; Z68.26 Body mass index [BMI] 26.0-26.9, adult; Z82.3 Family history of stroke; Z86.73 Personal history of transient ischemic attack (TIA), and cerebral infarction without residual deficits; Z87.11 Personal history of peptic ulcer disease; Z87.891 Personal history of nicotine dependence; Z90.49 Acquired absence of other specified parts of digestive tract; Z88.5 Allergy status to narcotic agent; Z91.19 Patient's noncompliance with other medical treatment and regimen; Z95.5 Presence of coronary angioplasty implant and graft; Z98.41 Cataract extraction status, right eye; Z79.899 Other long term (current) drug therapy
CPT/HCPCS: 36415; 70450; 72141; 80048; 80053; 80307; 81001; 82550; 82553; 82607; 82962; 83690; 83735; 83880; 84443; 84484; 85025; 85610; 85730; 90471; 90756; 93005; G0378; G0379; J7030; J7040; 92526; 92610; 97116; 97530; 97535; 99285-25; Q2035

== ENCOUNTER 2018-11-16 19:05 | Inpatient (IN) | payer MEDICARE ==
[~2018-11-16] VITALS: Ht 175.3 cm; Wt 78.0 kg
[~2018-11-16 19:05] MED LIST changes: +LISI-338 PO; +POTA10TA12 PO
[2018-11-16 19:43] LABS: BILIRUBIN,URINE NEGATIVE (NEG); CLARITY,URINE TURBID; COLOR,URINE YELLOW; NITRITE,URINE NEGATIVE (NEG); PROTEIN,URINE NEGATIVE (NEG-TRACE)
[2018-11-16 19:47] LABS: HYALINE CASTS, URINE MANY /HPF; SQUAMOUS EPITHELIAL CELL,UR FEW /LPF
[2018-11-16 19:48] LABS: AMORPHOUS SEDIMENT,UR PRESENT /HPF
[2018-11-16 19:50] LABS: BACTERIA,URINE 0 /HPF (0-FEW); RBC,URINE 0 /HPF (0-2); WBC,URINE 0 /HPF (0-4)
[2018-11-16 19:51] LABS: BASO % 1 % (0-3); EOS # 0.2 x10^3/uL (0.0-0.7); EOS % 4 % (0-3); HEMATOCRIT 40.5 % (39.0-53.0); HEMOGLOBIN 13.5 g/dL (13.0-17.5); LYMPH # 1.1 x10^3/uL (1.0-4.8); LYMPH % 23 % (24-48); MEAN CORPUSCULAR HEMOGLOBIN 31 pg (25-35); MEAN CORPUSCULAR HGB CONC 33 g/dL (31-37); MEAN CORPUSCULAR VOLUME 92 fL (79-100); MONO # 0.3 x10^3/uL (0.0-1.1); MONO % 7 % (0-9); NEUT # 3.1 x10^3uL (1.8-7.7); NEUT % 66 % (31-73); PLATELET COUNT 156 x10^3/uL (140-400); RED BLOOD COUNT 4.42 x10^6/uL (4.30-5.70); RED CELL DISTRIBUTION WIDTH 12.9 % (11.5-14.5); WHITE BLOOD COUNT 4.7 x10^3/uL (4.0-11.0)
[2018-11-16 20:02] LABS: CREATININE 1.3 mg/dL (0.7-1.3); GFR 53.4; POTASSIUM 4.7 mmol/L (3.5-5.1)
[2018-11-16 20:08] LABS: ALBUMIN 3.4 g/dL (3.4-5.0); ALBUMIN/GLOBULIN RATIO 1.1 (1.0-1.7); MAGNESIUM 1.9 mg/dL (1.8-2.4); TOTAL BILIRUBIN 0.2 mg/dL (0.2-1.0); TOTAL PROTEIN 6.5 g/dL (6.4-8.2)
[2018-11-16 20:08] LABS: BARBITURATES NEG (NEG); BENZODIAZEPINES NEG (NEG); CANNABINOIDS NEG (NEG); COCAINE NEG (NEG); METHADONE NEG (NEG); OPIATES NEG (NEG); PHENCYCLIDINE NEG (NEG)
[2018-11-16 20:09] LABS: AMPHETAMINE/METHAMPHETAMINE NEG (NEG)
--- NOTE | 2018-11-16 20:10 | PHYS DOC ---
Past Medical History Past Medical History: Anxiety, Arthritis, CAD, CHF, COPD, CVA, Dementia, Diabetes-Type II, GERD, High Cholesterol, Hypertension, Pneumonia, P.U.D., Other Additional Past Medical Histor: BLIND IN LEFT EYE,LEGALLY BLIND, Normal pressure hydrocephalus (HERBIE MCMANUS DO) Past Surgical History: Other Additional Past Surgical Histo: ABDOMINAL SX FOR A PERFORATED BOWEL,LEFT EYE SURG (HERBIE MCMANUS DO) Alcohol Use: None Drug Use: None (HERBIE MCMANUS DO) Adult General Chief Complaint Chief Complaint: SYNCOPE HPI HPI Patient is a 78 year old male who presents with loss of consciousness. Patient is a poor historian with history of dementia and normal pressure hydrocephalus. He is unable to answer most of my questions. Per report of patient's daughter who lives with him, he was eating dinner with them when he went to the bathroom. He was feeling weak and asked his two grandsons to help him from his wheelchair to the toilet. After passing a bowel movement, he asked the grandsons to help him off the toilet when he lost consciousness. The grandson's were there and able to support the patient and he apparently did not hit his head but did lose consciousness. He was unarousable for approximately 7 minutes, per daughter's report, until EMS arrived. She states that the patient was diaphoretic and clammy during this time. Patient uses a wheelchair and walks with assistance intermittently throughout the day and is able to converse and carry out much of his ADLs per report of family. At this time, patient is oriented only to person and date of . He is unable to identify place, date, president. His daughter feels that he is at his baseline currently. Initially indicated pain but was unable to specify and later denied any pain. Of note, patient's daughter states he often get constipated and feels he has had difficulty passing stool as of recently. History obtained with help of patient's daughter and is limited due to patient's altered mental status. (HERBIE MCMANUS DO) Review of Systems Review of Systems Respiratory: Reports cough. Denies shortness of breath [] Cardiovascular: Denies chest pain. Reports diaphoresis. [] Musculoskeletal: Reports unidentified pain. [] Neurologic: Reports loss of consciousness. [] Review of systems limited due to patient's altered mental status. (HERBIE MCMANUS DO) Current Medications Current Medications Current Medications Medications (Trade) Dose Ordered Sig/Betsy Start Time Stop Time Status Last Admin Dose Admin Info (CONTRAST GIVEN -- Rx MONITORING) 1 each PRN DAILY PRN 11/16/18 20:30 11/18/18 20:29 Iohexol (Omnipaque 300 Mg/ml) 60 ml 1X ONCE 11/16/18 20:30 11/16/18 20:31 DC 11/16/18 20:57 60 ML Lorazepam (Ativan) 1 mg 1X ONCE 11/16/18 21:15 11/16/18 21:18 DC 11/16/18 20:21 1 MG (NESHA FERREIRA MD) Allergies Allergies Allergies Coded Allergies Type Severity Reaction Last Updated Verified No Known Medication Allergies Allergy Unknown 06/03/17 Yes codeine Adverse Reaction Mild Shaky and GI Upset 05/23/17 Yes (NESHA FERREIRA MD) Physical Exam Physical Exam Constitutional: Frail appearing male, agitated with staff and pulling at hospital equipment. [] HENT: Normocephalic, atraumatic. Mucous membranes dry. [] Eyes: Opacification of left cornea. Sporadic eye movements. [] Cardiovascular: Distant heart sounds. Regular rhythm with normal rate.[] Lungs & Thorax: Bilateral breath sounds clear to auscultation [] Abdomen: Soft and nontender [] Skin: Warm, dry, no erythema, no rash. [] Neurologic: Alert to person and date of . Disoriented to place and time. Unable to follow instructions but appears to have normal motor function as he is moving about in bed. GCS of 13. [] (HERBIE MCMANUS DO) Current Patient Data Vital Signs Vital Signs Date Time Temp Pulse Resp B/P (MAP) Pulse Ox O2 Delivery O2 Flow Rate FiO2 11/16/18 20:30 68 28 101/51 (68) 100 Nasal Cannula 4.0 11/16/18 19:05 97.6 97.6 (NESHA FERREIRA MD) Lab Values Laboratory Tests Test 11/16/18 19:14 11/16/18 19:24 11/16/18 19:38 Urine Collection Type U cath Urine Color Yellow Urine Clarity Turbid Urine pH 6.0 Urine Specific [place] 1.025 Urine Protein Negative mg/dL (NEG-TRACE) Urine Glucose (UA) Negative mg/dL (NEG) Urine Ketones (Stick) Negative mg/dL (NEG) Urine Blood Negative (NEG) Urine Nitrite Negative (NEG) Urine Bilirubin Negative (NEG) Urine Urobilinogen Dipstick 1.0 mg/dL (0.2 mg/dL) Urine Leukocyte Esterase Negative (NEG) Urine RBC 0 /HPF (0-2) Urine WBC 0 /HPF (0-4) Urine Squamous Epithelial Cells Few /LPF Urine Amorphous Sediment Present /HPF Urine Bacteria 0 /HPF (0-FEW) Urine Hyaline Casts Many /HPF Urine Mucus Marked /LPF Urine Opiates Screen Neg (NEG) Urine Methadone Screen Neg (NEG) Urine Barbiturates Neg (NEG) Urine Phencyclidine Screen Neg (NEG) Urine Amphetamine/Methamphetamine Neg (NEG) Urine Benzodiazepines Screen Neg (NEG) Urine Cocaine Screen Neg (NEG) Urine Cannabinoids Screen Neg (NEG) Urine Ethyl Alcohol Neg (NEG) Glucose (Fingerstick) 126 mg/dL (70-99) H White Blood Count 4.7 x10^3/uL (4.0-11.0) Red Blood Count 4.42 x10^6/uL (4.30-5.70) Hemoglobin 13.5 g/dL (13.0-17.5) Hematocrit 40.5 % (39.0-53.0) Mean Corpuscular Volume 92 fL (79-100) Mean Corpuscular Hemoglobin 31 pg (25-35) Mean Corpuscular Hemoglobin Concent 33 g/dL (31-37) Red Cell Distribution Width 12.9 % (11.5-14.5) Platelet Count 156 x10^3/uL (140-400) Neutrophils (%) (Auto) 66 % (31-73) Lymphocytes (%) (Auto) 23 % (24-48) L Monocytes (%) (Auto) 7 % (0-9) Eosinophils (%) (Auto) 4 % (0-3) H Basophils (%) (Auto) 1 % (0-3) Neutrophils # (Auto) 3.1 x10^3uL (1.8-7.7) Lymphocytes # (Auto) 1.1 x10^3/uL (1.0-4.8) Monocytes # (Auto) 0.3 x10^3/uL (0.0-1.1) Eosinophils # (Auto) 0.2 x10^3/uL (0.0-0.7) Basophils # (Auto) 0.0 x10^3/uL (0.0-0.2) Sodium Level 142 mmol/L (136-145) Potassium Level 4.7 mmol/L (3.5-5.1) Chloride Level 106 mmol/L (98-107) Carbon Dioxide Level 26 mmol/L (21-32) Anion Gap 10 (6-14) Blood Urea Nitrogen 29 mg/dL (8-26) H Creatinine 1.3 mg/dL (0.7-1.3) Estimated GFR (Cockcroft-Gault) 53.4 BUN/Creatinine Ratio 22 (6-20) H Glucose Level 133 mg/dL (70-99) H Lactic Acid Level 2.0 mmol/L (0.4-2.0) Calcium Level 9.0 mg/dL (8.5-10.1) Magnesium Level 1.9 mg/dL (1.8-2.4) Total Bilirubin 0.2 mg/dL (0.2-1.0) Aspartate Amino Transferase (AST) 16 U/L (15-37) Alanine Aminotransferase (ALT) 20 U/L (16-63) Alkaline Phosphatase 122 U/L (46-116) H Ammonia < 10 mcmol/L (11-34) L Creatine Kinase 61 U/L (39-308) Creatine Kinase MB (Mass) 1.0 ng/mL (0.0-3.6) Creatine Kinase MB Relative Index % (0-4) Troponin I Quantitative < 0.017 ng/mL (0.000-0.055) ND-Dad-A-Type Natriuretic Peptide 72 pg/mL (0-449) Total Protein 6.5 g/dL (6.4-8.2) Albumin 3.4 g/dL (3.4-5.0) Albumin/Globulin Ratio 1.1 (1.0-1.7) Laboratory Tests 11/16/18 19:38 Laboratory Tests 11/16/18 19:38 (NESHA FERREIRA MD) EKG EKG @1928: 1st degree AV block with rate of 74. [place] 240 ms. Normal axis. Nonpathologic Q waves in I, II and aVL. No ST segment elevation.[] (HERBIE MCMANUS DO) Radiology/Procedures Radiology/Procedures PROCEDURE: PORTABLE CHEST 1V PORTABLE CHEST 1V History: Syncope.. Comparison with June 02, 2017. The heart size is not enlarged. Coronary artery calcifications. No evidence of pneumothorax, pleural effusion or consolidating infiltrate. There are old appearing left rib fractures. IMPRESSION: No consolidating infiltrate. Electronically signed by: Herbie Eric MD (11/16/2018 8:05 PM) [facility] (HERBIE MCMANUS DO) Course & Med Decision Making Course & Med Decision Making Pertinent Labs and Imaging studies reviewed. (See chart for details) Patient is a 78 year old male who was brought to the ED following syncope after passing a bowel movement. Patient has a history of CHF, CAD, dementia and normal pressure hydrocephalus and is apparently altered at baseline. EKG showed 1st degree AV block with rate of 74 and no evidence of coronary ischemia. CBC shows no leukocytosis. Blood glucose 126 on arrival. UA negative for UTI but did reveal hyaline casts and amorphous sediment. Chest X ray, CMP, Troponin, CK-MB, lactate, NH3, UDA and BNP pending at this time. Patient was discussed and signed out to Dr. Ferreira for further evaluation and final disposition. Discussed current findings and plan with family, who acknowledge understanding and agreement. [] (HERBIE MCMANUS DO) Course & Med Decision Making ADDENDUM; JARAD IMPRESSION: 1. Hyperdense lesions in both kidneys, could represent complex/hemorrhagic cysts. However, recommend outpatient follow-up with ultrasound for further evaluation. 2. No acute findings in the abdomen or pelvis. Electronically signed by: Herbie Eric MD (11/16/2018 9:25 PM) [facility] DICTATED and SIGNED BY: HERBIE ERIC MD LABS LOOK GOOD OVERALL TROP NEG X ONE CT SCAN A/P NOTED ABOVE I TOLD THE DAUGHTER ABOUT NEED FOR F/U CT HEAD STABLE FROM PRIOR, SIG HYDROCEPHALUS. D/W KODURIA AT 915 PM, RECOMMENDS CARDS CONSULT, MED/MONITORED BED, ADMIT TO THOMAS (NESHA FERREIRA MD) Dragon Disclaimer Dragon Disclaimer This electronic medical record was generated, in whole or in part, using a voice recognition dictation system. (HERBIE MCMANUS DO) Departure Departure Impression: Primary Impression: Syncope Disposition: 09 ADMITTED INPATIENT Admitting Physician: Danial Mims (NESHA FERREIRA MD) Condition: STABLE Referrals: DANIAL MIMS MD (PCP) Problem Qualifiers Primary Impression: Syncope Syncope type: unspecified Qualified Codes: R55 - Syncope and collapse HERBIE MCMANUS DO November 16, 2018 20:10 NESHA FERREIRA MD November 16, 2018 21:44
[2018-11-16 20:16] LABS: CREATINE KINASE 61 U/L (39-308)
[2018-11-16] MEDS ORDERED: IOHEXOL 300 MG/ML 100ML VIAL. IV ONE (20:30)
[2018-11-16] MEDS ORDERED: CONTRAST GIVEN. MC PRN (20:30)
--- NOTE | 2018-11-16 21:28 | RAD ---
CT ABD PELV W/ IV CONTRST ONLY Indication: Abdominal distention. History of obstruction. Exposure: One or more of the following individualized dose reduction techniques were utilized for this examination: 1. Automated exposure control 2. Adjustment of the mA and/or kV according to patient size 3. Use of iterative reconstruction technique. Technique: Intravenous contrast was given. No oral contrast per request. Findings: There is artifact due to the patient's arms which are at the side. Mild linear markings of both lungs compatible with atelectasis or fibrosis. Liver and spleen appear grossly unremarkable, somewhat degraded by the artifact. The pancreas appears without acute abnormality. No evidence of adrenal mass. Kidneys enhance symmetrically. There is a low-density lesion at the lower pole of the right kidney measuring 4.5 cm and 24 Hounsfield units, may represent a complex or slightly hemorrhagic cyst. Tiny low-density lesion left kidney too small to characterize. There is another lesion of the lower pole left kidney which measures 11 mm and is hyperdense. No evidence of hydronephrosis. No calcified gallstone. The aorta is calcified, no evidence of aneurysm. No significant lymph node enlargement. There is no evidence of significant small bowel distention. No evidence of acute colitis. The appendix is not clearly seen. No evidence of ascites, or evidence of pneumoperitoneum. The urinary bladder appears grossly unremarkable. Prostate gland is mildly enlarged. There are degenerative changes of the spine. No evidence of aggressive bone destruction. IMPRESSION: 1. Hyperdense lesions in both kidneys, could represent complex/hemorrhagic cysts. However, recommend outpatient follow-up with ultrasound for further evaluation. 2. No acute findings in the abdomen or pelvis. Electronically signed by: Herbie Eric MD (11/16/2018 9:25 PM) [facility]
--- NOTE | 2018-11-16 21:40 | RAD ---
CT head without contrast PQRS statement: CT scans at this facility use dose reduction including either automated exposure control, iterative reconstructions, and /or weight based radiation dosing via mA and kV modification when appropriate to reduce radiation dose to as low as reasonably achievable. HISTORY: Altered mental status, syncope. TECHNIQUE: [address] imaging skull base to vertex. COMPARISON: CT head August 31, 2018. FINDINGS: There is marked dilation of the atria and temporal horns of the lateral ventricles much greater than the dilation of the bodies and frontal horns of the lateral ventricles or the third ventricle. There is no significant dilation of the fourth ventricle. This is stable for several years on prior studies and most likely represents ex vacuo dilation of the segments of the ventricles due to chronic ischemic injury with white matter loss at the parietal and temporal lobes from an in utero injury such as periventricular leukomalacia, ventriculomegaly from communicating normal pressure hydrocephalus is a secondary consideration, given the stability for several years a significant obstructive hydrocephalus is unlikely. Several tiny calcifications about the surface of the parietal lobes perhaps due to an old ischemic injury or old parasitic infection. Chronic basal ganglia lacunar infarcts are stable. No intracranial hemorrhage. No mass. Cerebral periventricular white matter hypoattenuation is stable likely represents changes of chronic microvascular disease. Left phthisis bulbi ocular globe. Mastoids and bones are unremarkable. IMPRESSION: No acute abnormality. Stable exam as described above. Electronically signed by: Velasquez Howard MD (11/16/2018 9:38 PM) [facility]
[2018-11-16 22:50] VITALS: BP 119/56
[2018-11-17] VITALS (7 sets, daily range): BP systolic 91–136; BP diastolic 48–75
--- NOTE | 2018-11-17 00:15 | NUR ---
Admit to unit from ED 11/16/18 at 2210. Dx syncope. Daughter at bedside. Patient poor historian. Daughter explains patient was up to bathroom to have BM and had syncope episode. EMS was called to the home and patient was brought to ED. Patient is alert but confused on admit. Daughter states patient is at baseline on admit to unit. Daughter is DPOA. Wishes patient to be full code at this time. Reports patient has history of dysphagia and is on thick liquid pureed diet at home. Patient is resting in bed. Bed alarm on. Call light at hand. VSS.
[2018-11-17] MEDS ORDERED: AMLO2.5T5 PO (00:59)
[2018-11-17] MEDS ORDERED: LISI-334 PO (01:02)
--- NOTE | 2018-11-17 06:25 | EKG ---
[facility] [address] [place] [address] Test Date: 2018-11-16 Test Time: 19:28:51 Pat Name: PARI HARDEN Department: Room: 258 1 Gender: M Drywall Hanger Helper: Elsie : 1940 Requested By: FAUSTO MCMANUS Order Number: [id number] Reading MD: Beck Short MD Measurements Intervals [place] Rate: 74 P: 1 NE: 214 QRS: 24 QRSD: 84 T: 54 QT: 384 QTc: 431 Interpretive Statements SINUS RHYTHM Electronically Signed On 11-17-2018 22:43:55 CDT by Beck Short MD
[2018-11-17] MEDS ORDERED: ACETAMINOPHEN 325 MG TABLET. PO PRN (09:00)
--- NOTE | 2018-11-17 09:02 | PDOC2 ---
RK EM CARD ASSEMBLER 11/17/18 0902: CARDIAC CONSULT DATE OF CONSULT Date of Consult DATE: 11/17/18 TIME: 08:56 REASON FOR CONSULT Reason for Consult: Syncope H/o CHF REFERRING PHYSICIAN Referring Physician: Dr. Ferreira SOURCE Source: Chart review, Patient HISTORY OF PRESENT ILLNESS HISTORY OF PRESENT ILLNESS This is a 78 yo male, with a history of dementia, hydrocephalus, and cognitive impairment, who presented secondary to syncopal episode. Patient reports he was feeling slightly dizzy yesterday so he had two of his grandsons assists him to the bathroom. While on the stool, patient passed out. Fortunately, grandsons were at his side and were able to lift him back into his wheelchair and had the ir mother call EMS. Patient became responsive upon EMS arrival. Was diaphoretic and clammy per daughter. Unclear as whether patient was straining to have a BM. Daughter does not feel this is the case as he was having loose stools in ED. Daughter reports difficulty with BP fluctuating. Had another syncopal episode about 10 years ago when he was standing at the sink doing dishes. Had workup at [facility] including tilt table test. Daughter reports no abnormal findings PAST MEDICAL HISTORY Cardiovascular: CHF, HTN, Hyperlipidemia Pulmonary: COPD CENTRAL NERVOUS SYSTEM: CVA, Dementia, Other (hydrocephalus, cognitive impairment ) GI: GERD, Peptic Ulcer disease Heme/Onc: Anemia NOS Psych: Anxiety, Depression Musculoskeletal: Osteoarthritis Rheumatologic: No pertinent hx Infectious disease: No pertinent hx ENT: No pertinent hx Renal/: No pertinent hx Endocrine: No pertinent hx Dermatology: No pertinent hx PAST SURGICAL HISTORY Past Surgical History: Hernia Repair, Colon Resection FAMILY HISTORY Family History: Diabetes, Hypertension, Stroke SOCIAL HISTORY Smoke: No ALCOHOL: none Drugs: None Lives: with Family CURRENT MEDICATIONS CURRENT MEDICATIONS Current Medications Medications (Trade) Dose Ordered Sig/Betsy Route PRN Reason Start Time Stop Time Status Last Admin Dose Admin Iohexol (Omnipaque 300 Mg/ml) 60 ml 1X ONCE IV 11/16/18 20:30 11/16/18 20:31 DC 11/16/18 20:57 Lorazepam (Ativan) 1 mg 1X ONCE IV 11/16/18 21:15 11/16/18 21:18 DC 11/16/18 20:21 ALLERGIES ALLERGIES: Coded Allergies: No Known Medication Allergies (Verified Allergy, Unknown, 06/03/17) codeine (Verified Adverse Reaction, Mild, Shaky and GI Upset, 05/23/17) ROS Review of System 14 point ROS conducted with pertinent positives noted above in HPI. PHYSICAL EXAM General: Alert, Oriented X3, Cooperative, No acute distress HEENT: Atraumatic, Mucous membr. moist/pink Lungs: Clear to auscultation, Normal air movement Heart: Regular rate, Normal S1, Normal S2, Other (2/6 systolic murmur ) Extremities: Other (trace bilateral LE edema ) Skin: No significant lesion Neuro: Normal speech, Sensation intact Psych/Mental Status: Mood NL MUSCULOSKELETAL: Osteoarthritic changes both hands VITALS VITALS Vital Signs Date Time Temp Pulse Resp B/P (MAP) Pulse Ox O2 Delivery O2 Flow Rate FiO2 11/17/18 07:30 Nasal Cannula 2.0 11/17/18 07:28 98.0 82 17 123/62 (82) 96 98.0 LABS Lab: Laboratory Tests Test 11/16/18 19:14 11/16/18 19:24 11/16/18 19:38 11/17/18 00:50 Urine Collection Type U cath Urine Color Yellow Urine Clarity Turbid Urine pH 6.0 Urine Specific [place] 1.025 Urine Protein Negative mg/dL (NEG-TRACE) Urine Glucose (UA) Negative mg/dL (NEG) Urine Ketones (Stick) Negative mg/dL (NEG) Urine Blood Negative (NEG) Urine Nitrite Negative (NEG) Urine Bilirubin Negative (NEG) Urine Urobilinogen Dipstick 1.0 mg/dL (0.2 mg/dL) Urine Leukocyte Esterase Negative (NEG) Urine RBC 0 /HPF (0-2) Urine WBC 0 /HPF (0-4) Urine Squamous Epithelial Cells Few /LPF Urine Amorphous Sediment Present /HPF Urine Bacteria 0 /HPF (0-FEW) Urine Hyaline Casts Many /HPF Urine Mucus Marked /LPF Urine Opiates Screen Neg (NEG) Urine Methadone Screen Neg (NEG) Urine Barbiturates Neg (NEG) Urine Phencyclidine Screen Neg (NEG) Urine Amphetamine/Methamphetamine Neg (NEG) Urine Benzodiazepines Screen Neg (NEG) Urine Cocaine Screen Neg (NEG) Urine Cannabinoids Screen Neg (NEG) Urine Ethyl Alcohol Neg (NEG) Glucose (Fingerstick) 126 mg/dL (70-99) White Blood Count 4.7 x10^3/uL (4.0-11.0) Red Blood Count 4.42 x10^6/uL (4.30-5.70) Hemoglobin 13.5 g/dL (13.0-17.5) Hematocrit 40.5 % (39.0-53.0) Mean Corpuscular Volume 92 fL (79-100) Mean Corpuscular Hemoglobin 31 pg (25-35) Mean Corpuscular Hemoglobin Concent 33 g/dL (31-37) Red Cell Distribution Width 12.9 % (11.5-14.5) Platelet Count 156 x10^3/uL (140-400) Neutrophils (%) (Auto) 66 % (31-73) Lymphocytes (%) (Auto) 23 % (24-48) Monocytes (%) (Auto) 7 % (0-9) Eosinophils (%) (Auto) 4 % (0-3) Basophils (%) (Auto) 1 % (0-3) Neutrophils # (Auto) 3.1 x10^3uL (1.8-7.7) Lymphocytes # (Auto) 1.1 x10^3/uL (1.0-4.8) Monocytes # (Auto) 0.3 x10^3/uL (0.0-1.1) Eosinophils # (Auto) 0.2 x10^3/uL (0.0-0.7) Basophils # (Auto) 0.0 x10^3/uL (0.0-0.2) Sodium Level 142 mmol/L (136-145) Potassium Level 4.7 mmol/L (3.5-5.1) Chloride Level 106 mmol/L (98-107) Carbon Dioxide Level 26 mmol/L (21-32) Anion Gap 10 (6-14) Blood Urea Nitrogen 29 mg/dL (8-26) Creatinine 1.3 mg/dL (0.7-1.3) Estimated GFR (Cockcroft-Gault) 53.4 BUN/Creatinine Ratio 22 (6-20) Glucose Level 133 mg/dL (70-99) Lactic Acid Level 2.0 mmol/L (0.4-2.0) Calcium Level 9.0 mg/dL (8.5-10.1) Magnesium Level 1.9 mg/dL (1.8-2.4) Total Bilirubin 0.2 mg/dL (0.2-1.0) Aspartate Amino Transf (AST/SGOT) 16 U/L (15-37) Alanine Aminotransferase (ALT/SGPT) 20 U/L (16-63) Alkaline Phosphatase 122 U/L (46-116) Ammonia < 10 mcmol/L (11-34) Creatine Kinase 61 U/L (39-308) Creatine Kinase MB (Mass) 1.0 ng/mL (0.0-3.6) Creatine Kinase MB Relative Index % (0-4) Troponin I Quantitative < 0.017 ng/mL (0.000-0.055) < 0.017 ng/mL (0.000-0.055) RF-Qwk-Z-Type Natriuretic Peptide 72 pg/mL (0-449) Total Protein 6.5 g/dL (6.4-8.2) Albumin 3.4 g/dL (3.4-5.0) Albumin/Globulin Ratio 1.1 (1.0-1.7) Test 11/17/18 03:40 Lactic Acid Level 0.6 mmol/L (0.4-2.0) Troponin I Quantitative < 0.017 ng/mL (0.000-0.055) ASSESSMENT/PLAN ASSESSMENT/PLAN 1. Syncope, dizziness; vasovagal versus hypotension. no acute event on tele 2. Hypertension; intermittent hypotension here 3. Cognitive impairment 4. Dementia 5. Hyperlipidemia 6. Chronic diastolic HF; clinically compensated 7. Chronic hydrocephalus Recommendations Orthostatic vitals Monitor tele Echo to assess LV systolic function, presence of valvular anomalies Hold Norvasc for now. Continue lisinopril. Monitor BP Encouraged oral hydration Supportive care MAYITO RAMIREZ MD 11/17/18 2255: CARDIAC CONSULT ASSESSMENT/PLAN ASSESSMENT/PLAN Pt. seen and examined. Agree with above MILK CONDENSER note. 78 y.o male with FTT presenting with syncope. DDx is broad but no clear cardiac source noted (Exam, EKG, Trops, CXR and echo are all wnl) Cannot rule out micturition syncope or vasovagal source. No clear abn on tele or on vitals. No signs of infection by CXR/UA. Agree with PT/OT. No further CV testing needed. RK EM APRN November 17, 2018 09:02 MAYITO RAMIREZ MD November 17, 2018 22:55
--- NOTE | 2018-11-17 10:25 | PDOC ---
Provider Note Provider Note Patient seen. History and Physical dictated. See dictation#[id number] DANIAL GUZMAN MD November 17, 2018 10:25
[2018-11-17] MEDS: POTASSIUM CHLORIDE 10 MEQ TABLET.ER. PO SCH ×2 (10:36→18:04)
[2018-11-17] MEDS: PANTOPRAZOLE 40 MG TABLET.DR. PO SCH (10:36)
[2018-11-17] MEDS: CITALOPRAM 10 MG TABLET. PO SCH (10:36)
[2018-11-17] MEDS: LISINOPRIL 20 MG TABLET PO SCH (10:37)
[2018-11-17] MEDS: TAMSULOSIN 0.4 MG CAP.ER.24H. PO SCH (10:37)
[2018-11-17] MEDS: FAMOTIDINE 20 MG TABLET. PO SCH (10:37)
[2018-11-17] MEDS: MULTIVITAMIN with MINERAL TABLET. PO SCH (10:37)
[2018-11-17] MEDS: FLUTICASONE 50MCG/NASAL SPRAY 16GM BOTTLE. NS SCH (10:38)
[2018-11-17] MEDS: ALBUTEROL SULFATE 2.5 MG/3 ML NEBU. NEB SCH ×3 (11:43→20:33)
--- NOTE | 2018-11-17 12:04 | HP ---
ADMIT DATE: 11/16/2018 HISTORY OF PRESENT ILLNESS: This 78-year-old male who lives at home with the family had dinner and then went to the bathroom. In the bathroom, he had a syncopal episode and he was unresponsive or poorly responsive for about 7 minutes as per the family. He did not fall and the two grandsons helped him to get up and get him out of the bathroom. 911 was called. As per daughter, the patient was diaphoretic and clammy. The patient did not have any episodes of low blood pressure or dizziness or any cardiac symptoms previously. The patient had good bowel movement after he came to the hospital. He did not have any nausea, vomiting or leg pain. He has been walking and the home health nurses just discharged him last week. There is no history of seizures or any focal weakness. Because of the syncope, the patient was admitted for further evaluation and management. SYSTEMS REVIEW: As noted in the history of present illness. The patient is a poor historian. Information was obtained from the daughter who states that he was doing fine prior to this episode. Other systems reviewed and are negative. PAST MEDICAL HISTORY: The patient has history of hypertension, hyperlipidemia, COPD, pneumonia, CVA, chronic memory loss, chronic hydrocephalus, diverticulosis, GERD, peptic ulcer disease, history of gastric ulcer, anxiety, depression, anemia, degenerative joint disease, allergic rhinitis and CKD 2. PAST SURGICAL HISTORY: The patient has history of hernia repair x 2, exploratory laparoscopic gastric ulcer repair in 2011, strangulated femoral hernia repair with small bowel resection on 05/23/2017, cataract removal on right eye and left eye, he is blind. ALLERGIES: The patient is allergic to CODEINE. MEDICATIONS: Reviewed and reconciled. FAMILY HISTORY: The patient's sister had cancer. Mother has diabetes. Mother had stroke. SOCIAL HISTORY: No history for smoking, alcoholism or drug abuse. PHYSICAL EXAMINATION: GENERAL: The patient is an elderly male, who is alert, forgetful and not in acute distress. VITAL SIGNS: Temperature 98, pulse 82 per minute, respirations 17 per minute, blood pressure was 123/62. Last night, blood pressure was 91/53. In the emergency room, blood pressure was 162/82 and daughter said that he was a little agitated at that time. The patient is alert, forgetful, not in acute distress. HEENT: Eyes, the patient has left eye that is blind and right eye is unremarkable. HEENT is unremarkable. NECK: Supple. JVP normal. No thyromegaly. Trachea midline. LUNGS: Decreased breath sounds at bases. CARDIOVASCULAR SYSTEM: S1 and S2 regular. ABDOMEN: Soft, nontender, no guarding, no rigidity. Bowel sounds present. EXTREMITIES: No edema. CENTRAL NERVOUS SYSTEM: The patient is forgetful, he has generalized weakness, able to move extremities. LABORATORY FINDINGS AND DIAGNOSTIC STUDIES: WBC count 4.7, hemoglobin 13.5, platelet count 156,000. Lactic acid level was 2 and then 0.6. Ammonia level was less than 10. Troponin was normal. Sodium 142, potassium 4.7, BUN 29, creatinine 1.3, glucose 133 and 126 and 123, albumin 3.4. Cardiac enzymes were normal. Urinalysis negative. Urine drug screen negative. Abdominal and pelvis CT showed some dense lesions in both kidneys. Previous CT scans of abdomen have showed cysts in both kidneys, no acute findings in the abdomen or pelvis. Chest x-ray showed no acute changes. CT scan of head, no acute abnormalities. The patient has a history of hydrocephalus. IMPRESSION: 1. Syncope, etiology not clear, could be vasovagal, could be due to low blood pressure, although family states that his pressures have been stable previously. I will hold amlodipine at this time, but continue lisinopril. 2. Weakness, improving. 3. History of chronic hydrocephalus. 4. Chronic obstructive pulmonary disease. 5. Hypertension, followed by hypotension. 6. Chronic memory loss. 7. Anxiety. 8. Depression. 9. Osteoarthritis involving multiple joints. 10. Old cerebrovascular accident. 11. Left eye blindness with artificial eye. 12. Allergic rhinitis. 13. Hyperlipidemia. 14. Bilateral knee osteoarthritis. 15. Chronic kidney disease 2. 16. Abnormal glucose. 17. Anemia. 18. Gastroesophageal reflux disease with esophagitis. PLAN: We will consult Dr. Short for Cardiology evaluation and management for syncope. I will also consult Dr. Ortega for Neurology evaluation and management. The patient has abnormal CT of the abdomen. The patient has had bilateral renal cysts in the past, so I will go ahead and order a complete renal sonogram. For details, please refer to the orders. Condition and treatment options extensively discussed with the patient and her daughter. We will order PT, OT, speech therapy evaluation. DANIAL GUZMAN MD DR: Evan JOB#: [id number] / [id number]
--- NOTE | 2018-11-17 12:54 | NUR ---
SS following for discharge planning. SS reviewed pt chart. Pt is from home with daughter and family and is currently requiring oxygen. Pt was in [facility] in August of 2018 for care home unit and is currently in his co pay days for Medicare. PT/OT ordered. PT recommended home with 24 hour care/LTC. SS will continue to follow for discharge planning.
--- NOTE | 2018-11-17 14:46 | CARD ---
MR#: [id number] Date of Study: 11/17/2018 Ordering Physician: RK EM, Referring Physician: DANIAL GUZMAN, Tech: Nia Robles APPROVED REPORT EXAM: Two-dimensional and M-mode echocardiogram with Doppler and color Doppler. Other Information Quality : AverageHR: 74bpm INDICATION COPD CAD Syncope Congestive Heart Failure RISK FACTORS Hypertension Hyperlipidemia 2D DIMENSIONS RVDd3.2 (2.9-3.5cm)Left Atrium(2D)3.2 (1.6-4.0cm) IVSd1.7 (0.7-1.1cm)Aortic Root(2D)3.8 (2.0-3.7cm) LVDd4.3 (3.9-5.9cm)LVOT Diameter2.1 (1.8-2.4cm) PWd1.2 (0.7-1.1cm)LVDs2.4 (2.5-4.0cm) FS (%) 43.6 %SV61.4 ml Aortic Valve AoV Peak Bhavin.123.4cm/sAoV VTI32.2cm AO Peak GR.6.1mmHgLVOT VTI 22.71cm AO Mean GR.6mmHgAI P 1/2 Pdrb2ox Mitral Valve MV E Nlafbwcv99.6cm/sMV DECEL [id number] MV A Jemgjzyz68.8cm/sE/A Ratio0.7 TDI Lateral E' P. V9.65cm/sMedial E' P. V6.56cm/s E/Lateral E'4.8E/Medial E'7.1 Pulmonary Vein S1 Xkmouqze86.6cm/sS2 Iykgyary30.19cm/s D2 Yupuilvp65.2cm/sPVa [id number] LEFT VENTRICLE The left ventricle is normal size. There is mild concentric left ventricular hypertrophy. The left ve ntricular systolic function is normal and the ejection fraction is within normal range. The Ejection Fraction is 55-60%. There is hypokinesis in the apical septal wall. Transmitral Doppler flow pattern is Grade I-abnormal relaxation pattern. RIGHT VENTRICLE The right ventricle is normal size. There is normal right ventricular wall thickness. The right ventr icular systolic function is normal. ATRIA The left atrium size is normal. The right atrium size is normal. The interatrial septum is intact wit h no evidence for an atrial septal defect or patent foramen ovale as noted on 2-D or Doppler imaging. AORTIC VALVE The aortic valve is not well visualized. Doppler and Color Flow revealed no significant aortic regurg itation. There is mild valvular aortic stenosis. MITRAL VALVE The mitral valve is normal in structure and function. There is no evidence of mitral valve prolapse. There is no mitral valve stenosis. Doppler and Color Flow revealed trace to mild mitral valve regurgi tation. TRICUSPID VALVE The tricuspid valve is not well visualized. Doppler and Color Flow revealed trace tricuspid valve reg urgitation. There is no tricuspid valve stenosis. PULMONIC VALVE The pulmonic valve is not well visualized. Doppler and Color Flow revealed no pulmonic valvular regur gitation. GREAT VESSELS The aortic root is normal in size. The IVC is normal in size and collapses >50% with inspiration. PERICARDIAL EFFUSION There is no evidence of significant pericardial effusion. Critical Notification Critical Value: No <Conclusion> The left ventricle is normal size. The left ventricular systolic function is normal and the ejection fraction is within normal range. The Ejection Fraction is 55-60%. There is mild concentric left ventricular hypertrophy. There is mild valvular aortic stenosis. Doppler and Color Flow revealed no significant aortic regurgitation. Doppler and Color Flow revealed trace to mild mitral valve regurgitation. Doppler and Color Flow revealed trace tricuspid valve regurgitation. Signed by : Diego Arrieta MD Electronically Approved : 11/17/2018 14:46:15
--- NOTE | 2018-11-17 15:40 | RAD ---
RENAL COMPLETE BILATERAL History: Abnormal CT, possible cysts Comparison: November 16, 2018 Findings: Multiple sonographic images of the kidneys and retroperitoneal structures are submitted. Exam is somewhat limited due to attenuation by soft tissues and bowel gas. Right kidney measured 11.5 x 5 x 6.9 cm. Left kidney measured 10.3 x 4.4 x 5.3 cm. There is no hydronephrosis of either kidney. There is a hypoechoic lesion with some internal echoes and likely cyst of the inferior right kidney about 5.6 cm 0.3 cm x 4.2 cm. There is also small hypoechoic lesion with increased through transmission of the inferior lateral right left kidney about 1.6 x 1.3 x 1.2 cm. Urinary bladder morphology is within normal limits. Impression: 1. There is no hydronephrosis of either kidney. There is small likely cyst of the inferior left kidney. There is also a larger and apparently septated, somewhat complex likely cyst of the inferior right kidney. However given internal echoes and septation, follow-up should be considered to assess stability such as in 6-9 months. Yamilet 2F. Electronically signed by: Son Bro MD (11/17/2018 3:37 PM) [id number]
--- NOTE | 2018-11-17 16:55 | PDOC2 ---
NEUROLOGY CONSULT Date of Admission Date of Admission DATE: 11/17/18 TIME: 16:49 Reason for Consult Reason for Consult: Syncopal episode. Generalized weakness. Gait disorder. Falls. Urinary and bowel dysfunction. Colpocephaly, congenital. Agenesis of the corpus callosum, congenital. Ventriculomegaly. CHF. COPD. HTN. HLD. GERD. Left eye blindness, congenital. Dementia features. Degenerative spine disease. RECOMMENDATIONS/PLAN: EEG to help rule out seizure. Lab: see orders. Treat medical diseases. Consult Dr. Ding. 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 He was reportedly seen at but no indication for surgical intervention. He had syncopal episode and fall again this time for hospitalization. No focalized motor deficits reported. PAST MEDICAL HISTORY: Hypoxic respiratory failure secondary to acute eosinophilic pneumonia and was admitted previously in 06/2017, last admission was in 04/2018. At that time was for abdominal pain. 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 The patient has a history of hypertension, but previously his blood pressures were low, so blood pressure medications, there was lisinopril and was discontinued; has hyperlipidemia, bilateral knee osteoarthritis, right lower lobe pulmonary nodule, gastroesophageal reflux disease with esophagitis, history of obstructive sleep apnea with obesity hypoventilation syndrome, noncompliant with CPAP, history of appendectomy and knee surgery, moderate protein-calorie malnutrition. The patient also has obstructive sleep apnea, slow transit constipation, anemia PAST SURGICAL HISTORY: Right inguinal hernia repair, arthroscopic knee surgery of the right knee, cyst removed from the right groin, previously has had appendectomy. ALLERGIES: ALLERGIC TO CODEINE. FAMILY HISTORY: noncontributory. SOCIAL HISTORY: Past history of smoking. The patient has had history of drug abuse, but has been clean for about 6 years. No history of alcoholism. MEDICATIONS: Refer to MAR REVIEW OF SYSTEMS: Constitutional: No malnutrition, weight loss, cachexia. Head: No recent traumatic brain or head injury. Skin: No edema, or rash. Ear: No infection. Eyes: Left eye blindness. Nose: No bleeding or purulent discharges. Hearing: Hearing decrease. Neck: No injury. Cardiac: HTN, HLD. Pulmonary: COPD. GI: GERD. Urinary/genital: UTI. Endocrinologic: No cousin face, craniofacial dysmorphism, polydactyly. Skeletomuscular: Generalized weakness. Neurological: see HP. Psychiatric: Hx of drug use. Otherwise, not -fzxht review of systems. PHYSICAL EXAMINATION: General appearance is in subacute distress. HEENT: Normocephalic and nontraumatic. Eyes, nose, ears, and throat are unremarkable. Neck is supple. No lymphadenopathy. No crepitus. Cardiovascular: S1, S2, regular rate and rhythm. Pulmonary: Mildly decreased to auscultation bilaterally. Abdomen: Bowel sounds are positive. Extremities: No rash, lesions, or edema. No restriction of range of motion NEUROLOGICAL EXAMINATION: Sleepiness but arousable. Not oriented to time, place but knew person. Right pupil reactive to light. Nystagmus persistent. Left eye blindness. EOMI. CN: no acute focal findings. Muscle tone: Increased. Muscle strength: 4 DTR: 2+ UE, 3 at knee. Plantar reflex: Neutral response bilaterally Gait: not examined in bed. Sensory exam: no abnormal findings. Chronic cerebellar signs elicited. F-T-N test not accurate. Current Medications Current Medications Current Medications Lorazepam (Ativan) 2 mg STK-MED ONCE .ROUTE ; Start 11/16/18 at 20:16; Stop 11/16/18 at 20:17; Status DC Iohexol (Omnipaque 300 Mg/ml) 60 ml 1X ONCE IV Last administered on 11/16/18at 20:57; Start 11/16/18 at 20:30; Stop 11/16/18 at 20:31; Status DC Info (CONTRAST GIVEN -- Rx MONITORING) 1 each PRN DAILY PRN MC SEE COMMENTS; Start 11/16/18 at 20:30; Stop 11/18/18 at 20:29 Lorazepam (Ativan) 1 mg 1X ONCE IV Last administered on 11/16/18at 20:21; Start 11/16/18 at 21:15; Stop 11/16/18 at 21:18; Status DC Acetaminophen (Tylenol) 325 mg DAILY PRN PO PAIN; Start 11/17/18 at 09:00 Albuterol Sulfate (Ventolin Neb Soln) 2.5 mg TID NEB Last administered on 11/17/18 11:43; Start 11/17/18 at 09:00 Citalopram Hydrobromide (CeleXA) 10 mg DAILY PO Last administered on 11/17/18 10:36; Start 11/17/18 at 09:00 Fluticasone Propionate (Flonase) 2 spray DAILY NS Last administered on 11/17/18 10:38; Start 11/17/18 at 09:00 Lisinopril (Prinivil) 20 mg DAILY PO Last administered on 11/17/18 10:37; Start 11/17/18 at 09:00 Potassium Chloride (Klor-Con) 10 meq BIDAFTMEAL PO Last administered on 11/17/18 10:36; Start 11/17/18 at 09:00 Simvastatin (Zocor) 10 mg QHS PO ; Start 11/17/18 at 21:00 Tamsulosin HCl (Flomax) 0.4 mg DAILY PO Last administered on 11/17/18 10:37; Start 11/17/18 at 09:00 Famotidine (Pepcid) 40 mg DAILY PO Last administered on 11/17/18 10:37; Start 11/17/18 at 09:30 Montelukast Sodium (Singulair) 10 mg QHS PO ; Start 11/17/18 at 21:00 Multivitamins (Thera M Plus) 1 tab DAILY PO Last administered on 11/17/18 10:37; Start 11/17/18 at 09:30 Pantoprazole Sodium (Protonix) 40 mg DAILYAC PO Last administered on 11/17/18 10:36; Start 11/17/18 at 09:30 Active Scripts Active Klor-Con 10 (Potassium Chloride) 10 Meq Tablet.er 10 Meq PO BIDAFTMEAL 30 Days Proair Hfa Inhaler (Albuterol Sulfate) 8.5 Gm Hfa.aer.ad 2 Puff INH PRN Q6HRS PRN Albuterol Sulfate Neb Soln (Albuterol Sulfate) 2.5 Mg/3 Ml Vial.neb 2.5 Mg NEB TID Reported Lisinopril 20 Mg Tablet 20 Mg PO DAILY Amlodipine Besylate 2.5 Mg Tablet 2.5 Mg PO DAILY Omeprazole 20 Mg Tablet.dr 20 Mg PO DAILY Tamsulosin Hcl 0.4 Mg Cap.er.24h 1 Cap PO DAILY Tylenol (Acetaminophen) 325 Mg Tablet 325 Mg PO DAILY PRN Famotidine 40 Mg Tablet 40 Mg PO DAILY Montelukast Sodium Tablet (Montelukast Sodium) 10 Mg Tablet 10 Mg PO DAILY Simvastatin 10 Mg Tablet 10 Mg PO DAILY Flonase (Fluticasone Propionate) 16 Gm [place].susp 2 Sprays NS DAILY Multi Vitamin Daily (Multivitamin) 1 Each Tablet 1 Each PO DAILY Citalopram Hbr (Citalopram Hydrobromide) 10 Mg Tablet 10 Mg PO DAILY Allergies Allergies: Allergies Coded Allergies Type Severity Reaction Last Updated Verified No Known Medication Allergies Allergy Unknown 06/03/17 Yes codeine Adverse Reaction Mild Shaky and GI Upset 05/23/17 Yes ROS Review of System The patient denies any associated fevers, chills, headache, ear pain, rhinorrhea, sore throat, stiff neck, productive cough, chest pain, shortness of breath, back or flank pain, abdominal pain, nausea, vomiting, diarrhea, constipation, dysuria, rash, numbness, weakness, tingling, incontinence, difficulty ambulating, or diaphoresis. Physical Exam Physical Exam General: Well developed, well nourished, no acute distress, well appearing HEENT: Pupils equally round and reactive to light, EOMI, no discharge, normal conjunctiva Neck: Supple, no nuchal rigidity, no JVD, trachea midline, no tenderness Cardiac: RRR, no murmurs, no gallops, no rubs Chest/Lungs: CTAB, no wheeze, no rhonchi, no crackles Abdomen: soft, non-distended, no guarding, no peritoneal signs, non-tender Back: No tenderness Extremities: no edema, pulses intact, non-tender,capillary refill <3 sec bilateral upper and lower extremities, Neuro: Alert and oriented x 4, no focal deficits, normal speech Vitals Vitals: Vital Signs Date Time Temp Pulse Resp B/P (MAP) Pulse Ox O2 Delivery O2 Flow Rate FiO2 11/17/18 15:03 98.2 72 17 122/48 (72) 96 Nasal Cannula 2.0 98.2 Labs Labs Laboratory Tests Test 11/16/18 19:14 11/16/18 19:24 11/16/18 19:38 11/17/18 00:50 Urine Collection Type U cath Urine Color Yellow Urine Clarity Turbid Urine pH 6.0 Urine Specific [place] 1.025 Urine Protein Negative mg/dL (NEG-TRACE) Urine Glucose (UA) Negative mg/dL (NEG) Urine Ketones (Stick) Negative mg/dL (NEG) Urine Blood Negative (NEG) Urine Nitrite Negative (NEG) Urine Bilirubin Negative (NEG) Urine Urobilinogen Dipstick 1.0 mg/dL (0.2 mg/dL) Urine Leukocyte Esterase Negative (NEG) Urine RBC 0 /HPF (0-2) Urine WBC 0 /HPF (0-4) Urine Squamous Epithelial Cells Few /LPF Urine Amorphous Sediment Present /HPF Urine Bacteria 0 /HPF (0-FEW) Urine Hyaline Casts Many /HPF Urine Mucus Marked /LPF Urine Opiates Screen Neg (NEG) Urine Methadone Screen Neg (NEG) Urine Barbiturates Neg (NEG) Urine Phencyclidine Screen Neg (NEG) Urine Amphetamine/Methamphetamine Neg (NEG) Urine Benzodiazepines Screen Neg (NEG) Urine Cocaine Screen Neg (NEG) Urine Cannabinoids Screen Neg (NEG) Urine Ethyl Alcohol Neg (NEG) Glucose (Fingerstick) 126 mg/dL (70-99) White Blood Count 4.7 x10^3/uL (4.0-11.0) Red Blood Count 4.42 x10^6/uL (4.30-5.70) Hemoglobin 13.5 g/dL (13.0-17.5) Hematocrit 40.5 % (39.0-53.0) Mean Corpuscular Volume 92 fL (79-100) Mean Corpuscular Hemoglobin 31 pg (25-35) Mean Corpuscular Hemoglobin Concent 33 g/dL (31-37) Red Cell Distribution Width 12.9 % (11.5-14.5) Platelet Count 156 x10^3/uL (140-400) Neutrophils (%) (Auto) 66 % (31-73) Lymphocytes (%) (Auto) 23 % (24-48) Monocytes (%) (Auto) 7 % (0-9) Eosinophils (%) (Auto) 4 % (0-3) Basophils (%) (Auto) 1 % (0-3) Neutrophils # (Auto) 3.1 x10^3uL (1.8-7.7) Lymphocytes # (Auto) 1.1 x10^3/uL (1.0-4.8) Monocytes # (Auto) 0.3 x10^3/uL (0.0-1.1) Eosinophils # (Auto) 0.2 x10^3/uL (0.0-0.7) Basophils # (Auto) 0.0 x10^3/uL (0.0-0.2) Sodium Level 142 mmol/L (136-145) Potassium Level 4.7 mmol/L (3.5-5.1) Chloride Level 106 mmol/L (98-107) Carbon Dioxide Level 26 mmol/L (21-32) Anion Gap 10 (6-14) Blood Urea Nitrogen 29 mg/dL (8-26) Creatinine 1.3 mg/dL (0.7-1.3) Estimated GFR (Cockcroft-Gault) 53.4 BUN/Creatinine Ratio 22 (6-20) Glucose Level 133 mg/dL (70-99) Lactic Acid Level 2.0 mmol/L (0.4-2.0) Calcium Level 9.0 mg/dL (8.5-10.1) Magnesium Level 1.9 mg/dL (1.8-2.4) Total Bilirubin 0.2 mg/dL (0.2-1.0) Aspartate Amino Transf (AST/SGOT) 16 U/L (15-37) Alanine Aminotransferase (ALT/SGPT) 20 U/L (16-63) Alkaline Phosphatase 122 U/L (46-116) Ammonia < 10 mcmol/L (11-34) Creatine Kinase 61 U/L (39-308) Creatine Kinase MB (Mass) 1.0 ng/mL (0.0-3.6) Creatine Kinase MB Relative Index % (0-4) Troponin I Quantitative < 0.017 ng/mL (0.000-0.055) < 0.017 ng/mL (0.000-0.055) XJ-Hqz-M-Type Natriuretic Peptide 72 pg/mL (0-449) Total Protein 6.5 g/dL (6.4-8.2) Albumin 3.4 g/dL (3.4-5.0) Albumin/Globulin Ratio 1.1 (1.0-1.7) Test 11/17/18 03:40 Lactic Acid Level 0.6 mmol/L (0.4-2.0) Troponin I Quantitative < 0.017 ng/mL (0.000-0.055) Laboratory Tests Test 11/16/18 19:14 11/16/18 19:24 11/16/18 19:38 11/17/18 00:50 Urine Collection Type U cath Urine Color Yellow Urine Clarity Turbid Urine pH 6.0 Urine Specific [place] 1.025 Urine Protein Negative mg/dL (NEG-TRACE) Urine Glucose (UA) Negative mg/dL (NEG) Urine Ketones (Stick) Negative mg/dL (NEG) Urine Blood Negative (NEG) Urine Nitrite Negative (NEG) Urine Bilirubin Negative (NEG) Urine Urobilinogen Dipstick 1.0 mg/dL (0.2 mg/dL) Urine Leukocyte Esterase Negative (NEG) Urine RBC 0 /HPF (0-2) Urine WBC 0 /HPF (0-4) Urine Squamous Epithelial Cells Few /LPF Urine Amorphous Sediment Present /HPF Urine Bacteria 0 /HPF (0-FEW) Urine Hyaline Casts Many /HPF Urine Mucus Marked /LPF Urine Opiates Screen Neg (NEG) Urine Methadone Screen Neg (NEG) Urine Barbiturates Neg (NEG) Urine Phencyclidine Screen Neg (NEG) Urine Amphetamine/Methamphetamine Neg (NEG) Urine Benzodiazepines Screen Neg (NEG) Urine Cocaine Screen Neg (NEG) Urine Cannabinoids Screen Neg (NEG) Urine Ethyl Alcohol Neg (NEG) Glucose (Fingerstick) 126 mg/dL (70-99) White Blood Count 4.7 x10^3/uL (4.0-11.0) Red Blood Count 4.42 x10^6/uL (4.30-5.70) Hemoglobin 13.5 g/dL (13.0-17.5) Hematocrit 40.5 % (39.0-53.0) Mean Corpuscular Volume 92 fL (79-100) Mean Corpuscular Hemoglobin 31 pg (25-35) Mean Corpuscular Hemoglobin Concent 33 g/dL (31-37) Red Cell Distribution Width 12.9 % (11.5-14.5) Platelet Count 156 x10^3/uL (140-400) Neutrophils (%) (Auto) 66 % (31-73) Lymphocytes (%) (Auto) 23 % (24-48) Monocytes (%) (Auto) 7 % (0-9) Eosinophils (%) (Auto) 4 % (0-3) Basophils (%) (Auto) 1 % (0-3) Neutrophils # (Auto) 3.1 x10^3uL (1.8-7.7) Lymphocytes # (Auto) 1.1 x10^3/uL (1.0-4.8) Monocytes # (Auto) 0.3 x10^3/uL (0.0-1.1) Eosinophils # (Auto) 0.2 x10^3/uL (0.0-0.7) Basophils # (Auto) 0.0 x10^3/uL (0.0-0.2) Sodium Level 142 mmol/L (136-145) Potassium Level 4.7 mmol/L (3.5-5.1) Chloride Level 106 mmol/L (98-107) Carbon Dioxide Level 26 mmol/L (21-32) Anion Gap 10 (6-14) Blood Urea Nitrogen 29 mg/dL (8-26) Creatinine 1.3 mg/dL (0.7-1.3) Estimated GFR (Cockcroft-Gault) 53.4 BUN/Creatinine Ratio 22 (6-20) Glucose Level 133 mg/dL (70-99) Lactic Acid Level 2.0 mmol/L (0.4-2.0) Calcium Level 9.0 mg/dL (8.5-10.1) Magnesium Level 1.9 mg/dL (1.8-2.4) Total Bilirubin 0.2 mg/dL (0.2-1.0) Aspartate Amino Transf (AST/SGOT) 16 U/L (15-37) Alanine Aminotransferase (ALT/SGPT) 20 U/L (16-63) Alkaline Phosphatase 122 U/L (46-116) Ammonia < 10 mcmol/L (11-34) Creatine Kinase 61 U/L (39-308) Creatine Kinase MB (Mass) 1.0 ng/mL (0.0-3.6) Creatine Kinase MB Relative Index % (0-4) Troponin I Quantitative < 0.017 ng/mL (0.000-0.055) < 0.017 ng/mL (0.000-0.055) UN-Xuc-D-Type Natriuretic Peptide 72 pg/mL (0-449) Total Protein 6.5 g/dL (6.4-8.2) Albumin 3.4 g/dL (3.4-5.0) Albumin/Globulin Ratio 1.1 (1.0-1.7) Test 11/17/18 03:40 Lactic Acid Level 0.6 mmol/L (0.4-2.0) Troponin I Quantitative < 0.017 ng/mL (0.000-0.055) ARMANDO FERRER MD November 17, 2018 16:55
--- NOTE | 2018-11-17 19:27 | EEG ---
DATE OF SERVICE: 11/17/2018 ELECTROENCEPHALOGRAM NUMBER: [id number]. OBJECTIVE: This is a 78-year-old male patient with history of syncope versus seizure. EEG was requested to help rule out seizure. METHODS: Twenty electrodes were applied according to the international 10-20 electrode placement system. EKG monitoring, hyperventilation, intermittent photic stimulation, monopolar and bipolar montages are routinely utilized. The record was obtained on a digital system with video monitoring. FINDINGS: 1. Background: The patient was recorded in the awake and drowsy states. No actual sleep state was recorded. The overall background amplitude is 10-20 microvolts. A posterior dominant rhythm of 8 Hz is observed. The overall background amplitude seemed slightly higher in the right hemispherical area than the left hemispherical area. 2. Abnormalities: No specific epileptiform discharge or electrographic seizure is seen. No focal or diffuse slowing. 3. Activation: Hyperventilation was performed with fair efforts and normal response. Intermittent photic stimulation was performed with photic driving. No specific epileptiform discharge or electrographic seizure induced by hyperventilation or intermittent photic stimulation. IMPRESSION: This electroencephalogram is considered in the mild abnormal category of the study for the awake and drowsy states. No sleep state was recorded. The overall background amplitude seemed slightly higher in the right hemispherical area than the left side. No focal, lateralizing, specific epileptiform discharge or electrographic seizure is seen. ARMANDO FERRER MD DR: LEWIS/rachel JOB#: [id number] / [id number] KHANH
[2018-11-17] MEDS: MONTELUKAST SODIUM 10 MG TABLET. PO SCH (21:21)
[2018-11-17] MEDS: SIMVASTATIN 10 MG TABLET PO SCH (21:21)
[2018-11-18 02:07] VITALS: BP 146/89
[2018-11-18 04:34] LABS: BASO % 1 % (0-3); EOS # 0.2 x10^3/uL (0.0-0.7); EOS % 5 % (0-3); HEMATOCRIT 35.7 % (39.0-53.0); LYMPH # 1.5 x10^3/uL (1.0-4.8); LYMPH % 35 % (24-48); MEAN CORPUSCULAR HEMOGLOBIN 31 pg (25-35); MEAN CORPUSCULAR HGB CONC 34 g/dL (31-37); MEAN CORPUSCULAR VOLUME 92 fL (79-100); MONO # 0.4 x10^3/uL (0.0-1.1); MONO % 10 % (0-9); NEUT # 2.2 x10^3uL (1.8-7.7); NEUT % 50 % (31-73); PLATELET COUNT 138 x10^3/uL (140-400); RED BLOOD COUNT 3.88 x10^6/uL (4.30-5.70); RED CELL DISTRIBUTION WIDTH 12.7 % (11.5-14.5); WHITE BLOOD COUNT 4.4 x10^3/uL (4.0-11.0)
[2018-11-18 04:53] LABS: CALCIUM 8.8 mg/dL (8.5-10.1); GFR 72.3; POTASSIUM 3.9 mmol/L (3.5-5.1)
--- NOTE | 2018-11-18 06:28 | CONS ---
DATE OF CONSULTATION: 11/17/2018 ATTENDING PHYSICIAN: Dr. Kelly Mims. The patient was seen at the request of Dr. Elam for rehab evaluation. HISTORY OF PRESENT ILLNESS: This is a 78-year-old male known to me, being taken care by his daughter at home. Apparently had some syncopal episode, was admitted for further evaluation and CT scan of the brain failed to reveal any acute abnormalities. The patient had echocardiogram, which revealed good ejection fraction. The patient with chronic silent aspiration, but has been on thickened liquids and mechanical soft diet and he is doing better with it. Chest x-ray failed to reveal any consolidating pneumonia. The patient also with known hypoxic respiratory failure secondary to acute eosinophilic pneumonia, treated for it in 06/2017 and admitted in 04/2018 for abdominal pain and in August of this year with normal pressure hydrocephalus, also had exacerbation of chronic obstructive pulmonary disease, pneumonia, [id number]-[id number] combined systolic and diastolic heart failure, ischemic cardiomyopathy, coronary artery disease status post drug-eluting stent placement in right coronary artery placed in 06/2017, diabetes mellitus type 2, hypertension, hyperlipidemia, osteoarthritis of both knees, gastroesophageal reflux disease with esophagitis, obstructive sleep apnea, status post appendectomy, right knee arthroscopic surgery, moderate protein-calorie malnutrition, obstructive sleep apnea, anemia of chronic disease, inguinal hernia repair done on the right side, cyst removed from right groin. ALLERGIES: Known ALLERGIC TO CODEINE. PHYSICAL EXAMINATION: GENERAL: Today revealed an elderly male. NEUROLOGIC: He is awake, follows commands appropriately, moves all 4 extremities voluntarily where he had 4+/5 grade muscle strength. Deep tendon reflexes are 1-2+ and symmetrical and he had equal perception of touch and pinprick sensation bilaterally. He had pain-free range of motion of all four extremity joints. The patient required minimal assistance in coming to a standing position from bedside recliner. He walks with wide-based gait slowly. He gets tired easily. He is using oxygen by nasal cannula right now. His skin is intact at this time. ASSESSMENT: An elderly male with known hypertension with some problems with syncopal episodes. Also with known hyperlipidemia, coronary artery disease, cardiomyopathy, chronic combined systolic and diastolic heart failure and respiratory failure in the past. RECOMMENDATIONS: Agree with the plans for physical therapy and occupational therapy as long they can, just by working with him. Let the family decide on home or long-term skilled nursing placement. Dr. Elam, I appreciate asking me to participate in the care of this interesting patient. I will be glad to follow him with you as needed for the rehabilitation. SAEID WOODARD MD DR: PEÑA/rachel JOB#: [id number] / [id number]
[2018-11-18 07:00] VITALS: BP 110/68
[2018-11-18] MEDS: ALBUTEROL SULFATE 2.5 MG/3 ML NEBU. NEB SCH ×3 (07:48→20:35)
[2018-11-18] MEDS: MULTIVITAMIN with MINERAL TABLET. PO SCH (08:34)
[2018-11-18] MEDS: PANTOPRAZOLE 40 MG TABLET.DR. PO SCH (08:34)
[2018-11-18] MEDS: TAMSULOSIN 0.4 MG CAP.ER.24H. PO SCH (08:34)
[2018-11-18] MEDS: POTASSIUM CHLORIDE 10 MEQ TABLET.ER. PO SCH ×2 (08:35→17:57)
[2018-11-18] MEDS: CITALOPRAM 10 MG TABLET. PO SCH (08:35)
[2018-11-18] MEDS: LISINOPRIL 20 MG TABLET PO SCH (08:35)
[2018-11-18] MEDS: FAMOTIDINE 20 MG TABLET. PO SCH (08:35)
[2018-11-18] MEDS: FLUTICASONE 50MCG/NASAL SPRAY 16GM BOTTLE. NS SCH (08:43)
--- NOTE | 2018-11-18 09:33 | PDOC ---
PROGRESS NOTES Subjective Subjective No new complaints. Objective Objective Vital Signs Date Time Temp Pulse Resp B/P (MAP) Pulse Ox O2 Delivery O2 Flow Rate FiO2 11/18/18 08:35 86 154/78 11/18/18 07:48 100 Nasal Cannula 2.0 11/18/18 07:00 98.0 18 98.0 Intake and Output 11/18/18 06:59 Intake Total 1140 ml Output Total 1575 ml Balance -435 ml Intake Oral 1140 ml Output Urine Total 1575 ml Physical Exam Physical Exam He is resting comfortably lying in bed on his left side. Assessment Assessment Problems Medical Problems: (1) Syncope Status: Acute Plan Plan of Usp with family or to nursing facility when medically stable. Comment Review of Relevant I have reviewed the following items yadi (where applicable) has been applied. Labs Laboratory Tests Test 11/16/18 19:14 11/16/18 19:24 11/16/18 19:38 11/17/18 00:50 Urine Collection Type U cath Urine Color Yellow Urine Clarity Turbid Urine pH 6.0 Urine Specific [place] 1.025 Urine Protein Negative mg/dL (NEG-TRACE) Urine Glucose (UA) Negative mg/dL (NEG) Urine Ketones (Stick) Negative mg/dL (NEG) Urine Blood Negative (NEG) Urine Nitrite Negative (NEG) Urine Bilirubin Negative (NEG) Urine Urobilinogen Dipstick 1.0 mg/dL (0.2 mg/dL) Urine Leukocyte Esterase Negative (NEG) Urine RBC 0 /HPF (0-2) Urine WBC 0 /HPF (0-4) Urine Squamous Epithelial Cells Few /LPF Urine Amorphous Sediment Present /HPF Urine Bacteria 0 /HPF (0-FEW) Urine Hyaline Casts Many /HPF Urine Mucus Marked /LPF Urine Opiates Screen Neg (NEG) Urine Methadone Screen Neg (NEG) Urine Barbiturates Neg (NEG) Urine Phencyclidine Screen Neg (NEG) Urine Amphetamine/Methamphetamine Neg (NEG) Urine Benzodiazepines Screen Neg (NEG) Urine Cocaine Screen Neg (NEG) Urine Cannabinoids Screen Neg (NEG) Urine Ethyl Alcohol Neg (NEG) Glucose (Fingerstick) 126 mg/dL (70-99) White Blood Count 4.7 x10^3/uL (4.0-11.0) Red Blood Count 4.42 x10^6/uL (4.30-5.70) Hemoglobin 13.5 g/dL (13.0-17.5) Hematocrit 40.5 % (39.0-53.0) Mean Corpuscular Volume 92 fL (79-100) Mean Corpuscular Hemoglobin 31 pg (25-35) Mean Corpuscular Hemoglobin Concent 33 g/dL (31-37) Red Cell Distribution Width 12.9 % (11.5-14.5) Platelet Count 156 x10^3/uL (140-400) Neutrophils (%) (Auto) 66 % (31-73) Lymphocytes (%) (Auto) 23 % (24-48) Monocytes (%) (Auto) 7 % (0-9) Eosinophils (%) (Auto) 4 % (0-3) Basophils (%) (Auto) 1 % (0-3) Neutrophils # (Auto) 3.1 x10^3uL (1.8-7.7) Lymphocytes # (Auto) 1.1 x10^3/uL (1.0-4.8) Monocytes # (Auto) 0.3 x10^3/uL (0.0-1.1) Eosinophils # (Auto) 0.2 x10^3/uL (0.0-0.7) Basophils # (Auto) 0.0 x10^3/uL (0.0-0.2) Sodium Level 142 mmol/L (136-145) Potassium Level 4.7 mmol/L (3.5-5.1) Chloride Level 106 mmol/L (98-107) Carbon Dioxide Level 26 mmol/L (21-32) Anion Gap 10 (6-14) Blood Urea Nitrogen 29 mg/dL (8-26) Creatinine 1.3 mg/dL (0.7-1.3) Estimated GFR (Cockcroft-Gault) 53.4 BUN/Creatinine Ratio 22 (6-20) Glucose Level 133 mg/dL (70-99) Lactic Acid Level 2.0 mmol/L (0.4-2.0) Calcium Level 9.0 mg/dL (8.5-10.1) Magnesium Level 1.9 mg/dL (1.8-2.4) Total Bilirubin 0.2 mg/dL (0.2-1.0) Aspartate Amino Transf (AST/SGOT) 16 U/L (15-37) Alanine Aminotransferase (ALT/SGPT) 20 U/L (16-63) Alkaline Phosphatase 122 U/L (46-116) Ammonia < 10 mcmol/L (11-34) Creatine Kinase 61 U/L (39-308) Creatine Kinase MB (Mass) 1.0 ng/mL (0.0-3.6) Creatine Kinase MB Relative Index % (0-4) Troponin I Quantitative < 0.017 ng/mL (0.000-0.055) < 0.017 ng/mL (0.000-0.055) IV-Cpe-O-Type Natriuretic Peptide 72 pg/mL (0-449) Total Protein 6.5 g/dL (6.4-8.2) Albumin 3.4 g/dL (3.4-5.0) Albumin/Globulin Ratio 1.1 (1.0-1.7) Test 11/17/18 03:40 11/18/18 03:35 Lactic Acid Level 0.6 mmol/L (0.4-2.0) Troponin I Quantitative < 0.017 ng/mL (0.000-0.055) White Blood Count 4.4 x10^3/uL (4.0-11.0) Red Blood Count 3.88 x10^6/uL (4.30-5.70) Hemoglobin 12.0 g/dL (13.0-17.5) Hematocrit 35.7 % (39.0-53.0) Mean Corpuscular Volume 92 fL (79-100) Mean Corpuscular Hemoglobin 31 pg (25-35) Mean Corpuscular Hemoglobin Concent 34 g/dL (31-37) Red Cell Distribution Width 12.7 % (11.5-14.5) Platelet Count 138 x10^3/uL (140-400) Neutrophils (%) (Auto) 50 % (31-73) Lymphocytes (%) (Auto) 35 % (24-48) Monocytes (%) (Auto) 10 % (0-9) Eosinophils (%) (Auto) 5 % (0-3) Basophils (%) (Auto) 1 % (0-3) Neutrophils # (Auto) 2.2 x10^3uL (1.8-7.7) Lymphocytes # (Auto) 1.5 x10^3/uL (1.0-4.8) Monocytes # (Auto) 0.4 x10^3/uL (0.0-1.1) Eosinophils # (Auto) 0.2 x10^3/uL (0.0-0.7) Basophils # (Auto) 0.0 x10^3/uL (0.0-0.2) Sodium Level 141 mmol/L (136-145) Potassium Level 3.9 mmol/L (3.5-5.1) Chloride Level 106 mmol/L (98-107) Carbon Dioxide Level 28 mmol/L (21-32) Anion Gap 7 (6-14) Blood Urea Nitrogen 19 mg/dL (8-26) Creatinine 1.0 mg/dL (0.7-1.3) Estimated GFR (Cockcroft-Gault) 72.3 Glucose Level 95 mg/dL (70-99) Calcium Level 8.8 mg/dL (8.5-10.1) Laboratory Tests Test 11/18/18 03:35 White Blood Count 4.4 x10^3/uL (4.0-11.0) Red Blood Count 3.88 x10^6/uL (4.30-5.70) Hemoglobin 12.0 g/dL (13.0-17.5) Hematocrit 35.7 % (39.0-53.0) Mean Corpuscular Volume 92 fL (79-100) Mean Corpuscular Hemoglobin 31 pg (25-35) Mean Corpuscular Hemoglobin Concent 34 g/dL (31-37) Red Cell Distribution Width 12.7 % (11.5-14.5) Platelet Count 138 x10^3/uL (140-400) Neutrophils (%) (Auto) 50 % (31-73) Lymphocytes (%) (Auto) 35 % (24-48) Monocytes (%) (Auto) 10 % (0-9) Eosinophils (%) (Auto) 5 % (0-3) Basophils (%) (Auto) 1 % (0-3) Neutrophils # (Auto) 2.2 x10^3uL (1.8-7.7) Lymphocytes # (Auto) 1.5 x10^3/uL (1.0-4.8) Monocytes # (Auto) 0.4 x10^3/uL (0.0-1.1) Eosinophils # (Auto) 0.2 x10^3/uL (0.0-0.7) Basophils # (Auto) 0.0 x10^3/uL (0.0-0.2) Sodium Level 141 mmol/L (136-145) Potassium Level 3.9 mmol/L (3.5-5.1) Chloride Level 106 mmol/L (98-107) Carbon Dioxide Level 28 mmol/L (21-32) Anion Gap 7 (6-14) Blood Urea Nitrogen 19 mg/dL (8-26) Creatinine 1.0 mg/dL (0.7-1.3) Estimated GFR (Cockcroft-Gault) 72.3 Glucose Level 95 mg/dL (70-99) Calcium Level 8.8 mg/dL (8.5-10.1) Medications Current Medications Lorazepam (Ativan) 2 mg STK-MED ONCE .ROUTE ; Start 11/16/18 at 20:16; Stop 11/16/18 at 20:17; Status DC Iohexol (Omnipaque 300 Mg/ml) 60 ml 1X ONCE IV Last administered on 11/16/18at 20:57; Start 11/16/18 at 20:30; Stop 11/16/18 at 20:31; Status DC Info (CONTRAST GIVEN -- Rx MONITORING) 1 each PRN DAILY PRN MC SEE COMMENTS; Start 11/16/18 at 20:30; Stop 11/18/18 at 20:29 Lorazepam (Ativan) 1 mg 1X ONCE IV Last administered on 11/16/18at 20:21; Start 11/16/18 at 21:15; Stop 11/16/18 at 21:18; Status DC Acetaminophen (Tylenol) 325 mg DAILY PRN PO PAIN; Start 11/17/18 at 09:00 Albuterol Sulfate (Ventolin Neb Soln) 2.5 mg TID NEB Last administered on 11/18/18at 07:48; Start 11/17/18 at 09:00 Citalopram Hydrobromide (CeleXA) 10 mg DAILY PO Last administered on 11/18/18at 08:35; Start 11/17/18 at 09:00 Fluticasone Propionate (Flonase) 2 spray DAILY NS Last administered on 11/18/18at 08:43; Start 11/17/18 at 09:00 Lisinopril (Prinivil) 20 mg DAILY PO Last administered on 11/18/18 08:35; Start 11/17/18 at 09:00 Potassium Chloride (Klor-Con) 10 meq BIDAFTMEAL PO Last administered on 11/18/18 08:35; Start 11/17/18 at 09:00 Simvastatin (Zocor) 10 mg QHS PO Last administered on 11/17/18 21:21; Start 11/17/18 at 21:00 Tamsulosin HCl (Flomax) 0.4 mg DAILY PO Last administered on 11/18/18 08:34; Start 11/17/18 at 09:00 Famotidine (Pepcid) 40 mg DAILY PO Last administered on 11/18/18 08:35; Start 11/17/18 at 09:30 Montelukast Sodium (Singulair) 10 mg QHS PO Last administered on 11/17/18 21:21; Start 11/17/18 at 21:00 Multivitamins (Thera M Plus) 1 tab DAILY PO Last administered on 11/18/18 08:34; Start 11/17/18 at 09:30 Pantoprazole Sodium (Protonix) 40 mg DAILYAC PO Last administered on 11/18/18 08:34; Start 11/17/18 at 09:30 Active Scripts Active Klor-Con 10 (Potassium Chloride) 10 Meq Tablet.er 10 Meq PO BIDAFTMEAL 30 Days Proair Hfa Inhaler (Albuterol Sulfate) 8.5 Gm Hfa.aer.ad 2 Puff INH PRN Q6HRS PRN Albuterol Sulfate Neb Soln (Albuterol Sulfate) 2.5 Mg/3 Ml Vial.neb 2.5 Mg NEB TID Reported Lisinopril 20 Mg Tablet 20 Mg PO DAILY Amlodipine Besylate 2.5 Mg Tablet 2.5 Mg PO DAILY Omeprazole 20 Mg Tablet.dr 20 Mg PO DAILY Tamsulosin Hcl 0.4 Mg Cap.er.24h 1 Cap PO DAILY Tylenol (Acetaminophen) 325 Mg Tablet 325 Mg PO DAILY PRN Famotidine 40 Mg Tablet 40 Mg PO DAILY Montelukast Sodium Tablet (Montelukast Sodium) 10 Mg Tablet 10 Mg PO DAILY Simvastatin 10 Mg Tablet 10 Mg PO DAILY Flonase (Fluticasone Propionate) 16 Gm [place].susp 2 Sprays NS DAILY Multi Vitamin Daily (Multivitamin) 1 Each Tablet 1 Each PO DAILY Citalopram Hbr (Citalopram Hydrobromide) 10 Mg Tablet 10 Mg PO DAILY Vitals/I & O Vital Sign - Last 24 Hours 11/17/18 11/17/18 11/17/18 11/17/18 10:37 10:46 11:45 15:03 Temp 98.1 98.2 98.1 98.2 Pulse 76 70 72 Resp 17 17 B/P (MAP) 136/75 136/75 (95) 122/48 (72) Pulse Ox 98 98 96 O2 Delivery Nasal Cannula Nasal Cannula Nasal Cannula O2 Flow Rate 2.0 2.0 2.0 11/17/18 11/17/18 11/17/18 11/17/18 19:12 20:00 20:35 22:11 Temp 98.3 97.8 98.3 97.8 Pulse 89 92 Resp 18 16 B/P (MAP) 118/75 (89) 128/54 (78) Pulse Ox 99 96 98 O2 Delivery Nasal Cannula Nasal Cannula Nasal Cannula Nasal Cannula O2 Flow Rate 2.0 2.0 2.0 2.0 11/18/18 11/18/18 11/18/18 11/18/18 02:07 07:00 07:48 08:35 Temp 97.7 98.0 97.7 98.0 Pulse 63 66 86 Resp 18 18 B/P (MAP) 146/89 (108) 110/68 (82) 154/78 Pulse Ox 97 99 100 O2 Delivery Nasal Cannula Nasal Cannula Nasal Cannula O2 Flow Rate 2.0 2.0 2.0 Intake and Output 11/17/18 11/17/18 11/18/18 14:59 22:59 06:59 Intake Total 480 ml 540 ml 120 ml Output Total 200 ml 375 ml 1000 ml Balance 280 ml 165 ml -880 ml SAEID WOODARD MD November 18, 2018 09:33
--- NOTE | 2018-11-18 09:55 | PDOC ---
IM PROGRESS NOTES- Subjective Subjective Patient is sleeping. Unable to wake him up. Unable to do systems review. Objective Vitals Vital Signs Date Time Temp Pulse Resp B/P (MAP) Pulse Ox O2 Delivery O2 Flow Rate FiO2 11/18/18 08:35 86 154/78 11/18/18 07:48 100 Nasal Cannula 2.0 11/18/18 07:00 98.0 18 98.0 Input & Output Intake and Output 11/18/18 06:59 Intake Total 1140 ml Output Total 1575 ml Balance -435 ml Intake Oral 1140 ml Output Urine Total 1575 ml Physical Exam Physical Exam GENERAL: The patient is an elderly male, who is sleeping and not in acute distress. HEENT: Unchanged NECK: Supple. JVP normal. No thyromegaly. Trachea midline. LUNGS: Decreased breath sounds at bases. CARDIOVASCULAR SYSTEM: S1 and S2 regular. ABDOMEN: Soft, nontender, no guarding, no rigidity. Bowel sounds present. EXTREMITIES: No edema. CENTRAL NERVOUS SYSTEM: Sleeping Labs Laboratory Tests Test 11/16/18 19:14 11/16/18 19:24 11/16/18 19:38 11/17/18 00:50 Urine Collection Type U cath Urine Color Yellow Urine Clarity Turbid Urine pH 6.0 Urine Specific [place] 1.025 Urine Protein Negative mg/dL (NEG-TRACE) Urine Glucose (UA) Negative mg/dL (NEG) Urine Ketones (Stick) Negative mg/dL (NEG) Urine Blood Negative (NEG) Urine Nitrite Negative (NEG) Urine Bilirubin Negative (NEG) Urine Urobilinogen Dipstick 1.0 mg/dL (0.2 mg/dL) Urine Leukocyte Esterase Negative (NEG) Urine RBC 0 /HPF (0-2) Urine WBC 0 /HPF (0-4) Urine Squamous Epithelial Cells Few /LPF Urine Amorphous Sediment Present /HPF Urine Bacteria 0 /HPF (0-FEW) Urine Hyaline Casts Many /HPF Urine Mucus Marked /LPF Urine Opiates Screen Neg (NEG) Urine Methadone Screen Neg (NEG) Urine Barbiturates Neg (NEG) Urine Phencyclidine Screen Neg (NEG) Urine Amphetamine/Methamphetamine Neg (NEG) Urine Benzodiazepines Screen Neg (NEG) Urine Cocaine Screen Neg (NEG) Urine Cannabinoids Screen Neg (NEG) Urine Ethyl Alcohol Neg (NEG) Glucose (Fingerstick) 126 mg/dL (70-99) White Blood Count 4.7 x10^3/uL (4.0-11.0) Red Blood Count 4.42 x10^6/uL (4.30-5.70) Hemoglobin 13.5 g/dL (13.0-17.5) Hematocrit 40.5 % (39.0-53.0) Mean Corpuscular Volume 92 fL (79-100) Mean Corpuscular Hemoglobin 31 pg (25-35) Mean Corpuscular Hemoglobin Concent 33 g/dL (31-37) Red Cell Distribution Width 12.9 % (11.5-14.5) Platelet Count 156 x10^3/uL (140-400) Neutrophils (%) (Auto) 66 % (31-73) Lymphocytes (%) (Auto) 23 % (24-48) Monocytes (%) (Auto) 7 % (0-9) Eosinophils (%) (Auto) 4 % (0-3) Basophils (%) (Auto) 1 % (0-3) Neutrophils # (Auto) 3.1 x10^3uL (1.8-7.7) Lymphocytes # (Auto) 1.1 x10^3/uL (1.0-4.8) Monocytes # (Auto) 0.3 x10^3/uL (0.0-1.1) Eosinophils # (Auto) 0.2 x10^3/uL (0.0-0.7) Basophils # (Auto) 0.0 x10^3/uL (0.0-0.2) Sodium Level 142 mmol/L (136-145) Potassium Level 4.7 mmol/L (3.5-5.1) Chloride Level 106 mmol/L (98-107) Carbon Dioxide Level 26 mmol/L (21-32) Anion Gap 10 (6-14) Blood Urea Nitrogen 29 mg/dL (8-26) Creatinine 1.3 mg/dL (0.7-1.3) Estimated GFR (Cockcroft-Gault) 53.4 BUN/Creatinine Ratio 22 (6-20) Glucose Level 133 mg/dL (70-99) Lactic Acid Level 2.0 mmol/L (0.4-2.0) Calcium Level 9.0 mg/dL (8.5-10.1) Magnesium Level 1.9 mg/dL (1.8-2.4) Total Bilirubin 0.2 mg/dL (0.2-1.0) Aspartate Amino Transf (AST/SGOT) 16 U/L (15-37) Alanine Aminotransferase (ALT/SGPT) 20 U/L (16-63) Alkaline Phosphatase 122 U/L (46-116) Ammonia < 10 mcmol/L (11-34) Creatine Kinase 61 U/L (39-308) Creatine Kinase MB (Mass) 1.0 ng/mL (0.0-3.6) Creatine Kinase MB Relative Index % (0-4) Troponin I Quantitative < 0.017 ng/mL (0.000-0.055) < 0.017 ng/mL (0.000-0.055) SR-Bnr-K-Type Natriuretic Peptide 72 pg/mL (0-449) Total Protein 6.5 g/dL (6.4-8.2) Albumin 3.4 g/dL (3.4-5.0) Albumin/Globulin Ratio 1.1 (1.0-1.7) Test 11/17/18 03:40 11/18/18 03:35 Lactic Acid Level 0.6 mmol/L (0.4-2.0) Troponin I Quantitative < 0.017 ng/mL (0.000-0.055) White Blood Count 4.4 x10^3/uL (4.0-11.0) Red Blood Count 3.88 x10^6/uL (4.30-5.70) Hemoglobin 12.0 g/dL (13.0-17.5) Hematocrit 35.7 % (39.0-53.0) Mean Corpuscular Volume 92 fL (79-100) Mean Corpuscular Hemoglobin 31 pg (25-35) Mean Corpuscular Hemoglobin Concent 34 g/dL (31-37) Red Cell Distribution Width 12.7 % (11.5-14.5) Platelet Count 138 x10^3/uL (140-400) Neutrophils (%) (Auto) 50 % (31-73) Lymphocytes (%) (Auto) 35 % (24-48) Monocytes (%) (Auto) 10 % (0-9) Eosinophils (%) (Auto) 5 % (0-3) Basophils (%) (Auto) 1 % (0-3) Neutrophils # (Auto) 2.2 x10^3uL (1.8-7.7) Lymphocytes # (Auto) 1.5 x10^3/uL (1.0-4.8) Monocytes # (Auto) 0.4 x10^3/uL (0.0-1.1) Eosinophils # (Auto) 0.2 x10^3/uL (0.0-0.7) Basophils # (Auto) 0.0 x10^3/uL (0.0-0.2) Sodium Level 141 mmol/L (136-145) Potassium Level 3.9 mmol/L (3.5-5.1) Chloride Level 106 mmol/L (98-107) Carbon Dioxide Level 28 mmol/L (21-32) Anion Gap 7 (6-14) Blood Urea Nitrogen 19 mg/dL (8-26) Creatinine 1.0 mg/dL (0.7-1.3) Estimated GFR (Cockcroft-Gault) 72.3 Glucose Level 95 mg/dL (70-99) Calcium Level 8.8 mg/dL (8.5-10.1) Laboratory Tests Test 11/18/18 03:35 White Blood Count 4.4 x10^3/uL (4.0-11.0) Red Blood Count 3.88 x10^6/uL (4.30-5.70) Hemoglobin 12.0 g/dL (13.0-17.5) Hematocrit 35.7 % (39.0-53.0) Mean Corpuscular Volume 92 fL (79-100) Mean Corpuscular Hemoglobin 31 pg (25-35) Mean Corpuscular Hemoglobin Concent 34 g/dL (31-37) Red Cell Distribution Width 12.7 % (11.5-14.5) Platelet Count 138 x10^3/uL (140-400) Neutrophils (%) (Auto) 50 % (31-73) Lymphocytes (%) (Auto) 35 % (24-48) Monocytes (%) (Auto) 10 % (0-9) Eosinophils (%) (Auto) 5 % (0-3) Basophils (%) (Auto) 1 % (0-3) Neutrophils # (Auto) 2.2 x10^3uL (1.8-7.7) Lymphocytes # (Auto) 1.5 x10^3/uL (1.0-4.8) Monocytes # (Auto) 0.4 x10^3/uL (0.0-1.1) Eosinophils # (Auto) 0.2 x10^3/uL (0.0-0.7) Basophils # (Auto) 0.0 x10^3/uL (0.0-0.2) Sodium Level 141 mmol/L (136-145) Potassium Level 3.9 mmol/L (3.5-5.1) Chloride Level 106 mmol/L (98-107) Carbon Dioxide Level 28 mmol/L (21-32) Anion Gap 7 (6-14) Blood Urea Nitrogen 19 mg/dL (8-26) Creatinine 1.0 mg/dL (0.7-1.3) Estimated GFR (Cockcroft-Gault) 72.3 Glucose Level 95 mg/dL (70-99) Calcium Level 8.8 mg/dL (8.5-10.1) Meds Current Medications Montelukast Sodium (Singulair) 10 mg QHS PO Last administered on 11/17/18at 21:21; Start 11/17/18 at 21:00 Simvastatin (Zocor) 10 mg QHS PO Last administered on 11/17/18at 21:21; Start 11/17/18 at 21:00 Assessment Assessment 1. Syncope, etiology not clear, could be vasovagal, could be due to low blood pressure, although family states that his pressures have been stable previously. I will hold amlodipine at this time, but continue lisinopril. 2. Weakness, improving. 3. History of chronic hydrocephalus. 4. Chronic obstructive pulmonary disease. 5. Hypertension, followed by hypotension. 6. Chronic memory loss. 7. Anxiety. 8. Depression. 9. Osteoarthritis involving multiple joints. 10. Old cerebrovascular accident. 11. Left eye blindness with artificial eye. 12. Allergic rhinitis. 13. Hyperlipidemia. 14. Bilateral knee osteoarthritis. 15. Chronic kidney disease 2. 16. Abnormal glucose. 17. Anemia. 18. Gastroesophageal reflux disease with esophagitis. PLAN: We will consult Dr. Short for Cardiology evaluation and management for syncope. I will also consult Dr. Ortega for Neurology evaluation and management. The patient has abnormal CT of the abdomen. The patient has had bilateral renal cysts in the past, so I will go ahead and order a complete renal sonogram. For details, please refer to the orders. Condition and treatment options extensively discussed with the patient and her daughter on admission. We will order PT, OT, speech therapy evaluation. Syncope - EEG does not show any changes. Monitor showed mild bradycardia at night. Echocardiogram- The left ventricle is normal size. The left ventricular systolic function is normal and the ejection fraction is within normal range. The Ejection Fraction is 55-60%. There is mild concentric left ventricular hypertrophy. There is mild valvular aortic stenosis. Doppler and Color Flow revealed no significant aortic regurgitation. Doppler and Color Flow revealed trace to mild mitral valve regurgitation. Doppler and Color Flow revealed trace tricuspid valve regurgitation. Discussed with daughter extensively on the phone. Condition, treatment, options with her including the renal cysts. I will order SNF screen for [facility]. Senior Buyer had told him that he may need to have cardiac monitoring as outpatient. Renal cysts- right greater than left. Right renal cyst is complex. Patient has had cysts since 2014. Plan Plan For more details regarding further plans, please refer to the orders. DANIAL GUZMAN MD November 18, 2018 09:55
[2018-11-18 11:00] VITALS: BP 111/56
--- NOTE | 2018-11-18 13:40 | NUR ---
SS following up with discharge planning. SS received referral from physician for screen for [facility]. Pt was in [facility] from 09/03/2018-09/28/2018 and is currently in co-pay days and would be responsible for 20% co pay for long-term unit. Pt was previously on services with [facility], ; fax [phone], at home and has supervision from family. PT/OT recommending home with 24 hour care. SS contacted pt's daughter to discuss discharge planning. SS left two messages for pt's daughter requesting return call to discuss discharge planning. SS awaiting return call from pt's daughter at this time.
--- NOTE | 2018-11-18 16:36 | PDOC ---
PROGRESS NOTES Assessment Assessment Syncopal episode. Generalized weakness. Gait disorder. Falls. Urinary and bowel dysfunction. Colpocephaly, congenital. Agenesis of the corpus callosum, congenital. Ventriculomegaly. CHF. COPD. HTN. HLD. GERD. Left eye blindness, congenital. Dementia features. Degenerative spine disease. RECOMMENDATIONS/PLAN: Treat medical diseases. Consult . OT/PT Discussed with his daughter at bedside on 11/18/18. EEG on 11/17/18: No seizure activity. 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 He was reportedly seen at but no indication for surgical intervention. He had syncopal episode and fall again this time for hospitalization. No focalized motor deficits reported. PAST MEDICAL HISTORY: Hypoxic respiratory failure secondary to acute eosinophilic pneumonia and was admitted previously in 06/2017, last admission was in 04/2018. At that time was for abdominal pain. 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 The patient has a history of hypertension, but previously his blood pressures were low, so blood pressure medications, there was lisinopril and was discontinued; has hyperlipidemia, bilateral knee osteoarthritis, right lower lobe pulmonary nodule, gastroesophageal reflux disease with esophagitis, history of obstructive sleep apnea with obesity hypoventilation syndrome, noncompliant with CPAP, history of appendectomy and knee surgery, moderate protein-calorie malnutrition. The patient also has obstructive sleep apnea, slow transit constipation, anemia PAST SURGICAL HISTORY: Right inguinal hernia repair, arthroscopic knee surgery of the right knee, cyst removed from the right groin, previously has had appendectomy. ALLERGIES: ALLERGIC TO CODEINE. FAMILY HISTORY: noncontributory. SOCIAL HISTORY: Past history of smoking. The patient has had history of drug abuse, but has been clean for about 6 years. No history of alcoholism. MEDICATIONS: Refer to MAR REVIEW OF SYSTEMS: Constitutional: No malnutrition, weight loss, cachexia. Head: No recent traumatic brain or head injury. Skin: No edema, or rash. Ear: No infection. Eyes: Left eye blindness. Nose: No bleeding or purulent discharges. Hearing: Hearing decrease. Neck: No injury. Cardiac: HTN, HLD. Pulmonary: COPD. GI: GERD. Urinary/genital: UTI. Endocrinologic: No cousin face, craniofacial dysmorphism, polydactyly. Skeletomuscular: Generalized weakness. Neurological: see HP. Psychiatric: Hx of drug use. Otherwise, not -ipjlw review of systems. PHYSICAL EXAMINATION: General appearance is in subacute distress. HEENT: Normocephalic and nontraumatic. Eyes, nose, ears, and throat are unremarkable. Neck is supple. No lymphadenopathy. No crepitus. Cardiovascular: S1, S2, regular rate and rhythm. Pulmonary: Mildly decreased to auscultation bilaterally. Abdomen: Bowel sounds are positive. Extremities: No rash, lesions, or edema. No restriction of range of motion NEUROLOGICAL EXAMINATION: Drowsiness, but arousable. Not oriented to time, but knew place and person. Right pupil reactive to light. Nystagmus persistent. Left eye blindness. EOMI. CN: no acute focal findings. Muscle tone: Increased. Muscle strength: 4+ DTR: 2+ UE, 3 at knee. Plantar reflex: Neutral response bilaterally Gait: not examined in bed. Sensory exam: no abnormal findings. Chronic cerebellar signs elicited. F-T-N test not accurate. Objective Objective Vital Signs Date Time Temp Pulse Resp B/P (MAP) Pulse Ox O2 Delivery O2 Flow Rate FiO2 11/18/18 12:59 100 Nasal Cannula 2.0 11/18/18 11:00 98.1 74 18 111/56 (74) 98.1 Intake and Output 11/18/18 07:00 Intake Total 1140 ml Output Total 1575 ml Balance -435 ml Intake Oral 1140 ml Output Urine Total 1575 ml Vitals Signs Vitals VS - Last 72 Hours, by Label Date Time Temp Pulse Resp B/P (MAP) Pulse Ox O2 Delivery O2 Flow Rate FiO2 11/18/18 12:59 100 Nasal Cannula 2.0 11/18/18 11:00 98.1 74 18 111/56 (74) 98 Nasal Cannula 2.0 98.1 11/18/18 08:35 86 154/78 11/18/18 08:00 Nasal Cannula 2.0 11/18/18 07:48 100 Nasal Cannula 2.0 11/18/18 07:00 98.0 66 18 110/68 (82) 99 Nasal Cannula 2.0 98.0 11/18/18 02:07 97.7 63 18 146/89 (108) 97 Nasal Cannula 2.0 97.7 11/17/18 22:11 97.8 92 16 128/54 (78) 98 Nasal Cannula 2.0 97.8 11/17/18 20:35 96 Nasal Cannula 2.0 11/17/18 20:00 Nasal Cannula 2.0 11/17/18 19:12 98.3 89 18 118/75 (89) 99 Nasal Cannula 2.0 98.3 11/17/18 15:03 98.2 72 17 122/48 (72) 96 Nasal Cannula 2.0 98.2 11/17/18 11:45 98 Nasal Cannula 2.0 11/17/18 10:46 98.1 70 17 136/75 (95) 98 Nasal Cannula 2.0 98.1 11/17/18 10:37 76 136/75 11/17/18 07:30 Nasal Cannula 2.0 11/17/18 07:28 98.0 82 17 123/62 (82) 96 Nasal Cannula 2.0 98.0 Laboratory Laboratory Laboratory Tests Test 11/18/18 03:35 White Blood Count 4.4 x10^3/uL (4.0-11.0) Red Blood Count 3.88 x10^6/uL (4.30-5.70) Hemoglobin 12.0 g/dL (13.0-17.5) Hematocrit 35.7 % (39.0-53.0) Mean Corpuscular Volume 92 fL (79-100) Mean Corpuscular Hemoglobin 31 pg (25-35) Mean Corpuscular Hemoglobin Concent 34 g/dL (31-37) Red Cell Distribution Width 12.7 % (11.5-14.5) Platelet Count 138 x10^3/uL (140-400) Neutrophils (%) (Auto) 50 % (31-73) Lymphocytes (%) (Auto) 35 % (24-48) Monocytes (%) (Auto) 10 % (0-9) Eosinophils (%) (Auto) 5 % (0-3) Basophils (%) (Auto) 1 % (0-3) Neutrophils # (Auto) 2.2 x10^3uL (1.8-7.7) Lymphocytes # (Auto) 1.5 x10^3/uL (1.0-4.8) Monocytes # (Auto) 0.4 x10^3/uL (0.0-1.1) Eosinophils # (Auto) 0.2 x10^3/uL (0.0-0.7) Basophils # (Auto) 0.0 x10^3/uL (0.0-0.2) Sodium Level 141 mmol/L (136-145) Potassium Level 3.9 mmol/L (3.5-5.1) Chloride Level 106 mmol/L (98-107) Carbon Dioxide Level 28 mmol/L (21-32) Anion Gap 7 (6-14) Blood Urea Nitrogen 19 mg/dL (8-26) Creatinine 1.0 mg/dL (0.7-1.3) Estimated GFR (Cockcroft-Gault) 72.3 Glucose Level 95 mg/dL (70-99) Calcium Level 8.8 mg/dL (8.5-10.1) Medication Medications Current Medications Montelukast Sodium (Singulair) 10 mg QHS PO Last administered on 11/17/18at 21:21; Start 11/17/18 at 21:00 Simvastatin (Zocor) 10 mg QHS PO Last administered on 11/17/18at 21:21; Start 11/17/18 at 21:00 Comment Review of Relevant I have reviewed the following items yadi (where applicable) has been applied. ARMANDO FERRER MD November 18, 2018 16:36
[2018-11-18 19:15] VITALS: BP 86/43
--- NOTE | 2018-11-18 19:25 | NUR ---
Around 1550 patient started getting confused, hollering out, & trying to get up without help. CORNICE UPHOLSTERER reported that patient was talking to the wall & that he asked her to give him the money she owed him. Later when this copy writer asked him where he was, he could not state it. Dr. Mims notified of patient's confusion/agitation & patient will stay tonight & be seen tomorrow.
[2018-11-18] MEDS: MONTELUKAST SODIUM 10 MG TABLET. PO SCH (20:10)
[2018-11-18] MEDS: SIMVASTATIN 10 MG TABLET PO SCH (20:10)
[2018-11-18 23:10] VITALS: BP 106/55
[2018-11-19 03:04] VITALS: BP 132/60
[2018-11-19 07:16] VITALS: BP 130/60
[2018-11-19] MEDS: ALBUTEROL SULFATE 2.5 MG/3 ML NEBU. NEB SCH ×2 (08:08→15:34)
[2018-11-19] MEDS: POTASSIUM CHLORIDE 10 MEQ TABLET.ER. PO SCH (08:51)
[2018-11-19] MEDS: PANTOPRAZOLE 40 MG TABLET.DR. PO SCH (08:51)
[2018-11-19] MEDS: MULTIVITAMIN with MINERAL TABLET. PO SCH (08:51)
[2018-11-19] MEDS: LISINOPRIL 20 MG TABLET PO SCH (08:51)
[2018-11-19] MEDS: FAMOTIDINE 20 MG TABLET. PO SCH (08:51)
[2018-11-19] MEDS: TAMSULOSIN 0.4 MG CAP.ER.24H. PO SCH (08:51)
[2018-11-19] MEDS: CITALOPRAM 10 MG TABLET. PO SCH (08:51)
[2018-11-19] MEDS: FLUTICASONE 50MCG/NASAL SPRAY 16GM BOTTLE. NS SCH (08:52)
--- NOTE | 2018-11-19 09:46 | SNU/HH DC ---
DISCHARGE WITH HOME HEALTH DISCHARGE INFORMATION: Final Diagnosis: Problems Medical Problems: (1) Syncope Status: Acute Condition on Discharge: Stable HOME HEALTH: Face to Face: I certify this patient is under my care and that I, or a nurse practitioner or physician's assistant terminal manager working with me, had a face to face encounter that meets the physician face to face encounter requirements with this patient on 11/19/18. Medical Complications: CVA, Dementia RN For Eval/Treatment: Yes Physical Therapy For: Evalulation/Treatment Occupational Therapy For: Evaluation/Treatment Pt Meets Homebound Status: Unsteady balance w/ amb, POST DISCHARGE ORDERS: Activity Instructions for Disc: Activity as tolerated (with walker) Weight Bearing Status after Di: Full weight bearing DIET AFTER DISCHARGE: Regular (Mechanical soft) CHECKS AFTER DISCHARGE: Checks after discharge: Check blood press - daily FOLLOW-UP: PCP to follow Home Health: yes Follow up with: Dr.Pratip Guzman in 5 days CERTIFICATION STATEMENT: Certification Statement: Certification Statement: Based on the above finding, I certify that this patient is confined to the home and needs intermittent mcc care, physical therapy and/or speech therapy, or continues to need occupational therapy.~ This patient is under my care, and I have initiated the establishment of the plan of care.~ This patient will be followed by myself or a community physician who will periodically review the plan of care. Home Meds Active Scripts Potassium Chloride (KLOR-CON 10) 10 Meq Tablet.er, 10 MEQ PO BIDAFTMEAL for hypokalemia for 30 Days, #60 TAB.SR Prov:DANIAL GUZMAN MD 09/03/18 Albuterol Sulfate (PROAIR HFA INHALER) 8.5 Gm Hfa.aer.ad, 2 PUFF INH PRN Q6HRS PRN for SHORTNESS OF BREATH, #1 INHALER 0 Refills Prov:HEDY NIELSON APRN 06/04/17 Albuterol Sulfate (ALBUTEROL SULFATE NEB SOLN) 2.5 Mg/3 Ml Vial.neb, 2.5 MG NEB TID, #120 EACH 0 Refills Prov:HEDY NIELSON APRN 06/04/17 Reported Medications Lisinopril (LISINOPRIL) 20 Mg Tablet, 20 MG PO DAILY for FOR HYPERTENSION, #30 TAB 0 Refills 11/17/18 Amlodipine Besylate (AMLODIPINE BESYLATE) 2.5 Mg Tablet, 2.5 MG PO DAILY for high blood pressure, TAB 11/17/18 Omeprazole (OMEPRAZOLE) 20 Mg Tablet.dr, 20 MG PO DAILY, TAB 06/03/17 Tamsulosin Hcl (TAMSULOSIN HCL) 0.4 Mg Cap.er.24h, 1 CAP PO DAILY, #30 CAP 5 Refills 05/30/15 Acetaminophen (TYLENOL) 325 Mg Tablet, 325 MG PO DAILY PRN for PAIN 06/24/13 Famotidine (FAMOTIDINE) 40 Mg Tablet, 40 MG PO DAILY 06/24/13 Montelukast Sodium (MONTELUKAST SODIUM TABLET) 10 Mg Tablet, 10 MG PO DAILY 06/24/13 Simvastatin (SIMVASTATIN) 10 Mg Tablet, 10 MG PO DAILY 06/24/13 Fluticasone Propionate (FLONASE) 16 Gm [place].susp, 2 SPRAYS NS DAILY 06/24/13 Multivitamin (MULTI VITAMIN DAILY) 1 Each Tablet, 1 EACH PO DAILY 06/24/13 Citalopram Hydrobromide (CITALOPRAM HBR) 10 Mg Tablet, 10 MG PO DAILY 06/24/13 DANIAL UGZMAN MD November 19, 2018 09:46
--- NOTE | 2018-11-19 10:15 | PDOC3 ---
IM DISCHARGE SUMMARY Date of Admission Date of Admission Date of Admission: November 16, 2018 at 21:40 Date of Discharge Date of Discharge November 19, 2018 Primary Diagnosis Primary Diagnosis 1. Syncope, etiology not clear, could be vasovagal, could be due to low blood pressure, although family states that his pressures have been stable previously. I will hold amlodipine at this time, but continue lisinopril. 2. Weakness, improving. 3. History of chronic hydrocephalus. 4. Chronic obstructive pulmonary disease. 5. Hypertension, followed by hypotension. 6. Chronic memory loss. 7. Anxiety. 8. Depression. 9. Osteoarthritis involving multiple joints. 10. Old cerebrovascular accident. 11. Left eye blindness with artificial eye. 12. Allergic rhinitis. 13. Hyperlipidemia. 14. Bilateral knee osteoarthritis. 15. Chronic kidney disease 2. 16. Abnormal glucose. 17. Anemia. 18. Gastroesophageal reflux disease with esophagitis. Consults Consults Monty Ortega MD Labs Labs Laboratory Tests Test 11/16/18 19:14 11/16/18 19:24 11/16/18 19:38 11/17/18 00:50 Urine Collection Type U cath Urine Color Yellow Urine Clarity Turbid Urine pH 6.0 Urine Specific [place] 1.025 Urine Protein Negative mg/dL (NEG-TRACE) Urine Glucose (UA) Negative mg/dL (NEG) Urine Ketones (Stick) Negative mg/dL (NEG) Urine Blood Negative (NEG) Urine Nitrite Negative (NEG) Urine Bilirubin Negative (NEG) Urine Urobilinogen Dipstick 1.0 mg/dL (0.2 mg/dL) Urine Leukocyte Esterase Negative (NEG) Urine RBC 0 /HPF (0-2) Urine WBC 0 /HPF (0-4) Urine Squamous Epithelial Cells Few /LPF Urine Amorphous Sediment Present /HPF Urine Bacteria 0 /HPF (0-FEW) Urine Hyaline Casts Many /HPF Urine Mucus Marked /LPF Urine Opiates Screen Neg (NEG) Urine Methadone Screen Neg (NEG) Urine Barbiturates Neg (NEG) Urine Phencyclidine Screen Neg (NEG) Urine Amphetamine/Methamphetamine Neg (NEG) Urine Benzodiazepines Screen Neg (NEG) Urine Cocaine Screen Neg (NEG) Urine Cannabinoids Screen Neg (NEG) Urine Ethyl Alcohol Neg (NEG) Glucose (Fingerstick) 126 mg/dL (70-99) White Blood Count 4.7 x10^3/uL (4.0-11.0) Red Blood Count 4.42 x10^6/uL (4.30-5.70) Hemoglobin 13.5 g/dL (13.0-17.5) Hematocrit 40.5 % (39.0-53.0) Mean Corpuscular Volume 92 fL (79-100) Mean Corpuscular Hemoglobin 31 pg (25-35) Mean Corpuscular Hemoglobin Concent 33 g/dL (31-37) Red Cell Distribution Width 12.9 % (11.5-14.5) Platelet Count 156 x10^3/uL (140-400) Neutrophils (%) (Auto) 66 % (31-73) Lymphocytes (%) (Auto) 23 % (24-48) Monocytes (%) (Auto) 7 % (0-9) Eosinophils (%) (Auto) 4 % (0-3) Basophils (%) (Auto) 1 % (0-3) Neutrophils # (Auto) 3.1 x10^3uL (1.8-7.7) Lymphocytes # (Auto) 1.1 x10^3/uL (1.0-4.8) Monocytes # (Auto) 0.3 x10^3/uL (0.0-1.1) Eosinophils # (Auto) 0.2 x10^3/uL (0.0-0.7) Basophils # (Auto) 0.0 x10^3/uL (0.0-0.2) Sodium Level 142 mmol/L (136-145) Potassium Level 4.7 mmol/L (3.5-5.1) Chloride Level 106 mmol/L (98-107) Carbon Dioxide Level 26 mmol/L (21-32) Anion Gap 10 (6-14) Blood Urea Nitrogen 29 mg/dL (8-26) Creatinine 1.3 mg/dL (0.7-1.3) Estimated GFR (Cockcroft-Gault) 53.4 BUN/Creatinine Ratio 22 (6-20) Glucose Level 133 mg/dL (70-99) Lactic Acid Level 2.0 mmol/L (0.4-2.0) Calcium Level 9.0 mg/dL (8.5-10.1) Magnesium Level 1.9 mg/dL (1.8-2.4) Total Bilirubin 0.2 mg/dL (0.2-1.0) Aspartate Amino Transf (AST/SGOT) 16 U/L (15-37) Alanine Aminotransferase (ALT/SGPT) 20 U/L (16-63) Alkaline Phosphatase 122 U/L (46-116) Ammonia < 10 mcmol/L (11-34) Creatine Kinase 61 U/L (39-308) Creatine Kinase MB (Mass) 1.0 ng/mL (0.0-3.6) Creatine Kinase MB Relative Index % (0-4) Troponin I Quantitative < 0.017 ng/mL (0.000-0.055) < 0.017 ng/mL (0.000-0.055) LC-Wcq-H-Type Natriuretic Peptide 72 pg/mL (0-449) Total Protein 6.5 g/dL (6.4-8.2) Albumin 3.4 g/dL (3.4-5.0) Albumin/Globulin Ratio 1.1 (1.0-1.7) Test 11/17/18 03:40 11/18/18 03:35 Lactic Acid Level 0.6 mmol/L (0.4-2.0) Troponin I Quantitative < 0.017 ng/mL (0.000-0.055) White Blood Count 4.4 x10^3/uL (4.0-11.0) Red Blood Count 3.88 x10^6/uL (4.30-5.70) Hemoglobin 12.0 g/dL (13.0-17.5) Hematocrit 35.7 % (39.0-53.0) Mean Corpuscular Volume 92 fL (79-100) Mean Corpuscular Hemoglobin 31 pg (25-35) Mean Corpuscular Hemoglobin Concent 34 g/dL (31-37) Red Cell Distribution Width 12.7 % (11.5-14.5) Platelet Count 138 x10^3/uL (140-400) Neutrophils (%) (Auto) 50 % (31-73) Lymphocytes (%) (Auto) 35 % (24-48) Monocytes (%) (Auto) 10 % (0-9) Eosinophils (%) (Auto) 5 % (0-3) Basophils (%) (Auto) 1 % (0-3) Neutrophils # (Auto) 2.2 x10^3uL (1.8-7.7) Lymphocytes # (Auto) 1.5 x10^3/uL (1.0-4.8) Monocytes # (Auto) 0.4 x10^3/uL (0.0-1.1) Eosinophils # (Auto) 0.2 x10^3/uL (0.0-0.7) Basophils # (Auto) 0.0 x10^3/uL (0.0-0.2) Sodium Level 141 mmol/L (136-145) Potassium Level 3.9 mmol/L (3.5-5.1) Chloride Level 106 mmol/L (98-107) Carbon Dioxide Level 28 mmol/L (21-32) Anion Gap 7 (6-14) Blood Urea Nitrogen 19 mg/dL (8-26) Creatinine 1.0 mg/dL (0.7-1.3) Estimated GFR (Cockcroft-Gault) 72.3 Glucose Level 95 mg/dL (70-99) Calcium Level 8.8 mg/dL (8.5-10.1) Brief hospital course Brief hospital course This 78-year-old male who lives at home with the family had dinner and then went to the bathroom. In the bathroom, he had a syncopal episode and he was unresponsive or poorly responsive for about 7 minutes as per the family. He did not fall and the two grandsons helped him to get up and get him out of the bathroom. 911 was called. As per daughter, the patient was diaphoretic and clammy. The patient did not have any episodes of low blood pressure or dizziness or any cardiac symptoms previously. The patient had good bowel movement after he came to the hospital. He did not have any nausea, vomiting or leg pain. He has been walking and the home health nurses just discharged him last week. There is no history of seizures or any focal weakness. Because of the syncope, the patient was admitted for further evaluation and management. For more details regarding the past history, family history, social history, surgical history and other details, please refer to History and Physical. We will consult Dr. Short for Cardiology evaluation and management for syncope. I will also consult Dr. Ortega for Neurology evaluation and management. The patient has abnormal CT of the abdomen. The patient has had bilateral renal cysts in the past, so I will go ahead and order a complete renal sonogram. For details, please refer to the orders. Condition and treatment options extensively discussed with the patient and her daughter on admission. We will order PT, OT, speech therapy evaluation. Syncope - EEG does not show any changes. Monitor showed mild bradycardia at night. Echocardiogram- The left ventricle is normal size. The left ventricular systolic function is normal and the ejection fraction is within normal range. The Ejection Fraction is 55-60%. There is mild concentric left ventricular hypertrophy. There is mild valvular aortic stenosis. Doppler and Color Flow revealed no significant aortic regurgitation. Doppler and Color Flow revealed trace to mild mitral valve regurgitation. Doppler and Color Flow revealed trace tricuspid valve regurgitation. Discussed with daughter extensively yesterday and today on the phone. Condition, treatment, options with her including the renal cysts. I will order SNF screen for [facility]. [employer] Advisor had told him that he may need to have cardiac monitoring as outpatient. Renal cysts- right greater than left. Right renal cyst is complex. Patient has had cysts since 2013. Acute metabolic encephalopathy- patient became more agitated and confused yesterday afternoon and could not be discharged. Last night he slept better and this morning he sleeping and I am unable to wake him up but earlier he was up and ate breakfast and as per staff was more appropriate. Discussed with social worker palliative care. It is recommended that he goes to [facility] unit with PT OT but family cannot afford the co-pay so they have chosen to take him home with home health services and PT OT. Patient's condition is improving but his long-term as well as short-term prognosis is very poor. Medications Medications reviewed and reconciled for discharge. Allergy Allergies Coded Allergies Type Severity Reaction Last Updated Verified No Known Medication Allergies Allergy Unknown 06/03/17 Yes codeine Adverse Reaction Mild Shaky and GI Upset 05/23/17 Yes Follow up in 5 days. DISPOSITION: Home health services Comments Discharge Management - 35 minutes. For other details please refer to discharge instructions DANIAL GUZMAN MD November 19, 2018 10:15
[2018-11-19 10:32] VITALS: BP 128/65
--- NOTE | 2018-11-19 10:48 | NUR ---
SS following up with discharge planning. SS spoke with pt's POA, [facility], , via phone. [facility] reported that they could not afford 20% co-pay for intermediate unit and requested pt return to home with [facility], ; fax [phone]. Dr. Mims notified. SS phoned and faxed referral and discharge orders to [facility]. Pt's POA stated that she would come to pick up driver pt at 1500. Pt's RN notified.
--- NOTE | 2018-11-19 13:38 | PDOC ---
PROGRESS NOTES Assessment Assessment Syncopal episode. Generalized weakness. Gait disorder. Falls. Urinary and bowel dysfunction. Colpocephaly, congenital. Agenesis of the corpus callosum, congenital. Ventriculomegaly. CHF. COPD. HTN. HLD. GERD. Left eye blindness, congenital. Dementia features. Degenerative spine disease. RECOMMENDATIONS/PLAN: Treat medical diseases. Consulted . OT/PT Discussed with his daughter at bedside on 11/18/18. EEG on 11/17/18: No seizure activity. 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 He was reportedly seen at but no indication for surgical intervention. He had syncopal episode and fall again this time for hospitalization. No focalized motor deficits reported. PAST MEDICAL HISTORY: Hypoxic respiratory failure secondary to acute eosinophilic pneumonia and was admitted previously in 06/2017, last admission was in 04/2018. At that time was for abdominal pain. 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 The patient has a history of hypertension, but previously his blood pressures were low, so blood pressure medications, there was lisinopril and was discontinued; has hyperlipidemia, bilateral knee osteoarthritis, right lower lobe pulmonary nodule, gastroesophageal reflux disease with esophagitis, history of obstructive sleep apnea with obesity hypoventilation syndrome, noncompliant with CPAP, history of appendectomy and knee surgery, moderate protein-calorie malnutrition. The patient also has obstructive sleep apnea, slow transit constipation, anemia PAST SURGICAL HISTORY: Right inguinal hernia repair, arthroscopic knee surgery of the right knee, cyst removed from the right groin, previously has had appendectomy. ALLERGIES: ALLERGIC TO CODEINE. FAMILY HISTORY: noncontributory. SOCIAL HISTORY: Past history of smoking. The patient has had history of drug abuse, but has been clean for about 6 years. No history of alcoholism. MEDICATIONS: Refer to MAR REVIEW OF SYSTEMS: Constitutional: No malnutrition, weight loss, cachexia. Head: No recent traumatic brain or head injury. Skin: No edema, or rash. Ear: No infection. Eyes: Left eye blindness. Nose: No bleeding or purulent discharges. Hearing: Hearing decrease. Neck: No injury. Cardiac: HTN, HLD. Pulmonary: COPD. GI: GERD. Urinary/genital: UTI. Endocrinologic: No cousin face, craniofacial dysmorphism, polydactyly. Skeletomuscular: Generalized weakness. Neurological: see HP. Psychiatric: Hx of drug use. Otherwise, not [id number] review of systems. PHYSICAL EXAMINATION: General appearance is in subacute distress. HEENT: Normocephalic and nontraumatic. Eyes, nose, ears, and throat are unremarkable. Neck is supple. No lymphadenopathy. No crepitus. Cardiovascular: S1, S2, regular rate and rhythm. Pulmonary: Mildly decreased to auscultation bilaterally. Abdomen: Bowel sounds are positive. Extremities: No rash, lesions, or edema. No restriction of range of motion NEUROLOGICAL EXAMINATION: Awake. Not oriented to time, but knew place and person. Right pupil reactive to light. Nystagmus persistent. Left eye blindness. EOMI. CN: no acute focal findings. Muscle tone: Increased. Muscle strength: 4+ DTR: 2+ UE, 3 at knee. Plantar reflex: Neutral response bilaterally Gait: not examined in bed. Sensory exam: no abnormal findings. Chronic cerebellar signs elicited. F-T-N test not accurate. Objective Objective Vital Signs Date Time Temp Pulse Resp B/P (MAP) Pulse Ox O2 Delivery O2 Flow Rate FiO2 11/19/18 10:32 97.9 66 18 128/65 (86) 98 Nasal Cannula 2.0 97.9 Intake and Output 11/19/18 06:59 Intake Total 240 ml Output Total 725 ml Balance -485 ml Intake Oral 240 ml Output Urine Total 725 ml Vitals Signs Vitals VS - Last 72 Hours, by Label Date Time Temp Pulse Resp B/P (MAP) Pulse Ox O2 Delivery O2 Flow Rate FiO2 11/19/18 10:32 97.9 66 18 128/65 (86) 98 Nasal Cannula 2.0 97.9 11/19/18 08:51 63 130/60 11/19/18 08:09 98 Nasal Cannula 2.0 11/19/18 08:00 Nasal Cannula 2.0 11/19/18 07:16 97.5 63 18 130/60 (83) 99 Nasal Cannula 2.0 97.5 11/19/18 03:04 98.4 64 20 132/60 (84) 100 Nasal Cannula 2.0 98.4 11/18/18 23:10 98.4 86 20 106/55 (72) 98 Nasal Cannula 2.0 98.4 11/18/18 20:35 100 Nasal Cannula 2.0 11/18/18 19:29 Nasal Cannula 2.0 11/18/18 19:15 98.1 90 20 86/43 (57) 98 Nasal Cannula 2.0 98.1 11/18/18 12:59 100 Nasal Cannula 2.0 11/18/18 11:00 98.1 74 18 111/56 (74) 98 Nasal Cannula 2.0 98.1 11/18/18 08:35 86 154/78 11/18/18 08:00 Nasal Cannula 2.0 11/18/18 07:48 100 Nasal Cannula 2.0 11/18/18 07:00 98.0 66 18 110/68 (82) 99 Nasal Cannula 2.0 98.0 Comment Review of Relevant I have reviewed the following items yadi (where applicable) has been applied. ARMANDO FERRER MD November 19, 2018 13:38
[2018-11-19 14:03] VITALS: BP 110/60
--- NOTE | 2018-11-19 16:06 | PDOC ---
PROGRESS NOTES Subjective Subjective No new complaints. Objective Objective Vital Signs Date Time Temp Pulse Resp B/P (MAP) Pulse Ox O2 Delivery O2 Flow Rate FiO2 11/19/18 15:34 97 Room Air 11/19/18 14:03 98.0 75 18 110/60 (77) 2.0 98.0 Intake and Output 11/19/18 07:00 Intake Total 240 ml Output Total 725 ml Balance -485 ml Intake Oral 240 ml Output Urine Total 725 ml Physical Exam Physical Exam He is sitting at edge of bed and he does not seem to be in any acute distress. Assessment Assessment Problems Medical Problems: (1) Syncope Status: Acute Plan Plan of Care Agree with plans for home with family. Comment Review of Relevant I have reviewed the following items yadi (where applicable) has been applied. Labs Laboratory Tests Test 11/18/18 03:35 White Blood Count 4.4 x10^3/uL (4.0-11.0) Red Blood Count 3.88 x10^6/uL (4.30-5.70) Hemoglobin 12.0 g/dL (13.0-17.5) Hematocrit 35.7 % (39.0-53.0) Mean Corpuscular Volume 92 fL (79-100) Mean Corpuscular Hemoglobin 31 pg (25-35) Mean Corpuscular Hemoglobin Concent 34 g/dL (31-37) Red Cell Distribution Width 12.7 % (11.5-14.5) Platelet Count 138 x10^3/uL (140-400) Neutrophils (%) (Auto) 50 % (31-73) Lymphocytes (%) (Auto) 35 % (24-48) Monocytes (%) (Auto) 10 % (0-9) Eosinophils (%) (Auto) 5 % (0-3) Basophils (%) (Auto) 1 % (0-3) Neutrophils # (Auto) 2.2 x10^3uL (1.8-7.7) Lymphocytes # (Auto) 1.5 x10^3/uL (1.0-4.8) Monocytes # (Auto) 0.4 x10^3/uL (0.0-1.1) Eosinophils # (Auto) 0.2 x10^3/uL (0.0-0.7) Basophils # (Auto) 0.0 x10^3/uL (0.0-0.2) Sodium Level 141 mmol/L (136-145) Potassium Level 3.9 mmol/L (3.5-5.1) Chloride Level 106 mmol/L (98-107) Carbon Dioxide Level 28 mmol/L (21-32) Anion Gap 7 (6-14) Blood Urea Nitrogen 19 mg/dL (8-26) Creatinine 1.0 mg/dL (0.7-1.3) Estimated GFR (Cockcroft-Gault) 72.3 Glucose Level 95 mg/dL (70-99) Calcium Level 8.8 mg/dL (8.5-10.1) Medications Current Medications Lorazepam (Ativan) 2 mg STK-MED ONCE .ROUTE ; Start 11/16/18 at 20:16; Stop 11/16/18 at 20:17; Status DC Iohexol (Omnipaque 300 Mg/ml) 60 ml 1X ONCE IV Last administered on 11/16/18at 20:57; Start 11/16/18 at 20:30; Stop 11/16/18 at 20:31; Status DC Info (CONTRAST GIVEN -- Rx MONITORING) 1 each PRN DAILY PRN MC SEE COMMENTS; Start 11/16/18 at 20:30; Stop 11/18/18 at 20:29; Status DC Lorazepam (Ativan) 1 mg 1X ONCE IV Last administered on 11/16/18 20:21; Start 11/16/18 at 21:15; Stop 11/16/18 at 21:18; Status DC Acetaminophen (Tylenol) 325 mg DAILY PRN PO PAIN Last administered on 11/18/18at 20:10; Start 11/17/18 at 09:00 Albuterol Sulfate (Ventolin Neb Soln) 2.5 mg TID NEB Last administered on 11/19/18 15:34; Start 11/17/18 at 09:00 Citalopram Hydrobromide (CeleXA) 10 mg DAILY PO Last administered on 11/19/18 08:51; Start 11/17/18 at 09:00 Fluticasone Propionate (Flonase) 2 spray DAILY NS Last administered on 11/19/18 08:52; Start 11/17/18 at 09:00 Lisinopril (Prinivil) 20 mg DAILY PO Last administered on 11/19/18 08:51; Start 11/17/18 at 09:00 Potassium Chloride (Klor-Con) 10 meq BIDAFTMEAL PO Last administered on 11/19/18 08:51; Start 11/17/18 at 09:00 Simvastatin (Zocor) 10 mg QHS PO Last administered on 11/18/18 20:10; Start 11/17/18 at 21:00 Tamsulosin HCl (Flomax) 0.4 mg DAILY PO Last administered on 11/19/18 08:51; Start 11/17/18 at 09:00 Famotidine (Pepcid) 40 mg DAILY PO Last administered on 11/19/18 08:51; Start 11/17/18 at 09:30 Montelukast Sodium (Singulair) 10 mg QHS PO Last administered on 11/18/18 2 0:10; Start 11/17/18 at 21:00 Multivitamins (Thera M Plus) 1 tab DAILY PO Last administered on 11/19/18 08:51; Start 11/17/18 at 09:30 Pantoprazole Sodium (Protonix) 40 mg DAILYAC PO Last administered on 11/19/18 08:51; Start 11/17/18 at 09:30 Active Scripts Active Klor-Con 10 (Potassium Chloride) 10 Meq Tablet.er 10 Meq PO BIDAFTMEAL 30 Days Proair Hfa Inhaler (Albuterol Sulfate) 8.5 Gm Hfa.aer.ad 2 Puff INH PRN Q6HRS PRN Albuterol Sulfate Neb Soln (Albuterol Sulfate) 2.5 Mg/3 Ml Vial.neb 2.5 Mg NEB TID Reported Lisinopril 20 Mg Tablet 20 Mg PO DAILY Omeprazole 20 Mg Tablet.dr 20 Mg PO DAILY Tamsulosin Hcl 0.4 Mg Cap.er.24h 1 Cap PO DAILY Tylenol (Acetaminophen) 325 Mg Tablet 325 Mg PO DAILY PRN Famotidine 40 Mg Tablet 40 Mg PO DAILY Montelukast Sodium Tablet (Montelukast Sodium) 10 Mg Tablet 10 Mg PO DAILY Simvastatin 10 Mg Tablet 10 Mg PO DAILY Flonase (Fluticasone Propionate) 16 Gm [place].susp 2 Sprays NS DAILY Multi Vitamin Daily (Multivitamin) 1 Each Tablet 1 Each PO DAILY Citalopram Hbr (Citalopram Hydrobromide) 10 Mg Tablet 10 Mg PO DAILY Vitals/I & O Vital Sign - Last 24 Hours 11/18/18 11/18/18 11/18/18 11/18/18 19:15 19:29 20:35 23:10 Temp 98.1 98.4 98.1 98.4 Pulse 90 86 Resp 20 20 B/P (MAP) 86/43 (57) 106/55 (72) Pulse Ox 98 100 98 O2 Delivery Nasal Cannula Nasal Cannula Nasal Cannula Nasal Cannula O2 Flow Rate 2.0 2.0 2.0 2.0 11/19/18 11/19/18 11/19/18 11/19/18 03:04 07:16 08:00 08:09 Temp 98.4 97.5 98.4 97.5 Pulse 64 63 Resp 20 18 B/P (MAP) 132/60 (84) 130/60 (83) Pulse Ox 100 99 98 O2 Delivery Nasal Cannula Nasal Cannula Nasal Cannula Nasal Cannula O2 Flow Rate 2.0 2.0 2.0 2.0 11/19/18 11/19/18 11/19/18 11/19/18 08:51 10:32 14:03 15:34 Temp 97.9 98.0 97.9 98.0 Pulse 63 66 75 Resp 18 18 B/P (MAP) 130/60 128/65 (86) 110/60 (77) Pulse Ox 98 97 97 O2 Delivery Nasal Cannula Nasal Cannula Room Air O2 Flow Rate 2.0 2.0 Intake and Output 11/18/18 11/18/18 11/19/18 15:00 23:00 07:00 Intake Total 0 ml 240 ml Output Total 450 ml 275 ml Balance -450 ml 0 ml -35 ml SAEID WOODARD MD November 19, 2018 16:06
--- NOTE | 2018-11-19 16:23 | NUR ---
Discharge Note: PARI HARDEN Discharge instructions and discharge home medications reviewed with Family Member and a copy given. All questions have been answered and understanding verbalized. The following instructions and handouts were given: Syncope Discontinued lines and drains: IV Patient discharged to Home w/services with Family Member via Wheelchair
== END 2018-11-19 16:20 | disposition home health service (06) | DRG 73 ==
LOC: ER 19:05 → 2 SOUTH 21:40
PROVIDERS: ADMIT Internal Medicine; ATTEND Internal Medicine
DX: G90.8 Other disorders of autonomic nervous system (principal); G93.41 Metabolic encephalopathy; Q04.0 Congenital malformations of corpus callosum; J96.01 Acute respiratory failure with hypoxia; I50.42 Chronic combined systolic (congestive) and diastolic (congestive) heart failure; I13.0 Hypertensive heart and chronic kidney disease with heart failure and stage 1 through stage 4 chronic kidney disease, or unspecified chronic kidney disease; E66.2 Morbid (severe) obesity with alveolar hypoventilation; G91.2 (Idiopathic) normal pressure hydrocephalus; R55 Syncope and collapse; I95.9 Hypotension, unspecified; M17.0 Bilateral primary osteoarthritis of knee; K21.0 Gastro-esophageal reflux disease with esophagitis; J44.9 Chronic obstructive pulmonary disease, unspecified; I25.10 Atherosclerotic heart disease of native coronary artery without angina pectoris; N18.2 Chronic kidney disease, stage 2 (mild); F41.9 Anxiety disorder, unspecified; F03.90 Unspecified dementia, unspecified severity, without behavioral disturbance, psychotic disturbance, mood disturbance, and anxiety; E78.00 Pure hypercholesterolemia, unspecified; R62.7 Adult failure to thrive; E11.22 Type 2 diabetes mellitus with diabetic chronic kidney disease; J30.9 Allergic rhinitis, unspecified; F32.9 Major depressive disorder, single episode, unspecified; E78.5 Hyperlipidemia, unspecified; D63.8 Anemia in other chronic diseases classified elsewhere; K57.90 Diverticulosis of intestine, part unspecified, without perforation or abscess without bleeding; H54.8 Legal blindness, as defined in USA; G93.89 Other specified disorders of brain; I25.5 Ischemic cardiomyopathy; I35.0 Nonrheumatic aortic (valve) stenosis; N28.1 Cyst of kidney, acquired; Z82.49 Family history of ischemic heart disease and other diseases of the circulatory system; Z80.9 Family history of malignant neoplasm, unspecified; Z83.3 Family history of diabetes mellitus; Z82.3 Family history of stroke; Z86.73 Personal history of transient ischemic attack (TIA), and cerebral infarction without residual deficits; Z87.11 Personal history of peptic ulcer disease; Z88.5 Allergy status to narcotic agent; Z90.49 Acquired absence of other specified parts of digestive tract; Z95.5 Presence of coronary angioplasty implant and graft; Z91.19 Patient's noncompliance with other medical treatment and regimen
CPT/HCPCS: 36415; 70450; 71045; 74177; 76770; 80048; 80053; 80307; 81001; 82140; 82553; 82962; 83605; 83735; 83880; 84484; 85025; 93005; 93306; 94640; 94760; 95816; 96374; J2060; J7613; Q9967; 99285-25